=== PATIENT | female | born 1950 | race Caucasian/White ===

== ENCOUNTER 2022-03-18 12:01 | Outpatient (REF) | payer MEDICARE, BC, SELFPAY ==
[2022-03-18 13:42] LABS: Cholesterol 190 mg/dL; HDL Cholesterol 63 mg/dL; LDL Cholesterol Calculated 115 mg/dl; Triglycerides 64 mg/dL
[2022-03-18 13:58] LABS: Estimated Average Glucose 97 mg/dL
== END 2022-03-18 12:02 | disposition home or self-care (01) ==
LOC: HO.LAB 12:01
PROVIDERS: Visit Provider Psychiatry & Neurology Psychiatry
DX: Z79.899 Other long term (current) drug therapy (principal)
CPT/HCPCS: 36415; 80061; 83036

== ENCOUNTER 2023-03-30 12:34 | Inpatient (IN) | payer MEDICARE, BC, SELFPAY ==
[2023-03-30] VITALS (8 sets, daily range): BP systolic 94–136; BP diastolic 47–72; PULSE 71–97; RESP 11–18; TEMP 36.2–36.6; O2SAT 94–100; BMI 21.9
--- NOTE | 2023-03-30 | ECG_ITS ---
Test Reason : qrs Blood Pressure : / mmHG Vent. Rate : 076 BPM Atrial Rate : 076 BPM P-R Int : 154 ms QRS Dur : 122 ms QT Int : 454 ms P-R-T Axes : 062 -15 044 degrees QTc Int : 510 ms Normal sinus rhythm Left bundle branch block Abnormal ECG When compared with ECG of 30-MAR-2023 16:21, No significant change was found Referred By: Rex Pickering Electronically Signed By:MARY MATIAS MD
--- NOTE | 2023-03-30 12:38 | ECG_ITS ---
Test Reason : OVERDOSE Blood Pressure : / mmHG Vent. Rate : 080 BPM Atrial Rate : 080 BPM P-R Int : 152 ms QRS Dur : 134 ms QT Int : 444 ms P-R-T Axes : 051 -25 058 degrees QTc Int : 512 ms Normal sinus rhythm Left bundle branch block Abnormal ECG No previous ECGs available Referred By: Generic ED Physician Electronically Signed By:MARY MATIAS MD
--- NOTE | 2023-03-30 12:40 | ED.GENADULT ---
HPI - General Adult General Chief complaint: Overdose Stated complaint: SEC 12 FROM HOME,SI ATTEMPT BY OD ON RX PER EMS Time Seen by Provider: 03/30/23 12:40 Source: patient and EMS Mode of arrival: EMS Limitations: no limitations History of Present Illness HPI narrative: Patient is a 72 year old assigned female at with a history of bipolar disorder, anxiety, and hypothyroidism presenting to the emergency department today after a suicide attempt. Patient states that she took a total of 10 0.5mg of Lorazepam and an unknown amount of Ziprasidon. Patient states that she was trying to harm herself. Patient denies any HI. Patient denies any dizziness, lightheadedness, abdominal pain, nausea, vomiting, fever, chills, blurry vision, double vision, loss of vision, chest pain, difficulty breathing, shortness of breath, back pain, night sweats, pain with urination, increased urinary frequency, increased urinary urgency, blood in her urine or stool, syncope or a near syncopal episode, recent trauma or falls, bowel incontinence, bladder incontinence, bowel retention, bladder retention, or any other complaints at this time. Onset (ago): minute(s) (patient ingested medications at noon) Relieving factors: none Exacerbating factors: none Associated symptoms: denies other symptoms Treatments prior to arrival: none Related Data Allergies Allergy/AdvReac Type Severity Reaction Status Date / Time atorvastatin [From LIPITOR] Allergy Intermediate PAIN Verified 03/30/23 13:26 Review of Systems Constitutional: Constitutional: Reports no additional constitutional complaints, Denies chills, Denies fever(s) and Denies night sweats Eyes: Eyes: Reports no additional eye complaints, Denies blurry vision, Denies change in vision, Denies diplopia, Denies eye discharge, Denies loss of vision and Denies eye pain ENT: Denies dizziness Cardiovascular: Cardiovascular: Reports no additional cardiovascular complaints, Denies chest pain, Denies lightheadedness, Denies Loss of Consciousness and Denies dyspnea Respiratory: Respiratory: Reports no additional respiratory complaints and Denies dyspnea Gastrointestinal: Gastrointestinal: Reports no additional gastrointestinal complaints, Denies abdominal pain, Denies melena, Denies hematochezia, Denies change in bowel habits and Denies change in stool character Genitourinary: Genitourinary: Denies hematuria, Denies urinary frequency, Denies dysuria, Denies urinary incontinence, Denies urinary hesitancy and Denies urinary urgency Musculoskeletal: Musculoskeletal: Reports no additional musculoskeletal complaints, Denies numbness and Denies tingling Neurologic: Denies dizziness, Denies loss of vision, Denies numbness and Denies tingling Psychiatric: Psychiatric: Denies homicidal ideation and Reports suicidal ideation Endocrine: Endocrine: Reports no additional endocrine complaints Hematologic/Lymphatic: Hematologic/Lymphatic: Reports no additional hematologic/lymphatic complaints Allergic/Immunologic: Allergic/Immunologic: Reports no additional allergic/immunologic complaints PMFSH Past Medical History Attestation statement: The following information was validated with the patient. Source: old records reviewed and nursing notes reviewed Medical History Uterine fibroid Spinal stenosis of lumbar region Sleep apnea Irritable bowel syndrome Hypothyroidism Hyperlipidemia Functional bowel disorder (08/30/22) Dyspepsia (04/27/22) Bipolar disorder (03/14/23) Anxiety disorder (02/16/21) Social History Advance Directives: No Advance Directives Information Provided: No Physical Exam ED Vital Signs: Vital Signs - 24 hr 03/30/23 12:40 03/30/23 13:23 03/30/23 13:54 Temperature 97.9 F Pulse Rate 79 93 85 Respiratory Rate 18 11 L 13 Blood Pressure 119/63 136/67 94/47 L Pulse Oximetry 95 98 Oxygen Delivery Method Room Air Room Air 03/30/23 14:23 Temperature Pulse Rate 85 Respiratory Rate 12 Blood Pressure 126/65 Pulse Oximetry 98 Oxygen Delivery Method Room Air BMI result Body Mass Index 21.9 Const General: cooperative, no acute distress, alert and awake Nutritional Appearance: well nourished Orientation/consciousness: patient oriented x3 Limitations: no limitations HENMT Head: Yes normal to inspection and Yes atraumatic Ears: hearing grossly normal bilaterally and external ears normal General nose exam: Normal external nose present, no nasal discharge noted and no epistaxis Face and sinus: Yes normal facial exam, No abrasion and No laceration Mouth: Normal oral and palatal mucosa present, no drooling and no muffled voice Eyes General: appearance normal, both eyes and all related structures Periorbital: periorbital findings normal Eyelids: Yes eyelids normal Conjunctivae: conjunctivae normal Pupils: Equal, round and reactive pupils present EOM: EOMs intact bilaterally Neck Neck: Yes normal visual inspection, Yes full ROM and Yes no lymphadenopathy Chest Chest palpation & inspection: normal inspection of the chest Resp Effort & Inspection: normal respiratory effort and able to speak in complete sentences Auscultation: clear to auscultation bilaterally Cardio Rate: regular rate Rhythm: regular rhythm GI Inspection: Yes normal to inspection Neuro General: patient oriented x3 and moves all extremities Cranial nerves: Yes Equal, round and reactive pupils present Cognition (Neuro): normal cognition Motor exam (neuro): 5/5 motor strength present throughout Sensory Exam: Normal double simultaneous stimulation for sensation Coordination: [id number] test normal Extrem General: Yes normal to inspection, Yes full ROM and Yes capillary refill normal Psych Appearance: grossly normal Mental Status: mental status grossly normal Affect: Sad affect present Attitude: Guarded attititude/behavior present Thought content: Suicidality present Course Course Course Narrative: Poison control was contacted and recommended keeping the patient's potassium above 4, keep magnesium above 2, performing 2 hour repeat EKGs, checking a magnesium level, and checking a phosphorus level. Medications Administered Discontinued Medications Generic Name Dose Route Start Last Admin Trade Name Freq PRN Reason Stop Dose Admin Charcoal 50 gm 03/30/23 12:58 03/30/23 13:08 Activated Charcoal 50 Gm/240 Ml Oral.Susp PO 03/30/23 12:59 50 gm ONCE ONE Administration Sodium Chloride 1,000 mls @ 999 mls/hr 03/30/23 13:30 03/30/23 13:36 Ns IV 03/30/23 14:30 999 mls/hr .[facility]1H1M [facility] Administration Medical Decision Making Medical Decision Making [facility] Narrative: Patient is a 72 year old assigned female at with a history of bipolar disorder, anxiety, and hypothyroidism presenting to the emergency department today after an intentional overdose. Patient's physical exam showed an arousable but sleepy individual. Patient was immediately given activated charcoal of which she drank all of it. Patient's blood work was unremarkable. Patient's initial and 2 hour repeat EKGs were unremarkable. Spoke with poision control who recommended seizure precautions, repeat EKGs every 2 hours, keeping her potassium above 4, keeping her magnesium above 2, and treating any hypotension with IV NS. Patient given 1 liter of NS and 1 gram of magnesium. I spoke with the hospitalist who agreed to admission. I explained my physical exam findings as well as all test results to the patient. I answered all questions asked by the patient. Patient verbalized agreement and understanding with this treatment plan and admission. Differential Diagnosis Differential Diagnoses: The differential diagnosis associated with the presentation includes Intentional overdose Suicidal ideation Suicide attempt Admission/Observation Consideration of admission/observation: Escalation of care including admission/observation considered Patient admitted. Consult Healthcare Provider Management of the patient was discussed with: Hospitalist (agreed to admission) Lab Data MDM Lab Attestation statement: I reviewed the patient's lab results. My interpretation of these studies and their corresponding values is that they are grossly normal. 03/30/23 13:02 03/30/23 13:02 Labs: Lab Results 03/30/23 03/30/23 Range/Units 13:02 13:07 WBC 9.4 (4.8-10.8) X10*3/uL RBC 3.49 L (4.20-5.50) X10*6/uL Hgb 10.0 L (12.0-16.0) g/dl Hct 30.2 L (37.0-47.0) % MCV 86.5 (80.0-98.0) fL MCH 28.7 (27.0-33.0) pg MCHC 33.1 (31.0-35.0) g/dl RDW 13.7 (11.0-16.0) % Plt Count 317 (160-400) X10*3/uL MPV 9.6 (9.4-12.3) fL Immature Gran % (Auto) 0.3 (0.0-0.4) % Neut % (Auto) 53.2 (45-73) % Lymph % (Auto) 39.3 (20-40) % [place]cho % (Auto) 5.7 (2-11) % Eos % (Auto) 1.1 (0-4) % Baso % (Auto) 0.4 (0-2) % Lymph # (Auto) 3.7 (1.2-4.9) X10*3/uL [place] # (Auto) 0.5 (0.1-1.2) X10*3/uL Eos # (Auto) 0.1 (0.0-0.4) X10*3/uL Baso # (Auto) 0.0 (0.0-0.2) X10*3/uL Abs Immat Gran (auto) 0.03 (0.00-0.03) X10*3/uL Absolute Neuts (auto) 5.0 (2.0-8.3) x10*3/uL Absolute Nucleated RBC 0.000 (0.0-0.012) X10*3/uL Nucleated RBC % (auto) 0.0 (0.0-0.2) /100WBC VBG pH 7.44 H (7.32-7.43) VBG pCO2 38 mmHg VBG pO2 66 mmHg VBG HCO3 26 (22-26) mmol/L VBG O2 Saturation 93.0 % VBG Base Excess 2.6 mmol/L Sodium 134 L (135-145) mmol/L Potassium 4.1 (3.3-5.1) mmol/L Chloride 102 (96-108) mmol/L Carbon Dioxide 25 (22-29) mmol/L Anion Gap 11 L (12-20) BUN 30 H (9-16) mg/dL Creatinine 0.87 (0.5-1.4) mg/dL Estim Creat Clear Calc 55.9 Estimated GFR > 60 Random Glucose 92 (60-115) mg/dL Calcium 9.1 (8.4-10.2) mg/dL Phosphorus 3.1 (2.7-4.5) mg/dL Magnesium 2.2 (1.6-2.6) mg/dL Total Bilirubin 0.3 (0.0-1.0) mg/dL AST 25 (5-31) U/L ALT 16 (0-31) U/L Alkaline Phosphatase 98 (39-117) U/L Ammonia 21 (13-55) umol/L Total Protein 7.0 (6.5-8.0) g/dL Albumin 3.9 (3.5-5.0) g/dL Salicylates < 5.0 L (15-30) mg/dL Acetaminophen < 3 (<30) mcg/mL Ethyl Alcohol < 10 mg/dL Independent Interpretation I performed an independent interpretation of an: EKG Interpretation: Vent. Rate: 080 BPM Atrial Rate: 080 BPM P-R Int: 152 ms QRS Dur: 134 ms QT Int: 444 ms P-R-T Axes: 051 -25 058 degrees QTc Int: 512 ms Normal sinus rhythm Left bundle branch block Abnormal ECG No previous ECGs available DD/ 1255 Vent. Rate: 083 BPM Atrial Rate: 083 BPM P-R Int: 164 ms QRS Dur: 140 ms QT Int: 466 ms P-R-T Axes: 051 -16 098 degrees QTc Int: 547 ms Normal sinus rhythm Left bundle branch block Abnormal ECG When compared with ECG of 30-MAR-2023 12:55, No significant change was found DD/ 1422 Independent Historian Clinical information obtained from an independent historian. History obtained from or confirmed by: EMS (EMS provided additional history and confirmed the history provided by the patient.) Critical Care Time Critical Care Time Critical Care Time: Yes Total Critical Care Time: 60 Attestation: I spent 60 minutes of Critical Care Time with this patient. This does not include time spent on separately reported billable procedures. Discharge Plan Discharge Clinical Impression: Overdose Patient Disposition: Admitted As Inpatient
[2023-03-30] MEDS: Activated charcoaL 50 GM/240 ML ORAL.SUSP PO (13:08)
[2023-03-30 13:09] LABS: MANUAL DIFF FLAG NO
[2023-03-30 13:10] LABS: Basophils Percent Auto 0.4 % (0-2); Eosinophils Absolute Auto 0.1 X10*3/uL (0.0-0.4); Eosinophils Percent Auto 1.1 % (0-4); Hematocrit 30.2 % (37.0-47.0); Imm Gran Abs Auto 0.03 X10*3/uL (0.00-0.03); Imm Gran Pct Auto 0.3 % (0.0-0.4); Lymphocytes Absolute Auto 3.7 X10*3/uL (1.2-4.9); Lymphocytes Percent Auto 39.3 % (20-40); Mean Corpuscular HGB Conc 33.1 g/dl (31.0-35.0); Mean Corpuscular Hemoglobin 28.7 pg (27.0-33.0); Mean Corpuscular Volume 86.5 fL (80.0-98.0); Mean Platelet Volume 9.6 fL (9.4-12.3); Monocytes Absolute Auto 0.5 X10*3/uL (0.1-1.2); Monocytes Percent Auto 5.7 % (2-11); Neutrophils Percent Auto 53.2 % (45-73); Platelet Count 317 X10*3/uL (160-400); Red Blood Count 3.49 X10*6/uL (4.20-5.50); Red Cell Distribution Width 13.7 % (11.0-16.0); White Blood Count 9.4 X10*3/uL (4.8-10.8)
[2023-03-30 13:12] LABS: VBG Base Excess 2.6 mmol/L; VBG HCO3 26 mmol/L (22-26); VBG pCO2 38 mmHg; VBG pH 7.44 (7.32-7.43); VBG pO2 66 mmHg
[2023-03-30 13:13] LABS: Venous Blood Gas Refer to POC result
--- OUTSIDE RECORDS SUMMARY | 2023-03-30 13:15 | XMS_ITS | Continuity of Care Document ---
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 Name Role Phone Julito Islas MD Primary Care Physician Encounter [facility] Date(s): 09/16/21 - 10/16/21 [facility] [address] [place] [address]- Attending Physician: Meche Byrd Admitting Physician: Meche Byrd Referring Physician: Meche Byrd Allergies, Adverse Reactions, Alerts Substance Reaction Severity Status Pravachol Active Lipitor Active Immunizations Given and Recorded Vaccine Date Status Refusal Reason SARS-CoV-2 (COVID-19) mRNA BNT-162b2 vac 08/20/20 Recorded SARS-CoV-2 (COVID-19) mRNA BNT-162b2 vac 07/29/20 Recorded influenza virus vaccine, inactivated 1 05/05/11 Gi mariusz Tet/Diphth/Acel, Pertussis (oldterm) 05/21/09 Give n Influenza Virus Vaccine (oldterm) 2 03/29/06 Given 1Admin Note: defers 2Admin Note: [employer] Medications Abilify 5 mg oral tablet See Instructions, one half tablet By Mouth Daily, Refills 0, Maintenance, 09/03/21 16:41:00 EDT, Instructions Replace Required Details, Partial fill upon patient request if the prescription is for a schedule II opioid drug. Start Date: 09/03/21 Status: Ordered chlorzoxazone 500 mg oral tablet 1 tablet = 500 mg, By Mouth, 3 times a day, PRN muscle pain or spasm, # 30 tablet, 1 Refills, Acute06/09/22 14:40:00 EST, 06/09/21 14:40:00 EST, Tablet, [facility]/pharmacy #[id number], Partial fill upon patientrequest if the prescription is for a schedule II op... Start Date: 06/09/21 Stop Date: 06/09/22 Status: Ordered divalproex sodium 500 mg oral tablet, extended release See Instructions, Take 2 tablets daily at night., # 180 tablet, 1 Refills, Soft Stop, 10/21/19 17:34:00 EDT, [facility], 170, cm, 06/10/19 9:14:00 EST, Height, 67.6, kg, 11/06/18 9:35:00 EDT, Dry Weight Start Date: 10/21/19 Status: Ordered docusate sodium 100 mg oral capsule 100 mg, 1, capsule, By Mouth, 2 times a day, PRN, # 60 capsule, Refills 5, Tot. Refills 5, Maintenance, for constipation, 06/23/21 15:20:00 EST, [id number] fill upon patient request if the prescriptio... Start Date: 06/23/21 Status: Ordered escitalopram 10 mg oral tablet 1 tablet = 10 mg, By Mouth, Daily, # 30 tablet, 0 Refills, Maintenance, 02/16/21 14:55:00 EDT, Tablet, Partial fill upon patient request if the prescription is for a schedule II opioid drug. Start Date: 02/16/21 Status: Ordered ezetimibe 10 mg oral tablet 1 tablet, By Mouth, Daily, # 90 tablet, 1 Refills, [facility], 170, cm, 02/22/21 13:12:00 EDT, Height, 61.8, kg, 02/07/20 14:54:00 EDT, Dry Weight Start Date: 06/03/21 Status: Ordered GaviLAX oral powder for reconstitution See Instructions, MIX 17 GRAMS IN 4 TO 8 OUNCES OF WATER AND DRINK DAILY NEEDED FOR CONSTIPATION, # 510 Gm, 5 Refills, [id number], 30, MIX 17 GRAMS IN 4 TO 8 OUNCES OF WATER AND DRINK DAILY NEEDED FOR CONSTIPATION, 170, cm, 07/21/21 14:41:0... Start Date: 07/22/21 Status: Ordered ketoconazole 2% topical cream 1 application, Topically, Daily, PRN foot rash, # 30 Gm, 2 Refills, Acute 10/22/21 8:35:00 EDT, 10/22/20 8:35:00 EDT, Cream, [facility]/pharmacy #[id number], Partial fill upon patient request if the prescription is for a schedule II opioid drug., 1 application Top... Start Date: 10/22/20 Stop Date: 10/22/21 Status: Ordered Lasix 20 mg oral tablet 20 mg, 1, tablet, By Mouth, Daily, # 90 tablet, Refills 3, Tot. Refills 3, Maintenance, 09/13/21 16:14:00 EDT, Route to Pharmacy Electronically, [facility]/pharmacy #[id number], Partial fill upon patient request if the prescription is for a schedule II opioid drug... Start Date: 09/13/21 Stop Date: 09/08/22 Status: Ordered LORazepam 1 mg oral tablet 1 tablet = 1 mg, By Mouth, Daily, PRN as needed for anxiety, 0 Refills, Maintenance, 07/21/21 15:00:00 EDT, Tablet, Partial fill upon patient request if the prescription is for a schedule II opioid drug. Start Date: 07/21/21 Status: Ordered omeprazole 20 mg oral enteric coated capsule 1 capsule = 20 mg, By Mouth, 2 times a day, # 60 each, 5 Refills, Maintenance, 06/15/21 11:38:00 EST, EC Capsule, [facility]/pharmacy #[id number], dose increase, 170, cm, 02/22/21 13:12:00 EDT, Height, 61.8, kg, 02/07/20 14:54:00 EDT, Dry Weight Start Date: 06/15/21 Status: Ordered ondansetron 4 mg oral tablet, disintegrating 1 tablet = 4 mg, By Mouth, Every 6 hours, PRN Nausea & Vomiting, # 30 each, 1 Refills, Acute 07/21/22 14:57:00 EDT, 07/21/21 14:57:00 EDT, Tablet, [facility]/pharmacy #[id number], Partial fill upon patient request if the prescription is for a schedule II opioid dr... Start Date: 07/21/21 Stop Date: 07/21/22 Status: Ordered Splint See Instructions, # 1 each, Refills 0, Tot. Refills 0, Maintenance, right wrist every night, 06/01/11 14:34:47 Start Date: 06/01/11 Status: Ordered Synthroid 0.125 mg oral tablet 1 tablet, By Mouth, Daily, # 90 tablet, 3 Refills, 05/25/21 8:45:00 EST, [facility], 170, cm, 02/22/21 13:12:00 EDT, Height, 61.8, kg, 02/07/20 14:54:00 EDT, Dry Weight Start Date: 05/25/21 Status: Ordered Vitamin B Complex oral tablet, extended release 1 tablet, By Mouth, Daily, 0 Refills, Maintenance, 08/21/17 9:42:08 EDT Start Date: 08/21/17 Status: Ordered Problem List Condition Effective Dates Status Health Status Inform ant COVID-19 virus infection(Confirmed) Active Gastritis(Confirmed) Active Hematuria(Confirmed) Active Hyperlipidemia(Confirmed) Active Hypothyroidism(Confirmed) Active Polyp of colon(Confirmed) Active Sleep apnea(Confirmed) Active Spinal stenosis of lumbar region(Confirmed) Active Uterine fibroids(Confirmed) Active Social History Social History Type Response Smoking Status Former smoker; Tobac co user in household: No entered on: 09/05/13 Sex
--- OUTSIDE RECORDS SUMMARY | 2023-03-30 13:15 | XMS_ITS | Continuity of Care Document ---
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 Name Role Phone Roshan DOZIER, Julito Dias Primary Care Physician [place] [facility] [place] [facility] [address] [place] [place] [address] All[facility]ies, Adverse Reactions, Alerts Substance Reaction Severity Status Pravachol Active Lipitor Active Immunizations Given and Recorded Vaccine Date Status Refusal Reason [id number] 12y+ bivalent booster vax 02/01/22 Recorded SARS-CoV-2 (COVID-19) mRNA-1273 vaccine 08/04/21 R ecorded SARS-CoV-2 (COVID-19) mRNA-1273 vaccine 03/04/21 R ecorded SARS-CoV-2 (COVID-19) mRNA BNT-162b2 vac 08/20/20 Recorded SARS-CoV-2 (COVID-19) mRNA BNT-162b2 vac 07/29/20 Recorded influenza virus vaccine, inactivated 1 05/05/11 Gi mariusz Tet/Diphth/Acel, Pertussis (oldterm) 05/21/09 Give n Influenza Virus Vaccine (oldterm) 2 03/29/06 Given 1Admin Note: defers 2Admin Note: [employer] Medications divalproex sodium 500 mg oral tablet, extended release See Instructions, Take 2 tablets daily at night., # 180 tablet, 1 Refills, Soft Stop, 10/21/19 17:34:00 EDT, [facility], 170, cm, 06/10/19 9:14:00 EST, Height, 67.6, kg, 11/06/18 9:35:00 EDT, Dry Weight Start Date: 10/21/19 Status: Ordered docusate sodium 100 mg oral capsule 100 mg, 1, capsule, By Mouth, 2 times a day, PRN, # 60 capsule, Refills 5, Tot. Refills 5, Maintenance, for constipation, 06/23/21 15:20:00 EST, Route to Pharmacy Electronically, [facility]/pharmacy #[id number], Partial fill upon patient request if the prescriptio... Start Date: 06/23/21 Status: Ordered ezetimibe 10 mg oral tablet 1 tablet, By Mouth, Daily, # 90 tablet, 1 Refills, [facility], 170, cm, 11/02/21 14:03:00 EDT, Height, 72.7, kg, 07/11/21 16:17:00 EST, Dry Weight Start Date: 11/09/21 Status: Ordered GaviLAX oral powder for reconstitution See Instructions, MIX 17 GRAMS IN 4 TO 8 OUNCES OF WATER AND DRINK DAILY NEEDED FOR CONSTIPATION, # 510 Gm, 5 Refills, [id number], 30, MIX 17 GRAMS IN 4 TO 8 OUNCES OF WATER AND DRINK DAILY NEEDED FOR CONSTIPATION, 170, cm, 07/21/21 14:41:0... Start Date: 07/22/21 Status: Ordered Geodon 40 mg oral capsule See Instructions, 1 capsule By Mouth daily at noontime, 0 Refills, Maintenance, 06/13/22 13:14:00 EST, Partial fill upon patient request if the prescription is for a schedule II opioid drug. Start Date: 06/13/22 Status: Ordered Lasix 20 mg oral tablet 20 mg, 1, tablet, By Mouth, Daily, # 90 tablet, Refills 3, Tot. Refills 3, Maintenance, 09/13/21 16:14:00 EDT, Route to Pharmacy Electronically, [facility]/pharmacy #[id number], Partial fill upon patient request if [...] day, # 60 each, 5 Refills, Maintenance, 04/27/22 16:12:00 EST, EC Capsule, [facility]/pharmacy #[id number], dose increase, 170, cm, 04/27/22 15:49:00 EST, Height, 72.7, kg, 07/11/21 16:17:00 EST, Dry Weight Start Date: 04/27/22 Status: Ordered Splint See Instructions, # 1 each, Refills 0, Tot. Refills 0, Maintenance, right wrist every night, 06/01/11 14:34:47 Start Date: 06/01/11 Status: Ordered sucralfate 1 gm oral tablet See Instructions, 1 tablet By Mouth 2 times a day before lunch and bedtime, # 60 each, Refills 5, Tot. Refills 5, Maintenance, 07/04/22 12:20:00 EST, Instructions Replace Required Details, [id number]... Start Date: 07/04/22 Status: Ordered Synthroid 0.125 mg oral tablet 1 tablet, By Mouth, Daily, # 90 tablet, 1 Refills, Maintenance, 03/10/22 7:13:00 EDT, [facility], 170, cm, 12/17/21 13:41:00 EDT, Height, 72.7, kg, 07/11/21 16:17:00 EST, Dry Weight Start Date: 03/10/22 Status: Ordered venlafaxine 150 mg oral capsule, extended release 150 mg, 1, capsule, By Mouth, Daily, Refills 0, Maintenance, 11/02/21 14:12:00 EDT, Partial fill upon patient request if the prescription is for a schedule II opioid drug. Start Date: 11/02/21 Status: Ordered Vitamin B Complex oral tablet, extended release 1 tablet, By Mouth, Daily, 0 Refills, Maintenance, 08/21/17 9:42:08 EDT Start Date: 08/21/17 Status: Ordered Problem List Condition Confirmation Course Effective Dates Status H ealth Status Informant COVID-19 virus infection Confirmed Active Gastritis Confirmed Active Hematuria Confirmed Active Hyperlipidemia Confirmed Active Hypothyroidism Confirmed Active Polyp of colon Confirmed Active Sleep apnea Confirmed Active Spinal stenosis of lumbar region Confirmed Active Uterine fibroids Confirmed Active Social History Social History Type Response Smoking Status Former smoker; Tobac co user in household: No entered on: 09/05/13 Sex Patient Care team information Care Team Personnel Name: Julito Islas MD Position: S Primary Care Physician Member Role: PCP Address: Address: [address] [place] [address] Adult [place] [address]- Care Team Related Persons Name: BHUPENDRA SAM Address: home [address] [place] [address] Name: ED TURPIN Address: home [address] [place] [address]
--- OUTSIDE RECORDS SUMMARY | 2023-03-30 13:15 | XMS_ITS | Continuity of Care Document ---
Author Name Unknown Organization [facility] Address [address] [place] [address]- Care Team Providers Care Home Office Claim Specialist Name Role Phone Julito Islas MD Primary Care Physician Encounter [facility] [place] Date(s): 08/30/22 - 09/06/22 [facility] [address] [place], [place] [address] Encounter Diagnosis Functional bowel disorder(Discharge Diagnosis) - 08/30/22 Attending Physician: Julito Islas MD Allergies, Adverse Reactions, Alerts Substance Reaction Severity Status Pravachol Active Lipitor Active Immunizations Given and Recorded Vaccine Date Status Refusal Reason [id number] 12y+ bivalent booster vax 02/01/22 Recorded SARS-CoV-2 [...] 1 Refills, Soft Stop, 10/21/19 17:34:00 EDT, [facility], 170, cm, 06/10/19 9:14:00 EST, Height, 67.6, kg, 11/06/18 9:35:00 EDT, Dry Weight Start Date: 10/21/19 Status: Ordered docusate sodium 100 mg oral capsule 100 mg, 1, capsule, By Mouth, 2 times a day, PRN, # 60 capsule, Refills 5, Tot. Refills 5, Maintenance, for constipation, 06/23/21 15:20:00 EST, Route to Pharmacy Electronically, [facility]/pharmacy #[id number], Partial fill upon patient request if the prescriptio... Start Date: 06/23/21 Status: Ordered ezetimibe 10 mg oral tablet 1 tablet, By Mouth, Daily, # 90 tablet, 1 Refills, [facility], 170, cm, 11/02/21 14:03:00 EDT, Height, 72.7, kg, 07/11/21 16:17:00 EST, Dry Weight Start Date: 11/09/21 Status: Ordered furosemide 20 mg oral tablet 1, tablet, By Mouth, Daily, # 90 tablet, Refills 1, Maintenance, 08/18/22 19:50:00 EDT, Route to Pharmacy Electronically, [id number], 170, cm, 07/04/22 11:47:00 EST, Height, 72.7, kg, 07/11/21 16:17:00 EST, Dry Weight Start Date: 08/18/22 Status: Ordered GaviLAX oral powder for reconstitution See Instructions, MIX 17 GRAMS IN 4 TO 8 OUNCES OF WATER AND DRINK DAILY NEEDED FOR CONSTIPATION, # 510 Gm, 5 Refills, [id number], 30, MIX 17 GRAMS IN 4 TO [...] opioid drug. Start Date: 06/13/22 Status: Ordered LORazepam 1 mg oral tablet 1 tablet = 1 mg, By Mouth, Daily, PRN as needed for anxiety, 0 Refills, Maintenance, 07/21/21 15:00:00 EDT, Tablet, Partial fill upon patient request if the prescription is for a schedule II opioid drug. Start Date: 07/21/21 Status: Ordered Metamucil 3.4 gm/5.2 gm oral powder for reconstitution = 3.4 Gm, By Mouth, Daily, dissolve in 8 oz of fluid, # 283 Gm, 1 Refills, Acute 08/31/23 11:42:00 EDT, 08/30/22 11:41:00 EDT, [facility]/pharmacy #[id number], Partial fill upon patient request if the prescription is for a schedule II opioid drug., 170, cm, 07/04/... Start Date: 08/30/22 Stop Date: 08/31/23 Status: Ordered omeprazole 20 mg oral enteric coated capsule 1 capsule = 20 mg, By Mouth, 2 times a day, # 60 each, 5 Refills, Maintenance, 04/27/22 16:12:00 EST, EC Capsule, [facility]/pharmacy #[id number], dose increase, 170, cm, 04/27/22 15:49:00 EST, Height, 72.7, kg, 07/11/21 16:17:00 EST, Dry Weight Start Date: 04/27/22 Status: Ordered Splint See Instructions, # 1 each, Refills 0, Tot. Refills 0, Maintenance, right wrist every night, 06/01/11 14:34:47 Start Date: 06/01/11 Status: Ordered sucralfate 1 gm oral tablet See Instructions, 2 tablet By Mouth 2 times a day before lunch and bedtime, # 120 each, Refills 5, Tot. Refills 5, Maintenance, 08/11/22 15:13:00 EDT, Instructions Replace Required Details, [id number]... Start Date: 08/11/22 Status: Ordered Synthroid 0.125 mg oral tablet 1 tablet, By Mouth, Daily, # 90 tablet, 1 Refills, Maintenance, 03/10/22 7:13:00 EDT, [facility], 170, cm, 12/17/21 13:41:00 EDT, Height, [...] region Confirmed Active Uterine fibroids Confirmed Active Diagnosis Diagnosis Type Effective Dates Health Status Clinical Service Informant Functional bowel disorder Discharge Diagnosis 08/30/22 Vital Signs Most recent to oldest [Reference Range]: 1 Height 170 cm (08/30/22 11:45 AM) Weight 69.09 kg (08/30/22 11:45 AM) Oxygen Saturation [94-100 %] 99 % (08/30/22 11:45 AM) Pulse Rate [55-90 bpm] 89 bpm (08/30/22 11:45 AM) Body Mass Index [18.5-24.99 kg/m2] 23.91 kg/m2 (08/30/22 11:45 AM) Blood Pressure [90-138/55-84 mm Hg] 132/ 77mm Hg (08/30/22 11:45 AM) Mode of Delivery (Oxygen) Room air (08/30/22 11:45 AM) Blood pressure sites Arm, right (08/30/22 11:45 AM) Weight Obtained Via Standing scale (08/30/22 11:45 AM) Social History Social History Type Response Smoking Status Former smoker; Tobac co user in household: No entered on: 09/05/13 Sex Note * Kelly Hua: PERFORM, SIGN, VERIFY Event Display: Patient Education/Instruction Authored Date: [id number] [facility] *[facility] Clinical Summary Name DAMIAN NAYAK Age 71 Years 1950 PCP Roshan DOZIER, Julito Dias PCP Visit Date 08/30/2022 11:20:00 Patient Instructions stress management; avoid high sugar/high fat foods; try metamucil one scoop in??juice or water daily; call if your bowel symptoms continue Additional Instructions: Scheduled Appointments?? Future Appointments ?No Future Appointments Scheduled Follow-Up Instructions ?? Diagnosis Medications: Please continue your medications until treatment is completed or stopped by your provider. Discuss any questions related to medications with your provider. New Medications [facility]/pharmacy #[id number], [address] [place] [phone], [phone] Psyllium (Metamucil 3.4 gm/5.2 gm oral powder for reconstitution) 3.4 gram Oral Daily. dissolve in 8 oz of fluid. Refills: 1. Next Dose: Medications to Continue with No Changes These medications were not printed or sent to your pharmacy Divalproex Sodium (divalproex sodium 500 mg oral tablet, extended release) Take 2 tablets daily at night.. Refills: 1. Next Dose: Docusate (docusate sodium 100 mg oral capsule) 1 capsule Oral twice a day as needed for constipation. Refills: 5. Next Dose: Durable Medical Equipment (Splint) right wrist every night. Refills: 0. Next Dose: Ezetimibe (ezetimibe 10 mg oral tablet) 1 tab(s) Oral Daily. Refills: 1. Next Dose: Furosemide (furosemide 20 mg oral tablet) 1 tab(s) Oral Daily. Refills: 1. Next Dose: Levothyroxine (Synthroid 0.125 mg oral tablet) 1 tab(s) Oral Daily. Refills: 1. Next Dose: Lorazepam (LORazepam 1 mg oral tablet) 1 tab(s) Oral Daily as needed as needed for anxiety. Next Dose: Multivitamin (Vitamin B Complex oral tablet, extended release) 1 tab(s) Oral Daily. Next Dose: Omeprazole (omeprazole 20 mg oral enteric coated capsule) 1 capsule Oral twice a day. Refills: 5. Next Dose: Polyethylene Glycol 3350 (GaviLAX oral powder for reconstitution) MIX 17 GRAMS IN 4 TO 8 OUNCES OF WATER AND DRINK DAILY NEEDED FOR CONSTIPATION. Refills: 5. Next Dose: Sucralfate (sucralfate 1 gm oral tablet) 2 tablet By Mouth 2 times a day before lunch and bedtime. Refills: 5. Next Dose: Venlafaxine (venlafaxine 150 mg oral capsule, extended release) 1 capsule Oral Daily. Next Dose: Ziprasidone (Geodon 40 mg oral capsule) 1 capsule By Mouth daily at noontime. Next Dose: Allergy Info:?? Lipitor; Pravachol Medications Given This Visit Future Orders ?No future orders Vital Signs Height Weight BMI Blood Pressure / Temperature Pulse Rate Respiratory Rate 02 Sat Mode of Delivery / You can now view a summary of your hospital visit from the comfort of your home through a free online portal called [employer]. [employer] is a website that allows you to securely view your medical information including discharge summary, medications and follow-up visits. ??You can alsosend a secure electronic message to your doctor???s office to request appointments, renew medications or just ask a question. You can enroll at [email or web address] or register during your next office visit. Disclaimer:?? The information provided is of a general nature and is intended to be used in conjunction with the recommendations and advice of your health care practitioner. ??Every effort has been made to ensure that the information provided is accurate and complete at the time it is provided to you however, as your needs change, or, as new ??information becomes available, different or additional instructions may be required. If you have questions, please consult with your primary care provider or pharmacist, as appropriate. ??This information is not intended to serve as substitution for assessment and evaluation by a qualified health care provider. If you do not have a primary care provider, you may find a [facility] provider by calling [facility] Link at [phone]. For information about the plan of care including goals and instructions for your diagnosis, please see the patient education orders section of this document. Patient Education Materials?? The content of this educational material or handout may have been modified, supplemented, or adapted from its original content and format to support your individualized medical care. Patient Care team information Care Team Personnel Name: Julito Islas MD Position: [facility] Primary Care Physician Member Role: PCP Address: Address: [address] [place] [address] Adult [place] [address]- Care Team Related Persons Name: BHUPENDRA SAM Address: home [address] [facility] [place] [address] Name: ED TURPIN Address: home [address] [place] [address]
--- OUTSIDE RECORDS SUMMARY | 2023-03-30 13:15 | XMS_ITS | Continuity of Care Document ---
Author Name Unknown Organization [facility] Address [address] [place] [address]- Care Team Providers Care Technology Advisor Name Role Phone Julito Islas MD Primary Care Physician Encounter [facility] [place] Date(s): 12/19/22 - 01/18/23 [facility] [address] [place], [place] [address] Allergies, Adverse Reactions, Alerts Substance Reaction Severity Status Pravachol Active Lipitor Active Immunizations Given and Recorded Vaccine Date Status Refusal Reason [id number] 12y+ bivalent booster vax 02/01/22 Recorded SARS-CoV-2 [...] defers 2Admin Note: [employer] Medications docusate sodium 100 mg oral capsule 100 mg, 1, capsule, By Mouth, 2 times a day, PRN, # 60 capsule, Refills 5, Tot. Refills 5, Maintenance, for constipation, 06/23/21 15:20:00 EST, Route to Pharmacy Electronically, [facility]/pharmacy #[id number], Partial fill upon patient request if the prescriptio... Start Date: 06/23/21 Status: Ordered ezetimibe 10 mg oral tablet 1 tablet, By Mouth, Daily, # 90 tablet, 1 Refills, 12/29/22 11:43:00 EDT, [facility]/pharmacy #[id number], 170, cm, 12/12/22 13:20:00 EDT, Height, 72.7, kg, 07/11/21 16:17:00 EST, Dry Weight Start Date: 12/29/22 Status: Ordered furosemide 20 mg oral tablet 1, tablet, By Mouth, Daily, # 90 tablet, Refills 1, Maintenance, 08/18/22 19:50:00 EDT, Route to Pharmacy Electronically, [id number], 170, cm, 07/04/22 11:47:00 EST, Height, 72.7, kg, 07/11/21 16:17:00 EST, Dry Weight Start Date: 08/18/22 Status: Ordered GaviLAX oral powder for reconstitution See Instructions, MIX 17 GRAMS IN 4 TO 8 OUNCES OF WATER AND DRINK DAILY NEEDED FOR CONSTIPATION, # 510 Gm, 5 Refills, [id number], 30, MIX 17 GRAMS IN 4 TO [...] opioid drug. Start Date: 06/13/22 Status: Ordered lamotrigine 100 mg oral tablet 100 mg, 1, tablet, By Mouth, Daily, Refills 0, Maintenance, 12/12/22 13:15:00 EDT, Partial fill upon patient request if the prescription is for a schedule II opioid drug. Start Date: 12/12/22 Status: Ordered LORazepam 1 mg oral tablet 1 tablet = 1 mg, By Mouth, Daily, PRN as needed for anxiety, 0 Refills, Maintenance, 07/21/21 15:00:00 EDT, Tablet, Partial fill upon patient request if the prescription is for a schedule II opioid drug. Start Date: 07/21/21 Status: Ordered meclizine 12.5 mg oral tablet 1 tablet = 12.5 mg, By Mouth, 3 times a day, PRN for nausea/vomiting, # 30 tablet, 1 Refills, Acute12/03/23 16:49:00 EDT, 12/02/22 16:49:00 EDT, Tablet, [facility]/pharmacy #[id number], Partial fill upon patientrequest if the prescription is for a schedule II op... Start Date: 12/02/22 Stop Date: 12/03/23 Status: Ordered Metamucil 3.4 gm/5.2 gm oral powder for reconstitution = 3.4 Gm, By Mouth, Daily, dissolve in 8 oz of fluid, # 283 Gm, 1 Refills, Acute 08/31/23 11:42:00 EDT, 08/30/22 11:41:00 EDT, [facility]/pharmacy #[id number], Partial fill upon patient request if the prescription is for a schedule II opioid drug., 170, cm, ... Start Date: 08/30/22 Stop Date: 08/31/23 Status: Ordered omeprazole 20 mg oral enteric coated capsule 1 capsule = 20 mg, By Mouth, 2 times a day, # 60 each, 5 Refills, Maintenance, 12/12/22 13:09:00 EDT, EC Capsule, [facility]/pharmacy #[id number], dose increase, 170, cm, 12/12/22 13:08:00 EDT, Height, 72.7, kg, 07/11/21 16:17:00 EST, Dry Weight Start Date: 12/12/22 Status: Ordered Splint See Instructions, # 1 [...] Replace Required Details, Route to Pharmacy Electronically, [facility]/pharmacy #[id number], Partial... Start Date: 08/11/22 Status: Ordered Synthroid 0.125 mg oral tablet 1 tablet, By Mouth, Daily, as a single daily dose before breakfast no substitution, # 90 tablet, 3 Refills, Maintenance, 12/20/22 14:23:00 EDT, [facility]/pharmacy #[id number], 170, cm, 12/12/22 13:20:00 EDT, Height, 72.7, kg, 07/11/21 16:17:00 EST, Dry Weight Start Date: 12/20/22 Stop Date: 12/15/23 Status: Ordered venlafaxine 150 mg oral capsule, [...] Active Hyperlipidemia Confirmed Active Hypothyroidism Confirmed Active Irritable bowel syndrome Confirmed Active Polyp of colon Confirmed Active Sleep apnea Confirmed Active Spinal stenosis of lumbar region Confirmed Active Uterine fibroids Confirmed Active Social History Social History Type Response Smoking Status Former smoker; Tobac co user in household: No entered on: 09/05/13 Sex Patient Care team information Care Team Personnel Name: Julito Islas MD Position: S Physician - Primary Care Member Role: PCP Address: Address: [address] [place] [address] Adult & [place] [address]- Care Team Related Persons Name: BHUPENDRA SAM Address: home [address] [facility] [address] [place] [address] Name: ED TURPIN Address: [address] [place] [address]
--- OUTSIDE RECORDS SUMMARY | 2023-03-30 13:15 | XMS_ITS | Continuity of Care Document ---
Author Name Unknown Organization [facility] ter Address [address] [place] [address]- Care Team Providers Care Senior Information Systems Architect Name Role Phone Roshan DOZIER, Julito Dias Primary Care Physician [phone] Encounter [facility] [place] Date(s): 06/10/19 - 06/10/[address] [address]- [facility] Attending Physician: Gifty Sanabria Allergies, Adverse Reactions, Alerts Substance Reaction Severity Status Pravachol Active Lipitor Active Immunizations Given and Recorded Vaccine Date Status Refusal Reason influenza virus vaccine, inactivated 1 05/05/11 Gi mariusz Tet/Diphth/Acel, Pertussis (oldterm) 05/21/09 Give n Influenza Virus Vaccine (oldterm) 2 03/29/06 Given 1Admin Note: defers 2Admin Note: [employer] Medications Biotene Moisturizing Mouth [place] 1 sprays, By Mouth, 6 times a day, PRN dry mouth, 0 Refills, Maintenance, 11/06/18 9:43:24 EDT Start Date: 11/06/18 Status: Ordered divalproex sodium 500 mg oral tablet, extended release See Instructions, Take 2 tablets daily at night., # 180 tablet, 1 Refills, Soft Stop, 04/10/19 16:32:57 EST, 170, cm, 12/17/18 9:45:10 EDT, Height, 67.6, kg, 11/06/18 9:35:14 EDT, Dry Weight Start Date: 04/10/19 Status: Ordered ezetimibe 10 mg oral tablet See Instructions, TAKE 1 TABLET DAILY, # 90 tablet, 3 Refills, Soft Stop, 06/10/19 9:27:00 EST, [facility], 170, cm, 06/10/19 9:14:00 EST, Height, 67.6, kg, 11/06/18 9:35:00 EDT, Dry Weight Start Date: 06/10/19 Status: Ordered Geodon 40 mg oral capsule See Instructions, One capsule daily after lunch., # 90 capsule, 1 Refills, Maintenance, 04/10/19 16:29:58 EST, Pleaase disregard the Geodon order from 06/07/2018., 170, cm, 12/17/18 9:45:10 EDT, Height, 67.6, kg, 11/06/18 9:35:14 EDT, Dry Weight Start Date: 04/10/19 Status: Ordered Splint See Instructions, # 1 each, Refills 0, Tot. Refills 0, Maintenance, right wrist every night, 06/01/11 14:34:47 Start Date: 06/01/11 Status: Ordered Synthroid 0.1 mg oral tablet 1 tablet = 100 mcg, By Mouth, Daily, # 90 tablet, 3 Refills, Maintenance, 06/10/19 9:27:00 EST, Tablet, [facility], 170, cm, 06/10/19 9:14:00 EST, Height, 67.6, kg, 11/06/18 9:35:00 EDT, Dry Weight Start Date: 06/10/19 Stop Date: 06/04/20 Status: Ordered venlafaxine 150 mg oral capsule, extended release See Instructions, # 90 capsule, Refills 1 Tot. Refills 1, TAKE 1 CAPSULE DAILY, [facility] Start Date: 03/06/19 Status: Ordered Vitamin B Complex oral tablet, extended release 1 tablet, By Mouth, Daily, 0 Refills, Maintenance, 08/21/17 9:42:08 EDT Start Date: 08/21/17 Status: Ordered Problem List Condition Effective Dates Status Health Status Inform ant Gastritis(Confirmed) Active Hematuria(Confirmed) Active Hyperlipidemia(Confirmed) Active Hypothyroidism(Confirmed) Active Polyp of colon(Confirmed) Active Sleep apnea(Confirmed) Active Spinal stenosis of lumbar region(Confirmed) Active Uterine fibroids(Confirmed) Active Social History Social History Type Response Smoking Status Former smoker; Tobac co user in household: No entered on: 09/05/13 Sex
--- OUTSIDE RECORDS SUMMARY | 2023-03-30 13:15 | XMS_ITS | Continuity of Care Document ---
Author Name Unknown Organization [facility] Address [address] [place] [address]- Care Team Providers Care Eye Care Professional Name Role Phone Julito Islas MD Primary Care Physician [phone] Encounter [facility] [place] Date(s): 11/07/22 - 12/07/22 [facility] [address] [place], [place] [address] Attending Physician: Admtr, Ar8 Allergies, Adverse Reactions, Alerts Substance Reaction Severity Status Pravachol Active Lipitor Active Immunizations Given and Recorded Vaccine Date Status Refusal Reason [id number] 12y+ bivalent booster vax 02/01/22 Recorded SARS-CoV-2 [...] 1 Refills, Soft Stop, 10/21/19 17:34:00 EDT, [facility], 170, cm, 06/10/19 9:14:00 EST, Height, 67.6, kg, 11/06/18 9:35:00 EDT, Dry Weight Start Date: 10/21/19 Status: Ordered docusate sodium 100 mg oral capsule 100 mg, 1, capsule, By Mouth, 2 times a day, PRN, # 60 capsule, Refills 5, Tot. Refills 5, Maintenance, for constipation, 06/23/21 15:20:00 EST, Route to Pharmacy Electronically, [facility]/pharmacy #[id number], Partial fill upon patient request if [...] 08/18/22 19:50:00 EDT, Route to Pharmacy Electronically, [id number], 170, cm, 07/04/22 11:47:00 EST, Height, 72.7, kg, 07/11/21 16:17:00 EST, Dry Weight Start Date: 08/18/22 Status: Ordered GaviLAX oral powder for reconstitution See Instructions, MIX 17 GRAMS IN 4 TO 8 OUNCES OF WATER AND DRINK DAILY NEEDED FOR CONSTIPATION, # 510 Gm, 5 Refills, [id number], 30, MIX 17 GRAMS IN 4 TO [...] Acute12/03/23 16:49:00 EDT, 12/02/22 16:49:00 EDT, Tablet, [facility]/pharmacy #[id number], Partial fill upon patientrequest if the prescription is for a schedule II op... Start Date: 12/02/22 Stop Date: 12/03/23 Status: Ordered Metamucil 3.4 gm/5.2 gm oral powder for reconstitution = 3.4 Gm, By Mouth, Daily, dissolve in 8 oz of fluid, # 283 Gm, 1 Refills, Acute 08/31/23 11:42:00 EDT, 08/30/22 11:41:00 EDT, [facility]/pharmacy #[id number], Partial fill upon patient request if the prescription is for a schedule II opioid drug., 170, cm, 07/04/... Start Date: 08/30/22 Stop Date: 08/31/23 Status: Ordered omeprazole 20 mg oral enteric coated capsule 1 capsule = 20 mg, By Mouth, 2 times a day, # 60 each, 5 Refills, Maintenance, 04/27/22 16:12:00 EST, EC Capsule, [facility]/pharmacy #[id number], dose increase, 170, cm, 04/27/22 15:49:00 [...] Replace Required Details, Route to Pharmacy Electronically, [facility]/pharmacy #[id number], Partial... Start Date: 08/11/22 Status: Ordered Synthroid 0.125 mg oral tablet 1 tablet, By Mouth, Daily, # 90 tablet, 1 Refills, Maintenance, 03/10/22 7:13:00 EDT, [facility], 170, cm, 12/17/21 13:41:00 EDT, [...] in household: No entered on: 09/05/13 Sex Cardiology * Beatrice Mishra: PERFORM Event Display: Cardiovascular Results Scanned Authored Date: [id number] * Beatrice Mishra: PERFORM Event Display: Cardiovascular Results Scanned Authored Date: [id number] Laboratory * Event Display: Laboratory Result Scanned Authored Date: * Event Display: Non BH Lab Results Authored Date: * Event Display: Non BH Lab Results Authored Date: Patient Care team information Care Team Personnel Name: Julito Islas MD Position: [facility] Physician - Primary Care Member Role: PCP Address: Address: [address] [place] [address] Adult [place] [address]- Care Team Related Persons Name: BHUPENDRA SAM Address: home [address] [place] [address] Name: ED TURPIN Address: [address] [place], [place] [address]
--- OUTSIDE RECORDS SUMMARY | 2023-03-30 13:15 | XMS_ITS | Continuity of Care Document ---
Author Name Unknown Organization [facility] Address [address] [place] [address]- Care Team Providers Care Bid Manager Name Role Phone Julito Islas MD Primary Care Physician [phone] [id number] Date(s): 03/14/23 - 03/21/23 [facility] [address] [place] [address]- Encounter Diagnosis Hyperlipidemia(Discharge Diagnosis) - 03/14/23 Hypothyroidism(Discharge Diagnosis) - 03/14/23 Gastritis(Discharge Diagnosis) - 03/14/23 Irritable bowel syndrome(Discharge Diagnosis) - 03/14/23 Spinal stenosis of lumbar region(Discharge Diagnosis) - 03/14/23 Bipolar disorder(Discharge Diagnosis) - 03/14/23 Synovial cyst of wrist(Discharge Diagnosis) - 03/14/23 Attending Physician: Julito Islas MD Allergies, Adverse Reactions, Alerts Substance Reaction Severity Status Pravachol Active Lipitor Active Immunizations Given and Recorded Vaccine Date Status Refusal Reason SARS-CoV-2(COVID-19)mRNA-LNP vac([id number]) 02/14/23 Recorded zoster vaccine, inactivated 10/31/22 Recorded zoster vaccine, inactivated 08/30/22 Recorded pneumococcal 20-valent conjugate vaccine 10/31/22 Recorded [id number] 12y+ bivalent booster vax 02/01/22 Recorded SARS-CoV-2 [...] 06/23/21 15:20:00 EST, Route to Pharmacy Electronically, [facility]/pharmacy #[id number], Partial fill upon patient request if the prescriptio... Start Date: 06/23/21 Status: Ordered ezetimibe 10 mg oral tablet 1 tablet, By Mouth, Daily, # 90 tablet, 1 Refills, 12/29/22 11:43:00 EDT, [facility]/pharmacy #[id number], 170, cm, 12/12/22 13:20:00 EDT, Height, 72.7, kg, 07/11/21 16:17:00 EST, Dry Weight Start Date: 12/29/22 Status: Ordered furosemide 20 mg oral tablet 1, tablet, By Mouth, Daily, # 90 tablet, Refills 1, Maintenance, 08/18/22 19:50:00 EDT, Route to Pharmacy Electronically, [facility] STORE [id number], 170, cm, 07/04/22 11:47:00 EST, Height, 72.7, kg, 07/11/21 16:17:00 EST, Dry Weight Start Date: 08/18/22 Status: Ordered GaviLAX oral powder for reconstitution See Instructions, MIX 17 GRAMS IN 4 TO 8 OUNCES OF WATER AND DRINK DAILY NEEDED FOR CONSTIPATION, # 510 Gm, 5 Refills, [id number], 30, MIX 17 GRAMS IN 4 TO [...] for nausea/vomiting, # 30 tablet, 1 Refills, Acute03/07/24 12:45:00 EDT, 03/07/23 12:45:00 EDT, Tablet, [facility]/pharmacy #[id number], Partial fill upon patientrequest if the prescription is for a schedule II op... Start Date: 03/07/23 Stop Date: 03/07/24 Status: Ordered Metamucil 3.4 gm/5.2 gm oral powder for reconstitution = 3.4 Gm, By Mouth, Daily, dissolve in 8 oz of fluid, # 283 Gm, 1 Refills, Acute 08/31/23 11:42:00 EDT, 08/30/22 11:41:00 EDT, [id number], Partial fill upon patient request if the prescription is for a schedule II opioid drug., 170, cm, 07/04/... Start Date: 08/30/22 Stop Date: 08/31/23 Status: Ordered omeprazole 20 mg oral enteric coated capsule 1 capsule = 20 mg, By Mouth, 2 times a day, # 60 each, 5 Refills, Maintenance, 12/12/22 13:09:00 EDT, EC Capsule, [id number], dose increase, 170, cm, 12/12/22 13:08:00 EDT, Height, 72.7, kg, 07/11/21 16:17:00 EST, Dry Weight Start Date: 12/12/22 Status: Ordered Splint See Instructions, # 1 each, Refills 0, Tot. Refills 0, Maintenance, right wrist every night, 06/01/11 14:34:47 Start Date: 06/01/11 Status: Ordered sucralfate 1 gm oral tablet See Instructions, 2 tablets By Mouth 2 times a day before lunch and bedtime, # 120 each, Refills 5,Tot. Refills 5, Maintenance, 02/16/23 8:43:00 EDT, Instructions Replace Required Details, Route to Pharmacy Electronically, [facility]/pharmacy #[id number], Partial... Start Date: 02/16/23 Status: Ordered Synthroid 0.125 mg oral tablet 1 tablet, By Mouth, Daily, as a single daily dose before breakfast no substitution, # 90 tablet, 3 Refills, Maintenance, 02/17/23 10:27:00 EDT, [facility], 170, cm, 01/26/23 9:57:00 EDT, Height, 72.7, kg, 07/11/21 16:17:00 ES... Start Date: 02/17/23 Stop Date: 02/12/24 Status: Ordered venlafaxine 150 mg oral capsule, [...] Effective Dates Health Status Clinical Service Informant Hyperlipidemia Discharge Diagnosis 03/14/23 Hypothyroidism Discharge Diagnosis 03/14/23 Gastritis Discharge Diagnosis 03/14/23 Irritable bowel syndrome Discharge Diagnosis 03/14/23 Spinal stenosis of lumbar region Discharge Diagnosis 03/14/23 Bipolar disorder Discharge Diagnosis 03/14/23 Synovial cyst of wrist Discharge Diagnosis 03/14/23 Vital Signs Most recent to oldest [Reference Range]: 1 2 Height 170 cm (03/14/23 2:21 PM) 170 cm (03/14/23 2:04 PM) Weight 68.9 kg (03/14/23 2:04 PM) Oxygen Saturation [94-100 %] 97 % (03/14/23 2:04 PM) Pulse Rate [55-90 bpm] 83 bpm (03/14/23 2:04 PM) Body Mass Index [18.5-24.99 kg/m2] 23.84 kg/m2 (03/14/23 2:04 PM) Blood Pressure [90-138/55-84 mm Hg] 132/ 70mm Hg (03/14/23 2:21 PM) 138/87mm Hg (03/14/23 2:04 PM) Mode of Delivery (Oxygen) Room air (03/14/23 2:04 PM) Blood pressure sites Arm, left (03/14/23 2:21 PM) Arm, left (03/14/23 2:04 PM) Weight Obtained Via Standing scale (03/14/23 2:04 PM) Social History Social History Type Response Smoking Status Former smoker; Tobac co user in household: No entered on: 09/05/13 Sex Patient Care team information Care Team Personnel Name: Julito Islas MD Position: [facility] Physician - Primary Care Member Role: PCP Address: Address: [address] [place] [address] Adult & [place] [address]- Care Team Related Persons Name: BHUPENDRA SAM Address: home [address] [place] [place] [address] Name: ED TURPIN Address: home [address] [place] [address]
--- OUTSIDE RECORDS SUMMARY | 2023-03-30 13:15 | XMS_ITS | Continuity of Care Document ---
Author Name Unknown Organization [facility] Address [address] [place] [address]- Care Team Providers Care Lead Fire Protection Engineer Name Role Phone Julito Islas MD Primary Care Physician [id number] Date(s): 12/12/22 - 12/19/22 [facility] [address] [place] [address]- Encounter Diagnosis Irritable bowel syndrome(Discharge Diagnosis) - 12/12/22 Gastritis(Discharge Diagnosis) - 12/12/22 Hyperlipidemia(Discharge Diagnosis) - 12/12/22 Hypothyroidism(Discharge Diagnosis) - 12/12/22 Spinal stenosis of lumbar region(Discharge Diagnosis) - 12/12/22 Bipolar disorder(Discharge Diagnosis) - 12/12/22 Attending Physician: Julito Islas MD Allergies, Adverse Reactions, Alerts Substance Reaction Severity Status Pravachol Active Lipitor Active Immunizations Given and Recorded Vaccine Date Status Refusal Reason [id number] 12y+ bivalent booster vax 02/01/22 Recorded SARS-CoV-2 [...] 06/23/21 15:20:00 EST, Route to Pharmacy Electronically, [facility]/pharmacy #[id number], Partial fill upon patient request if the [...] 08/18/22 19:50:00 EDT, Route to Pharmacy Electronically, [facility] STORE [id number], 170, cm, 07/04/22 11:47:00 EST, Height, 72.7, kg, 07/11/21 16:17:00 EST, Dry Weight Start Date: 08/18/22 Status: Ordered GaviLAX oral powder for reconstitution See Instructions, MIX 17 GRAMS IN 4 TO 8 OUNCES OF WATER AND DRINK DAILY NEEDED FOR CONSTIPATION, # 510 Gm, 5 Refills, [facility]ORE [facility], 30, MIX 17 GRAMS IN 4 TO [...] Acute12/03/23 16:49:00 EDT, 12/02/22 16:49:00 EDT, Tablet, [facility]/pharmacy #[id number], Partial fill upon patientrequest if the prescription is for a schedule II op... Start Date: 12/02/22 Stop Date: 12/03/23 Status: Ordered Metamucil 3.4 gm/5.2 gm oral powder for reconstitution = 3.4 Gm, By Mouth, Daily, dissolve in 8 oz of fluid, # 283 Gm, 1 Refills, Acute 08/31/23 11:42:00 EDT, 08/30/22 11:41:00 EDT, [facility]/pharmacy #[id number], Partial fill upon patient request if the prescription is for a schedule II opioid drug., 170, cm, 07/04/... Start Date: 08/30/22 Stop Date: 08/31/23 Status: Ordered omeprazole 20 mg oral enteric coated capsule 1 capsule = 20 mg, By Mouth, 2 times a day, # 60 each, 5 Refills, Maintenance, 12/12/22 13:09:00 EDT, EC Capsule, [facility]/pharmacy #2339, dose increase, 170, cm, 12/12/22 13:08:00 [...] Replace Required Details, Route to Pharmacy Electronically, [facility]/pharmacy #[id number], Partial... Start Date: 08/11/22 Status: Ordered Synthroid 0.125 mg oral tablet 1 tablet, By Mouth, Daily, as a single daily dose before breakfast, # 90 tablet, 3 Refills, Maintenance, 12/19/22 18:15:00 EDT, [facility]/pharmacy #[id number], 170, cm, 12/12/22 13:20:00 EDT, Height, 72.7, kg, 07/11/21 16:17:00 EST, Dry Weight Start Date: 12/19/22 Stop Date: 12/14/23 Status: Ordered venlafaxine 150 mg oral capsule, [...] Effective Dates Health Status Clinical Service Informant Irritable bowel syndrome Discharge Diagnosis 12/12/22 Gastritis Discharge Diagnosis 12/12/22 Hyperlipidemia Discharge Diagnosis 12/12/22 Hypothyroidism Discharge Diagnosis 12/12/22 Spinal stenosis of lumbar region Discharge Diagnosis 12/12/22 Bipolar disorder Discharge Diagnosis 12/12/22 Vital Signs Most recent to oldest [Reference Range]: 1 2 3 Height 170 cm (12/12/22 1:20 PM) 170 cm (12/12/22 1:08 PM) 170 cm (12/12/22 1:06 PM) Weight 67.1 kg (12/12/22 1:06 PM) Oxygen Saturation [94-100 %] 99 % (12/12/22 1:06 PM) Pulse Rate [55-90 bpm] 94 bpm *H* (12/12/22 1:06 PM) Body Mass Index [18.5-24.99 kg/m2] 23.22 kg/m2 (12/12/22 1:06 PM) Blood Pressure [90-138/55-84 mm Hg] 134/72mm Hg (12/12/22 1:20 PM) 150/83mm Hg *H* (12/12/22 1:08 PM) 158/85mm Hg *H* (12/12/22 1:06 PM) Mode of Delivery (Oxygen) Room air (12/12/22 1:06 PM) Blood pressure sites Arm, left (12/12/22 1:20 PM) Arm, left (12/12/22 1:08 PM) Arm, left (12/12/22 1:06 PM) Weight Obtained Via Standing scale (12/12/22 1:06 PM) Social History Social History Type Response Smoking Status Former smoker; Tobac co user in household: No entered on: 09/05/13 Sex Note * Hedy Lehman: PERFORM, SIGN, VERIFY Event Display: Patient Education/Instruction Authored Date: [id number] [facility] Clinical Summary Name DAMIAN NAYAK Age 72 Years 1950 PCP Roshan DOZIER, Julito Dias PCP Visit Date 12/12/2022 12:53:00 Patient Instructions continue current medication and supplements; stress management, follow up with therapist and psychiatrist as scheduled; balanced diet, take bowel medications as needed; call if any question or problem Additional Instructions: Scheduled Appointments?? Future Appointments ?[facility] ?[address]??[place],??[place],??[address] ?Phone:??[phone]?Fax:??-- ?Appt. Date:??12/15/2022?2:00 PM ?Scheduled Provider:??[facility] 3D Mammo 4 Follow-Up Instructions ?? Diagnosis Medications: Please continue your medications until treatment is completed or stopped by your provider. Discuss any questions related to medications with your provider. Medications to Continue with No Changes [id number], [address] [place] [id number], [phone] Omeprazole (omeprazole 20 mg oral enteric coated capsule) 1 capsule Oral twice a day. Refills: 5. Next Dose: These medications were not printed or sent to your pharmacy Docusate (docusate sodium 100 mg oral capsule) 1 capsule Oral twice a day as needed for constipation. Refills: 5. Next Dose: Durable Medical Equipment (Splint) right wrist every night. Refills: 0. Next Dose: Ezetimibe (ezetimibe 10 mg oral tablet) 1 tab(s) Oral Daily. Refills: 1. Next Dose: Furosemide (furosemide 20 mg oral tablet) 1 tab(s) Oral Daily. Refills: 1. Next Dose: Lamotrigine (lamotrigine 100 mg oral tablet) 1 tab(s) Oral Daily. Next Dose: Levothyroxine (Synthroid 0.125 mg oral tablet) 1 tab(s) Oral Daily. Refills: 1. Next Dose: Lorazepam (LORazepam 1 mg oral tablet) 1 tab(s) Oral Daily as needed as needed for anxiety. Next Dose: Meclizine (meclizine 12.5 mg oral tablet) 1 tab(s) Oral 3 times a day as needed for nausea/vomiting. Refills: 1. Next Dose: Multivitamin (Vitamin B Complex oral tablet, extended release) 1 tab(s) Oral Daily. Next Dose: Polyethylene Glycol 3350 (GaviLAX oral powder for reconstitution) MIX 17 GRAMS IN 4 TO 8 OUNCES OF WATER AND DRINK DAILY NEEDED FOR CONSTIPATION. Refills: 5. Next Dose: Psyllium (Metamucil 3.4 gm/5.2 gm oral powder for reconstitution) 3.4 gram Oral Daily. dissolve in 8 oz of fluid. Refills: 1. Next Dose: Sucralfate (sucralfate 1 gm oral tablet) 2 tablet By Mouth 2 times a day before lunch and bedtime. Refills: 5. Next Dose: Venlafaxine (venlafaxine 150 mg oral capsule, extended release) 1 capsule Oral Daily. Next Dose: Ziprasidone (Geodon 40 mg oral capsule) 1 capsule By Mouth daily at noontime. Next Dose: No Longer Take the Following Medications Divalproex Sodium (divalproex sodium 500 mg oral tablet, extended release) Take 2 tablets daily at night.. Refills: 1. Allergy Info:?? Lipitor; Pravachol Medications Given This Visit Future Orders ?No future orders Vital Signs Height 170 cm Weight 67.1 kg BMI 23.22 kg/m2 Blood Pressure 134 mm Hg/72 mm Hg Temperature Pulse Rate 94 bpm Respiratory Rate 02 Sat Mode of Delivery 99 %/Room air You can now view a summary of your hospital visit from the comfort of your home through a free online portal called [employer]. [employer] is a website that allows you to securely view your medical information including discharge summary, medications and follow-up visits. ??You can alsosend a secure electronic message to your doctor???s office to request appointments, renew medications or just ask a question. You can enroll at [email or web address] or register during your next office visit. [...] primary care provider, you may find a [facility] provider by calling [facility] at [phone]. For information about the plan of care including goals and instructions for your diagnosis, please see the patient education orders section of this document. Patient Education Materials?? The content of this educational material or handout may have been modified, supplemented, or adapted from its original content and format to support your individualized medical care. * Hedy Lehman: PERFORM, SIGN, VERIFY Event Display: Patient Education/Instruction Authored Date: [id number] [facility] *[facility] Adult [facility] Clinical Summary Name DAMIAN NAYAK Age 72 Years 1950 PCP Julito Islas MD PCP Visit Date 12/12/2022 12:53:00 Patient Instructions continue current medication and supplements; stress management, follow up with therapist and psychiatrist as scheduled; balanced diet, take bowel medications as needed; call if any question or problem Additional Instructions: Scheduled Appointments?? Future Appointments ?[facility] ?[address]??[place],??[place],??[address] ?Phone:??[phone]?Fax:??-- ?Appt. Date:??12/15/2022?2:00 PM ?Scheduled Provider:??[facility] 3D Mammo 4 Follow-Up Instructions ?? Diagnosis Medications: Please continue your medications until treatment is completed or stopped by your provider. Discuss any questions related to medications with your provider. Medications to Continue with No Changes [id number], [address] [place] [id number], [phone] Omeprazole (omeprazole 20 mg oral enteric coated capsule) 1 capsule Oral twice a day. Refills: 5. Next Dose: These medications were not printed or sent to your pharmacy Docusate (docusate sodium 100 mg oral capsule) 1 capsule Oral twice a day as needed for constipation. Refills: 5. Next Dose: Durable Medical Equipment (Splint) right wrist every night. Refills: 0. Next Dose: Ezetimibe (ezetimibe 10 mg oral tablet) 1 tab(s) Oral Daily. Refills: 1. Next Dose: Furosemide (furosemide 20 mg oral tablet) 1 tab(s) Oral Daily. Refills: 1. Next Dose: Lamotrigine (lamotrigine 100 mg oral tablet) 1 tab(s) Oral Daily. Next Dose: Levothyroxine (Synthroid 0.125 mg oral tablet) 1 tab(s) Oral Daily. Refills: 1. Next Dose: Lorazepam (LORazepam 1 mg oral tablet) 1 tab(s) Oral Daily as needed as needed for anxiety. Next Dose: Meclizine (meclizine 12.5 mg oral tablet) 1 tab(s) Oral 3 times a day as needed for nausea/vomiting. Refills: 1. Next Dose: Multivitamin (Vitamin B Complex oral tablet, extended release) 1 tab(s) Oral Daily. Next Dose: Polyethylene Glycol 3350 (GaviLAX oral powder for reconstitution) MIX 17 GRAMS IN 4 TO 8 OUNCES OF WATER AND DRINK DAILY NEEDED FOR CONSTIPATION. Refills: 5. Next Dose: Psyllium (Metamucil 3.4 gm/5.2 gm oral powder for reconstitution) 3.4 gram Oral Daily. dissolve in 8 oz of fluid. Refills: 1. Next Dose: Sucralfate (sucralfate 1 gm oral tablet) 2 tablet By Mouth 2 times a day before lunch and bedtime. Refills: 5. Next Dose: Venlafaxine (venlafaxine 150 mg oral capsule, extended release) 1 capsule Oral Daily. Next Dose: Ziprasidone (Geodon 40 mg oral capsule) 1 capsule By Mouth daily at noontime. Next Dose: No Longer Take the Following Medications Divalproex Sodium (divalproex sodium 500 mg oral tablet, extended release) Take 2 tablets daily at night.. Refills: 1. Allergy Info:?? Lipitor; Pravachol Medications Given This Visit Future Orders ?No future orders Vital Signs Height 170 cm Weight 67.1 kg BMI 23.22 kg/m2 Blood Pressure 134 mm Hg/72 mm Hg Temperature Pulse Rate 94 bpm Respiratory Rate 02 Sat Mode of Delivery 99 %/Room air You can now view a summary of your hospital visit from the comfort of your home through a free online portal called [facility]. [employer] is a website that allows you to securely view your medical information including discharge summary, medications and follow-up visits. ??You can alsosend a secure electronic message to your doctor???s office to request appointments, renew medications or just ask a question. You can enroll at [email or web address] or register during your next office visit. [...] primary care provider, you may find a [facility] provider by calling [facility] at [phone]. For information about the plan of care [...] Primary Care Member Role: PCP Address: Address: [address] [place] [address] Adult [place] [address]- Care Team Related Persons Name: BHUPENDRA SAM Address: home [address] [place] [address] Name: ED TURPIN Address: home [address] [place] [address]
--- OUTSIDE RECORDS SUMMARY | 2023-03-30 13:15 | XMS_ITS | Continuity of Care Document ---
Author Name Unknown Organization [facility] Address [address] [place] [address]- Care Team Providers Care Fly Maker Name Role Phone Julito Islas MD Primary Care Physician [facility] [facility] Date(s): 11/02/21 - 12/02/21 [facility] [address] [place], [place] [address] Attending Physician: Admtr, Ar8 Allergies, Adverse Reactions, [...] defers 2Admin Note: [employer] Medications chlorzoxazone 500 mg oral tablet 1 tablet = 500 mg, By Mouth, 3 times a day, PRN muscle pain or spasm, # 30 tablet, 1 Refills, Acute06/09/22 14:40:00 EST, 06/09/21 14:40:00 EST, Tablet, [facility]/pharmacy #[id number], Partial fill upon patientrequest if the prescription is for a schedule II op... Start Date: 06/09/21 Stop Date: 06/09/22 Status: Ordered divalproex sodium 500 mg oral tablet, extended release See Instructions, Take 2 tablets daily at night., # 180 tablet, 1 Refills, Soft Stop, 10/21/19 17:34:00 EDT, [facility], 170, cm, 06/10/19 9:14:00 EST, Height, 67.6, kg, 11/06/18 9:35:00 EDT, Dry Weight Start Date: 10/21/19 Status: Ordered docusate sodium 100 mg oral capsule 100 mg, 1, capsule, By Mouth, 2 times a day, PRN, # 60 capsule, Refills 5, Tot. Refills 5, Maintenance, for constipation, 06/23/21 15:20:00 EST, Route to Pharmacy Electronically[id number] Partial fill upon patient request if the prescriptio... Start Date: 06/23/21 Status: Ordered ezetimibe 10 mg oral tablet 1 tablet, By Mouth, Daily, # 90 tablet, 1 Refills, [facility], 170, cm, 11/02/21 14:03:00 EDT, Height, 72.7, kg, 07/11/21 16:17:00 EST, Dry Weight Start Date: 11/09/21 Status: Ordered GaviLAX oral powder for reconstitution See Instructions, MIX 17 GRAMS IN 4 TO 8 OUNCES OF WATER AND DRINK DAILY NEEDED FOR CONSTIPATION, # 510 Gm, 5 Refills, [facility], 30, MIX 17 GRAMS IN 4 TO 8 OUNCES OF WATER AND DRINK DAILY NEEDED FOR CONSTIPATION, 170, cm, 07/21/21 14:41:0... Start Date: 07/22/21 Status: Ordered Geodon 20 mg oral capsule See Instructions, 1 capsule By Mouth daily, 0 Refills, Maintenance, 11/02/21 14:11:00 EDT, Capsule,Partial fill upon patient request if the prescription is for a schedule II opioid drug. Start Date: 11/02/21 Status: Ordered Lasix 20 mg oral tablet 20 mg, 1, tablet, By Mouth, Daily, # 90 tablet, Refills 3, Tot. Refills 3, Maintenance, 09/13/21 16:14:00 EDT, Route to Pharmacy Electronically, [id number], Partial fill upon patient request if [...] Refills, Maintenance, 06/15/21 11:38:00 EST, EC Capsule, [facility], dose increase, 170, cm, 02/22/21 13:12:00 EDT, Height, 61.8, kg, 02/07/20 14:54:00 EDT, Dry Weight Start Date: 06/15/21 Status: Ordered ondansetron 4 mg oral tablet, disintegrating 1 tablet = 4 mg, By Mouth, Every 6 hours, PRN Nausea & Vomiting, # 30 each, 1 Refills, Acute 07/21/22 14:57:00 EDT, 07/21/21 14:57:00 EDT, Tablet, [id number], Partial fill upon patient request if the prescription is for a schedule II opioid drShawn. Start Date: 07/21/21 Stop Date: 07/21/22 Status: Ordered Splint See Instructions, # 1 each, Refills 0, Tot. Refills 0, Maintenance, right wrist every night, 06/01/11 14:34:47 Start Date: 06/01/11 Status: Ordered Synthroid 0.125 mg oral tablet 1 tablet, By Mouth, Daily, # 90 tablet, 3 Refills, 05/25/21 8:45:00 EST, [facility], 170, cm, 02/22/21 13:12:00 EDT, Height, 61.8, kg, 02/07/20 14:54:00 EDT, Dry Weight Start Date: 05/25/21 Status: Ordered venlafaxine 150 mg oral capsule, [...]
--- OUTSIDE RECORDS SUMMARY | 2023-03-30 13:15 | XMS_ITS | Continuity of Care Document ---
Author Name Unknown Organization [facility][1] Adult and Pedi Address [address] [place] [address]- Care Team Providers Care Real Estate Investor Name Role Phone Julito Islas MD Primary Care Physician Encounter [facility] [place] Date(s): 06/15/21 - 07/15/21 [facility][1] Adult and Pedi [address] [place], [place] [address] Allergies, Adverse Reactions, Alerts Substance Reaction Severity Status Pravachol Active Lipitor Active Immunizations Given and Recorded Vaccine Date Status Refusal Reason SARS-CoV-2 (COVID-19) mRNA BNT-162b2 vac 08/20/20 Recorded SARS-CoV-2 (COVID-19) mRNA BNT-162b2 vac 07/29/20 Recorded influenza virus vaccine, inactivated 1 05/05/11 Gi mariusz Tet/Diphth/Acel, Pertussis (oldterm) 05/21/09 Give n Influenza Virus Vaccine (oldterm) 2 03/29/06 Given 1Admin Note: defers 2Admin Note: [employer] Medications chlorzoxazone 500 mg oral tablet 1 tablet = 500 mg, By Mouth, 3 times a day, PRN muscle pain or spasm, # 30 tablet, 1 Refills, Acute06/09/22 14:40:00 EST, 06/09/21 14:40:00 EST, Tablet, [facility]/pharmacy #[id number], Partial fill upon patientrequest if the prescription is for a schedule II op... Start Date: 06/09/21 Stop Date: 06/09/22 Status: Ordered divalproex sodium 500 mg oral tablet, extended release See Instructions, Take 2 tablets daily at night., # 180 tablet, 1 Refills, Soft Stop, 10/21/19 17:34:00 EDT, [facility], 170, cm, 06/10/19 9:14:00 EST, Height, 67.6, kg, 11/06/18 9:35:00 EDT, Dry Weight Start Date: 10/21/19 Status: Ordered docusate sodium 100 mg oral capsule 100 mg, 1, capsule, By Mouth, 2 times a day, PRN, # 60 capsule, Refills 5, Tot. Refills 5, Maintenance, for constipation, 06/23/21 15:20:00 EST, [id number] Partial fill upon patient request if [...] Mouth, Daily, # 90 tablet, 1 Refills, [facility], 170, cm, 02/22/21 13:12:00 EDT, Height, 61.8, kg, 02/07/20 14:54:00 EDT, Dry Weight Start Date: 06/03/21 Status: Ordered Geodon 40 mg oral capsule See Instructions, One capsule daily after lunch., # 90 capsule, 0 Refills, Maintenance, 12/13/19 9:30:00 EDT, [facility], 170, cm, 12/09/19 9:10:00 EDT, Height, 67.6, kg, 11/06/18 9:35:00 EDT, Dry Weight Start Date: 12/13/19 Status: Ordered ketoconazole 2% topical cream 1 application, Topically, Daily, PRN foot rash, # 30 Gm, 2 Refills, Acute 10/22/21 8:35:00 EDT, 10/22/20 8:35:00 EDT, Cream, [id number] Partial fill upon patient request if the prescription is for a schedule II opioid drug., 1 application Top... Start Date: 10/22/20 Stop Date: 10/22/21 Status: Ordered MiraLax oral powder for reconstitution = 17 Gm, By Mouth, Daily, PRN Constipation, dissolve in water before taking, # 527 Gm, 0 Refills, Acute 06/23/22 15:21:00 EST, 06/23/21 15:21:00 EST, REC Powder, [id number] Partial fill uponpatient request if the prescription is for a schedu... Start Date: 06/23/21 Stop Date: 06/23/22 Status: Ordered omeprazole 20 mg oral enteric coated capsule 1 capsule = 20 mg, By Mouth, 2 times a day, # 60 each, 5 Refills, Maintenance, 06/15/21 11:38:00 EST, EC Capsule, [id number], dose increase, 170, cm, 02/22/21 13:12:00 EDT, Height, 61.8, kg, 02/07/20 14:54:00 EDT, Dry Weight Start Date: 06/15/21 Status: Ordered ondansetron 4 mg oral tablet, disintegrating 1 tablet = 4 mg, By Mouth, Every 6 hours, PRN Nausea & Vomiting, # 24 each, 1 Refills, Acute 06/15/22 11:37:00 EST, 06/15/21 11:37:00 EST, Tablet, [id number] Partial fill upon patient request if the prescription is for a schedule II opioid dr... Start Date: 06/15/21 Stop Date: 06/15/22 Status: Ordered ondansetron 4 mg oral tablet, disintegrating 1 tablet = 4 mg, By Mouth, Every 6 hours, PRN as needed for nausea/vomiting, # 20 tablet, 0 Refills, Maintenance, 07/11/21 16:11:00 EST, DIS Tablet, [facility], Partial fill upon patient request if the prescription is for a sche... Start Date: 07/11/21 Status: Ordered Splint See Instructions, # 1 each, Refills 0, Tot. Refills 0, Maintenance, right wrist every night, 06/01/11 14:34:47 Start Date: 06/01/11 Status: Ordered Synthroid 0.125 mg oral tablet 1 tablet, By Mouth, Daily, # 90 tablet, 3 Refills, 05/25/21 8:45:00 EST, [facility], 170, cm, 02/22/21 13:12:00 EDT, Height, [...]
--- OUTSIDE RECORDS SUMMARY | 2023-03-30 13:15 | XMS_ITS | Continuity of Care Document ---
Author Name Unknown Organization [facility] Address [address] [place] [address]- Care Team Providers Care Night Time Nanny Name Role Phone Julito Islas MD Primary Care Physician [phone] Encounter [facility] [place] Date(s): 09/13/21 - 09/20/21 [facility] [address] [place] [address]- Encounter Diagnosis Edema(Discharge Diagnosis) - 09/13/21 Attending Physician: Julito Islas MD Allergies, Adverse [...] Acute06/09/22 14:40:00 EST, 06/09/21 14:40:00 EST, Tablet, [facility]/pharmacy #[id number], Partial fill upon patientrequest if the prescription is for a schedule II op... Start Date: 06/09/21 Stop Date: 06/09/22 Status: Ordered divalproex sodium 500 mg oral tablet, extended release See Instructions, Take 2 tablets daily at night., # 180 tablet, 1 Refills, Soft Stop, 10/21/19 17:34:00 EDT, [facility], 170, cm, 06/10/19 9:14:00 EST, Height, 67.6, kg, 11/06/18 9:35:00 EDT, Dry Weight Start Date: 10/21/19 Status: Ordered docusate sodium 100 mg oral capsule 100 mg, 1, capsule, By Mouth, 2 times a day, PRN, # 60 capsule, Refills 5, Tot. Refills 5, Maintenance, for constipation, 06/23/21 15:20:00 EST, [id number] Partial fill upon patient request if the [...] Mouth, Daily, # 90 tablet, 1 Refills, [facility], 170, cm, 02/22/21 13:12:00 EDT, Height, 61.8, kg, 02/07/20 14:54:00 EDT, Dry Weight Start Date: 06/03/21 Status: Ordered GaviLAX oral powder for reconstitution See Instructions, MIX 17 GRAMS IN 4 TO 8 OUNCES OF WATER AND DRINK DAILY NEEDED FOR CONSTIPATION, # 510 Gm, 5 Refills, [id number], 30, MIX 17 GRAMS IN 4 TO 8 OUNCES OF WATER AND DRINK DAILY NEEDED FOR CONSTIPATION, 170, cm, 07/21/21 14:41:0... Start Date: 07/22/21 Status: Ordered ketoconazole 2% topical cream 1 application, Topically, Daily, PRN foot rash, # 30 Gm, 2 Refills, Acute 10/22/21 8:35:00 EDT, 10/22/20 8:35:00 EDT, Cream, [facility]/pharmacy #[id number], Partial fill upon patient request if the prescription is for a schedule II opioid drug., 1 application Top... Start Date: 10/22/20 Stop Date: 10/22/21 Status: Ordered Lasix 20 mg oral tablet 20 mg, 1, tablet, By Mouth, Daily, # 90 tablet, Refills 3, Tot. Refills 3, Maintenance, 09/13/21 16:14:00 EDT, Route to Pharmacy Electronically, [facility]/pharmacy #[id number], Partial fill upon patient request [...] Refills, Maintenance, 06/15/21 11:38:00 EST, EC Capsule, [facility]/pharmacy #[id number], dose increase, 170, cm, 02/22/21 13:12:00 EDT, Height, 61.8, kg, 02/07/20 14:54:00 EDT, Dry Weight Start Date: 06/15/21 Status: Ordered ondansetron 4 mg oral tablet, disintegrating 1 tablet = 4 mg, By Mouth, Every 6 hours, PRN Nausea & Vomiting, # 30 each, 1 Refills, Acute 07/21/22 14:57:00 EDT, 07/21/21 14:57:00 EDT, Tablet, [facility]/pharmacy #[id number], Partial fill upon patient request if the prescription is for a schedule II opioid drTanya.. Start Date: 07/21/21 Stop Date: 07/21/22 Status: Ordered Splint See Instructions, # 1 each, Refills 0, Tot. Refills 0, Maintenance, right wrist every night, 06/01/11 14:34:47 Start Date: 06/01/11 Status: Ordered Synthroid 0.125 mg oral tablet 1 tablet, By Mouth, Daily, # 90 tablet, 3 Refills, 05/25/21 8:45:00 EST, [facility], 170, cm, 02/22/21 13:12:00 EDT, Height, [...] of lumbar region(Confirmed) Active Uterine fibroids(Confirmed) Active Diagnosis Diagnosis Type Effective Dates Health Status Clini apolinar Service Informant Edema Discharge Diagnosis 09/13/21 Vital Signs Most recent to oldest [Reference Range]: 1 Height 170 cm (09/13/21 4:01 PM) Weight 78.2 kg (09/13/21 4:01 PM) Oxygen Saturation [94-100 %] 100 % (09/13/21 4:01 PM) Body Mass Index [18.5-24.99] 27.06 *H* (09/13/21 4:01 PM) Blood Pressure [90-138/55-84 mm Hg] 134/ 68mm Hg (09/13/21 4:01 PM) Blood pressure sites Arm, left (09/13/21 4:01 PM) Social History Social History Type Response Smoking Status Former smoker; Tobac co user in household: No entered on: 09/05/13 Sex
--- OUTSIDE RECORDS SUMMARY | 2023-03-30 13:15 | XMS_ITS | Continuity of Care Document ---
Author Name Unknown Organization [facility] Address [address] [place] [address]- Care Team Providers Care Weekend Receptionist Name Role Phone Julito Islas MD Primary Care Physician [phone] Encounter [facility] [place] Date(s): 06/13/22 - 06/20/22 [facility] [address] [place], [place] [address] Encounter Diagnosis Spinal stenosis of lumbar region(Discharge Diagnosis) - 06/13/22 Attending Physician: Julito Islas MD Allergies, Adverse Reactions, Alerts Substance Reaction Severity Status Pravachol Active Lipitor Active Immunizations Given and Recorded Vaccine Date Status Refusal Reason [id number] 12y+ bivalent booster vax 02/01/22 Recorded SARS-CoV-2 [...] 1 Refills, Soft Stop, 10/21/19 17:34:00 EDT, [facility], 170, cm, 06/10/19 9:14:00 EST, Height, 67.6, kg, 11/06/18 9:35:00 EDT, Dry Weight Start Date: 10/21/19 Status: Ordered docusate sodium 100 mg oral capsule 100 mg, 1, capsule, By Mouth, 2 times a day, PRN, # 60 capsule, Refills 5, Tot. Refills 5, Maintenance, for constipation, 06/23/21 15:20:00 EST, Route to Pharmacy Electronically, [facility]/pharmacy #[id number], Partial fill upon patient request if the prescriptio... Start Date: 06/23/21 Status: Ordered ezetimibe 10 mg oral tablet 1 tablet, By Mouth, Daily, # 90 tablet, 1 Refills, [facility], 170, cm, 11/02/21 14:03:00 EDT, Height, 72.7, kg, 07/11/21 16:17:00 EST, Dry Weight Start Date: 11/09/21 Status: Ordered GaviLAX oral powder for reconstitution See Instructions, MIX 17 GRAMS IN 4 TO 8 OUNCES OF WATER AND DRINK DAILY NEEDED FOR CONSTIPATION, # 510 Gm, 5 Refills, [id number], 30, MIX 17 GRAMS IN 4 TO [...] 09/13/21 16:14:00 EDT, Route to Pharmacy Electronically, [facility]/pharmacy #[id number], Partial fill upon patient request if [...] Refills, Maintenance, 04/27/22 16:12:00 EST, [facility]ule, [id number] dose [facility], 170, cm, 04/27/22 15:49:00 EST, Height, 72.7, kg, 07/11/21 16:17:00 EST, Dry Weight Start Date: 04/27/22 Status: Ordered ondansetron 4 mg oral tablet, disintegrating 1 tablet = 4 mg, By Mouth, Every 6 hours, PRN Nausea & Vomiting, # 30 each, 1 Refills, Acute 07/21/22 14:57:00 EDT, 07/21/21 14:57:00 EDT, Tablet, [id number] Partial fill upon patient request if [...] tablet, 1 Refills, Maintenance, 03/10/22 7:13:00 EDT, [facility], [facility], cm, 12/17/21 13:41:00 EDT, Height, [...] Diagnosis Diagnosis Type Effective Dates Health Status Cl inical Service Informant Spinal stenosis of lumbar region Discharge Diagnosis 06/13/22 Vital Signs Most recent to oldest [Reference Range]: 1 Height 170 cm (06/13/22 12:53 PM) Weight 70.3 kg (06/13/22 12:53 PM) Oxygen Saturation [94-100 %] 99 % (06/13/22 12:53 PM) Pulse Rate [55-90 bpm] 83 bpm (06/13/22 12:53 PM) Body Mass Index [18.5-24.99 kg/m2] 24.33 kg/m2 (06/13/22 12:53 PM) Blood Pressure [90-138/55-84 mm Hg] 118/ 64mm Hg (06/13/22 12:53 PM) Mode of Delivery (Oxygen) Room air (06/13/22 12:53 PM) Blood pressure sites Arm, left (06/13/22 12:53 PM) Weight Obtained Via Standing scale (06/13/22 12:53 PM) Social History Social History Type Response Smoking Status Former smoker; Tobac [employer] user in household: No entered on: 09/05/13 Sex Note * Beau Medrano: PERFORM, SIGN, VERIFY Event Display: Patient Education/Instruction Authored Date: [id number] [facility] *No Edge Adult Ped Clinical Summary Name DAMIAN NAYAK Age 71 Years 1950 PCP Julito Islas MD PCP Visit Date 06/13/2022 12:52:00 Additional Instructions: Scheduled Appointments?? Future Appointments ?No Future Appointments Scheduled Follow-Up Instructions ?? Diagnosis Hypothyroidism, unspecified; Gastritis, unspecified, without bleeding; Bipolar disorder, unspecified; Hyperlipidemia, unspecified Medications: Please continue your medications until treatment is completed or stopped by your provider. Discuss any questions related to medications with your provider. Medications to Continue Taking That Have Changed These medications were not printed or sent to your pharmacy - Ziprasidone (Geodon 40 mg oral capsule) 1 capsule By Mouth daily at noontime. Next Dose: Medications to Continue with No [...] Oral Daily. Refills: 1. Next Dose: Furosemide (Lasix 20 mg oral tablet) 1 tab(s) Oral Daily for 90 Days. Refills: 3. Next Dose: Levothyroxine (Synthroid 0.125 mg oral [...] twice a day. Refills: 5. Next Dose: Ondansetron (ondansetron 4 mg oral tablet, disintegrating) 1 tab(s) Oral every 6 hours as needed Nausea & Vomiting. Refills: 1. Next Dose: Polyethylene Glycol 3350 (GaviLAX oral powder for reconstitution) MIX 17 GRAMS IN 4 TO 8 OUNCES OF WATER AND DRINK DAILY NEEDED FOR CONSTIPATION. Refills: 5. Next Dose: Venlafaxine (venlafaxine 150 mg oral capsule, extended release) 1 capsule Oral Daily. Next Dose: Allergy Info:?? Lipitor; Pravachol Medications Given This Visit Future Orders ?No future orders Vital Signs Height 170 cm Weight 70.3 kg BMI 24.33 kg/m2 Blood Pressure 118 mm Hg/64 mm Hg Temperature Pulse Rate 83 bpm Respiratory Rate 02 Sat Mode of Delivery 99 %/Room air You can now view a summary of your hospital visit from the comfort of your home through a free online portal called [facility]. [facility] is a website that allows you to securely view your medical information including discharge summary, medications and follow-up visits. ??You can alsosend a secure electronic message to your doctor???s office to request appointments, renew medications or just ask a question. You can enroll at [email or web address] or register during your [...] primary care provider, you may find a [facility] provider by calling [facility] Link at [phone]. For information about the plan of care including goals and instructions for your diagnosis, please see the patient education orders section of this document. Patient Education Materials?? The content of this educational material or handout may have been modified, supplemented, or adapted from its original content and format to support your individualized medical care. Patient Care team information Care Team Personnel Name: Roshan DOZIER, Julito Dias Position: [facility] Primary Care Physician Member Role: PCP Address: Address: [address] [place] [address] Adult [place] [address]- Care Team Related Persons Name: BHUPENDRA SAM Address: home [address] [place] [address] Name: ED TURPIN Address: home [address] [place] [address]
--- OUTSIDE RECORDS SUMMARY | 2023-03-30 13:15 | XMS_ITS | Continuity of Care Document ---
Author Name Unknown Organization [facility] Address [address] [place] [address]- Care Team Providers Care Director Transportation Name Role Phone Julito Islas MD Primary Care Physician Encounter [facility] [place] Date(s): 02/07/20 - 02/14/20 [facility] [address] [place] [address]- [facility] Attending Physician: Ginette Mccloud MD Referring Physician: Julito Islas MD Allergies, Adverse Reactions, Alerts Substance Reaction Severity Status Pravachol Active Lipitor Active Immunizations Given and Recorded Vaccine Date Status Refusal Reason influenza virus vaccine, inactivated 1 05/05/11 Gi mariusz Tet/Diphth/Acel, Pertussis (oldterm) 05/21/09 Give n Influenza Virus Vaccine (oldterm) 2 03/29/06 Given 1Admin Note: defers 2Admin Note: [employer] Medications Biotene Moisturizing Mouth [place] 1 sprays, By Mouth, 6 times a day, PRN dry mouth, 0 Refills, Maintenance, 11/06/18 9:43:24 EDT Start Date: 11/06/18 Status: Ordered divalproex sodium 500 mg oral tablet, extended release See Instructions, Take 2 tablets daily at night., # 180 tablet, 1 Refills, Soft Stop, 10/21/19 17:34:00 EDT, [facility], 170, cm, 06/10/19 9:14:00 EST, Height, 67.6, kg, 11/06/18 9:35:00 EDT, Dry Weight Start Date: 10/21/19 Status: Ordered ezetimibe 10 mg oral tablet See Instructions, TAKE 1 TABLET DAILY, # 90 tablet, 3 Refills, Soft Stop, 06/10/19 9:27:00 EST, [facility], 170, cm, 06/10/19 9:14:00 EST, Height, 67.6, kg, 11/06/18 9:35:00 EDT, Dry Weight Start Date: 06/10/19 Status: Ordered gentamicin 0.3% ophthalmic solution 2 drops, Eyes, Both, 4 times a day, # 5 mL, 0 Refills, Acute 07/16/20 16:47:00 EST, 07/17/19 16:46:00 EDT, [id number] 2 drops Eyes, Both 4 times a day, 170, cm, 06/10/19 9:14:00 EST, Height, 67.6, kg, 11/06/18 9:35:00 EDT, Dry Weight Start Date: 07/17/19 Stop Date: 07/16/20 Status: Ordered Geodon 40 mg oral capsule See Instructions, One capsule daily after lunch., # 90 capsule, 0 Refills, Maintenance, 12/13/19 9:30:00 EDT, [facility], 170, cm, 12/09/19 9:10:00 EDT, Height, 67.6, kg, 11/06/18 9:35:00 EDT, Dry Weight Start Date: 12/13/19 Status: Ordered naproxen 500 mg oral tablet 1 tablet = 500 mg, By Mouth, 2 times a day, for 10 days, # 20 tablet, 0 Refills, Acute 02/17/20 15:13:00 EDT, 02/07/20 15:13:00 EDT, Tablet, [id number] 170, cm, 02/07/20 14:51:00 EDT, Height, 61.8, kg, 02/07/20 14:54:00 EDT, Dry Weight Start Date: 02/07/20 Stop Date: 02/17/20 Status: Ordered Splint See Instructions, # 1 each, Refills 0, Tot. Refills 0, Maintenance, right wrist every night, 06/01/11 14:34:47 Start Date: 06/01/11 Status: Ordered Synthroid 0.1 mg oral tablet 1 tablet = 100 mcg, By Mouth, Daily, # 90 tablet, 3 Refills, Maintenance, 06/10/19 9:27:00 EST, Tablet, [facility], 170, cm, 06/10/19 9:14:00 EST, Height, 67.6, kg, 11/06/18 9:35:00 EDT, Dry Weight Start Date: 06/10/19 Stop Date: 06/04/20 Status: Ordered venlafaxine 150 mg oral capsule, extended release See Instructions, One capsule daily each AM., # 90 capsule, 0 Refills, Soft Stop, 12/13/19 9:32:00 EDT, [facility], 170, cm, 12/09/19 9:10:00 EDT, Height, 67.6, kg, 11/06/18 9:35:00 EDT, Dry Weight Start Date: 12/13/19 Status: Ordered Vitamin B Complex oral tablet, extended release 1 tablet, By Mouth, Daily, 0 Refills, Maintenance, 08/21/17 9:42:08 EDT Start Date: 08/21/17 Status: Ordered Problem List Condition Effective Dates Status Health Status Inform ant Gastritis(Confirmed) Active Hematuria(Confirmed) Active Hyperlipidemia(Confirmed) Active Hypothyroidism(Confirmed) Active Polyp of colon(Confirmed) Active Sleep apnea(Confirmed) Active Spinal stenosis of lumbar region(Confirmed) Active Uterine fibroids(Confirmed) Active Vital Signs Most recent to oldest [Reference Range]: 1 Height 170 cm (02/07/20 2:51 PM) Weight 61.8 kg (02/07/20 2:51 PM) Oxygen Saturation [94-100 %] 100 % (02/07/20 2:51 PM) Pulse Rate [55-90 bpm] 91 bpm *H* (02/07/20 2:51 PM) Body Mass Index [18.5-24.99] 21.38 (02/07/20 2:51 PM) Blood Pressure [90-138/55-84 mm Hg] 137/ 78mm Hg (02/07/20 2:51 PM) Respiratory Rate [16-30 br/min] 16 br/mi n (02/07/20 2:51 PM) Temperature [96.8-100.4 DegF] 96.1 DegF *L* (10/2/20 2:51 PM) Mode of Delivery (Oxygen) Room air (02/07/20 2:51 PM) Blood pressure sites Arm, right (02/07/20 2:51 PM) Temperature Route Temporal (02/07/20 2:51 PM) Dry Weight 61.8 kg (02/07/20 2:51 PM) Weight Obtained Via Standing scale (02/07/20 2:51 PM) Dry Weight Obtained Via Standing scale (02/07/20 2:51 PM) Social History Social History Type Response Smoking Status Former smoker; Tobac co user in household: No entered on: 09/05/13 Sex
--- OUTSIDE RECORDS SUMMARY | 2023-03-30 13:15 | XMS_ITS | Continuity of Care Document ---
Author Name Unknown Organization [facility] Address [address] [place] [address]- Care Team Providers Care Crystal Growing Technician Name Role Phone Roshan DOZIER, Julito Dias Primary Care Physician [phone] Encounter [facility] [place] [facility] Date(s): 04/20/22 - 05/20/22 [facility] [address] [place], [place] [address] Allergies, Adverse Reactions, Alerts Substance Reaction Severity Status Pravachol Active Lipitor Active Immunizations Given and Recorded Vaccine Date Status Refusal Reason [id number] 12y+ bivalent booster vax 02/01/22 Recorded SARS-CoV-2 [...] Acute06/09/22 14:40:00 EST, 06/09/21 14:40:00 EST, Tablet, [facility]/pharmacy #[id number], Partial fill upon patientrequest if the prescription is for a schedule II op... Start Date: 06/09/21 Stop Date: 06/09/22 Status: Ordered divalproex sodium 500 mg oral tablet, extended release See Instructions, Take 2 tablets daily at night., # 180 tablet, 1 Refills, Soft Stop, 10/21/19 17:34:00 EDT, [facility], 170, cm, 06/10/19 9:14:00 EST, Height, 67.6, kg, 11/06/18 9:35:00 EDT, Dry Weight Start Date: 10/21/19 Status: Ordered docusate sodium 100 mg oral capsule 100 mg, 1, capsule, By Mouth, 2 times a day, PRN, # 60 capsule, Refills 5, Tot. Refills 5, Maintenance, for constipation, 06/23/21 15:20:00 EST, Route to Pharmacy Electronically, [facility]/pharmacy #[id number], Partial fill upon patient request if the prescriptio... Start Date: 06/23/21 Status: Ordered ezetimibe 10 mg oral tablet 1 tablet, By Mouth, Daily, # 90 tablet, 1 Refills, [facility], 170, cm, 11/02/21 14:03:00 EDT, Height, 72.7, kg, 07/11/21 16:17:00 EST, Dry Weight Start Date: 11/09/21 Status: Ordered GaviLAX oral powder for reconstitution See Instructions, MIX 17 GRAMS IN 4 TO 8 OUNCES OF WATER AND DRINK DAILY NEEDED FOR CONSTIPATION, # 510 Gm, 5 Refills, [id number], 30, MIX 17 GRAMS IN 4 TO [...] 09/13/21 16:14:00 EDT, [id number] fill upon patient [...] Refills, Maintenance, 04/27/22 16:12:00 EST, EC Capsule, [facility]/pharmacy #[id number], dose increase, 170, cm, 04/27/22 15:49:00 EST, Height, 72.7, kg, 07/11/21 16:17:00 EST, Dry Weight Start Date: 04/27/22 Status: Ordered ondansetron 4 mg oral tablet, disintegrating 1 tablet = 4 mg, By Mouth, Every 6 hours, PRN Nausea & Vomiting, # 30 each, 1 Refills, Acute 07/21/22 14:57:00 EDT, 07/21/21 14:57:00 EDT, Tablet, [facility]/pharmacy #[id number], Partial fill upon patient request if the [...] tablet, 1 Refills, Maintenance, 03/10/22 7:13:00 EDT, [facility], 170, cm, 12/17/21 13:41:00 [...] Team Personnel Name: Julito Islas MD Position: [facility] Primary Care Physician Member Role: PCP Address: Address: [address] [place] [address] Adult & Pediatric Medicine [place], [place] [address] Care Team Related Persons Name: BHUPENDRA SAM Address: home [address] [place] [address] Name: ED TURPIN Address: home [address] [place] [address]
--- OUTSIDE RECORDS SUMMARY | 2023-03-30 13:15 | XMS_ITS | Continuity of Care Document ---
Author Name Unknown Organization [facility] Address [address] [place] [address]- Care Team Providers Care Security Flex Utility Officer Name Role Phone Julito Islas MD Primary Care Physician [phone] Encounter [facility] [place] Date(s): 06/10/20 - 06/17/20 [facility] [address] [place], [place] [address] Encounter Diagnosis Spinal stenosis of lumbar region(Discharge Diagnosis) - 06/10/20 Gastritis(Discharge Diagnosis) - 06/10/20 Attending Physician: Julito Islas MD Allergies, Adverse Reactions, Alerts Substance Reaction Severity Status Pravachol Active Lipitor Active Immunizations Given and Recorded Vaccine Date Status Refusal Reason influenza virus vaccine, inactivated 1 05/05/11 Gi mariusz Tet/Diphth/Acel, Pertussis (oldterm) 05/21/09 Give n Influenza Virus Vaccine (oldterm) 2 03/29/06 Given 1Admin Note: defers 2Admin Note: [employer] Medications Biotene Moisturizing Mouth [place] 1 sprays, By Mouth, 6 times a day, PRN dry mouth, 0 Refills, Maintenance, 11/06/18 9:43:24 EDT Start Date: 11/06/18 Status: Ordered divalproex sodium 500 mg oral tablet, extended release See Instructions, Take 2 tablets daily at night., # 180 tablet, 1 Refills, Soft Stop, 10/21/19 17:34:00 EDT, [facility], 170, cm, 06/10/19 9:14:00 EST, Height, 67.6, kg, 11/06/18 9:35:00 EDT, Dry Weight Start Date: 10/21/19 Status: Ordered ezetimibe 10 mg oral tablet See Instructions, TAKE 1 TABLET DAILY, # 90 tablet, 3 Refills, Soft Stop, 06/10/20 13:15:00 EST, [facility], refill when due, 170, cm, 06/10/20 12:53:00 EST, Height, 61.8, kg, 02/07/20 14:54:00 EDT, Dry Weight Start Date: 06/10/20 Status: Ordered gentamicin 0.3% ophthalmic solution 2 drops, Eyes, Both, 4 times a day, # 5 mL, 0 Refills, Acute 07/16/20 16:47:00 EST, 07/17/19 16:46:00 EDT, Solution, [facility]/pharmacy #[id number], 2 drops Eyes, Both 4 times a day, 170, cm, 06/10/19 9:14:00 EST, Height, 67.6, kg, 11/06/18 9:35:00 EDT, Dry Weight Start Date: 07/17/19 Stop Date: 07/16/20 Status: Ordered Geodon 40 mg oral capsule See Instructions, One capsule daily after lunch., # 90 capsule, 0 Refills, Maintenance, 12/13/19 9:30:00 EDT, [facility], 170, cm, 12/09/19 9:10:00 EDT, Height, 67.6, kg, 11/06/18 9:35:00 EDT, Dry Weight Start Date: 12/13/19 Status: Ordered Splint See Instructions, # 1 each, Refills 0, Tot. Refills 0, Maintenance, right wrist every night, 06/01/11 14:34:47 Start Date: 06/01/11 Status: Ordered Synthroid 0.1 mg oral tablet 1 tablet = 100 mcg, By Mouth, Daily, # 90 tablet, 3 Refills, Maintenance, 06/10/20 13:16:00 EST, Tablet, [facility], 170, cm, 06/10/20 12:53:00 EST, Height, 61.8, kg, 02/07/20 14:54:00 EDT, Dry Weight Start Date: 06/10/20 Stop Date: 06/05/21 Status: Ordered venlafaxine 150 mg oral capsule, extended release See Instructions, One capsule daily each AM., # 90 capsule, 0 Refills, Soft Stop, 12/13/19 9:32:00 EDT, [facility], 170, cm, 12/09/19 9:10:00 EDT, Height, [...] Spinal stenosis of lumbar region Discharge Diagnosis 06/10/20 Gastritis Discharge Diagnosis 06/10/20 Vital Signs Most recent to oldest [Reference Range]: 1 Height 170 cm (06/10/20 12:53 PM) Weight 65.4 kg (06/10/20 12:53 PM) Oxygen Saturation [94-100 %] 99 % (06/10/20 12:53 PM) Pulse Rate [55-90 bpm] 80 bpm (06/10/20 12:53 PM) Body Mass Index [18.5-24.99] 22.63 (06/10/20 12:53 PM) Blood Pressure [90-138/55-84 mm Hg] 118/ 70mm Hg (06/10/20 12:53 PM) Blood pressure sites Arm, left (06/10/20 12:53 PM) Social History Social History Type Response Smoking Status Former smoker; Tobac co user in household: No entered on: 09/05/13 Sex
--- OUTSIDE RECORDS SUMMARY | 2023-03-30 13:15 | XMS_ITS | Continuity of Care Document ---
Author Name Unknown Organization [facility] Address [address] [place] [address]- Care Team Providers Care Bronc Buster Name Role Phone Julito Islas MD Primary Care Physician Encounter [facility] [place] Date(s): 12/05/22 - 01/04/23 [facility] [address] [place], [place] [address] Allergies, Adverse Reactions, Alerts Substance Reaction Severity Status Pravachol Active Lipitor Active Immunizations Given and Recorded Vaccine Date Status Refusal Reason [id number] 12y+ bivalent booster vax 02/01/22 Recorded SARS-CoV-2 [...] 06/23/21 15:20:00 EST, Route to Pharmacy Electronically, [facility]/pharmacy #[id number], Partial fill upon patient request if the prescriptio... Start Date: 06/23/21 Status: Ordered ezetimibe 10 mg oral tablet 1 tablet, By Mouth, Daily, # 90 tablet, 1 Refills, 12/29/22 11:43:00 EDT, [facility]/pharmacy #[id number], 170, cm, 12/12/22 13:20:00 EDT, Height, 72.7, kg, 07/11/21 16:17:00 EST, Dry Weight Start Date: 12/29/22 Status: Ordered furosemide 20 mg oral tablet 1, tablet, By Mouth, Daily, # 90 tablet, Refills 1, Maintenance, 08/18/22 19:50:00 EDT, Route to Pharmacy Electronically, [id number], 170, cm, 07/04/22 11:47:00 EST, Height, 72.7, kg, 07/11/21 16:17:00 EST, Dry Weight Start Date: 08/18/22 Status: Ordered GaviLAX oral powder for reconstitution See Instructions, MIX 17 GRAMS IN 4 TO 8 OUNCES OF WATER AND DRINK DAILY NEEDED FOR CONSTIPATION, # 510 Gm, 5 Refills, [id number], 30, MIX 17 GRAMS IN 4 TO [...] Acute12/03/23 16:49:00 EDT, 12/02/22 16:49:00 EDT, Tablet, [facility]/pharmacy #[id number], Partial fill upon patientrequest if the prescription is for a schedule II op... Start Date: 12/02/22 Stop Date: 12/03/23 Status: Ordered Metamucil 3.4 gm/5.2 gm oral powder for reconstitution = 3.4 Gm, By Mouth, Daily, dissolve in 8 oz of fluid, # 283 Gm, 1 Refills, Acute 08/31/23 11:42:00 EDT, 08/30/22 11:41:00 EDT, [facility]/pharmacy #[id number], Partial fill upon patient request if the prescription is for a schedule II opioid drug., 170, cm, ... Start Date: 08/30/22 Stop Date: 08/31/23 Status: Ordered omeprazole 20 mg oral enteric coated capsule 1 capsule = 20 mg, By Mouth, 2 times a day, # 60 each, 5 Refills, Maintenance, 12/12/22 13:09:00 EDT, EC Capsule, [facility]/pharmacy #[id number], dose increase, 170, cm, 12/12/22 13:08:00 [...] Replace Required Details, Route to Pharmacy Electronically, [facility]/pharmacy #[id number], Partial... Start Date: 08/11/22 Status: Ordered Synthroid 0.125 mg oral tablet 1 tablet, By Mouth, Daily, as a single daily dose before breakfast no substitution, # 90 tablet, 3 Refills, Maintenance, 12/20/22 14:23:00 EDT, [facility]/pharmacy #[id number], 170, cm, 12/12/22 13:20:00 EDT, [...] Primary Care Member Role: PCP Address: Address: [address] [place] [address] Adult [facility] [place] [address]- Care Team Related Persons Name: BHUPENDRA SAM Address: home [address] [facility] [place] [address] Name: ED TURPIN Address: home [address] [place] [address]
--- OUTSIDE RECORDS SUMMARY | 2023-03-30 13:15 | XMS_ITS | Continuity of Care Document ---
Author Name Unknown Organization [facility] Address [address] [place] [address]- Care Team Providers Care Ice Hockey Coach Name Role Phone Julito Islas MD Primary Care Physician [phone] Encounter [facility] Date(s): 12/02/22 - 01/01/23 [facility] [address] [place], [place] [address] Allergies, Adverse Reactions, Alerts Substance Reaction Severity Status Pravachol Active Lipitor Active Immunizations Given and Recorded Vaccine Date Status Refusal Reason [id number] 12y+ bivalent booster vax 02/01/22 Recorded SARS-CoV-2 [...] 06/23/21 15:20:00 EST, Route to Pharmacy Electronically, [facility]/pharmacy #[id number], Partial fill upon patient request if the prescriptio... Start Date: 06/23/21 Status: Ordered ezetimibe 10 mg oral tablet 1 tablet, By Mouth, Daily, # 90 tablet, 1 Refills, 12/29/22 11:43:00 EDT, [facility]/pharmacy #[id number], 170, cm, 12/12/22 13:20:00 EDT, Height, 72.7, kg, 07/11/21 16:17:00 EST, Dry Weight Start Date: 12/29/22 Status: Ordered furosemide 20 mg oral tablet 1, tablet, By Mouth, Daily, # 90 tablet, Refills 1, Maintenance, 08/18/22 19:50:00 EDT, Route to Pharmacy Electronically, [id number], 170, cm, 07/04/22 11:47:00 EST, Height, 72.7, kg, 07/11/21 16:17:00 EST, Dry Weight Start Date: 08/18/22 Status: Ordered GaviLAX oral powder for reconstitution See Instructions, MIX 17 GRAMS IN 4 TO 8 OUNCES OF WATER AND DRINK DAILY NEEDED FOR CONSTIPATION, # 510 Gm, 5 Refills, [id number], 30, MIX 17 GRAMS IN 4 TO [...] Acute12/03/23 16:49:00 EDT, 12/02/22 16:49:00 EDT, Tablet, [facility]/pharmacy #[id number], Partial fill upon patientrequest if the prescription is for a schedule II op... Start Date: 12/02/22 Stop Date: 12/03/23 Status: Ordered Metamucil 3.4 gm/5.2 gm oral powder for reconstitution = 3.4 Gm, By Mouth, Daily, dissolve in 8 oz of fluid, # 283 Gm, 1 Refills, Acute 08/31/23 11:42:00 EDT, 08/30/22 11:41:00 EDT, [facility]/pharmacy #[id number], Partial fill upon patient request if the prescription is for a schedule II opioid drug., 170, cm, ... Start Date: 08/30/22 Stop Date: 08/31/23 Status: Ordered omeprazole 20 mg oral enteric coated capsule 1 capsule = 20 mg, By Mouth, 2 times a day, # 60 each, 5 Refills, Maintenance, 12/12/22 13:09:00 EDT, EC Capsule, [facility]/pharmacy #[id number], dose increase, 170, cm, 12/12/22 [...] Replace Required Details, Route to Pharmacy Electronically, [facility]/pharmacy #[id number], Partial... Start Date: 08/11/22 Status: Ordered Synthroid 0.125 mg oral tablet 1 tablet, By Mouth, Daily, as a single daily dose before breakfast no substitution, # 90 tablet, 3 Refills, Maintenance, 12/20/22 14:23:00 EDT, [facility]/pharmacy #[id number], 170, cm, 12/12/22 13:20:00 EDT, [...] Primary Care Member Role: PCP Address: Address: [address] [place] [address] Adult [place] [address]- Care Team Related Persons Name: BHUPENDRA SAM Address: home [address] [facility] [place] [address] Name: ED TURPIN Address: home [address] [place] [address]
--- OUTSIDE RECORDS SUMMARY | 2023-03-30 13:15 | XMS_ITS | Continuity of Care Document ---
Author Name Unknown Organization [facility] Address [address] [place] [address]- Care Team Providers Care Production Support Consultant Name Role Phone Julito Islas MD Primary Care Physician [phone] [id number] Date[facility] 07/21[facility]21 - 07/28/21 [facility] [address] [place] [address]- Encounter Diagnosis Gastritis(Discharge Diagnosis) - 07/21/21 Situational stress(Discharge Diagnosis) - 07/21/21 Bipolar disorder(Discharge Diagnosis) - 07/21/21 Attending Physician: Julito Islas MD Allergies, Adverse [...] Acute06/09/22 14:40:00 EST, 06/09/21 14:40:00 EST, [facility], [id number], Partial fill upon patientrequest if the prescription is for a schedule II op... Start Date: 06/09/21 Stop Date: 06/09/22 Status: Ordered divalproex sodium 500 mg oral tablet, extended release See Instructions, Take 2 tablets daily at night., # 180 tablet, 1 Refills, Soft Stop, 10/21/19 17:34:00 EDT, [facility], 170, cm, 06/10/19 9:14:00 EST, Height, 67.6, kg, 11/06/18 9:35:00 EDT, Dry Weight Start Date: 10/21/19 Status: Ordered docusate sodium 100 mg oral capsule 100 mg, 1, capsule, By Mouth, 2 times a day, PRN, # 60 capsule, Refills 5, Tot. Refills 5, Maintenance, for constipation, 06/23/21 15:20:00 EST, Route to Pharmacy Electronically, [facility]/pharmacy #[id number], Partial fill upon patient request if the [...] Mouth, Daily, # 90 tablet, 1 Refills, [facility], 170, cm, 02/22/21 13:12:00 EDT, Height, 61.8, kg, 02/07/20 14:54:00 EDT, Dry Weight Start Date: 06/03/21 Status: Ordered GaviLAX oral powder for reconstitution See Instructions, MIX 17 GRAMS IN 4 TO 8 OUNCES OF WATER AND DRINK DAILY NEEDED FOR CONSTIPATION, # 510 Gm, 5 Refills, [id number], 30, MIX 17 GRAMS IN 4 TO 8 OUNCES OF WATER AND DRINK DAILY NEEDED FOR CONSTIPATION, 170, cm, 07/21/21 14:41:0... Start Date: 07/22/21 Status: Ordered Geodon 40 mg oral capsule See Instructions, One capsule daily after lunch., # 90 capsule, 0 Refills, Maintenance, 12/13/19 9:30:00 EDT, [facility], 170, cm, 12/09/19 9:10:00 EDT, Height, 67.6, kg, 11/06/18 9:35:00 EDT, Dry Weight Start Date: 12/13/19 Status: Ordered ketoconazole 2% topical cream 1 application, Topically, Daily, PRN foot rash, # 30 Gm, 2 Refills, Acute 10/22/21 8:35:00 EDT, 10/22/20 8:35:00 EDT, [id number] Partial fill upon patient request if the prescription is for a schedule II opioid drug., 1 application Top... Start Date: 10/22/20 Stop Date: 10/22/21 Status: Ordered LORazepam 1 mg oral tablet [...] Refills, Maintenance, 06/15/21 11:38:00 EST, [id number] dose [facility], 170, cm, 02/22/21 13:12:00 EDT, Height, 61.8, kg, 02/07/20 14:54:00 EDT, Dry Weight Start Date: 06/15/21 Status: Ordered ondansetron 4 mg oral tablet, disintegrating 1 tablet = 4 mg, By Mouth, Every 6 hours, PRN Nausea & Vomiting, # 30 each, 1 Refills, Acute 07/21/22 14:57:00 EDT, 07/21/21 14:57:00 EDT, [id number] Partial fill upon patient request if the prescription is for a schedule II opioid drShawn. Start Date: 07/21/21 Stop Date: 07/21/22 Status: Ordered Splint See Instructions, # 1 each, Refills 0, Tot. Refills 0, Maintenance, right wrist every night, 06/01/11 14:34:47 Start Date: 1/25/12 Status: Ordered Synthroid 0.125 mg oral tablet 1 tablet, By Mouth, Daily, # 90 tablet, 3 Refills, 05/25/21 8:45:00 EST, [facility], 170, cm, 02/22/21 13:12:00 EDT, Height, [...] Effective Dates Health Status Clinical Service Informant Gastritis Discharge Diagnosis 07/21/21 Situational stress Discharge Diagnosis 07/21/21 Bipolar disorder Discharge Diagnosis 07/21/21 Vital Signs Most recent to oldest [Reference Range]: 1 Height 170 cm (07/21/21 2:41 PM) Weight 71.1 kg (07/21/21 2:41 PM) Oxygen Saturation [94-100 %] 98 % (07/21/21 2:41 PM) Pulse Rate [55-90 bpm] 96 bpm *H* (07/21/21 2:41 PM) Body Mass Index [18.5-24.99] 24.6 (07/21/21 2:41 PM) Blood Pressure [90-138/55-84 mm Hg] 98/5 0mm Hg (07/21/21 2:41 PM) Blood pressure sites Arm, left (07/21/21 2:41 PM) Social History Social History Type Response Smoking Status Former smoker; Tob[employer] co user in household: No entered on: 09/05/13 Sex
--- OUTSIDE RECORDS SUMMARY | 2023-03-30 13:15 | XMS_ITS | Continuity of Care Document ---
Author Name Unknown Organization [facility] Address [address] [place] [address]- Care Team Providers Care Telecommunications Analyst Name Role Phone Julito Islas MD Primary [id number] Date(s): 06/17/21 - 07/17/21 [facility] [address] [place], [place] [address] Allergies, Adverse Reactions, Alerts Substance Reaction Severity Status Pravachol Active Lipitor Active Immunizations Given and Recorded Vaccine Date Status Refusal Reason SARS-CoV-2 (COVID-19) mRNA BNT-162b2 vac 08/20/20 Recorded SARS-CoV-2 (COVID-19) mRNA BNT-162b2 vac 07/29/20 Recorded influenza virus vaccine, inactivated 1 05/05/11 Gi mariusz Tet/Diphth/Acel, Pertussis (oldterm) 05/21/09 Give n Influenza Virus Vaccine (oldterm) 2 03/29/06 Given 1Admin Note: defers 2Admin Note: [employer] [facility] [employer] Medications chlorzoxazone 500 mg oral tablet 1 tablet = 500 mg, By Mouth, 3 times a day, PRN muscle pain or spasm, # 30 tablet, 1 Refills, Acute06/09/22 14:40:00 EST, 06/09/21 14:40:00 EST, Tablet, [facility]/pharmacy #[id number], Partial fill upon patientrequest if the prescription is for a schedule II op... Start Date: 06/09/21 Stop Date: 06/09/22 Status: Ordered divalproex sodium 500 mg oral tablet, extended release See Instructions, Take 2 tablets daily at night., # 180 tablet, 1 Refills, Soft Stop, 10/21/19 17:34:00 EDT, [facility], 170, cm, 06/10/19 9:14:00 EST, Height, 67.6, kg, 11/06/18 9:35:00 EDT, Dry Weight Start Date: 10/21/19 Status: Ordered docusate sodium 100 mg oral capsule 100 mg, 1, capsule, By Mouth, 2 times a day, PRN, # 60 capsule, Refills 5, Tot. Refills 5, Maintenance, for constipation, 06/23/21 15:20:00 EST, [id number], Partial fill upon patient request if [...] Mouth, Daily, # 90 tablet, 1 Refills, [facility], 170, cm, 02/22/21 13:12:00 EDT, Height, 61.8, kg, 02/07/20 14:54:00 EDT, Dry Weight Start Date: 06/03/21 Status: Ordered Geodon 40 mg oral capsule See Instructions, One capsule daily after lunch., # 90 capsule, 0 Refills, Maintenance, 12/13/19 9:30:00 EDT, [facility], 170, cm, 12/09/19 9:10:00 EDT, Height, 67.6, kg, 11/06/18 9:35:00 EDT, Dry Weight Start Date: 12/13/19 Status: Ordered ketoconazole 2% topical cream 1 application, Topically, Daily, PRN foot rash, # 30 Gm, 2 Refills, Acute 10/22/21 8:35:00 EDT, 10/22/20 8:35:00 EDT, Cream, [facility]/pharmacy #[id number], Partial fill upon patient request if the prescription is for a schedule II opioid drug., 1 application Top... Start Date: 10/22/20 Stop Date: 10/22/21 Status: Ordered MiraLax oral powder for reconstitution = 17 Gm, By Mouth, Daily, PRN Constipation, dissolve in water before taking, # 527 Gm, 0 Refills, Acute 06/23/22 15:21:00 EST, 06/23/21 15:21:00 EST, REC Powder, [id number], Partial fill uponpatient request if the prescription is for a schedu... Start Date: 06/23/21 Stop Date: 06/23/22 Status: Ordered omeprazole 20 mg oral enteric coated capsule 1 capsule = 20 mg, By Mouth, 2 times a day, # 60 each, 5 Refills, Maintenance, 06/15/21 11:38:00 EST, EC Capsule, [id number], dose increase, 170, cm, 02/22/21 13:12:00 EDT, Height, 61.8, kg, 02/07/20 14:54:00 EDT, Dry Weight Start Date: 06/15/21 Status: Ordered ondansetron 4 mg oral tablet, disintegrating 1 tablet = 4 mg, By Mouth, Every 6 hours, PRN Nausea & Vomiting, # 24 each, 1 Refills, Acute 06/15/22 11:37:00 EST, 06/15/21 11:37:00 EST, Tablet, [id number] Partial fill upon patient request if the prescription is for a schedule II opioid dr... Start Date: 06/15/21 Stop Date: 06/15/22 Status: Ordered ondansetron 4 mg oral tablet, disintegrating 1 tablet = 4 mg, By Mouth, Every 6 hours, PRN as needed for nausea/vomiting, # 20 tablet, 0 Refills, Maintenance, 07/11/21 16:11:00 EST, DIS Tablet, [facility], Partial fill upon patient request if the prescription is for a sche... Start Date: 07/11/21 Status: Ordered Splint See Instructions, # 1 each, Refills 0, Tot. Refills 0, Maintenance, right wrist every night, 06/01/11 14:34:47 Start Date: 06/01/11 Status: Ordered Synthroid 0.125 mg oral tablet 1 tablet, By Mouth, Daily, # 90 tablet, 3 Refills, 05/25/21 8:45:00 EST, [facility], 170, cm, 02/22/21 13:12:00 EDT, [...]
--- OUTSIDE RECORDS SUMMARY | 2023-03-30 13:16 | XMS_ITS | Continuity of Care Document ---
Author Name Unknown Organization [facility] Address [address] [place] [address]- Care Team Providers Care Bulk Delivery Driver Name Role Phone Julito Islas MD Primary Care Physician [place] [facility] 12/19/22 - 01/18/23 [facility] [address] [place], [place] [address] Allergies, Adverse Reactions, Alerts Substance Reaction Severity Status Pravachol Active Lipitor Active Immunizations Given and Recorded Vaccine Date Status Refusal Reason [id number] 12y+ bivalent booster vax 02/01/22 Recorded SARS-CoV-2 [...] EST, Route to Pharmacy Electronically, [facility]/pharmacy #[id number], Partial fill upon patient request if the prescriptio... Start Date: 06/23/21 Status: Ordered ezetimibe 10 mg oral tablet 1 tablet, By Mouth, Daily, # 90 tablet, 1 Refills, 12/29/22 11:43:00 EDT, [facility]/pharmacy #[id number], 170, cm, 12/12/22 13:20:00 EDT, Height, 72.7, kg, 07/11/21 16:17:00 EST, Dry Weight Start Date: 12/29/22 Status: Ordered furosemide 20 mg oral tablet 1, tablet, By Mouth, Daily, # 90 tablet, Refills 1, Maintenance, 08/18/22 19:50:00 EDT, Route to Pharmacy Electronically, [id number], 170, cm, 07/04/22 11:47:00 EST, Height, 72.7, kg, 07/11/21 16:17:00 EST, Dry Weight Start Date: 08/18/22 Status: Ordered GaviLAX oral powder for reconstitution See Instructions, MIX 17 GRAMS IN 4 TO 8 OUNCES OF WATER AND DRINK DAILY NEEDED FOR CONSTIPATION, # 510 Gm, 5 Refills, [facility], 30, MIX 17 GRAMS IN 4 TO [...] Acute12/03/23 16:49:00 EDT, 12/02/22 16:49:00 EDT, Tablet, [facility]/pharmacy #[id number], Partial fill upon patientrequest if the prescription is for a schedule II op... Start Date: 12/02/22 Stop Date: 12/03/23 Status: Ordered Metamucil 3.4 gm/5.2 gm oral powder for reconstitution = 3.4 Gm, By Mouth, Daily, dissolve in 8 oz of fluid, # 283 Gm, 1 Refills, Acute 08/31/23 11:42:00 EDT, 08/30/22 11:41:00 EDT, [facility]/pharmacy #[id number], Partial fill upon patient request if the prescription is for a schedule II opioid drug., 170, cm, ... Start Date: 08/30/22 Stop Date: 08/31/23 Status: Ordered omeprazole 20 mg oral enteric coated capsule 1 capsule = 20 mg, By Mouth, 2 times a day, # 60 each, 5 Refills, Maintenance, 12/12/22 13:09:00 EDT, EC Capsule, [facility]/pharmacy #[id number], dose increase, 170, cm, 12/12/22 13:08:00 [...] Replace Required Details, Route to Pharmacy Electronically, [facility]/pharmacy #[id number], Partial... Start Date: 08/11/22 Status: Ordered Synthroid 0.125 mg oral tablet 1 tablet, By Mouth, Daily, as a single daily dose before breakfast no substitution, # 90 tablet, 3 Refills, Maintenance, 12/20/22 14:23:00 EDT, [facility]/pharmacy #[id number], 170, cm, 12/12/22 13:20:00 EDT, Height, [...] Primary Care Member Role: PCP Address: Address: [address] [place] [address] Adult [place] [address]- Care Team Related Persons Name: BHUPENDRA SAM Address: home [address] [facility] [place] [address] Name: ED TURPIN Address: home [address] [place] [address]
--- OUTSIDE RECORDS SUMMARY | 2023-03-30 13:16 | XMS_ITS | Continuity of Care Document ---
Author Name Unknown Organization [facility] Address [address] [place] [address]- Care Team Providers Care Internet Marketing Strategist Name Role Phone Roshan DOZIER, Julito Dias Primary Care Physician [phone] Encounter [facility] Date(s): 07/12/22 - 08/11/22 [facility] [address] [place], [place] [address] Allergies, Adverse Reactions, Alerts Substance Reaction Severity Status Pravachol Active Lipitor Active Immunizations Given and Recorded Vaccine Date Status Refusal Reason [id number] 12y+ bivalent booster vax 02/01/22 Recorded SARS-CoV-2 [...] 1 Refills, Soft Stop, 10/21/19 17:34:00 EDT, [facility], 170, cm, 06/10/19 9:14:00 EST, Height, 67.6, kg, 11/06/18 9:35:00 EDT, Dry Weight Start Date: 10/21/19 Status: Ordered docusate sodium 100 mg oral capsule 100 mg, 1, capsule, By Mouth, 2 times a day, PRN, # 60 capsule, Refills 5, Tot. Refills 5, Maintenance, for constipation, 06/23/21 15:20:00 EST, Route to Pharmacy Electronically, [facility]/pharmacy #[id number], Partial fill upon patient request [...] FOR CONSTIPATION, # 510 Gm, 5 Refills, [id number], 30, MIX 17 GRAMS IN 4 TO [...] 09/13/21 16:14:00 EDT, Route to Pharmacy Electronically, [facility]/pharmacy #[id number], Partial fill upon patient request [...] Refills, Maintenance, 04/27/22 16:12:00 EST, EC Capsule, [facility]/pharmacy #[id number], dose increase, 170, cm, 04/27/22 15:49:00 [...] Replace Required Details, Route to Pharmacy Electronically, [facility]/pharmacy #[id number], Partial... Start Date: 08/11/22 Status: Ordered Synthroid 0.125 mg oral tablet 1 tablet, By Mouth, Daily, # 90 tablet, 1 Refills, Maintenance, 03/10/22 7:13:00 EDT, [facility], 170, cm, 12/17/21 13:41:00 [...] Team Personnel Name: Julito Islas MD Position: [facility] Primary Care Physician Member Role: PCP Address: Address: [address] [place] [address] Adult & [place] [address]- Care Team Related Persons Name: BHUPENDRA SAM Address: home [address] [facility] [place] [address] Name: ED TURPIN Address: home [address] [place] [address]
--- OUTSIDE RECORDS SUMMARY | 2023-03-30 13:16 | XMS_ITS | Continuity of Care Document ---
Author Name Unknown Organization [facility] Address [address] [place] [address]- Care Team Providers Care Commissary Steward Name Role Phone Roshan DOZIER, Julito Dias Primary Care Physician [phone] Encounter [facility] Date(s): 08/11/22 - 09/10/22 [facility] [address] [place], [place] [address] Allergies, Adverse Reactions, Alerts Substance Reaction Severity Status Pravachol Active Lipitor Active Immunizations Given and Recorded Vaccine Date Status Refusal Reason [id number] 12y+ bivalent booster vax 02/01/22 Recorded SARS-CoV-2 [...] 06/23/21 15:20:00 EST, Route to Pharmacy Electronically, [facility]/pharmacy #[id number], Partial fill upon patient request if [...] 08/18/22 19:50:00 EDT, Route to Pharmacy Electronically, [id number], 170, cm, 07/04/22 11:47:00 EST, Height, 72.7, kg, 07/11/21 16:17:00 EST, Dry Weight Start Date: 08/18/22 Status: Ordered GaviLAX oral powder for reconstitution See Instructions, MIX 17 GRAMS IN 4 TO 8 OUNCES OF WATER AND DRINK DAILY NEEDED FOR CONSTIPATION, # 510 Gm, 5 Refills, [id number], 30, MIX 17 GRAMS IN 4 TO [...] Acute 08/31/23 11:42:00 EDT, 08/30/22 11:41:00 EDT, [facility]/pharmacy #[id number], Partial fill upon patient request if the prescription is for a schedule II opioid drug., 170, cm, 07/04/... Start Date: 08/30/22 Stop Date: 08/31/23 Status: Ordered omeprazole 20 mg oral enteric coated capsule 1 capsule = 20 mg, By Mouth, 2 times a day, # 60 each, 5 Refills, Maintenance, 04/27/22 16:12:00 EST, EC Capsule, [facility]/pharmacy #[id number], dose increase, 170, cm, 04/27/22 15:49:00 [...] Required Details, [id number]... Start Date: 08/11/22 Status: Ordered Synthroid 0.125 mg oral tablet 1 tablet, By Mouth, Daily, # 90 tablet, 1 Refills, Maintenance, 03/10/22 7:13:00 EDT, [facility], 170, cm, 12/17/21 13:41:00 EDT, Height, [...] Name: Julito Islas MD Position: [facility] Primary Care Physician Member Role: PCP Address: Address: [address] [place] [address] Adult [place] [address]- Care Team Related Persons Name: BHUPENDRA SAM Address: home [address] [facility] [address] [place] [address] Name: ED TURPIN Address: home [address] [place] [address]
--- OUTSIDE RECORDS SUMMARY | 2023-03-30 13:16 | XMS_ITS | Continuity of Care Document ---
Author Name Unknown Organization [facility] Address [address] [place] [address]- Care Team Providers Care Dispatch Manager Name Role Phone Julito Islas MD Primary Care Physician [phone] Encounter [facility] Date(s): 02/03/22 - 03/16/22 [facility] [address] [place], [place] [address] Attending Physician: Julito Islas MD Allergies, Adverse [...] 14:40:00 EST, 06/09/21 14:40:00 EST, Tablet, [facility]/pharmacy #[id number], Partial fill upon patientrequest if the prescription is for a schedule II op... Start Date: 06/09/21 Stop Date: 06/09/22 Status: Ordered divalproex sodium 500 mg oral tablet, extended release See Instructions, Take 2 tablets daily at night., # 180 tablet, 1 Refills, Soft Stop, 10/21/19 17:34:00 EDT, [facility], 170, cm, 06/10/19 9:14:00 EST, Height, 67.6, kg, 11/06/18 9:35:00 EDT, Dry Weight Start Date: 10/21/19 Status: Ordered docusate sodium 100 mg oral capsule 100 mg, 1, capsule, By Mouth, 2 times a day, PRN, # 60 capsule, Refills 5, Tot. Refills 5, Maintenance, for constipation, 06/23/21 15:20:00 EST, Route to Pharmacy Electronically, [facility]/pharmacy #[id number], Partial fill upon patient request if the prescriptio... Start Date: 06/23/21 Status: Ordered ezetimibe 10 mg oral tablet 1 tablet, By Mouth, Daily, # 90 tablet, 1 Refills, [facility], 170, cm, 11/02/21 14:03:00 EDT, Height, 72.7, kg, 07/11/21 16:17:00 EST, Dry Weight Start Date: 11/09/21 Status: Ordered GaviLAX oral powder for reconstitution See Instructions, MIX 17 GRAMS IN 4 TO 8 OUNCES OF WATER AND DRINK DAILY NEEDED FOR CONSTIPATION, # 510 Gm, 5 Refills, [id number], 30, MIX 17 GRAMS IN 4 TO [...] 09/13/21 16:14:00 EDT, Route to Pharmacy Electronically, [facility]/pharmacy #[id number], Partial fill upon patient [...] Refills, Maintenance, 06/15/21 11:38:00 EST, [id number] dose [facility], 170, cm, 02/22/21 13:12:00 EDT, Height, 61.8, kg, 02/07/20 14:54:00 EDT, Dry Weight Start Date: 06/15/21 Status: Ordered ondansetron 4 mg oral tablet, disintegrating 1 tablet = 4 mg, By Mouth, Every 6 hours, PRN Nausea & Vomiting, # 30 each, 1 Refills, Acute 07/21/22 14:57:00 EDT, 07/21/21 14:57:00 EDT, Tablet[id number] fill upon patient request [...] Team Personnel Name: Julito Islas MD Position: [facility] Primary Care Physician Member Role: PCP Address: Address: [address] [place] [address] Adult & Pediatric Medicine [place], [place] [address] Care Team Related Persons Name: BHUPENDRA SAM Address: home [address] [place] [address] Name: ED TURPIN Address: home [address] [place] [address]
--- OUTSIDE RECORDS SUMMARY | 2023-03-30 13:16 | XMS_ITS | Continuity of Care Document ---
Author Name Unknown Organization [facility] Address [address] [place] [address]- Care Team Providers Care Eye Care Professional Name Role Phone Julito Islas MD Primary Care Physician [phone] [id number] Date(s): 08/20/20 - 09/19/20 [facility] [address] [place], [place] [address] Allergies, Adverse Reactions, Alerts Substance Reaction Severity Status Pravachol Active Lipitor Active Immunizations Given and Recorded Vaccine Date Status Refusal Reason influenza virus vaccine, inactivated 1 05/05/11 Gi mariusz Tet/Diphth/Acel, Pertussis (oldterm) 05/21/09 Give n Influenza Virus Vaccine (oldterm) 2 03/29/06 Given 1Admin Note: defers 2Admin Note: [employer] Medications Biotene Moisturizing Mouth [place] 1 sprays, By Mouth, 6 times a day, PRN dry mouth, 0 Refills, Maintenance, 11/06/18 9:43:24 EDT Start Date: 11/06/18 Status: Ordered divalproex sodium 500 mg oral tablet, extended release See Instructions, Take 2 tablets daily at night., # 180 tablet, 1 Refills, Soft Stop, 10/21/19 17:34:00 EDT, [facility], 170, cm, 06/10/19 9:14:00 EST, Height, 67.6, kg, 11/06/18 9:35:00 EDT, Dry Weight Start Date: 10/21/19 Status: Ordered ezetimibe 10 mg oral tablet See Instructions, TAKE 1 TABLET DAILY, # 90 tablet, 3 Refills, Soft Stop, 06/10/20 13:15:00 EST, [facility], refill when due, 170, cm, 06/10/20 12:53:00 EST, Height, 61.8, kg, 02/07/20 14:54:00 EDT, Dry Weight Start Date: 06/10/20 Status: Ordered Geodon 40 mg oral capsule See Instructions, One capsule daily after lunch., # 90 capsule, 0 Refills, Maintenance, 12/13/19 9:30:00 EDT, [facility], 170, cm, 12/09/19 9:10:00 EDT, [...] 3 Refills, Maintenance, 06/10/20 13:16:00 EST, Tablet, [facility], 170, cm, 06/10/20 12:53:00 EST, Height, 61.8, kg, 02/07/20 14:54:00 EDT, Dry Weight Start Date: 06/10/20 Stop Date: 06/05/21 Status: Ordered venlafaxine 150 mg oral capsule, extended release See Instructions, One capsule daily each AM., # 90 capsule, 0 Refills, Soft Stop, 12/13/19 9:32:00 EDT, [facility], 170, cm, 12/09/19 9:10:00 EDT, [...]
--- OUTSIDE RECORDS SUMMARY | 2023-03-30 13:16 | XMS_ITS | Continuity of Care Document ---
Author Name Unknown Organization [facility] Address [address] [place] [address]- Care Team Providers Care Trade Marker Name Role Phone Julito Islas MD Primary Care Physician Encounter [facility] Date(s): 08/12/22 - 09/16/22 [facility] [address] [place], [place] [email or web address] Attending Physician: Julito Islas MD Allergies, Adverse Reactions, Alerts Substance Reaction Severity Status Pravachol Active Lipitor Active Immunizations Given and Recorded Vaccine Date Status Refusal Reason [id number] 12y+ bivalent booster vax 02/01/22 Recorded SARS-CoV-2 [...] 1 Refills, Soft Stop, 10/21/19 17:34:00 EDT, [facility], 170, cm, 06/10/19 9:14:00 EST, Height, 67.6, kg, 11/06/18 9:35:00 EDT, Dry Weight Start Date: 10/21/19 Status: Ordered docusate sodium 100 mg oral capsule 100 mg, 1, capsule, By Mouth, 2 times a day, PRN, # 60 capsule, Refills 5, Tot. Refills 5, Maintenance, for constipation, 06/23/21 15:20:00 EST, Route to Pharmacy Electronically, [facility]/pharmacy #[id number], Partial fill upon patient [...] EDT, Route to Pharmacy Electronically, [id number], 170, cm, 07/04/22 11:47:00 EST, Height, 72.7, kg, 07/11/21 16:17:00 EST, Dry Weight Start Date: 08/18/22 Status: Ordered GaviLAX oral powder for reconstitution See Instructions, MIX 17 GRAMS IN 4 TO 8 OUNCES OF WATER AND DRINK DAILY NEEDED FOR CONSTIPATION, # 510 Gm, 5 Refills, [id number], 30, MIX 17 GRAMS IN 4 TO [...] Acute 08/31/23 11:42:00 EDT, 08/30/22 11:41:00 EDT, [facility]/pharmacy #[id number], Partial fill upon patient request if the prescription is for a schedule II opioid drug., 170, cm, 07/04/... Start Date: 08/30/22 Stop Date: 08/31/23 Status: Ordered omeprazole 20 mg oral enteric coated capsule 1 capsule = 20 mg, By Mouth, 2 times a day, # 60 each, 5 Refills, Maintenance, 04/27/22 16:12:00 EST, EC Capsule, [facility]/pharmacy #[id number], dose increase, 170, cm, 04/27/22 [...] Replace Required Details, [id number]... Start Date: 08/11/22 Status: Ordered Synthroid 0.125 mg oral tablet 1 tablet, By Mouth, Daily, # 90 tablet, 1 Refills, Maintenance, 03/10/22 7:13:00 EDT, [facility], 170, cm, 12/17/21 13:41:00 EDT, Height, [...] Team Personnel Name: Julito Islas MD Position: [facility] Primary Care Physician Member Role: PCP Address: Address: [address] [place] [address] Adult & Pediatric Medicine [place], [place] [address] Care Team Related Persons Name: BHUPENDRA SAM Address: home [address] [facility] [facility] [facility] [address] [place] [address] Name: ED TURPIN Address: home [address] [place] [address]
--- OUTSIDE RECORDS SUMMARY | 2023-03-30 13:16 | XMS_ITS | Continuity of Care Document ---
Author Name Unknown Organization [facility] Address [address] [place] [address]- Care Team Providers Care Director Underwriter Sales Name Role Phone Julito Islas MD Primary Care Physician [phone] Encounter [facility] Date(s): 03/09/21 - 04/08/21 [facility] [address] [place], [place] [address] Allergies, Adverse Reactions, Alerts Substance Reaction Severity Status Pravachol Active Lipitor Active Immunizations Given and Recorded Vaccine Date Status Refusal Reason SARS-CoV-2 (COVID-19) mRNA BNT-162b2 vac 08/20/20 Recorded SARS-CoV-2 (COVID-19) mRNA BNT-162b2 vac 07/29/20 Recorded influenza virus vaccine, inactivated 1 05/05/11 Gi mariusz Tet/Diphth/Acel, Pertussis (oldterm) 05/21/09 Give n Influenza Virus Vaccine (oldterm) 2 03/29/06 Given 1Admin Note: defers 2Admin Note: [employer] Medications divalproex sodium 500 mg oral tablet, extended release See Instructions, Take 2 tablets daily at night., # 180 tablet, 1 Refills, Soft Stop, 10/21/19 17:34:00 EDT, [facility], 170, cm, 06/10/19 9:14:00 EST, Height, 67.6, kg, 11/06/18 9:35:00 EDT, Dry Weight Start Date: 10/21/19 Status: Ordered escitalopram 10 mg oral tablet 1 tablet = 10 mg, By Mouth, Daily, # 30 tablet, 0 Refills, Maintenance, 02/16/21 14:55:00 EDT, Tablet, Partial fill upon patient request if the prescription is for a schedule II opioid drug. Start Date: 02/16/21 Status: Ordered ezetimibe 10 mg oral tablet 1 tablet, By Mouth, Daily, # 90 tablet, 0 Refills, [facility], 170, cm, 02/22/21 13:12:00 EDT, Height, 61.8, kg, 02/07/20 14:54:00 EDT, Dry Weight Start Date: 03/06/21 Status: Ordered Geodon 40 mg oral capsule See Instructions, One capsule daily after lunch., # 90 capsule, 0 Refills, Maintenance, 12/13/19 9:30:00 EDT, [facility], 170, cm, 12/09/19 9:10:00 EDT, Height, 67.6, kg, 11/06/18 9:35:00 EDT, Dry Weight Start Date: 12/13/19 Status: Ordered ketoconazole 2% topical cream 1 application, Topically, Daily, PRN foot rash, # 30 Gm, 2 Refills, Acute 10/22/21 8:35:00 EDT, 10/22/20 8:35:00 EDT, Cream, [facility]/pharmacy #[id number], Partial fill upon patient request if the prescription is for a schedule II opioid drug., 1 application Top... Start Date: 10/22/20 Stop Date: 10/22/21 Status: Ordered levothyroxine 125 mcg (0.125 mg) oral tablet 1 tablet = 125 mcg, By Mouth, Daily, # 90 tablet, 1 Refills, Maintenance, 01/04/21 16:59:00 EDT, Tablet, [facility], Partial fill upon patient request if the prescription is for a schedule II opioid drug., 170, cm, 12/16/20 14:1... Start Date: 01/04/21 Status: Ordered levothyroxine 125 mcg (0.125 mg) oral tablet 1 tablet = 125 mcg, By Mouth, Daily, # 7 tablet, 0 Refills, Maintenance, 01/04/21 17:00:00 EDT, Tablet, [facility]/pharmacy #[id number], Partial fill upon patient request if the prescription is for a schedule II opioid drug., 170, cm, 12/16/20 14:16:00 EDT, Height... Start Date: 01/04/21 Stop Date: 01/11/21 Status: Ordered omeprazole 20 mg oral enteric coated capsule 1 capsule = 20 mg, By Mouth, Daily, # 30 capsule, 5 Refills, Maintenance, 02/16/21 15:02:00 EDT, [facility], [id number], Partial fill upon patient request if the prescription is for a schedule II opioid drug., 170, cm, 02/16/21 14:38:00 EDT, H... Start Date: 02/16/21 Status: Ordered ondansetron 4 mg oral tablet, disintegrating 1 tablet = 4 mg, By Mouth, Every 8 hours, PRN as needed for nausea/vomiting, 0 Refills, Maintenance, 02/16/21 15:03:00 EDT, [facility]t, Partial fill upon patient request if the prescription is for a schedule II opioid drug. Start Date: 02/16/21 Status: Ordered Splint See Instructions, # 1 each, Refills 0, Tot. Refills 0, Maintenance, right wrist every night, 06/01/11 14:34:47 Start Date: 06/01/11 Status: Ordered Vitamin B Complex oral tablet, [...]
--- OUTSIDE RECORDS SUMMARY | 2023-03-30 13:16 | XMS_ITS | Continuity of Care Document ---
Author Name Unknown Organization [facility] Address [address] [place] [address]- Care Team Providers Care Medtronics Technician Name Role Phone Julito Islas MD Primary Care Physician En[place] [facility] Date(s): 06/10/19 - 06/17/19 [facility] [address] [place] [address]- [facility] Encounter Diagnosis Gastritis(Discharge Diagnosis) - 06/10/19 Spinal stenosis of lumbar region(Discharge Diagnosis) - 06/10/19 Attending Physician: Julito Islas MD Allergies, Adverse Reactions, Alerts Substance Reaction Severity Status Pravachol Active Lipitor Active Immunizations Given and Recorded Vaccine Date Status Refusal Reason influenza virus vaccine, inactivated 1 05/05/11 Gi mariusz Tet/Diphth/Acel, Pertussis (oldterm) 05/21/09 Give n Influenza Virus Vaccine (oldterm) 2 03/29/06 Given 1Admin Note: defers 2Admin Note: [employer] Medications Biotene Moisturizing Mouth [place] 1 sprays, By Mouth, 6 times a [...] 3 Refills, Soft Stop, 06/10/19 9:27:00 EST, [facility], 170, cm, 06/10/19 9:14:00 EST, Height, 67.6, kg, 11/06/18 9:35:00 EDT, Dry Weight Start Date: 06/10/19 Status: Ordered Geodon 40 mg oral capsule See Instructions, One capsule daily after lunch., # 90 capsule, 1 Refills, Maintenance, 06/13/19 9:35:00 EST, [facility], Please cancel any other Geodon orders. Thank you, 170,cm, 06/10/19 9:14:00 EST, Height, 67.6, kg, ... Start Date: 06/13/19 Status: Ordered Splint See Instructions, # 1 each, Refills 0, Tot. Refills 0, Maintenance, right wrist every night, 06/01/11 14:34:47 Start Date: 06/01/11 Status: Ordered Synthroid 0.1 mg oral tablet 1 tablet = 100 mcg, By Mouth, Daily, # 90 tablet, 3 Refills, Maintenance, 06/10/19 9:27:00 EST, Tablet, [facility], 170, cm, 06/10/19 9:14:00 EST, Height, 67.6, kg, 11/06/18 9:35:00 EDT, Dry Weight Start Date: 06/10/19 Stop Date: 06/04/20 Status: Ordered venlafaxine 150 mg oral capsule, extended release See Instructions, One capsule daily each AM., # 90 capsule, 1 Refills, Soft Stop, 06/13/19 9:37:00 EST, [facility], 170, cm, 06/10/19 9:14:00 EST, Height, 67.6, kg, 11/06/18 9:35:00 EDT, Dry Weight Start Date: 06/13/19 Status: Ordered Vitamin B Complex oral tablet, [...] Dates Health Status Cl inical Service Informant Gastritis Discharge Diagnosis 06/10/19 Spinal stenosis of lumbar region Discharge Diagnosis 06/10/19 Vital Signs Most recent to oldest [Reference Range]: 1 Height 170 cm (06/10/19 9:14 AM) Weight 65.1 kg (06/10/19 9:14 AM) Oxygen Saturation [94-100 %] 98 % (06/10/19 9:14 AM) Pulse Rate [55-90 bpm] 83 bpm (06/10/19 9:14 AM) Body Mass Index [18.5-24.99] 22.53 (06/10/19 9:14 AM) Blood Pressure [90-138/55-84 mm Hg] 122/ 70mm Hg (06/10/19 9:14 AM) Blood pressure sites Arm, left (06/10/19 9:14 AM) Social History Social History Type Response Smoking Status Former smoker; Tobac co user in household: No entered on: 09/05/13 Sex
--- OUTSIDE RECORDS SUMMARY | 2023-03-30 13:16 | XMS_ITS | Continuity of Care Document ---
Author Name Unknown Organization [facility] Address [address] [place] [address]- Care Team Providers Care Watermelon Inspector Name Role Phone Julito Islas MD Primary Care Physician [phone] [place]counter [facility] Date(s): 07/11/22 - 08/14/22 [facility] [address] [place], [place] [address] Attending Physician: Julito Islas MD Allergies, Adverse Reactions, Alerts Substance Reaction Severity Status Pravachol Active Lipitor Active Immunizations Given and Recorded Vaccine Date Status Refusal Reason [id number] 12y+ bivalent booster vax 02/01/22 Recorded SARS-CoV-2 [...] 1 Refills, Soft Stop, 10/21/19 17:34:00 EDT, [facility], 170, cm, 06/10/19 9:14:00 EST, Height, 67.6, kg, 11/06/18 9:35:00 EDT, Dry Weight Start Date: 10/21/19 Status: Ordered docusate sodium 100 mg oral capsule 100 mg, 1, capsule, By Mouth, 2 times a day, PRN, # 60 capsule, Refills 5, Tot. Refills 5, Maintenance, for constipation, 06/23/21 15:20:00 EST, Route to Pharmacy Electronically, [facility]/pharmacy #[id number], Partial fill upon patient [...] CONSTIPATION, # 510 Gm, 5 Refills, [id number], 30, MIX 17 GRAMS IN 4 TO [...] 09/13/21 16:14:00 EDT, Route to Pharmacy Electronically, [facility]/pharmacy #[id number], Partial fill upon patient [...] Refills, Maintenance, 04/27/22 16:12:00 EST, EC Capsule, [facility]/pharmacy #[id number], dose increase, 170, cm, 04/27/22 15:49:00 [...] Required Details, Route to Pharmacy Electronically, [facility]/pharmacy #[id number], Partial... Start Date: 08/11/22 Status: Ordered Synthroid 0.125 mg oral tablet 1 tablet, By Mouth, Daily, # 90 tablet, 1 Refills, Maintenance, 03/10/22 7:13:00 EDT, [facility], 170, cm, 12/17/21 13:41:00 [...] Care Physician Member Role: PCP Address: Address: [address] [place] [address] Adult [place] [address]- Care Team Related Persons Name: BHUPENDRA SAM Address: home [address] [facility] [address] [facility] [place] [address] Name: ED TURPIN Address: home [address] [place] [address]
--- OUTSIDE RECORDS SUMMARY | 2023-03-30 13:16 | XMS_ITS | Continuity of Care Document ---
Author Name Unknown Organization [facility] Address [address] [place] [address]- Care Team Providers Care Director Of Housing And Energy Services Name Role Phone Julito Islas MD Primary Care Physician Encounter [facility] Date(s): 02/07/20 - 03/08/20 [facility] [address] [place] [address]- [facility] Allergies, Adverse Reactions, Alerts Substance Reaction Severity Status Pravachol Active Lipitor Active Immunizations Given and Recorded Vaccine Date Status Refusal Reason influenza virus vaccine, inactivated 1 05/05/11 Gi mariusz Tet/Diphth/Acel, Pertussis (oldterm) 05/21/09 Give n Influenza Virus Vaccine (oldterm) 2 03/29/06 Given 1Admin Note: defers 2Admin Note: [employer] Medications Biotene Moisturizing Mouth [place] 1 sprays, By Mouth, 6 times a day, PRN dry mouth, 0 Refills, Maintenance, 11/06/18 9:43:24 EDT Start Date: 11/06/18 Status: Ordered divalproex sodium 500 mg oral tablet, extended release See Instructions, Take 2 tablets daily at night., # 180 tablet, 1 Refills, Soft Stop, 10/21/19 17:34:00 EDT, [facility], 170, cm, 06/10/19 9:14:00 EST, Height, 67.6, kg, 11/06/18 9:35:00 EDT, Dry Weight Start Date: 10/21/19 Status: Ordered ezetimibe 10 mg oral tablet See Instructions, TAKE 1 TABLET DAILY, # 90 tablet, 3 Refills, Soft Stop, 06/10/19 9:27:00 EST, [facility], 170, cm, 06/10/19 9:14:00 EST, Height, 67.6, kg, 11/06/18 9:35:00 EDT, Dry Weight Start Date: 06/10/19 Status: Ordered gentamicin 0.3% ophthalmic solution 2 drops, Eyes, Both, 4 times a day, # 5 mL, 0 Refills, Acute 07/16/20 16:47:00 EST, 07/17/19 16:46:00 EDT, Solution, [facility]/pharmacy #[id number], 2 drops Eyes, Both 4 times a day, 170, cm, 06/10/19 9:14:00 EST, Height, 67.6, kg, 11/06/18 9:35:00 EDT, Dry Weight Start Date: 07/17/19 Stop Date: 07/16/20 Status: Ordered Geodon 40 mg oral capsule See Instructions, One capsule daily after lunch., # 90 capsule, 0 Refills, Maintenance, 12/13/19 9:30:00 EDT, [facility], 170, cm, 12/09/19 9:10:00 [...] 3 Refills, Maintenance, 06/10/19 9:27:00 EST, Tablet, [facility], 170, cm, 06/10/19 9:14:00 EST, Height, 67.6, kg, 11/06/18 9:35:00 EDT, Dry Weight Start Date: 06/10/19 Stop Date: 06/04/20 Status: Ordered venlafaxine 150 mg oral capsule, extended release See Instructions, One capsule daily each AM., # 90 capsule, 0 Refills, Soft Stop, 12/13/19 9:32:00 EDT, [facility], 170, cm, 12/09/19 9:10:00 [...]
--- OUTSIDE RECORDS SUMMARY | 2023-03-30 13:16 | XMS_ITS | Continuity of Care Document ---
Author Name Unknown Organization [facility] Address [address] [place] [address]- Care Team Providers Care System Administrator Name Role Phone Julito Islas MD Primary Care Phys[id number] Date(s): 06/09/21 - 07/09/21 [facility] [address] [place], [place] [address] Allergies, Adverse Reactions, Alerts Substance Reaction Severity Status Pravachol Active Lipitor Active Immunizations Given and Recorded Vaccine Date Status Refusal Reason SARS-CoV-2 (COVID-19) mRNA BNT-162b2 vac 08/20/20 Recorded SARS-CoV-2 (COVID-19) mRNA BNT-162b2 vac 07/29/20 Recorded influenza virus vaccine, inactivated 1 05/05/11 Gi mariusz Tet/Diphth/Acel, Pertussis (oldterm) 05/21/09 Give n Influenza Virus Vaccine (oldterm) 2 03/29/06 Given 1Admin Note: defers 2Admin Note: [employer] [employer] Medications chlorzoxazone 500 mg oral tablet 1 tablet = 500 mg, By Mouth, 3 times a day, PRN muscle pain or spasm, # 30 tablet, 1 Refills, Acute06/09/22 14:40:00 EST, 06/09/21 14:40:00 EST, Tablet, [facility]pharmacy #[id number], Partial fill upon patientrequest if the prescription is for a schedule II op... Start Date: 06/09/21 Stop Date: 06/09/22 Status: Ordered divalproex sodium 500 mg oral tablet, extended release See Instructions, Take 2 tablets daily at night., # 180 tablet, 1 Refills, Soft Stop, 10/21/19 17:34:00 EDT, [facility], 170, cm, 06/10/19 9:14:00 EST, Height, 67.6, kg, 11/06/18 9:35:00 EDT, Dry Weight Start Date: 10/21/19 Status: Ordered docusate sodium 100 mg oral capsule 100 mg, 1, capsule, By Mouth, 2 times a day, PRN, # 60 capsule, Refills 5, Tot. Refills 5, Maintenance, for constipation, 06/23/21 15:20:00 EST, [id number] Partial fill upon patient request [...] Daily, # 90 tablet, 1 Refills, [facility], 170, cm, 02/22/21 13:12:00 EDT, Height, 61.8, kg, 02/07/20 14:54:00 EDT, Dry Weight Start Date: 06/03/21 Status: Ordered Geodon 40 mg oral capsule See Instructions, One capsule daily after lunch., # 90 capsule, 0 Refills, Maintenance, 12/13/19 9:30:00 EDT, [facility], 170, cm, 12/09/19 9:10:00 EDT, Height, 67.6, kg, 11/06/18 9:35:00 EDT, Dry Weight Start Date: 12/13/19 Status: Ordered ketoconazole 2% topical cream 1 application, Topically, Daily, PRN foot rash, # 30 Gm, 2 Refills, Acute 10/22/21 8:35:00 EDT, 10/22/20 8:35:00 EDT, Cream, [id number] Partial fill upon patient request if the prescription is for a schedule II opioid drug., 1 application Top... Start Date: 10/22/20 Stop Date: 10/22/21 Status: Ordered MiraLax oral powder for reconstitution = 17 Gm, By Mouth, Daily, PRN Constipation, dissolve in water before taking, # 527 Gm, 0 Refills, Acute 06/23/22 15:21:00 EST, 06/23/21 15:21:00 EST, REC Powder, [id number] Partial fill uponpatient request if the prescription is for a schedu... Start Date: 06/23/21 Stop Date: 06/23/22 Status: Ordered omeprazole 20 mg oral enteric coated capsule 1 capsule = 20 mg, By Mouth, 2 times a day, # 60 each, 5 Refills, Maintenance, 06/15/21 11:38:00 EST, EC Capsule, [id number], dose increase, 170, cm, 02/22/21 13:12:00 EDT, Height, 61.8, kg, 02/07/20 14:54:00 EDT, Dry Weight Start Date: 06/15/21 Status: Ordered ondansetron 4 mg oral tablet, disintegrating 1 tablet = 4 mg, By Mouth, Every 6 hours, PRN Nausea & Vomiting, # 24 each, 1 Refills, Acute 06/15/22 11:37:00 EST, 06/15/21 11:37:00 EST, Tablet, [id number] Partial fill upon patient request if the prescription is for a schedule II opioid dr... Start Date: 06/15/21 Stop Date: 06/15/22 Status: Ordered Splint See Instructions, # 1 each, Refills 0, Tot. Refills 0, Maintenance, right wrist every night, 06/01/11 14:34:47 Start Date: 06/01/11 Status: Ordered Synthroid 0.125 mg oral tablet 1 tablet, By Mouth, Daily, # 90 tablet, 3 Refills, 05/25/21 8:45:00 EST, [facility], 170, cm, 02/22/21 13:12:00 EDT, Height, [...]
--- OUTSIDE RECORDS SUMMARY | 2023-03-30 13:16 | XMS_ITS | Continuity of Care Document ---
Author Name Unknown Organization [facility] Address [address] [place] [address]- Care Team Providers Care Piano Maker Name Role Phone Julito Islas MD Primary Care Physician [phone] Encounter [facility] Date(s): 11/02/21 - 11/09/21 [facility] [address] [place], [place] [address] Encounter Diagnosis Spinal stenosis of lumbar region(Discharge Diagnosis) - 11/02/21 Attending Physician: Julito Islas MD Allergies, Adverse [...] 14:40:00 EST, 06/09/21 14:40:00 EST, Tablet, [id number], Partial fill upon patientrequest if the prescription is for a schedule II op... Start Date: 06/09/21 Stop Date: 06/09/22 Status: Ordered divalproex sodium 500 mg oral tablet, extended release See Instructions, Take 2 tablets daily at night., # 180 tablet, 1 Refills, Soft Stop, 10/21/19 17:34:00 EDT, [facility], 170, cm, 06/10/19 9:14:00 EST, Height, 67.6, kg, 11/06/18 9:35:00 EDT, Dry Weight Start Date: 10/21/19 Status: Ordered docusate sodium 100 mg oral capsule 100 mg, 1, capsule, By Mouth, 2 times a day, PRN, # 60 capsule, Refills 5, Tot. Refills 5, Maintenance, for constipation, 06/23/21 15:20:00 EST, [id number] Partial fill upon patient request if the prescriptio... Start Date: 06/23/21 Status: Ordered ezetimibe 10 mg oral tablet 1 tablet, By Mouth, Daily, # 90 tablet, 1 Refills, [facility], 170, cm, 11/02/21 14:03:00 EDT, Height, 72.7, kg, 07/11/21 16:17:00 EST, Dry Weight Start Date: 11/09/21 Status: Ordered GaviLAX oral powder for reconstitution See Instructions, MIX 17 GRAMS IN 4 TO 8 OUNCES OF WATER AND DRINK DAILY NEEDED FOR CONSTIPATION, # 510 Gm, 5 Refills, [id number], 30, MIX 17 GRAMS IN 4 TO [...] 16:14:00 EDT, Route to Pharmacy Electronically, [facility]/pharmacy #[id number], Partial fill upon patient request if [...] Refills, Maintenance, 06/15/21 11:38:00 EST, EC [facility]apsule, [id number] dose increase, 170, cm, 02/22/21 13:12:00 EDT, Height, 61.8, kg, 02/07/20 14:54:00 EDT, Dry Weight Start Date: 06/15/21 Status: Ordered ondansetron 4 mg oral tablet, disintegrating 1 tablet = 4 mg, By Mouth, Every 6 hours, PRN Nausea & Vomiting, # 30 each, 1 Refills, Acute 07/21/22 14:57:00 EDT, 07/21/21 14:57:00 EDT, Tablet, [id number] Partial fill upon patient request [...] 90 tablet, 3 Refills, 05/25/21 8:45:00 EST, [facility], 170, cm, 02/22/21 13:12:00 EDT, [...] Spinal stenosis of lumbar region Discharge Diagnosis 11/02/21 Vital Signs Most recent to oldest [Reference Range]: 1 Height 170 cm (11/02/21 2:03 PM) Weight 78.4 kg (11/02/21 2:03 PM) Oxygen Saturation [94-100 %] 98 % (11/02/21 2:03 PM) Pulse Rate [55-90 bpm] 72 bpm (11/02/21 2:03 PM) Body Mass Index [18.5-24.99] 27.13 *H* (11/02/21 2:03 PM) Blood Pressure [90-138/55-84 mm Hg] 124/ 84mm Hg (11/02/21 2:03 PM) Blood pressure sites Arm, left (11/02/21 2:03 PM) Social History Social History Type Response Smoking Status Former smoker; Tobac [employer] user in household: No entered on: 09/05/13 Sex
--- OUTSIDE RECORDS SUMMARY | 2023-03-30 13:16 | XMS_ITS | Continuity of Care Document ---
Author Name Unknown Organization [facility] Address [address] [place] [address]- Care Team Providers Care Youtuber Name Role Phone Julito Islas MD [id number]22[facility] [address] [place] [address]- Encounter Diagnosis Nausea and vomiting(Discharge Diagnosis) - 06/15/21 Abdominal pain(Discharge Diagnosis) - 06/15/21 Bipolar disorder(Discharge Diagnosis) - 06/15/21 Attending Physician: Julito Islas MD Allergies, Adverse [...] Acute06/09/22 14:40:00 EST, 06/09/21 14:40:00 EST, Tablet, [facility]/pharmacy #[id number], Partial fill upon patientrequest if the prescription [...] Mouth, Daily, # 90 tablet, 1 Refills, [facility], 170, cm, 02/22/21 [...] 8:35:00 EDT, 10/22/20 8:35:00 EDT, Cream, [facility]/pharmacy #[id number], Partial fill upon patient request if the prescription is for a schedule II opioid drug., 1 application Top... Start Date: 10/22/20 Stop Date: 10/22/21 Status: Ordered omeprazole 20 mg oral enteric coated capsule 1 capsule = 20 mg, By Mouth, 2 times a day, # 60 each, 5 Refills, Maintenance, 06/15/21 11:38:00 EST, EC Capsule, [facility]/pharmacy #[id number], dose increase, 170, cm, 02/22/21 13:12:00 EDT, Height, 61.8, kg, 02/07/20 14:54:00 EDT, Dry Weight Start Date: 06/15/21 Status: Ordered ondansetron 4 mg oral tablet, disintegrating 1 tablet = 4 mg, By Mouth, Every 6 hours, PRN Nausea & Vomiting, # 24 each, 1 Refills, Acute 06/15/22 11:37:00 EST, 06/15/21 11:37:00 EST, Tablet, [facility]/pharmacy #[id number], Partial fill upon patient request if the prescription is for a schedule II opioid . Start Date: 06/15/21 Stop Date: 06/15/22 Status: Ordered Splint See Instructions, # 1 each, Refills 0, Tot. Refills 0, Maintenance, right wrist every night, 06/01/11 14:34:47 Start Date: 06/01/11 Status: Ordered Synthroid 0.125 mg oral tablet 1 tablet, By Mouth, Daily, # 90 tablet, 3 Refills, 05/25/21 8:45:00 EST, [facility], 170, cm, 02/22/21 13:12:00 EDT, Height, [...] Dates Health Status Cl inical Service Informant Nausea and vomiting Discharge Diagnosis 06/15/21 Abdominal pain Discharge Diagnosis 06/15/21 Bipolar disorder Discharge Diagnosis 06/15/21 Social History Social History Type Response Smoking Status Former smoker; [employer] user in household: No entered on: 09/05/13 Sex
--- OUTSIDE RECORDS SUMMARY | 2023-03-30 13:16 | XMS_ITS | Continuity of Care Document ---
Author Name Unknown Organization [facility] Address [address] [place] [address]- Care Team Providers Care Transfer Professor Name Role Phone Julito Islas MD Primary Care Physician [phone] Encounter [facility] Date(s): 04/27/22 - 05/27/22 [facility] [address] [place], [place] [address] Attending Physician: Admtr, Ar8 Allergies, Adverse Reactions, Alerts Substance Reaction Severity Status Pravachol Active Lipitor Active Immunizations Given and Recorded Vaccine Date Status Refusal Reason [id number] 12y+ bivalent booster vax 02/01/22 Recorded SARS-CoV-2 [...] Acute06/09/22 14:40:00 EST, 06/09/21 14:40:00 EST, Tablet, [facility]/pharmacy #[id number], Partial fill upon patientrequest if the prescription is for a schedule II op... Start Date: 06/09/21 Stop Date: 06/09/22 Status: Ordered divalproex sodium 500 mg oral tablet, extended release See Instructions, Take 2 tablets daily at night., # 180 tablet, 1 Refills, Soft Stop, 10/21/19 17:34:00 EDT, [facility], 170, cm, 06/10/19 9:14:00 EST, Height, 67.6, kg, 11/06/18 9:35:00 EDT, Dry Weight Start Date: 10/21/19 Status: Ordered docusate sodium 100 mg oral capsule 100 mg, 1, capsule, By Mouth, 2 times a day, PRN, # 60 capsule, Refills 5, Tot. Refills 5, Maintenance, for constipation, 06/23/21 15:20:00 EST, Route to Pharmacy Electronically, [facility]/pharmacy #[id number], Partial fill upon patient request if the prescriptio... Start Date: 06/23/21 Status: Ordered ezetimibe 10 mg oral tablet 1 tablet, By Mouth, Daily, # 90 tablet, 1 Refills, [facility], 170, cm, 11/02/21 14:03:00 EDT, Height, 72.7, kg, 07/11/21 16:17:00 EST, Dry Weight Start Date: 11/09/21 Status: Ordered GaviLAX oral powder for reconstitution See Instructions, MIX 17 GRAMS IN 4 TO 8 OUNCES OF WATER AND DRINK DAILY NEEDED FOR CONSTIPATION, # 510 Gm, 5 Refills, [id number], 30, MIX 17 GRAMS IN 4 TO [...] 09/13/21 16:14:00 EDT, [id number] fill upon patient request [...] Refills, Maintenance, 04/27/22 16:12:00 EST, EC Capsule, [facility]/pharmacy #[id number], dose increase, 170, cm, 04/27/22 15:49:00 EST, Height, 72.7, kg, 07/11/21 16:17:00 EST, Dry Weight Start Date: 04/27/22 Status: Ordered ondansetron 4 mg oral tablet, disintegrating 1 tablet = 4 mg, By Mouth, Every 6 hours, PRN Nausea & Vomiting, # 30 each, 1 Refills, Acute 07/21/22 14:57:00 EDT, 07/21/21 14:57:00 EDT, Tablet, [facility]/pharmacy #[id number], Partial fill upon patient request [...] tablet, 1 Refills, Maintenance, 03/10/22 7:13:00 EDT, [facility], 170, cm, 12/17/21 13:41:00 EDT, [...] No entered on: 09/05/13 Sex Note * Event Display: Laboratory Result Scanned Authored Date: * Event Display: Non Lab Results Authored Date: * Event Display: Non Lab Results Authored Date: * Beatrice Mishra: PERFORM Event Display: Cardiovascular Results Scanned Authored Date: [id number] * Beatrice Mishra: PERFORM Event Display: Cardiovascular Results Scanned Authored Date: [id number] Patient Care team information Care Team Personnel Name: Julito Islas MD Position: [facility] Primary Care Physician Member Role: PCP Address: Address: [address] [place] [address] Adult & Pediatric Medicine [place], [place] [address] Care Team Related Persons Name: BHUPENDRA SAM Address: home [address] [place] [address] Name: ED TURPIN Address: home [address] [place] [address]
--- OUTSIDE RECORDS SUMMARY | 2023-03-30 13:16 | XMS_ITS | Continuity of Care Document ---
Author Name Unknown Organization [facility] Address [address] [place] [address]- Care Team Providers Care Sugar Laboratory Assistant Name Role Phone Julito Islas MD Primary Care Physician Encounter [facility] Date(s): 12/09/19 - 12/16/19 [facility] [address] [place] [address]- [facility] Encounter Diagnosis Hyperlipidemia(Discharge Diagnosis) - 12/09/19 Hypothyroidism(Discharge Diagnosis) - 12/09/19 Gastritis(Discharge Diagnosis) - 12/09/19 Sleep apnea(Discharge Diagnosis) - 12/09/19 Spinal stenosis of lumbar region(Discharge Diagnosis) - 12/09/19 Bipolar disorder(Discharge Diagnosis) - 12/09/19 Attending Physician: Julito Islas MD Allergies, Adverse Reactions, Alerts Substance Reaction Severity Status Pravachol Active Lipitor Active Immunizations Given and Recorded Vaccine Date Status Refusal Reason influenza virus vaccine, inactivated 1 05/05/11 Gi mariusz Tet/Diphth/Acel, Pertussis (oldterm) 05/21/09 Give n Influenza Virus Vaccine (oldterm) 2 03/29/06 Given 1Admin Note: defers 2Admin Note: [employer] Medications Biotene Moisturizing Mouth [place] 1 sprays, By Mouth, 6 times a day, PRN dry mouth, 0 Refills, Maintenance, 11/06/18 9:43:24 EDT Start Date: 11/06/18 Status: Ordered divalproex sodium 500 mg oral tablet, extended release See Instructions, Take 2 tablets daily at night., # 180 tablet, 1 Refills, Soft Stop, 10/21/19 17:34:00 EDT, [facility], 170, cm, 06/10/19 9:14:00 EST, Height, 67.6, kg, 11/06/18 9:35:00 EDT, Dry Weight Start Date: 10/21/19 Status: Ordered ezetimibe 10 mg oral tablet See Instructions, TAKE 1 TABLET DAILY, # 90 tablet, 3 Refills, Soft Stop, 06/10/19 9:27:00 EST, [facility], 170, cm, 06/10/19 9:14:00 EST, Height, 67.6, kg, 11/06/18 9:35:00 EDT, Dry Weight Start Date: 06/10/19 Status: Ordered gentamicin 0.3% ophthalmic solution 2 drops, Eyes, Both, 4 times a day, # 5 mL, 0 Refills, Acute 07/16/20 16:47:00 EST, 07/17/19 16:46:00 EDT, Solution, [facility]/pharmacy #[id number], 2 drops Eyes, Both 4 times a day, 170, cm, 06/10/19 9:14:00 EST, Height, 67.6, kg, 11/06/18 9:35:00 EDT, Dry Weight Start Date: 07/17/19 Stop Date: 07/16/20 Status: Ordered Geodon 40 mg oral capsule See Instructions, One capsule daily after lunch., # 90 capsule, 0 Refills, Maintenance, 12/13/19 9:30:00 EDT, [facility], 170, cm, 12/09/19 9:10:00 EDT, Height, [...] 3 Refills, Maintenance, 06/10/19 9:27:00 EST, Tablet, [facility], 170, cm, 06/10/19 9:14:00 EST, Height, 67.6, kg, 11/06/18 9:35:00 EDT, Dry Weight Start Date: 06/10/19 Stop Date: 06/04/20 Status: Ordered venlafaxine 150 mg oral capsule, extended release See Instructions, One capsule daily each AM., # 90 capsule, 0 Refills, Soft Stop, 12/13/19 9:32:00 EDT, [facility], 170, cm, 12/09/19 9:10:00 EDT, Height, [...] Status Clinical Service Informant Hyperlipidemia Discharge Diagnosis 12/09/19 Hypothyroidism Discharge Diagnosis 12/09/19 Gastritis Discharge Diagnosis 12/09/19 Sleep apnea Discharge Diagnosis 12/09/19 Spinal stenosis of lumbar region Discharge Diagnosis 12/09/19 Bipolar disorder Discharge Diagnosis 12/09/19 Vital Signs Most recent to oldest [Reference Range]: 1 Height 170 cm (12/09/19 9:10 AM) Weight 62.7 kg (12/09/19 9:10 AM) Oxygen Saturation [94-100 %] 98 % (12/09/19 9:10 AM) Pulse Rate [55-90 bpm] 84 bpm (12/09/19 9:10 AM) Body Mass Index [18.5-24.99] 21.7 (12/09/19 9:10 AM) Blood Pressure [90-138/55-84 mm Hg] 126/ 60mm Hg (12/09/19 9:10 AM) Blood pressure sites Arm, left (12/09/19 9:10 AM) Social History Social History Type Response Smoking Status Former smoker; Tobac co user in household: No entered on: 09/05/13 Sex
--- OUTSIDE RECORDS SUMMARY | 2023-03-30 13:16 | XMS_ITS | Continuity of Care Document ---
Author Name Unknown Organization [facility] Address [address] [place] [address]- Care Team Providers Care Flower Maker Name Role Phone Julito Islas MD Primary Care Physician [phone] [id number] Date(s): 09/03/21 - 09/10/21 [facility] [address] [place] [address]- Attending Physician: Andrea Agarwal MD Referring Physician: Julito Islas MD Allergies, [...] INC. Medications Abilify 5 mg oral tablet 5 mg, 1, tablet, By Mouth, Daily, # 30 tablet, Refills 0, Maintenance, 09/03/21 16:41:00 EDT, Partial fill upon patient request if the prescription is for a schedule II opioid drug. Start Date: 09/03/21 Status: Ordered chlorzoxazone 500 mg oral tablet 1 tablet = 500 mg, By Mouth, 3 times a day, PRN muscle pain or spasm, # 30 tablet, 1 Refills, Acute06/09/22 14:40:00 EST, 06/09/21 14:40:00 EST, Tablet, [facility]/pharmacy #[id number], Partial fill upon patientrequest if the prescription is for a schedule II op... Start Date: 06/09/21 Stop Date: 06/09/22 Status: Ordered divalproex sodium 500 mg oral tablet, extended release See Instructions, Take 2 tablets daily at night., # 180 tablet, 1 Refills, Soft Stop, 10/21/19 17:34:00 EDT, [facility], 170, cm, 06/10/19 9:14:00 EST, Height, 67.6, kg, 11/06/18 9:35:00 EDT, Dry Weight Start Date: 10/21/19 Status: Ordered docusate sodium 100 mg oral capsule 100 mg, 1, capsule, By Mouth, 2 times a day, PRN, # 60 capsule, Refills 5, Tot. Refills 5, Maintenance, for constipation, 06/23/21 15:20:00 EST, [id number] Partial fill upon patient request if [...] Mouth, Daily, # 90 tablet, 1 Refills, [facility], 170, cm, 02/22/21 13:12:00 EDT, Height, 61.8, kg, 02/07/20 14:54:00 EDT, Dry Weight Start Date: 06/03/21 Status: Ordered GaviLAX oral powder for reconstitution See Instructions, MIX 17 GRAMS IN 4 TO 8 OUNCES OF WATER AND DRINK DAILY NEEDED FOR CONSTIPATION, # 510 Gm, 5 Refills, [facility] STORE [id number], 30, MIX 17 GRAMS IN 4 TO 8 OUNCES OF WATER AND DRINK DAILY NEEDED FOR CONSTIPATION, 170, cm, 07/21/21 14:41:0... Start Date: 07/22/21 Status: Ordered ketoconazole 2% topical cream 1 application, Topically, Daily, PRN foot rash, # 30 Gm, 2 Refills, Acute 10/22/21 8:35:00 EDT, 10/22/20 8:35:00 EDT, Cream, [facility]/pharmacy #[id number], Partial fill upon patient request if the prescription is for a schedule II opioid drug., 1 application Top... Start Date: 10/22/20 Stop Date: 10/22/21 Status: Ordered Lasix 20 mg oral tablet 20 mg, 1, tablet, By Mouth, Daily, # 10 tablet, Refills 0, Tot. Refills 0, Maintenance, 09/03/21 16:53:00 EDT, Route to Pharmacy Electronically, [facility]/pharmacy #[id number], Partial fill upon patient request if the prescription is for a schedule II opioid drug... Start Date: 09/03/21 Stop Date: 09/13/21 Status: Ordered LORazepam 1 mg oral tablet [...] Refills, Maintenance, 06/15/21 11:38:00 EST, EC Capsule, [facility]/pharmacy #[id number], dose increase, 170, cm, 02/22/21 13:12:00 EDT, Height, 61.8, kg, 02/07/20 14:54:00 EDT, Dry Weight Start Date: 06/15/21 Status: Ordered ondansetron 4 mg oral tablet, disintegrating 1 tablet = 4 mg, By Mouth, Every 6 hours, PRN Nausea & Vomiting, # 30 each, 1 Refills, Acute 07/21/22 14:57:00 EDT, 07/21/21 14:57:00 EDT, Tablet, [facility]/pharmacy #[id number], Partial fill upon patient request if [...] tablet, 3 Refills, 05/25/21 8:45:00 EST, [facility], 170, cm, 02/22/21 13:12:00 EDT, Height, [...] [Reference Range]: 1 2 Height 170 cm (09/03/21 4:14 PM) 170 cm (09/03/21 4:04 PM) Weight 76.8 kg (09/03/21 4:04 PM) Oxygen Saturation [94-100 %] 99 % (09/03/21 4:04 PM) Pulse Rate [55-90 bpm] 76 bpm (09/03/21 4:04 PM) Body Mass Index [18.5-24.99] 26.57 *H* (09/03/21 4:04 PM) Blood Pressure [90-138/55-84 mm Hg] 164/ 80mm Hg *H* (09/03/21 4:14 PM) 170/80mm Hg *H* (09/03/21 4:04 PM) Blood pressure sites Arm, left (09/03/21 4:14 PM) Arm, left (09/03/21 4:04 PM) Social History Social History Type Response Smoking Status Former smoker; Tobac co user in household: No entered on: 09/05/13 Sex
--- OUTSIDE RECORDS SUMMARY | 2023-03-30 13:16 | XMS_ITS | Continuity of Care Document ---
Author Name Unknown Organization [facility] Address [address] [place] [address]- Care Team Providers Care Medical Collections Representative Name Role Phone Julito Islas MD Primary Care Physician Encounter [facility] Date(s): 07/16/20 - 08/15/20 [facility] [address] [place], [place] [address] Allergies, Adverse Reactions, Alerts Substance Reaction Severity Status Pravachol Active Lipitor Active Immunizations Given and Recorded Vaccine Date Status Refusal Reason influenza virus vaccine, inactivated 1 05/05/11 Gi mariusz Tet/Diphth/Acel, Pertussis (oldterm) 05/21/09 Give n Influenza Virus Vaccine (oldterm) 2 03/29/06 Given 1Admin Note: defers 2Admin Note: [employer] Medications Biotene Moisturizing Mouth [place] 1 sprays, By Mouth, 6 times a day, PRN dry mouth, 0 Refills, Maintenance, 11/06/18 9:43:24 EDT Start Date: 11/06/18 Status: Ordered divalproex sodium 500 mg oral tablet, extended release See Instructions, Take 2 tablets daily at night., # 180 tablet, 1 Refills, Soft Stop, 10/21/19 17:34:00 EDT, [facility], 170, cm, 06/10/19 9:14:00 EST, Height, 67.6, kg, 11/06/18 9:35:00 EDT, Dry Weight Start Date: 10/21/19 Status: Ordered ezetimibe 10 mg oral tablet See Instructions, TAKE 1 TABLET DAILY, # 90 tablet, 3 Refills, Soft Stop, 06/10/20 13:15:00 EST, [facility], refill when due, 170, cm, 06/10/20 12:53:00 EST, Height, 61.8, kg, 02/07/20 14:54:00 EDT, Dry Weight Start Date: 06/10/20 Status: Ordered Geodon 40 mg oral capsule See Instructions, One capsule daily after lunch., # 90 capsule, 0 Refills, Maintenance, 12/13/19 9:30:00 EDT, [facility], 170, cm, 12/09/19 9:10:00 EDT, Height, [...] 3 Refills, Maintenance, 06/10/20 13:16:00 EST, Tablet, [facility], 170, cm, 06/10/20 12:53:00 EST, Height, 61.8, kg, 02/07/20 14:54:00 EDT, Dry Weight Start Date: 06/10/20 Stop Date: 06/05/21 Status: Ordered venlafaxine 150 mg oral capsule, extended release See Instructions, One capsule daily each AM., # 90 capsule, 0 Refills, Soft Stop, 12/13/19 9:32:00 EDT, [facility], 170, cm, 12/09/19 9:10:00 EDT, Height, [...]
--- OUTSIDE RECORDS SUMMARY | 2023-03-30 13:16 | XMS_ITS | Continuity of Care Document ---
Author Name Unknown Organization [facility] Address [address] [place] [address]- Care Team Providers Care Physician Executive Name Role Phone Julito Islas MD Primary Care Physician Encounter [facility] Date(s): 01/24/23 - 02/23/23 [facility] [address] [place], [place] [address] Allergies, Adverse Reactions, Alerts Substance Reaction Severity Status Pravachol Active Lipitor Active Immunizations Given and Recorded Vaccine Date Status Refusal Reason zoster vaccine, inactivated 10/31/22 Recorded zoster vaccine, inactivated 08/30/22 Recorded pneumococcal 20-valent conjugate vaccine 10/31/22 Recorded [id number] 12y+ bivalent booster vax 02/01/22 Recorded SARS-CoV-2 [...] Route to Pharmacy Electronically, [facility]/pharmacy #[id number], Partial fill upon patient request if the prescriptio... Start Date: 06/23/21 Status: Ordered ezetimibe 10 mg oral tablet 1 tablet, By Mouth, Daily, # 90 tablet, 1 Refills, 12/29/22 11:43:00 EDT, [facility]/pharmacy #[id number], 170, cm, 12/12/22 13:20:00 EDT, Height, 72.7, kg, 07/11/21 16:17:00 EST, Dry Weight Start Date: 12/29/22 Status: Ordered furosemide 20 mg oral tablet 1, tablet, By Mouth, Daily, # 90 tablet, Refills 1, Maintenance, 08/18/22 19:50:00 EDT, Route to Pharmacy Electronically, [facility] STORE [id number], 170, cm, 07/04/22 11:47:00 EST, Height, 72.7, kg, 07/11/21 16:17:00 EST, Dry Weight Start Date: 08/18/22 Status: Ordered GaviLAX oral powder for reconstitution See Instructions, MIX 17 GRAMS IN 4 TO 8 OUNCES OF WATER AND DRINK DAILY NEEDED FOR CONSTIPATION, # 510 Gm, 5 Refills, [id number], 30, MIX 17 GRAMS IN 4 TO [...] Acute12/03/23 16:49:00 EDT, 12/02/22 16:49:00 EDT, Tablet, [facility]/pharmacy #[id number], Partial fill upon patientrequest if the prescription is for a schedule II op... Start Date: 12/02/22 Stop Date: 12/03/23 Status: Ordered Metamucil 3.4 gm/5.2 gm oral powder for reconstitution = 3.4 Gm, By Mouth, Daily, dissolve in 8 oz of fluid, # 283 Gm, 1 Refills, Acute 08/31/23 11:42:00 EDT, 08/30/22 11:41:00 EDT, [facility]/pharmacy #[id number], Partial fill upon patient request if the prescription is for a schedule II opioid drug., 170, cm, 07/04/... Start Date: 08/30/22 Stop Date: 08/31/23 Status: Ordered omeprazole 20 mg oral enteric coated capsule 1 capsule = 20 mg, By Mouth, 2 times a day, # 60 each, 5 Refills, Maintenance, 12/12/22 13:09:00 EDT, EC Capsule, [facility]/pharmacy #[id number], dose increase, 170, cm, 12/12/22 13:08:00 [...] Replace Required Details, Route to Pharmacy Electronically, [facility]/pharmacy #[id number], Partial... Start Date: 02/16/23 Status: Ordered Synthroid 0.125 mg oral tablet 1 tablet, By Mouth, Daily, as a single daily dose before breakfast no substitution, # 90 tablet, 3 Refills, Maintenance, 02/17/23 10:27:00 EDT, [facility], 170, cm, 01/26/23 9:57:00 EDT, Height, [...] Team Personnel Name: Julito Islas MD Position: [facility] Physician - Primary Care Member Role: PCP Address: Address: [address] [place] [address] Adult [place] [address]- Care Team Related Persons Name: BHUPENDRA SAM Address: home [address] [place] [address] Name: ED TURPIN Address: home [address] [place] [address]
--- OUTSIDE RECORDS SUMMARY | 2023-03-30 13:16 | XMS_ITS | Continuity of Care Document ---
Author Name Unknown Organization [facility] Address [address] [place] [address]- Care Team Providers Care Installment Loan Collector Name Role Phone Julito Islas MD Primary Care Physician [id number] Date(s): 07/24/20 - 07/31/20 [facility] [address] [place] [address]- Attending Physician: Ginette Mccloud MD Referring Physician: [...] [employer] Medications Biotene Moisturizing Mouth [place] 1 sprays, By Mouth, 6 times a [...]
--- OUTSIDE RECORDS SUMMARY | 2023-03-30 13:16 | XMS_ITS | Continuity of Care Document ---
Author Name Unknown Organization [facility] Address [address] [place] [address]- Care Team Providers Care Excel Vba Developer Name Role Phone Julito Islas MD Primary Care Physician Encounter [facility] Date(s): 06/14/21 - 07/14/21 [facility] [address] [place], [place] [address] Allergies, Adverse Reactions, Alerts Substance Reaction Severity Status Pravachol Active Lipitor Active Immunizations Given and Recorded Vaccine Date Status Refusal Reason SARS-CoV-2 (COVID-19) mRNA BNT-162b2 vac 08/20/20 Recorded SARS-CoV-2 (COVID-19) mRNA BNT-162b2 vac 07/29/20 Recorded influenza virus vaccine, inactivated 1 05/05/11 Gi mariusz Tet/Diphth/Acel, Pertussis (oldterm) 05/21/09 Give n Influenza Virus Vaccine (oldterm) 2 03/29/06 Given 1Admin Note: defers 2Admin Note: [employer] Medications chlorzoxazone 500 mg oral tablet 1 tablet = 500 mg, By Mouth, 3 times a day, PRN muscle pain or spasm, # 30 tablet, 1 Refills, Acute06/09/22 14:40:00 EST, 06/09/21 14:40:00 EST, Tablet, [facility]/pharmacy #[id number], Partial fill upon patientrequest if the prescription [...] EST, [id number] Partial fill upon patient request [...] Mouth, Daily, # 90 tablet, 1 Refills, [facility], 170, cm, 02/22/21 13:12:00 [...] EDT, 10/22/20 8:35:00 EDT, Cream, [id number] Partial fill upon patient request if the prescription is for a schedule II opioid drug., 1 application Top... Start Date: 10/22/20 Stop Date: 10/22/21 Status: Ordered MiraLax oral powder for reconstitution = 17 Gm, By Mouth, Daily, PRN Constipation, dissolve in water before taking, # 527 Gm, 0 Refills, Acute 06/23/22 15:21:00 EST, 06/23/21 15:21:00 EST, REC Powder, [id number] Partial fill uponpatient request if the prescription is for a schedu... Start Date: 06/23/21 Stop Date: 06/23/22 Status: Ordered omeprazole 20 mg oral enteric coated capsule 1 capsule = 20 mg, By Mouth, 2 times a day, # 60 each, 5 Refills, Maintenance, 06/15/21 11:38:00 EST, EC Capsule, [id number] dose increase, 170, cm, 02/22/21 13:12:00 EDT, Height, 61.8, kg, 02/07/20 14:54:00 EDT, Dry Weight Start Date: 06/15/21 Status: Ordered ondansetron 4 mg oral tablet, disintegrating 1 tablet = 4 mg, By Mouth, Every 6 hours, PRN Nausea & Vomiting, # 24 each, 1 Refills, Acute 06/15/22 11:37:00 EST, 06/15/21 11:37:00 EST, Tablet, [id number] Partial fill upon patient request if the prescription is for a schedule II opioid dr... Start Date: 06/15/21 Stop Date: 06/15/22 Status: Ordered ondansetron 4 mg oral tablet, disintegrating 1 tablet = 4 mg, By Mouth, Every 6 hours, PRN as needed for nausea/vomiting, # 20 tablet, 0 Refills, Maintenance, 07/11/21 16:11:00 EST, DIS Tablet, [facility], Partial fill upon patient request if the prescription is for a sche... Start Date: 07/11/21 Status: Ordered Splint See Instructions, # 1 each, Refills 0, Tot. Refills 0, Maintenance, right wrist every night, 06/01/11 14:34:47 Start Date: 06/01/11 Status: Ordered Synthroid 0.125 mg oral tablet 1 tablet, By Mouth, Daily, # 90 tablet, 3 Refills, 05/25/21 8:45:00 EST, [facility], 170, cm, 02/22/21 13:12:00 EDT, Height, [...]
--- OUTSIDE RECORDS SUMMARY | 2023-03-30 13:16 | XMS_ITS | Continuity of Care Document ---
Author Name Unknown Organization [facility] Address [address] [place] [address]- Care Team Providers Care Air Bag Builder Name Role Phone Roshan DOZIER, Julito Dias Primary Care Physician Encounter [facility] Date(s): 07/12/22 - 08/11/22 [facility] [address] [place], [place] [address] Allergies, Adverse Reactions, Alerts Substance Reaction Severity Status Pravachol Active Lipitor Active Immunizations Given and Recorded Vaccine Date Status Refusal Reason [id number] 12y+ bivalent booster vax 02/01/22 Recorded SARS-CoV-2 [...] 10/21/19 17:34:00 EDT, [facility], 170, cm, 06/10/19 9:14:00 EST, Height, 67.6, kg, 11/06/18 9:35:00 EDT, Dry Weight Start Date: 10/21/19 Status: Ordered docusate sodium 100 mg oral capsule 100 mg, 1, capsule, By Mouth, 2 times a day, PRN, # 60 capsule, Refills 5, Tot. Refills 5, Maintenance, for constipation, 06/23/21 15:20:00 EST, Route to Pharmacy Electronically, [facility]/pharmacy #[id number], Partial fill upon patient request [...] FOR CONSTIPATION, # 510 Gm, 5 Refills, [facility] ST[id number], 30, MIX 17 GRAMS IN 4 TO [...] 09/13/21 16:14:00 EDT, Route to Pharmacy Electronically, [facility]/pharmacy #[id number], Partial fill upon patient request [...] Refills, Maintenance, 04/27/22 16:12:00 EST, EC Capsule, [facility]/pharmacy #[id number], dose increase, 170, cm, 04/27/22 15:49:00 [...] Replace Required Details, Route to Pharmacy Electronically, [facility]/pharmacy #[id number], Partial... Start Date: 08/11/22 Status: Ordered Synthroid 0.125 mg oral tablet 1 tablet, By Mouth, Daily, # 90 tablet, 1 Refills, Maintenance, 03/10/22 7:13:00 EDT, [facility], 170, cm, 12/17/21 13:41:00 EDT, Height, [...] Name: Julito Islas MD Position: [facility] Primary Care Physician Member Role: PCP Address: Address: [address] [place] [address] Adult & [place] [address]- Care Team Related Persons Name: BHUPENDRA SAM Address: home [address] [place] [address] Name: ED TURPIN Address: home [address] [place] [address]
--- OUTSIDE RECORDS SUMMARY | 2023-03-30 13:16 | XMS_ITS | Continuity of Care Document ---
Author Name Unknown Organization [facility] Address [address] [place] [address]- Care Team Providers Care Nipple Machine Operator Name Role Phone Julito Islas MD Primary Care Physician Encounter [facility] Date(s): 01/26/23 - 02/02/23 [facility] [address] [place], [place] [address] Attending Physician: Nabor De La Garza MD Allergies, Adverse Reactions, Alerts Substance Reaction Severity Status Pravachol Active Lipitor Active Immunizations Given and Recorded Vaccine Date Status Refusal Reason zoster vaccine, inactivated 10/31/22 Recorded zoster vaccine, inactivated 08/30/22 Recorded pneumococcal 20-valent conjugate vaccine 10/31/22 Recorded [id number] 12y+ bivalent booster vax 02/01/22 Recorded SARS-CoV-2 [...] 15:20:00 EST, Route to Pharmacy Electronically, [facility]/pharmacy #[id number], Partial fill upon patient request if the prescriptio... Start Date: 06/23/21 Status: Ordered ezetimibe 10 mg oral tablet 1 tablet, By Mouth, Daily, # 90 tablet, 1 Refills, 12/29/22 11:43:00 EDT, [facility]/pharmacy #[id number], 170, cm, 12/12/22 13:20:00 EDT, Height, 72.7, kg, 07/11/21 16:17:00 EST, Dry Weight Start Date: 12/29/22 Status: Ordered furosemide 20 mg oral tablet 1, tablet, By Mouth, Daily, # 90 tablet, Refills 1, Maintenance, 08/18/22 19:50:00 EDT, Route to Pharmacy Electronically, [facility] STORE [id number], 170, cm, 07/04/22 11:47:00 EST, Height, 72.7, kg, 07/11/21 16:17:00 EST, Dry Weight Start Date: 08/18/22 Status: Ordered GaviLAX oral powder for reconstitution See Instructions, MIX 17 GRAMS IN 4 TO 8 OUNCES OF WATER AND DRINK DAILY NEEDED FOR CONSTIPATION, # 510 Gm, 5 Refills, [facility] [id number], 30, MIX 17 GRAMS IN 4 TO [...] 16:49:00 EDT, 12/02/22 16:49:00 EDT, Tablet, [facility]/pharmacy #[id number], Partial fill upon patientrequest if the prescription is for a schedule II op... Start Date: 12/02/22 Stop Date: 12/03/23 Status: Ordered Metamucil 3.4 gm/5.2 gm oral powder for reconstitution = 3.4 Gm, By Mouth, Daily, dissolve in 8 oz of fluid, # 283 Gm, 1 Refills, Acute 08/31/23 11:42:00 EDT, 08/30/22 11:41:00 EDT, [facility]/pharmacy #[id number], Partial fill upon patient request if the prescription is for a schedule II opioid drug., 170, cm, ... Start Date: 08/30/22 Stop Date: 08/31/23 Status: Ordered omeprazole 20 mg oral enteric coated capsule 1 capsule = 20 mg, By Mouth, 2 times a day, # 60 each, 5 Refills, Maintenance, 12/12/22 13:09:00 EDT, EC Capsule, [facility]/pharmacy #[id number], dose increase, 170, cm, 12/12/22 [...] Required Details, Route to Pharmacy Electronically, [facility]/pharmacy #[id number], Partial... Start Date: 08/11/22 Status: Ordered Synthroid 0.125 mg oral tablet 1 tablet, By Mouth, Daily, as a single daily dose before breakfast no substitution, # 90 tablet, 3 Refills, Maintenance, 12/20/22 14:23:00 EDT, [facility]/pharmacy #[id number], 170, cm, 12/12/22 13:20:00 EDT, [...] region Confirmed Active Uterine fibroids Confirmed Active Vital Signs Most recent to oldest [Reference Range]: 1 Height 170 cm (01/26/23 9:57 AM) Weight 65.6 kg (01/26/23 9:57 AM) Oxygen Saturation [94-100 %] 96 % (01/26/23 9:57 AM) Pulse Rate [55-90 bpm] 74 bpm (01/26/23 9:57 AM) Body Mass Index [18.5-24.99 kg/m2] 22.7 kg/m2 (01/26/23 9:57 AM) Blood Pressure [90-138/55-84 mm Hg] 138/ 80mm Hg (01/26/23 9:57 AM) Mode of Delivery (Oxygen) Room air (01/26/23 9:57 AM) Blood pressure sites Arm, left (01/26/23 9:57 AM) Social History Social History Type Response Smoking Status Former smoker; Tobac co user in household: No entered on: 09/05/13 Sex Patient Care team information Care Team Personnel Name: Julito Islas MD Position: S Physician - Primary Care Member Role: PCP Address: Address: [address] [place] [address] Adult [place] [address]- Care Team Related Persons Name: BHUPENDRA SAM Address: home [address] [place] [address] Name: ED TURPIN Address: home [address] [place] [address]
--- OUTSIDE RECORDS SUMMARY | 2023-03-30 13:16 | XMS_ITS | Continuity of Care Document ---
Author Name Unknown Organization [facility] Address [address] [place] [address]- Care Team Providers Care Operations Director Name Role Phone Julito Islas MD Primary Care Physician Encounter [facility] [place] Date(s): 01/26/23 - 02/25/23 [facility] [address] [place], [place] [address] Attending Physician: Admtr, [id number] Allergies, Adverse Reactions, Alerts Substance Reaction Severity Status Pravachol Active Lipitor Active Immunizations Given and Recorded Vaccine Date Status Refusal Reason zoster vaccine, inactivated 10/31/22 Recorded zoster vaccine, inactivated 08/30/22 Recorded pneumococcal 20-valent conjugate vaccine 10/31/22 Recorded [id number] 12y+ bivalent booster vax 02/01/22 Recorded SARS-CoV-2 [...] 06/23/21 15:20:00 EST, Route to Pharmacy Electronically, [facility]/pharmacy #[id number], Partial fill upon patient request if the prescriptio... Start Date: 06/23/21 Status: Ordered ezetimibe 10 mg oral tablet 1 tablet, By Mouth, Daily, # 90 tablet, 1 Refills, 12/29/22 11:43:00 EDT, [facility]/pharmacy #[id number], 170, cm, 12/12/22 13:20:00 EDT, Height, 72.7, kg, 07/11/21 16:17:00 EST, Dry Weight Start Date: 12/29/22 Status: Ordered furosemide 20 mg oral tablet 1, tablet, By Mouth, Daily, # 90 tablet, Refills 1, Maintenance, 08/18/22 19:50:00 EDT, Route to Pharmacy Electronically, [facility] STORE [id number], 170, cm, 07/04/22 11:47:00 EST, Height, 72.7, kg, 07/11/21 16:17:00 EST, Dry Weight Start Date: 08/18/22 Status: Ordered GaviLAX oral powder for reconstitution See Instructions, MIX 17 GRAMS IN 4 TO 8 OUNCES OF WATER AND DRINK DAILY NEEDED FOR CONSTIPATION, # 510 Gm, 5 Refills, [facility] STORE [id number], 30, MIX 17 GRAMS IN 4 TO [...] Acute12/03/23 16:49:00 EDT, 12/02/22 16:49:00 EDT, Tablet, [facility]/pharmacy #[id number], Partial fill upon patientrequest if the prescription is for a schedule II op... Start Date: 12/02/22 Stop Date: 12/03/23 Status: Ordered Metamucil 3.4 gm/5.2 gm oral powder for reconstitution = 3.4 Gm, By Mouth, Daily, dissolve in 8 oz of fluid, # 283 Gm, 1 Refills, Acute 08/31/23 11:42:00 EDT, 08/30/22 11:41:00 EDT, [facility]/pharmacy #[id number], Partial fill upon patient request if the prescription is for a schedule II opioid drug., 170, cm, ... Start Date: 08/30/22 Stop Date: 08/31/23 Status: Ordered omeprazole 20 mg oral enteric coated capsule 1 capsule = 20 mg, By Mouth, 2 times a day, # 60 each, 5 Refills, Maintenance, 12/12/22 13:09:00 EDT, EC Capsule, [facility]/pharmacy #[id number], dose increase, 170, cm, [...] Replace Required Details, Route to Pharmacy Electronically, [facility]/pharmacy #[id number], Partial... Start Date: 02/16/23 Status: Ordered Synthroid 0.125 mg oral tablet 1 tablet, By Mouth, Daily, as a single daily dose before breakfast no substitution, # 90 tablet, 3 Refills, Maintenance, 02/17/23 10:27:00 EDT, [facility], 170, cm, 01/26/23 9:57:00 EDT, Height, [...] Event Display: Cardiovascular Results Scanned Authored Date: [id number] * Beatrice Mishra: PERFORM Event Display: Cardiovascular Results Scanned Authored Date: [id number] Laboratory * Event Display: Laboratory Result Scanned Authored Date: * Event Display: Non BH Lab Results Authored Date: * Event Display: Non BH Lab Results Authored Date: Patient Care team information Care Team Personnel Name: Julito Islas MD Position: S Physician - Primary Care Member Role: PCP Address: Address: [address] [place] [address] Adult [place] [address]- Care Team Related Persons Name: BHUPENDRA SAM Address: home [address] [place] [address] Name: ED TURPIN Address: [place] [address] [place] [address]
--- OUTSIDE RECORDS SUMMARY | 2023-03-30 13:16 | XMS_ITS | Continuity of Care Document ---
Author Name Unknown Organization [facility] Address [address] [place] [address]- Care Team Providers Care Meat Team Member Name Role Phone Julito Islas MD Primary Care Physician Encounter [facility] [place] Date(s): 02/10/21 - 03/12/21 [facility] [address] [place], [place] [address] Allergies, Adverse Reactions, Alerts Substance Reaction Severity Status Pravachol Active Lipitor Active Immunizations Given and Recorded Vaccine Date Status Refusal Reason SARS-CoV-2 (COVID-19) mRNA BNT-162b2 vac 08/20/20 Recorded SARS-CoV-2 (COVID-19) mRNA BNT-162b2 vac 07/29/20 Recorded influenza virus vaccine, inactivated 1 05/05/11 Gi mariusz Tet/Diphth/Acel, Pertussis (oldterm) 05/21/09 Give n Influenza Virus Vaccine (oldterm) 2 03/29/06 Given 1Admin Note: defers 2Admin Note: [employer] Medications divalproex sodium 500 mg oral tablet, extended release See Instructions, Take 2 tablets daily at night., # 180 tablet, 1 Refills, Soft Stop, 10/21/19 17:34:00 EDT, [facility], 170, cm, 06/10/19 9:14:00 EST, [...] Mouth, Daily, # 90 tablet, 0 Refills, [facility], 170, cm, 02/22/21 13:12:00 EDT, Height, 61.8, kg, 02/07/20 14:54:00 EDT, Dry Weight Start Date: 03/06/21 Status: Ordered Geodon 40 mg oral capsule See Instructions, One capsule daily after lunch., # 90 capsule, 0 Refills, Maintenance, 12/13/19 9:30:00 EDT, [facility], 170, cm, 12/09/19 9:10:00 EDT, Height, 67.6, kg, 11/06/18 9:35:00 EDT, Dry Weight Start Date: 12/13/19 Status: Ordered ketoconazole 2% topical cream 1 application, Topically, Daily, PRN foot rash, # 30 Gm, 2 Refills, Acute 10/22/21 8:35:00 EDT, 10/22/20 8:35:00 EDT, Cream, [facility]/pharmacy #[id number], Partial fill upon patient request if the prescription is for a schedule II opioid drug., 1 application Top... Start Date: 10/22/20 Stop Date: 10/22/21 Status: Ordered levothyroxine 125 mcg (0.125 mg) oral tablet 1 tablet = 125 mcg, By Mouth, Daily, # 90 tablet, 1 Refills, Maintenance, 01/04/21 16:59:00 EDT, Tablet, [facility], Partial fill upon patient request if the prescription is for a schedule II opioid drug., 170, cm, 12/16/20 14:1... Start Date: 01/04/21 Status: Ordered levothyroxine 125 mcg (0.125 mg) oral tablet 1 tablet = 125 mcg, By Mouth, Daily, # 7 tablet, 0 Refills, Maintenance, 01/04/21 17:00:00 EDT, Tablet, [facility]/pharmacy #[id number], Partial fill upon patient request if the prescription is for a schedule II opioid drug., 170, cm, 12/16/20 14:16:00 EDT, Height... Start Date: 01/04/21 Stop Date: 01/11/21 Status: Ordered omeprazole 20 mg oral enteric coated capsule 1 capsule = 20 mg, By Mouth, Daily, # 30 capsule, 5 Refills, Maintenance, 02/16/21 15:02:00 EDT, [id number], Partial fill upon patient request [...]
--- OUTSIDE RECORDS SUMMARY | 2023-03-30 13:16 | XMS_ITS | Continuity of Care Document ---
Author Name Unknown Organization [facility] Address [address] [place] [address]- Care Team Providers Care Patient Financial Services Manager Name Role Phone Roshan DOZIER, Julito Dias Primary Care Physician [phone] Encounter [facility] Date(s): 07/11/21 - 07/11/[address] [address]- Discharge Disposition: A-D/C Home Attending Physician: Olvin Rm MD Admitting Physician: Olvin Rm MD Referring Physician: Not on Staff, Referring MD Allergies, Adverse Reactions, Alerts Substance Reaction [...] Acute06/09/22 14:40:00 EST, 06/09/21 14:40:00 EST, Tablet, [facility]/pharmacy #[id number], Partial fill upon patientrequest if the prescription [...] 06/23/21 15:20:00 EST, [id number] Partial fill upon patient request if the [...] Mouth, Daily, # 90 tablet, 1 Refills, [facility], 170, cm, [...] 10/22/21 8:35:00 EDT, 10/22/20 8:35:00 EDT, Cream, [facility]/pharmacy #[id number], Partial fill upon patient request if the prescription is for a schedule II opioid drug., 1 application Top... Start Date: 10/22/20 Stop Date: 10/22/21 Status: Ordered MiraLax oral powder for reconstitution = 17 Gm, By Mouth, Daily, PRN Constipation, dissolve in water before taking, # 527 Gm, 0 Refills, Acute 06/23/22 15:21:00 EST, 06/23/21 15:21:00 EST, REC Powder, [id number] Partial fill uponpatient request if the prescription is for a schedu... Start Date: 06/23/21 Stop Date: 06/23/22 Status: Ordered omeprazole 20 mg oral enteric coated capsule 1 capsule = 20 mg, By Mouth, 2 times a day, # 60 each, 5 Refills, Maintenance, 06/15/21 11:38:00 EST, EC [facility]apsule, [id number] dose increase, 170, cm, 02/22/21 13:12:00 EDT, Height, 61.8, kg, 02/07/20 14:54:00 EDT, Dry Weight Start Date: 06/15/21 Status: Ordered ondansetron 4 mg oral tablet, disintegrating 1 tablet = 4 mg, By Mouth, Every 6 hours, PRN Nausea & Vomiting, # 24 each, 1 Refills, Acute 06/15/22 11:37:00 EST, 06/15/21 11:37:00 EST, Tablet, [id number] Partial fill upon patient request if the prescription is for a schedule II opioid dr... Start Date: 06/15/21 Stop Date: 06/15/22 Status: Ordered ondansetron 4 mg oral tablet, disintegrating 1 tablet = 4 mg, By Mouth, Every 6 hours, PRN as needed for nausea/vomiting, # 20 tablet, 0 Refills, Maintenance, 07/11/21 16:11:00 EST, DIS Tablet, [facility], Partial fill upon patient request if the prescription is for a sche... Start Date: 07/11/21 Status: Ordered Splint See Instructions, # 1 each, Refills 0, Tot. Refills 0, Maintenance, right wrist every night, 01/25/12 14:34:47 Start Date: 06/01/11 Status: Ordered Synthroid 0.125 mg oral tablet 1 tablet, By Mouth, Daily, # 90 tablet, 3 Refills, 05/25/21 8:45:00 EST, [facility], 170, cm, 02/22/21 13:12:00 EDT, [...] [Reference Range]: 1 2 Height 170 cm (07/11/21 4:17 PM) 170 cm (07/11/21 3:00 PM) Weight 72.7 kg (07/11/21 4:17 PM) 72.7 kg (07/11/21 3:00 PM) Pulse Rate [55-90 bpm] 68 bpm (07/11/21 3:00 PM) Blood Pressure [90-138/55-84 mm Hg] 98/6 0mm Hg (07/11/21 3:00 PM) Respiratory Rate [16-30 br/min] 18 br/mi n (07/11/21 3:00 PM) Temperature [96.8-100.4 DegF] 97.6 DegF (07/11/21 3:00 PM) Mode of Delivery (Oxygen) Room air (07/11/21 3:00 PM) Blood pressure sites Arm, right (07/11/21 3:00 PM) Temperature Route Temporal (07/11/21 3:00 PM) Dry Weight 72.7 kg (07/11/21 4:17 PM) 72.7 kg (07/11/21 3:00 PM) Weight Obtained Via Standing scale (07/11/21 3:00 PM) Dry Weight Obtained Via Standing scale (07/11/21 3:00 PM) Social History Social History Type Response Smoking Status Former smoker; Tobac co user in household: No entered on: 09/05/13 Sex
--- OUTSIDE RECORDS SUMMARY | 2023-03-30 13:16 | XMS_ITS | Continuity of Care Document ---
Author Name Unknown Organization [facility] Address [address] [place] [address]- Care Team Providers Care Family Engagement Specialist Name Role Phone Julito Islas MD Primary Care Physician [place] [facility](s): 12/02/22 - 01/01/23 [facility] [address] [place], [place] [address] Allergies, Adverse Reactions, Alerts Substance Reaction Severity Status Pravachol Active Lipitor Active Immunizations Given and Recorded Vaccine Date Status Refusal Reason [id number] 12y+ bivalent booster vax 02/01/22 Recorded SARS-CoV-2 [...] Route to Pharmacy Electronically, [facility]/pharmacy #[id number], Partial fill upon patient request if the prescriptio... Start Date: 06/23/21 Status: Ordered ezetimibe 10 mg oral tablet 1 tablet, By Mouth, Daily, # 90 tablet, 1 Refills, 12/29/22 11:43:00 EDT, [facility]/pharmacy #[id number], 170, cm, 12/12/22 13:20:00 EDT, Height, 72.7, kg, 07/11/21 16:17:00 EST, Dry Weight Start Date: 12/29/22 Status: Ordered furosemide 20 mg oral tablet 1, tablet, By Mouth, Daily, # 90 tablet, Refills 1, Maintenance, 08/18/22 19:50:00 EDT, Route to Pharmacy Electronically, [facility] ST[id number], 170, cm, 07/04/22 11:47:00 EST, Height, 72.7, kg, 07/11/21 16:17:00 EST, Dry Weight Start Date: 08/18/22 Status: Ordered GaviLAX oral powder for reconstitution See Instructions, MIX 17 GRAMS IN 4 TO 8 OUNCES OF WATER AND DRINK DAILY NEEDED FOR CONSTIPATION, # 510 Gm, 5 Refills, [id number], 30, MIX 17 GRAMS IN 4 TO [...] Acute12/03/23 16:49:00 EDT, 12/02/22 16:49:00 EDT, Tablet, [facility]/pharmacy #[id number], Partial fill upon patientrequest if the prescription is for a schedule II op... Start Date: 12/02/22 Stop Date: 12/03/23 Status: Ordered Metamucil 3.4 gm/5.2 gm oral powder for reconstitution = 3.4 Gm, By Mouth, Daily, dissolve in 8 oz of fluid, # 283 Gm, 1 Refills, Acute 08/31/23 11:42:00 EDT, 08/30/22 11:41:00 EDT, [facility]/pharmacy #[id number], Partial fill upon patient request if the prescription is for a schedule II opioid drug., 170, cm, ... Start Date: 08/30/22 Stop Date: 08/31/23 Status: Ordered omeprazole 20 mg oral enteric coated capsule 1 capsule = 20 mg, By Mouth, 2 times a day, # 60 each, 5 Refills, Maintenance, 12/12/22 13:09:00 EDT, EC Capsule, [facility]/pharmacy #[id number], dose increase, 170, cm, 12/12/22 [...] tablet, 3 Refills, Maintenance, 12/20/22 14:23:00 EDT, [facility]/pharmacy #[id number], 170, cm, 12/12/22 13:20:00 EDT, Height, [...] Primary Care Member Role: PCP Address: Address: [address] [place] [address] Adult [place] [address]- Care Team Related Persons Name: BHUPENDRA SAM Address: home [address] [place] [address] Name: ED TURPIN Address: home [address] [place] [address]
--- OUTSIDE RECORDS SUMMARY | 2023-03-30 13:16 | XMS_ITS | Continuity of Care Document ---
Author Name Unknown Organization [facility] Address [address] [place] [address]- Care Team Providers Care Trumpet Teacher Name Role Phone Julito Islas MD Primary Care Physician [phone] [place] [facility] [place]21 [place] 03/24/21 [facility] [address] [place], [place] [address] Attending Physician: Admtr, [id number] Allergies, Adverse Reactions, [...] 10/21/19 17:34:00 EDT, [facility], 170, cm, 06/10/19 9:14:00 EST, [...] Mouth, Daily, # 90 tablet, 0 Refills, [facility], 170, cm, 02/22/21 13:12:00 EDT, Height, 61.8, kg, 02/07/20 14:54:00 EDT, Dry Weight Start Date: 03/06/21 Status: Ordered Geodon 40 mg oral capsule See Instructions, One capsule daily after lunch., # 90 capsule, 0 Refills, Maintenance, 12/13/19 9:30:00 EDT, [facility], 170, cm, 12/09/19 9:10:00 EDT, Height, 67.6, kg, 11/06/18 9:35:00 EDT, Dry Weight Start Date: 12/13/19 Status: Ordered ketoconazole 2% topical cream 1 application, Topically, Daily, PRN foot rash, # 30 Gm, 2 Refills, Acute 10/22/21 8:35:00 EDT, 10/22/20 8:35:00 EDT, Cream, [facility]/pharmacy #[id number], Partial fill upon patient request if the prescription is for a schedule II opioid drug., 1 application Top... Start Date: 10/22/20 Stop Date: 10/22/21 Status: Ordered levothyroxine 125 mcg (0.125 mg) oral tablet 1 tablet = 125 mcg, By Mouth, Daily, # 90 tablet, 1 Refills, Maintenance, 01/04/21 16:59:00 EDT, Tablet, [facility], Partial fill upon patient request if the prescription is for a schedule II opioid drug., 170, cm, 12/16/20 14:1... Start Date: 01/04/21 Status: Ordered levothyroxine 125 mcg (0.125 mg) oral tablet 1 tablet = 125 mcg, By Mouth, Daily, # 7 tablet, 0 Refills, Maintenance, 01/04/21 17:00:00 EDT, Tablet, [facility]/pharmacy #[id number], Partial fill upon patient request if the prescription is for a schedule II opioid drug., 170, cm, 12/16/20 14:16:00 EDT, Height... Start Date: 01/04/21 Stop Date: 01/11/21 Status: Ordered omeprazole 20 mg oral enteric coated capsule 1 capsule = 20 mg, By Mouth, Daily, # 30 capsule, 5 Refills, Maintenance, 02/16/21 15:02:00 EDT, ECCgreg, [facility]/pharmacy #2339, Partial fill upon patient request if [...]
--- OUTSIDE RECORDS SUMMARY | 2023-03-30 13:16 | XMS_ITS | Continuity of Care Document ---
Author Name Unknown Organization [facility] Address [address] [place] [address]- Care Team Providers Care Infectious Disease Technician Name Role Phone Julito Islas MD Primary Care Physician [phone] Encounter [facility] [place] Date(s): 12/29/22 - 01/28/23 [facility] [address] [place], [place] [address] Allergies, Adverse Reactions, Alerts Substance Reaction Severity Status Pravachol Active Lipitor Active Immunizations Given and Recorded Vaccine Date Status Refusal Reason zoster vaccine, inactivated 10/31/22 Recorded zoster vaccine, inactivated 08/30/22 Recorded pneumococcal 20-valent conjugate vaccine 10/31/22 Recorded [id number] 12y+ bivalent booster vax 02/01/22 Recorded SARS-CoV-2 [...] 15:20:00 EST, Route to Pharmacy Electronically, [facility]/pharmacy #[id number], Partial fill upon patient request if the prescriptio... Start Date: 06/23/21 Status: Ordered ezetimibe 10 mg oral tablet 1 tablet, By Mouth, Daily, # 90 tablet, 1 Refills, 12/29/22 11:43:00 EDT, [facility]/pharmacy #[id number], 170, cm, 12/12/22 13:20:00 EDT, Height, 72.7, kg, 07/11/21 16:17:00 EST, Dry Weight Start Date: 12/29/22 Status: Ordered furosemide 20 mg oral tablet 1, tablet, By Mouth, Daily, # 90 tablet, Refills 1, Maintenance, 08/18/22 19:50:00 EDT, Route to Pharmacy Electronically, [facility]ORE [facility], 170, cm, 07/04/22 11:47:00 EST, Height, 72.7, kg, 07/11/21 16:17:00 EST, Dry Weight Start Date: 08/18/22 Status: Ordered GaviLAX oral powder for reconstitution See Instructions, MIX 17 GRAMS IN 4 TO 8 OUNCES OF WATER AND DRINK DAILY NEEDED FOR CONSTIPATION, # 510 Gm, 5 Refills, [id number], 30, MIX 17 GRAMS IN 4 TO [...] 16:49:00 EDT, 12/02/22 16:49:00 EDT, Tablet, [facility]/pharmacy #[id number], Partial fill upon patientrequest if the prescription is for a schedule II op... Start Date: 12/02/22 Stop Date: 12/03/23 Status: Ordered Metamucil 3.4 gm/5.2 gm oral powder for reconstitution = 3.4 Gm, By Mouth, Daily, dissolve in 8 oz of fluid, # 283 Gm, 1 Refills, Acute 08/31/23 11:42:00 EDT, 08/30/22 11:41:00 EDT, [facility]/pharmacy #2339, Partial fill upon patient request if the prescription is for a schedule II opioid drug., 170, cm, ... Start Date: 08/30/22 Stop Date: 08/31/23 Status: Ordered omeprazole 20 mg oral enteric coated capsule 1 capsule = 20 mg, By Mouth, 2 times a day, # 60 each, 5 Refills, Maintenance, 12/12/22 13:09:00 EDT, EC Capsule, [facility]/pharmacy #2339, dose increase, 170, cm, 12/12/22 13:08:00 [...] Required Details, Route to Pharmacy Electronically, [facility]/pharmacy #[id number], Partial... Start Date: 08/11/22 Status: Ordered Synthroid 0.125 mg oral tablet 1 tablet, By Mouth, Daily, as a single daily dose before breakfast no substitution, # 90 tablet, 3 Refills, Maintenance, 12/20/22 14:23:00 EDT, [facility]/pharmacy #[id number], 170, cm, 12/12/22 13:20:00 EDT, Height, [...] Team Personnel Name: Julito Islas MD Position: [facility] Physician - Primary Care Member Role: PCP Address: Address: [address] [place] [address] Adult & Pediatric Medicine [place], [place] [address] Care Team Related Persons Name: BHUPENDRA SAM Address: home [address] [place] [address] Name: ED TURPIN Address: home [address] [place] [address]
--- OUTSIDE RECORDS SUMMARY | 2023-03-30 13:16 | XMS_ITS | Continuity of Care Document ---
Author Name Unknown Organization [facility] Address [address] [place] [address]- Care Team Providers Care Bar Machine Operator Name Role Phone Julito Islas MD Primary Care Physician [place] [facility] [place] 01/19/23 [facility] [address] [place], [place] [address] Allergies, Adverse Reactions, Alerts Substance Reaction Severity Status Pravachol Active Lipitor Active Immunizations Given and Recorded Vaccine Date Status Refusal Reason [id number] 12y+ bivalent booster vax 02/01/22 Recorded SARS-CoV-2 [...] 06/23/21 15:20:00 EST, Route to Pharmacy Electronically, [facility]/pharmacy #[id number], Partial fill upon patient request if the prescriptio... Start Date: 06/23/21 Status: Ordered ezetimibe 10 mg oral tablet 1 tablet, By Mouth, Daily, # 90 tablet, 1 Refills, 12/29/22 11:43:00 EDT, [facility]/pharmacy #[id number], 170, cm, 12/12/22 13:20:00 EDT, Height, 72.7, kg, 07/11/21 16:17:00 EST, Dry Weight Start Date: 12/29/22 Status: Ordered furosemide 20 mg oral tablet 1, tablet, By Mouth, Daily, # 90 tablet, Refills 1, Maintenance, 08/18/22 19:50:00 EDT, Route to Pharmacy Electronically, [facility] ST[facility] [id number], 170, cm, 07/04/22 11:47:00 EST, Height, 72.7, kg, 07/11/21 16:17:00 EST, Dry Weight Start Date: 08/18/22 Status: Ordered GaviLAX oral powder for reconstitution See Instructions, MIX 17 GRAMS IN 4 TO 8 OUNCES OF WATER AND DRINK DAILY NEEDED FOR CONSTIPATION, # 510 Gm, 5 Refills, [id number], 30, MIX 17 GRAMS IN 4 TO [...] Acute12/03/23 16:49:00 EDT, 12/02/22 16:49:00 EDT, Tablet, [facility]/pharmacy #[id number], Partial fill upon patientrequest if the prescription is for a schedule II op... Start Date: 12/02/22 Stop Date: 12/03/23 Status: Ordered Metamucil 3.4 gm/5.2 gm oral powder for reconstitution = 3.4 Gm, By Mouth, Daily, dissolve in 8 oz of fluid, # 283 Gm, 1 Refills, Acute 08/31/23 11:42:00 EDT, 08/30/22 11:41:00 EDT, [facility]/pharmacy #2339, Partial fill upon patient request if the prescription is for a schedule II opioid drug., 170, cm, ... Start Date: 08/30/22 Stop Date: 08/31/23 Status: Ordered omeprazole 20 mg oral enteric coated capsule 1 capsule = 20 mg, By Mouth, 2 times a day, # 60 each, 5 Refills, Maintenance, 12/12/22 13:09:00 EDT, EC Capsule, [facility]/pharmacy #[id number], dose increase, 170, cm, 12/12/22 [...] Replace Required Details, Route to Pharmacy Electronically, [facility]/pharmacy #[id number], Partial... Start Date: 08/11/22 Status: Ordered Synthroid 0.125 mg oral tablet 1 tablet, By Mouth, Daily, as a single daily dose before breakfast no substitution, # 90 tablet, 3 Refills, Maintenance, 12/20/22 14:23:00 EDT, [facility]/pharmacy #[id number], 170, cm, 12/12/22 13:20:00 EDT, [...] Primary Care Member Role: PCP Address: Address: [address] [place] [address] Adult & [place] [address]- Care Team Related Persons Name: BHUPENDRA SAM Address: home [address] [place] [address] Name: ED TURPIN Address: home [address] [place] [address]
--- OUTSIDE RECORDS SUMMARY | 2023-03-30 13:16 | XMS_ITS | Continuity of Care Document ---
Author Name Unknown Organization [facility] Address [address] [place] [address]- Care Team Providers Care Product Marketing Programs Manager Name Role Phone Roshan DOZIER, Julito Dias Primary Care Physician Encounter [facility] [place] [place] Date(s): 08/11/22 - 09/10/22 [facility] [address], [place] [address] Allergies, Adverse Reactions, Alerts Substance Reaction Severity Status Pravachol Active Lipitor Active Immunizations Given and Recorded Vaccine Date Status Refusal Reason [id number] 12y+ bivalent booster vax 02/01/22 Recorded SARS-CoV-2 [...] 06/23/21 15:20:00 EST, Route to Pharmacy Electronically, [facility]/pharmacy #[id number], Partial fill upon patient request if [...] EDT, Route to [facility]ically[id number], 170, cm, 07/04/22 11:47:00 EST, Height, 72.7, kg, 07/11/21 16:17:00 EST, Dry Weight Start Date: 08/18/22 Status: Ordered GaviLAX oral powder for reconstitution See Instructions, MIX 17 GRAMS IN 4 TO 8 OUNCES OF WATER AND DRINK DAILY NEEDED FOR CONSTIPATION, # 510 Gm, 5 Refills, [id number], 30, MIX 17 GRAMS IN 4 TO [...] Acute 08/31/23 11:42:00 EDT, 08/30/22 11:41:00 EDT, [facility]/pharmacy #[id number], Partial fill upon patient request if the prescription is for a schedule II opioid drug., 170, cm, 07/04/... Start Date: 08/30/22 Stop Date: 08/31/23 Status: Ordered omeprazole 20 mg oral enteric coated capsule 1 capsule = 20 mg, By Mouth, 2 times a day, # 60 each, 5 Refills, Maintenance, 04/27/22 16:12:00 EST, EC Capsule, [facility]/pharmacy #[id number], dose increase, 170, cm, 04/27/22 15:49:00 [...] Replace Required Details, [id number]... Start Date: 08/11/22 Status: Ordered Synthroid 0.125 mg oral tablet 1 tablet, By Mouth, Daily, # 90 tablet, 1 Refills, Maintenance, 03/10/22 7:13:00 EDT, [facility], 170, cm, 12/17/21 13:41:00 EDT, [...] Team Personnel Name: Julito Islas MD Position: [facility] Primary Care Physician Member Role: PCP Address: Address: [address] [place] [address] Adult & [place] [address]- Care Team Related Persons Name: BHUPENDRA SAM Address: home [address] [place] [address] Name: ED TURPIN Address: home [address] [place] [address]
--- OUTSIDE RECORDS SUMMARY | 2023-03-30 13:16 | XMS_ITS | Continuity of Care Document ---
Author Name Unknown Organization [facility] Address [address] [place] [address]- Care Team Providers Care Managing Partner Digital Content Marketing [place] Name Role Phone Julito Islas MD Primary Care [id number] - 02/23/21 [facility] [address] [place] [address]- Encounter Diagnosis Gastritis(Discharge Diagnosis) - 02/16/21 Anxiety disorder(Discharge Diagnosis) - 02/16/21 Attending Physician: Julito Islas MD Allergies, Adverse [...] 3 Refills, Soft Stop, 06/10/20 13:15:00 EST, [facility], refill when due, 170, cm, 06/10/20 12:53:00 EST, Height, 61.8, kg, 02/07/20 14:54:00 EDT, Dry Weight Start Date: 06/10/20 Status: Ordered Geodon 40 mg oral capsule See Instructions, One capsule daily after lunch., # 90 capsule, 0 Refills, Maintenance, 12/13/19 9:30:00 EDT, [facility], 170, cm, 12/09/19 9:10:00 EDT, Height, 67.6, kg, 11/06/18 9:35:00 EDT, Dry Weight Start Date: 12/13/19 Status: Ordered ketoconazole 2% topical cream 1 application, Topically, Daily, PRN foot rash, # 30 Gm, 2 Refills, Acute 10/22/21 8:35:00 EDT, 10/22/20 8:35:00 EDT, Cream, [facility]/pharmacy #[id number], Partial fill upon patient request if the prescription is for a schedule II opioid drug., 1 application Top... Start Date: 10/22/20 Stop Date: 10/22/21 Status: Ordered levothyroxine 125 mcg (0.125 mg) oral tablet 1 tablet = 125 mcg, By Mouth, Daily, # 90 tablet, 1 Refills, Maintenance, 01/04/21 16:59:00 EDT, Tablet, [facility], Partial fill upon patient request if the prescription is for a schedule II opioid drug., 170, cm, 12/16/20 14:1... Start Date: 01/04/21 Status: Ordered levothyroxine 125 mcg (0.125 mg) oral tablet 1 tablet = 125 mcg, By Mouth, Daily, # 7 tablet, 0 Refills, Maintenance, 01/04/21 17:00:00 EDT, Tablet, [facility]/pharmacy #[id number], Partial fill upon patient request if the prescription is for a schedule II opioid drug., 170, cm, 12/16/20 14:16:00 EDT, Height... Start Date: 01/04/21 Stop Date: 01/11/21 Status: Ordered omeprazole 20 mg oral enteric coated capsule 1 capsule = 20 mg, By Mouth, Daily, # 30 capsule, 5 Refills, Maintenance, 02/16/21 15:02:00 EDT, ECCapsule, [facility]/pharmacy #[id number], Partial fill upon patient request if [...] Cl inical Service Informant Gastritis Discharge Diagnosis 02/16/21 Anxiety disorder Discharge Diagnosis 02/16/21 Vital Signs Most recent to oldest [Reference Range]: 1 2 Height 170 cm (02/16/21 3:02 PM) 170 cm (02/16/21 2:38 PM) Weight 65.2 kg (02/16/21 2:38 PM) Oxygen Saturation [94-100 %] 99 % (02/16/21 2:38 PM) Pulse Rate [55-90 bpm] 74 bpm (02/16/21 2:38 PM) Body Mass Index [18.5-24.99] 22.56 (02/16/21 2:38 PM) Blood Pressure [90-138/55-84 mm Hg] 136/ 70mm Hg (02/16/21 3:02 PM) 160/80mm Hg *H* (02/16/21 2:38 PM) Blood pressure sites Arm, left (02/16/21 3:02 PM) Arm, left (02/16/21 2:38 PM) Social History Social History Type Response Smoking Status Former smoker; Tobac co user in household: No entered on: 09/05/13 Sex
--- OUTSIDE RECORDS SUMMARY | 2023-03-30 13:16 | XMS_ITS | Continuity of Care Document ---
Author Name Unknown Organization [facility] Address [address] [place] [address]- Care Team Providers Care Senior Software Engineer Name Role Phone Julito Islas MD Primary Care Physician Encounter [facility] [place] Date(s): 04/27/22 - 05/04/22 [facility] [address] [place], [place] [address] Encounter Diagnosis Dyspepsia(Discharge Diagnosis) - 04/27/22 Attending Physician: Julito Islas MD Allergies, Adverse Reactions, Alerts Substance Reaction Severity Status Pravachol Active Lipitor Active Immunizations Given and Recorded Vaccine Date Status Refusal Reason [id number] 12y+ bivalent booster vax 02/01/22 Recorded SARS-CoV-2 [...] 14:40:00 EST, 06/09/21 14:40:00 EST, [id number] fill upon patientrequest if the prescription is for a schedule II op... Start Date: 06/09/21 Stop Date: 06/09/22 Status: Ordered divalproex sodium 500 mg oral tablet, extended release See Instructions, Take 2 tablets daily at night., # 180 tablet, 1 Refills, Soft Stop, 10/21/19 17:34:00 EDT, [facility], [facility], cm, 06/10/19 9:14:00 EST, Height, 67.6, kg, 11/06/18 9:35:00 EDT, Dry Weight Start Date: 10/21/19 Status: Ordered docusate sodium 100 mg oral capsule 100 mg, 1, capsule, By Mouth, 2 times a day, PRN, # 60 capsule, Refills 5, Tot. Refills 5, Maintenance, for constipation, 06/23/21 15:20:00 EST, [id number] fill upon patient request if the prescriptio... Start Date: 06/23/21 Status: Ordered ezetimibe 10 mg oral tablet 1 tablet, By Mouth, Daily, # 90 tablet, 1 Refills, [facility], 170, cm, 11/02/21 14:03:00 EDT, Height, 72.7, kg, 07/11/21 16:17:00 EST, Dry Weight Start Date: 11/09/21 Status: Ordered GaviLAX oral powder for reconstitution See Instructions, MIX 17 GRAMS IN 4 TO 8 OUNCES OF WATER AND DRINK DAILY NEEDED FOR CONSTIPATION, # 510 Gm, 5 Refills, [id number], 30, MIX 17 GRAMS IN 4 TO [...] 09/13/21 16:14:00 EDT, [id number] fill upon patient [...] Refills, Maintenance, 04/27/22 16:12:00 EST, EC Capsule, [facility]/pharmacy #[id number], dose increase, 170, cm, 04/27/22 15:49:00 EST, Height, 72.7, kg, 07/11/21 16:17:00 EST, Dry Weight Start Date: 04/27/22 Status: Ordered ondansetron 4 mg oral tablet, disintegrating 1 tablet = 4 mg, By Mouth, Every 6 hours, PRN Nausea & Vomiting, # 30 each, 1 Refills, Acute 07/21/22 14:57:00 EDT, 07/21/21 14:57:00 EDT, Tablet, [facility]/pharmacy #[id number], Partial fill upon patient [...] tablet, 1 Refills, Maintenance, 03/10/22 7:13:00 EDT, [facility], 170, cm, 12/17/21 13:41:00 EDT, [...] Dates Health Status Clini apolinar Service Informant Dyspepsia Discharge Diagnosis 04/27/22 Vital Signs Most recent to oldest [Reference Range]: 1 Height 170 cm (04/27/22 3:49 PM) Weight 67.5 kg (04/27/22 3:49 PM) Oxygen Saturation [94-100 %] 99 % (04/27/22 3:49 PM) Pulse Rate [55-90 bpm] 90 bpm (04/27/22 3:49 PM) Body Mass Index [18.5-24.99 kg/m2] 23.36 kg/m2 (04/27/22 3:49 PM) Blood Pressure [90-138/55-84 mm Hg] 120/ 58mm Hg (04/27/22 3:49 PM) Mode of Delivery (Oxygen) Room air (04/27/22 3:49 PM) Blood pressure sites Arm, left (04/27/22 3:49 PM) Weight Obtained Via Standing scale (04/27/22 3:49 PM) Social History Social History Type Response Smoking Status Former smoker; Tobac co user in household: No entered on: 09/05/13 Sex Note * Meghan Monge: PERFORM, SIGN, VERIFY Event Display: Patient Education/Instruction Authored Date: [id number] [facility] Clinical Summary Name DAMIAN NAYAK Age 71 Years 1950 PCP Boss Julito DOZIER PCP Visit Date 04/27/2022 15:48:00 Additional Instructions: Scheduled Appointments?? Future Appointments ?*[facility] ?[address]??[place],??[place],??[address] ?Phone:??--?Fax:??-- ?Appt. Date:??06/13/2022?1:00 PM ?Scheduled Provider:??Julito Islas MD Follow-Up Instructions ?? Diagnosis Medications: Please continue your medications until treatment is completed or stopped by your provider. Discuss any questions related to medications with your provider. Medications to Continue with No Changes [id number] [address] [place] [phone], [phone] Omeprazole (omeprazole 20 mg oral enteric coated capsule) 1 capsule Oral twice a day. Refills: 5. Next Dose: These medications were not printed or sent to your pharmacy Chlorzoxazone (chlorzoxazone 500 mg oral tablet) 1 tab(s) Oral 3 times a day as needed muscle pain or spasm. Refills: 1. Next Dose: Divalproex Sodium (divalproex sodium 500 mg oral [...] release) 1 tab(s) Oral Daily. Next Dose: Ondansetron (ondansetron 4 mg oral [...] capsule Oral Daily. Next Dose: Ziprasidone (Geodon 20 mg oral capsule) 1 capsule By Mouth daily. Next Dose: Allergy Info:?? Lipitor; Pravachol Medications Given This Visit Future Orders ?No future orders Vital Signs Height 170 cm Weight 67.5 kg BMI 23.36 kg/m2 Blood Pressure 120 mm Hg/58 mm Hg Temperature Pulse Rate 90 bpm Respiratory Rate 02 Sat Mode of Delivery 99 %/Room air You can now view a summary of your hospital visit from the comfort of your home through a free online portal called [employer]. [employer] is a website that allows you to securely view your medical information including discharge summary, medications and follow-up visits. ??You can alsosend a secure electronic message to your doctor???s office to request appointments, renew medications or just ask a question. You can enroll at [email or web address] or register during your next office visit. [...] primary care provider, you may find a [facility] provider by calling [facility] Link at [phone]. For information about the plan of care [...] Physician Member Role: PCP Address: Address: [address] [place] [address] Adult & Pediatric Medicine [address] Care Team Related Persons Name: BHUPENDRA SAM Address: [address] [place] [address] Name: ED TURPIN Address: home [address] [place] [address]
--- OUTSIDE RECORDS SUMMARY | 2023-03-30 13:16 | XMS_ITS | Continuity of Care Document ---
Author Name Unknown Organization [facility] Address [address] [place] [address]- Care Team Providers Care Call Center Receptionist Name Role Phone Julito Islas MD Primary Care Physician Encounter [facility] [place] Date(s): 09/17/21 - 10/17/21 [facility] [address] [place], [place] [address] Allergies, Adverse Reactions, Alerts Substance Reaction Severity Status Pravachol Active Lipitor Active Immunizations Given and Recorded Vaccine Date Status Refusal Reason SARS-CoV-2 (COVID-19) mRNA BNT-162b2 vac 08/20/20 Recorded SARS-CoV-2 (COVID-19) mRNA BNT-162b2 vac 07/29/20 Recorded influenza virus vaccine, inactivated 1 05/05/11 Gi mariusz Tet/Diphth/Acel, Pertussis (oldterm) 05/21/09 Give n Influenza Virus Vaccine (oldterm) 2 03/29/06 Given 1Admin Note: defers 2Admin Note: [employer] Medications Abilify 5 mg oral [...] Acute06/09/22 14:40:00 EST, 06/09/21 14:40:00 EST, Tablet, [facility]/pharmacy #[id number], Partial fill upon patientrequest if the prescription is for a schedule II op... Start Date: 06/09/21 Stop Date: 06/09/22 Status: Ordered divalproex sodium 500 mg oral tablet, extended release See Instructions, Take 2 tablets daily at night., # 180 tablet, 1 Refills, Soft Stop, 10/21/19 17:34:00 EDT, [facility], [facility], cm, 06/10/19 9:14:00 EST, Height, 67.6, kg, 11/06/18 9:35:00 EDT, Dry Weight Start Date: 10/21/19 Status: Ordered docusate sodium 100 mg oral capsule 100 mg, 1, capsule, By Mouth, 2 times a day, PRN, # 60 capsule, Refills 5, Tot. Refills 5, Maintenance, for constipation, 06/23/21 15:20:00 EST, Route to Pharmacy Electronically, [facility]/pharmacy #[id number], Partial fill upon patient request if the [...] Mouth, Daily, # 90 tablet, 1 Refills, [facility], 170, cm, 02/22/21 13:12:00 EDT, Height, 61.8, kg, 02/07/20 14:54:00 EDT, Dry Weight Start Date: 06/03/21 Status: Ordered GaviLAX oral powder for reconstitution See Instructions, MIX 17 GRAMS IN 4 TO 8 OUNCES OF WATER AND DRINK DAILY NEEDED FOR CONSTIPATION, # 510 Gm, 5 Refills, [facility], 30, MIX 17 GRAMS IN 4 TO 8 OUNCES OF WATER AND DRINK DAILY NEEDED FOR CONSTIPATION, 170, cm, 07/21/21 14:41:0... Start Date: 07/22/21 Status: Ordered ketoconazole 2% topical cream 1 application, Topically, Daily, PRN foot rash, # 30 Gm, 2 Refills, Acute 10/22/21 8:35:00 EDT, 10/22/20 8:35:00 EDT, Cream, [facility]/pharmacy #[id number], Partial fill upon patient request if the prescription is for a schedule II opioid drug., 1 application Top... Start Date: 10/22/20 Stop Date: 10/22/21 Status: Ordered Lasix 20 mg oral tablet 20 mg, 1, tablet, By Mouth, Daily, # 90 tablet, Refills 3, Tot. Refills 3, Maintenance, 09/13/21 16:14:00 EDT, Route to Pharmacy Electronically, [facility]/pharmacy #[id number], Partial fill upon patient [...] Refills, Maintenance, 06/15/21 11:38:00 EST, EC Capsule, [facility]/pharmacy #2333, dose increase, 170, cm, 02/22/21 13:12:00 EDT, Height, 61.8, kg, 02/07/20 14:54:00 EDT, Dry Weight Start Date: 06/15/21 Status: Ordered ondansetron 4 mg oral tablet, disintegrating 1 tablet = 4 mg, By Mouth, Every 6 hours, PRN Nausea & Vomiting, # 30 each, 1 Refills, Acute 07/21/22 14:57:00 EDT, 07/21/21 14:57:00 EDT, Tablet, [facility]/pharmacy #[id number], Partial fill upon patient [...] 90 tablet, 3 Refills, 05/25/21 8:45:00 EST, [facility], 170, cm, 02/22/21 13:12:00 EDT, [...]
[2023-03-30 13:17] LABS: Ammonia 21 umol/L (13-55)
--- OUTSIDE RECORDS SUMMARY | 2023-03-30 13:17 | XMS_ITS | Continuity of Care Document ---
Author Name Unknown Organization [facility] Address [address] [place] [address]- Care Team Providers Care Ux Developer Designer Name Role Phone Julito Islas MD Primary Care Phys[id number] Date[facility] 10/22/20 - 10/29/20 [facility] [address] [place] [address]- Encounter Diagnosis COVID-19 virus infection(Discharge Diagnosis) - 10/22/20 Rash of foot(Discharge Diagnosis) - 10/22/20 Onychomycosis of toenail(Discharge Diagnosis) - 10/22/20 Attending Physician: Julito Islas MD Allergies, Adverse [...] [employer] Medications Biotene Moisturizing Mouth [place] 1 sprays, By Mouth, 6 times [...] 3 Refills, Soft Stop, 06/10/20 13:15:00 EST, [facility], refill when due, 170, cm, 06/10/20 12:53:00 EST, Height, 61.8, kg, 02/07/20 14:54:00 EDT, Dry Weight Start Date: 06/10/20 Status: Ordered Geodon 40 mg oral capsule See Instructions, One capsule daily after lunch., # 90 capsule, 0 Refills, Maintenance, 12/13/19 9:30:00 EDT, [facility], 170, cm, 12/09/19 9:10:00 EDT, Height, 67.6, kg, 11/06/18 9:35:00 EDT, Dry Weight Start Date: 12/13/19 Status: Ordered ketoconazole 2% topical cream 1 application, Topically, Daily, PRN foot rash, # 30 Gm, 2 Refills, Acute 10/22/21 8:35:00 EDT, 10/22/20 8:35:00 EDT, Cream, [facility]/pharmacy #[id number], Partial fill upon patient request if the prescription is for a schedule II opioid drug., 1 application Top... Start Date: 10/22/20 Stop Date: 10/22/21 Status: Ordered Splint See Instructions, # 1 each, Refills 0, Tot. Refills 0, Maintenance, right wrist every night, 06/01/11 14:34:47 Start Date: 06/01/11 Status: Ordered Synthroid 0.1 mg oral tablet 1 tablet = 100 mcg, By Mouth, Daily, # 90 tablet, 3 Refills, Maintenance, 06/10/20 13:16:00 EST, Tablet, [facility], 170, cm, 06/10/20 12:53:00 EST, Height, 61.8, kg, 02/07/20 14:54:00 EDT, Dry Weight Start Date: 06/10/20 Stop Date: 06/05/21 Status: Ordered venlafaxine 150 mg oral capsule, extended release See Instructions, One capsule daily each AM., # 90 capsule, 0 Refills, Soft Stop, 12/13/19 9:32:00 EDT, [facility], 170, cm, 12/09/19 9:10:00 EDT, Height, [...] Effective Dates Health Status Clinical Service Informant COVID-19 virus infection Discharge Diagnosis 10/22/20 Rash of foot Discharge Diagnosis 10/22/20 Onychomycosis of toenail Discharge Diagnosis 10/22/20 Vital Signs Most recent to oldest [Reference Range]: 1 Height 170 cm (10/22/20 8:17 AM) Weight 64.8 kg (10/22/20 8:17 AM) Oxygen Saturation [94-100 %] 98 % (10/22/20 8:17 AM) Pulse Rate [55-90 bpm] 74 bpm (10/22/20 8:17 AM) Body Mass Index [18.5-24.99] 22.42 (10/22/20 8:17 AM) Blood Pressure [90-138/55-84 mm Hg] 122/ 64mm Hg (10/22/20 8:17 AM) Temperature [96.8-100.4 DegF] 98.0 DegF (10/22/20 8:17 AM) Blood pressure sites Arm, left (10/22/20 8:17 AM) Temperature Route Temporal (10/22/20 8:17 AM) Weight Obtained Via Standing scale (10/22/20 8:17 AM) Social History Social History Type Response Smoking Status Former smoker; Tobac co user in household: No entered on: 09/05/13 Sex
--- OUTSIDE RECORDS SUMMARY | 2023-03-30 13:17 | XMS_ITS | Continuity of Care Document ---
Author Name Unknown Organization [facility] Address [address] [place] [address]- Care Team Providers Care Medicaid Eligibility Specialist Name Role Phone Roshan DOZIER, Julito Dias Primary Care Physician Encounter [facility] Date(s): 08/02/22 - 09/01/22 [facility] [address] [place], [place] [address] Allergies, Adverse Reactions, Alerts Substance Reaction Severity Status Pravachol Active Lipitor Active Immunizations Given and Recorded Vaccine Date Status Refusal Reason [id number] 12y+ bivalent booster vax 02/01/22 Recorded SARS-CoV-2 [...] 1 Refills, Soft Stop, 10/21/19 17:34:00 EDT, [facility], 170, cm, 06/10/19 9:14:00 EST, Height, 67.6, kg, 11/06/18 9:35:00 EDT, Dry Weight Start Date: 10/21/19 Status: Ordered docusate sodium 100 mg oral capsule 100 mg, 1, capsule, By Mouth, 2 times a day, PRN, # 60 capsule, Refills 5, Tot. Refills 5, Maintenance, for constipation, 06/23/21 15:20:00 EST, Route to Pharmacy Electronically, [facility]/pharmacy #[id number], Partial fill upon patient request [...] EDT, [facility] to [facility], [id number], 170, cm, 07/04/22 11:47:00 EST, Height, 72.7, kg, 07/11/21 16:17:00 EST, Dry Weight Start Date: 08/18/22 Status: Ordered GaviLAX oral powder for reconstitution See Instructions, MIX 17 GRAMS IN 4 TO 8 OUNCES OF WATER AND DRINK DAILY NEEDED FOR CONSTIPATION, # 510 Gm, 5 Refills, [id number], 30, MIX 17 GRAMS IN 4 TO [...] Acute 08/31/23 11:42:00 EDT, 08/30/22 11:41:00 EDT, [facility]/pharmacy #[id number], Partial fill upon patient request if the prescription is for a schedule II opioid drug., 170, cm, 07/04/... Start Date: 08/30/22 Stop Date: 08/31/23 Status: Ordered omeprazole 20 mg oral enteric coated capsule 1 capsule = 20 mg, By Mouth, 2 times a day, # 60 each, 5 Refills, Maintenance, 04/27/22 16:12:00 EST, EC Capsule, [facility]/pharmacy #[id number], dose increase, 170, cm, 04/27/22 [...] Replace Required Details, [id number]... Start Date: 08/11/22 Status: Ordered Synthroid 0.125 mg oral tablet 1 tablet, By Mouth, Daily, # 90 tablet, 1 Refills, Maintenance, 03/10/22 7:13:00 EDT, [facility], 170, cm, 12/17/21 13:41:00 [...] Team Personnel Name: Julito Islas MD Position: [facility] Primary Care Physician Member Role: PCP Address: Address: [address] [place] [address] Adult [place] [address]- Care Team Related Persons Name: BHUPENDRA SAM Address: home [address] [facility] [facility] [facility] [address] [place] [address] Name: ED TURPIN Address: [place] [address] [place] [address]
--- OUTSIDE RECORDS SUMMARY | 2023-03-30 13:17 | XMS_ITS | Continuity of Care Document ---
Author Name Unknown Organization [facility] Address [address] [place] [address]- Care Team Providers Care Pharmacy Aide Name Role Phone Roshan DOZIER, Julito Dias Primary Care Physician Encounter [facility] Date(s): 07/28/22 - 08/27/22 [facility] [address] [place], [place] [address] Allergies, Adverse Reactions, Alerts Substance Reaction Severity Status Pravachol Active Lipitor Active Immunizations Given and Recorded Vaccine Date Status Refusal Reason [id number] 12y+ bivalent booster vax 02/01/22 Recorded SARS-CoV-2 [...] 06/23/21 15:20:00 EST, Route to Pharmacy Electronically, [facility]/pharmacy #[id number], Partial fill upon patient [...] EDT, Route to [facility] Electronically, [id number], 170, cm, 07/04/22 11:47:00 EST, Height, 72.7, kg, 07/11/21 16:17:00 EST, Dry Weight Start Date: 08/18/22 Status: Ordered GaviLAX oral powder for reconstitution See Instructions, MIX 17 GRAMS IN 4 TO 8 OUNCES OF WATER AND DRINK DAILY NEEDED FOR CONSTIPATION, # 510 Gm, 5 Refills, [facility], 30, MIX 17 GRAMS IN 4 TO [...] Refills, Maintenance, 04/27/22 16:12:00 EST, EC Capsule, [facility]/pharmacy #[id number], dose increase, 170, cm, 04/27/22 [...] Replace Required Details, Route to Pharmacy Electronically, [facility]/pharmacy #[id number], Partial... Start Date: 08/11/22 Status: [...] Physician Member Role: PCP Address: Address: [address] [place] [address] Adult [place] [address]- Care Team Related Persons Name: BHUPENDRA SAM Address: home [address] [facility] [address] [place] [address] Name: ED TURPIN Address: home [address] [place] [address]
--- OUTSIDE RECORDS SUMMARY | 2023-03-30 13:17 | XMS_ITS | Continuity of Care Document ---
Author Name Unknown Organization [facility] Address [address] [place] [address]- Care Team Providers Care Manufacturing Maintenance Technician Name Role Phone Julito Islas MD Primary Care [id number] Date(s): 06/09/21 - 07/09/21 [facility] [address] [place], [place] [address] Allergies, Adverse Reactions, Alerts Substance Reaction Severity Status Pravachol Active Lipitor Active Immunizations Given and Recorded Vaccine Date Status Refusal Reason SARS-CoV-2 (COVID-19) mRNA BNT-162b2 vac 08/20/20 Recorded SARS-CoV-2 (COVID-19) mRNA BNT-162b2 vac 07/29/20 Recorded influenza virus vaccine, inactivated 1 05/05/11 Gi mariusz Tet/Diphth/Acel, Pertussis (oldterm) 05/21/09 Give n Influenza Virus Vaccine (oldterm) 2 03/29/06 Given 1Admin Note: defers 2Admin Note: [employer] Medications chlorzoxazone 500 mg oral tablet 1 tablet = 500 mg, By Mouth, 3 times a day, PRN muscle pain or spasm, # 30 tablet, 1 Refills, Acute06/09/22 14:40:00 EST, 06/09/21 14:40:00 EST, Tablet, [facility]/pharmacy #[id number], Partial fill upon patientrequest if the prescription is for a schedule II op... Start Date: 06/09/21 Stop Date: 06/09/22 Status: Ordered divalproex sodium 500 mg oral tablet, extended release See Instructions, Take 2 tablets daily at night., # 180 tablet, 1 Refills, Soft Stop, 10/21/19 17:34:00 EDT, [facility], 170, cm, 06/10/19 9:14:00 EST, Height, 67.6, kg, 11/06/18 9:35:00 EDT, Dry Weight Start Date: 10/21/19 Status: Ordered docusate sodium 100 mg oral capsule 100 mg, 1, capsule, By Mouth, 2 times a day, PRN, # 60 capsule, Refills 5, Tot. Refills 5, Maintenance, for constipation, 06/23/21 15:20:00 EST, [id number] Partial fill upon patient request if [...] capsule, 0 Refills, Maintenance, 12/13/19 9:30:00 EDT, [facility], 170, cm, 12/09/19 9:10:00 EDT, Height, 67.6, kg, 11/06/18 9:35:00 EDT, Dry Weight Start Date: 12/13/19 Status: Ordered ketoconazole 2% topical cream 1 application, Topically, Daily, PRN foot rash, # 30 Gm, 2 Refills, Acute 10/22/21 8:35:00 EDT, 10/22/20 8:35:00 EDT, Cream, [facility]/pharmacy #[id number], Partial fill upon patient request if the prescription is for a schedule II opioid drug., 1 application Top... Start Date: 10/22/20 Stop Date: 10/22/21 Status: Ordered MiraLax oral powder for reconstitution = 17 Gm, By Mouth, Daily, PRN Constipation, dissolve in water before taking, # 527 Gm, 0 Refills, Acute 06/23/22 15:21:00 EST, 06/23/21 15:21:00 EST, REC Powder, [id number] Partial fill uponpatient request if the prescription is for a schedu... Start Date: 06/23/21 Stop Date: 06/23/22 Status: Ordered omeprazole 20 mg oral enteric coated capsule 1 capsule = 20 mg, By Mouth, 2 times a day, # 60 each, 5 Refills, Maintenance, 06/15/21 11:38:00 EST, EC Capsule, [id number], dose increase, 170, cm, 02/22/21 13:12:00 EDT, Height, 61.8, kg, 02/07/20 14:54:00 EDT, Dry Weight Start Date: 06/15/21 Status: Ordered ondansetron 4 mg oral tablet, disintegrating 1 tablet = 4 mg, By Mouth, Every 6 hours, PRN Nausea & Vomiting, # 24 each, 1 Refills, Acute 06/15/22 11:37:00 EST, 06/15/21 11:37:00 EST, Tablet, [id number] Partial fill upon patient request if [...] 90 tablet, 3 Refills, 05/25/21 8:45:00 EST, [facility], 170, cm, 02/22/21 13:12:00 [...]
--- OUTSIDE RECORDS SUMMARY | 2023-03-30 13:17 | XMS_ITS | Continuity of Care Document ---
Author Name Unknown Organization [facility] Address [address] [place] [address]- Care Team Providers Care Mica Sizer Name Role Phone Julito Islas MD [id number] Date(s): 07/12/21 - 08/11/21 [facility] [address] [place], [place] [address] Allergies, Adverse Reactions, Alerts Substance Reaction Severity Status Pravachol Active Lipitor Active Immunizations Given and Recorded Vaccine Date Status Refusal Reason SARS-CoV-2 (COVID-19) mRNA BNT-162b2 vac 08/20/20 Recorded SARS-CoV-2 (COVID-19) mRNA BNT-162b2 vac 07/29/20 Recorded influenza virus vaccine, inactivated 1 05/05/11 Gi mariusz Tet/Diphth/Acel, Pertussis (oldterm) 05/21/09 Give n Influenza Virus Vaccine (oldterm) 2 03/29/06 Given 1Admin Note: defers 2Admin Note: [employer] Medications chlorzoxazone 500 mg oral tablet 1 tablet = 500 mg, By Mouth, 3 times a day, PRN muscle pain or spasm, # 30 tablet, 1 Refills, Acute06/09/22 14:40:00 EST, 06/09/21 14:40:00 EST, Tablet, [facility]/pharmacy #[id number], Partial fill upon patientrequest if the prescription is for a schedule II op... Start Date: 06/09/21 Stop Date: 06/09/22 Status: Ordered divalproex sodium 500 mg oral tablet, extended release See Instructions, Take 2 tablets daily at night., # 180 tablet, 1 Refills, Soft Stop, 10/21/19 17:34:00 EDT, [facility], 170, cm, 06/10/19 9:14:00 EST, Height, 67.6, kg, 11/06/18 9:35:00 EDT, Dry Weight Start Date: 10/21/19 Status: Ordered docusate sodium 100 mg oral capsule 100 mg, 1, capsule, By Mouth, 2 times a day, PRN, # 60 capsule, Refills 5, Tot. Refills 5, Maintenance, for constipation, 06/23/21 15:20:00 EST, Route to Pharmacy Electronically, [facility]/pharmacy #[id number], Partial fill upon patient request if the [...] Mouth, Daily, # 90 tablet, 1 Refills, [facility], 170, cm, 02/22/21 13:12:00 EDT, Height, 61.8, kg, 02/07/20 14:54:00 EDT, Dry Weight Start Date: 06/03/21 Status: Ordered GaviLAX oral powder for reconstitution See Instructions, MIX 17 GRAMS IN 4 TO 8 OUNCES OF WATER AND DRINK DAILY NEEDED FOR CONSTIPATION, # 510 Gm, 5 Refills, [id number], 30, MIX 17 GRAMS IN 4 TO 8 OUNCES OF WATER AND DRINK DAILY NEEDED FOR CONSTIPATION, 170, cm, 07/21/21 14:41:0... Start Date: 07/22/21 Status: Ordered Geodon 40 mg oral capsule See Instructions, One capsule daily after lunch., # 90 capsule, 0 Refills, Maintenance, 12/13/19 9:30:00 EDT, [facility], 170, cm, 12/09/19 9:10:00 EDT, Height, 67.6, kg, 11/06/18 9:35:00 EDT, Dry Weight Start Date: 12/13/19 Status: Ordered ketoconazole 2% topical cream 1 application, Topically, Daily, PRN foot rash, # 30 Gm, 2 Refills, Acute 10/22/21 8:35:00 EDT, 10/22/20 8:35:00 EDT, Cream, [facility]/pharmacy #[id number], Partial fill upon patient request [...] Refills, Maintenance, 06/15/21 11:38:00 EST, EC [facility]apsule, [id number] dose increase, 170, cm, 02/22/21 13:12:00 EDT, Height, 61.8, kg, 02/07/20 14:54:00 EDT, Dry Weight Start Date: 06/15/21 Status: Ordered ondansetron 4 mg oral tablet, disintegrating 1 tablet = 4 mg, By Mouth, Every 6 hours, PRN Nausea & Vomiting, # 30 each, 1 Refills, Acute 07/21/22 14:57:00 EDT, 07/21/21 14:57:00 EDT, Tablet, [facility]/pharmacy #[id number], Partial fill upon patient request [...] 90 tablet, 3 Refills, 05/25/21 8:45:00 EST, [facility], 170, cm, 02/22/21 13:12:00 EDT, Height, [...]
--- OUTSIDE RECORDS SUMMARY | 2023-03-30 13:17 | XMS_ITS | Continuity of Care Document ---
Author Name Unknown Organization [facility] Address [address] [place] [address]- Care Team Providers Care Cigarette Making Machine Hopper Feeder Name Role Phone Julito Islas MD Primary Care Physician Encounter [facility] Date(s): 02/17/23 - 03/19/23 [facility] [address] [place], [place] [address] Allergies, Adverse Reactions, Alerts Substance Reaction Severity Status Pravachol Active Lipitor Active Immunizations Given and Recorded Vaccine Date Status Refusal Reason SARS-CoV-2(COVID-19)mRNA-LNP vac([id number]) 02/14/23 Recorded zoster vaccine, inactivated 10/31/22 Recorded zoster vaccine, inactivated 08/30/22 Recorded pneumococcal 20-valent conjugate vaccine 10/31/22 Recorded [id number] 12y+ bivalent booster vax 02/01/22 Recorded SARS-CoV-2 [...] tablet, 1 Refills, 12/29/22 11:43:00 EDT, [facility]/pharmacy #[id number], 170, cm, 12/12/22 13:20:00 EDT, Height, 72.7, kg, 07/11/21 16:17:00 EST, Dry Weight Start Date: 12/29/22 Status: Ordered furosemide 20 mg oral tablet 1, tablet, By Mouth, Daily, # 90 tablet, Refills 1, Maintenance, 08/18/22 19:50:00 EDT, Route to Pharmacy Electronically, [id number], 170, cm, 07/04/22 11:47:00 EST, Height, 72.7, kg, 07/11/21 16:17:00 EST, Dry Weight Start Date: 08/18/22 Status: Ordered GaviLAX oral powder for reconstitution See Instructions, MIX 17 GRAMS IN 4 TO 8 OUNCES OF WATER AND DRINK DAILY NEEDED FOR CONSTIPATION, # 510 Gm, 5 Refills, [id number], 30, MIX 17 GRAMS IN 4 TO [...] Acute03/07/24 12:45:00 EDT, 03/07/23 12:45:00 EDT, Tablet, [facility]/pharmacy #[id number], Partial fill upon patientrequest if the prescription is for a schedule II op... Start Date: 03/07/23 Stop Date: 03/07/24 Status: Ordered Metamucil 3.4 gm/5.2 gm oral powder for reconstitution = 3.4 Gm, By Mouth, Daily, dissolve in 8 oz of fluid, # 283 Gm, 1 Refills, Acute 08/31/23 11:42:00 EDT, 08/30/22 11:41:00 EDT, [facility]/pharmacy #[id number], Partial fill upon patient request if the prescription is for a schedule II opioid drug., 170, cm, ... Start Date: 08/30/22 Stop Date: 08/31/23 Status: Ordered omeprazole 20 mg oral enteric coated capsule 1 capsule = 20 mg, By Mouth, 2 times a day, # 60 each, 5 Refills, Maintenance, 12/12/22 13:09:00 EDT, EC Capsule, [facility]/pharmacy #[id number], dose increase, 170, cm, [...] Details, Route to Pharmacy Electronically, [facility]/pharmacy #[id number], Partial... Start Date: 02/16/23 Status: Ordered Synthroid 0.125 mg oral tablet 1 tablet, By Mouth, Daily, as a single daily dose before breakfast no substitution, # 90 tablet, 3 Refills, Maintenance, 02/17/23 10:27:00 EDT, [facility], 170, cm, 01/26/23 9:57:00 EDT, [...] Primary Care Member Role: PCP Address: Address: [address] [place] [address] Adult & [place] [address]- Care Team Related Persons Name: BHUPENDRA SAM Address: home [address] [place] [address] Name: ED TURPIN Address: [place] [address] [place] [address]
--- OUTSIDE RECORDS SUMMARY | 2023-03-30 13:17 | XMS_ITS | Continuity of Care Document ---
Author Name Unknown Organization [facility] Address [address] [place] [address]- Care Team Providers Care Retirement Consultant Name Role Phone Julito Islas MD Primary Care Physician [phone] Encounter [facility] Date(s): 02/12/21 - 03/14/21 [facility] [address] [place], [place] [address] Allergies, Adverse Reactions, Alerts Substance Reaction Severity Status Pravachol Active Lipitor Active Immunizations Given and Recorded Vaccine Date Status Refusal Reason SARS-CoV-2 (COVID-19) mRNA BNT-162b2 vac 08/20/20 Recorded SARS-CoV-2 (COVID-19) mRNA BNT-162b2 vac 07/29/20 Recorded influenza virus vaccine, inactivated 1 05/05/11 Gi mariusz Tet/Diphth/Acel, Pertussis (oldterm) 05/21/09 Give n Influenza Virus Vaccine (oldterm) 2 03/29/06 Given 1Admin Note: defers 2Admin Note: [employer] Medications divalproex sodium 500 mg oral tablet, extended release See Instructions, Take 2 tablets daily at night., # 180 tablet, 1 Refills, Soft Stop, 10/21/19 17:34:00 EDT, [facility], 170, cm, 06/10/19 9:14:00 EST, [...] Mouth, Daily, # 90 tablet, 0 Refills, [facility], 170, cm, 02/22/21 13:12:00 EDT, Height, 61.8, kg, 02/07/20 14:54:00 EDT, Dry Weight Start Date: 03/06/21 Status: Ordered Geodon 40 mg oral capsule See Instructions, One capsule daily after lunch., # 90 capsule, 0 Refills, Maintenance, 12/13/19 9:30:00 EDT, [facility], 170, cm, 12/09/19 9:10:00 EDT, Height, 67.6, kg, 11/06/18 9:35:00 EDT, Dry Weight Start Date: 12/13/19 Status: Ordered ketoconazole 2% topical cream 1 application, Topically, Daily, PRN foot rash, # 30 Gm, 2 Refills, Acute 10/22/21 8:35:00 EDT, 10/22/20 8:35:00 EDT, Cream, [facility]/pharmacy #[id number], Partial fill upon patient request if the prescription is for a schedule II opioid drug., 1 application Top... Start Date: 10/22/20 Stop Date: 10/22/21 Status: Ordered levothyroxine 125 mcg (0.125 mg) oral tablet 1 tablet = 125 mcg, By Mouth, Daily, # 90 tablet, 1 Refills, Maintenance, 01/04/21 16:59:00 EDT, Tablet, [facility], Partial fill upon patient request if the prescription is for a schedule II opioid drug., 170, cm, 12/16/20 14:1... Start Date: 01/04/21 Status: Ordered levothyroxine 125 mcg (0.125 mg) oral tablet 1 tablet = 125 mcg, By Mouth, Daily, # 7 tablet, 0 Refills, Maintenance, 01/04/21 17:00:00 EDT, Tablet, [facility]/pharmacy #[id number], Partial fill upon patient [...]
--- OUTSIDE RECORDS SUMMARY | 2023-03-30 13:17 | XMS_ITS | Continuity of Care Document ---
Author Name Unknown Organization [facility] Address [address] [place] [address]- Care Team Providers Care Health Evaluator Name Role Phone Julito Islas MD Primary Care Physician [phone] Encounter [facility] Date(s): 12/17/21 - 12/24/21 [facility] [address] [place], [place] [address] Encounter Diagnosis Bipolar disorder(Discharge Diagnosis) - 12/17/21 Hyperlipidemia(Discharge Diagnosis) - 12/17/21 Hypothyroidism(Discharge Diagnosis) - 12/17/21 Gastritis(Discharge Diagnosis) - 12/17/21 Hyponatremia(Discharge Diagnosis) - 12/17/21 Attending Physician: Julito Islas MD Allergies, Adverse [...] Acute06/09/22 14:40:00 EST, 06/09/21 14:40:00 EST, Tablet, [facility]/pharmacy #[id number], Partial fill upon patientrequest if the prescription is for a schedule II op... Start Date: 2/2/22 Stop Date: 06/09/22 Status: Ordered divalproex sodium 500 mg oral tablet, extended release See Instructions, Take 2 tablets daily at night., # 180 tablet, 1 Refills, Soft Stop, 10/21/19 17:34:00 EDT, [facility], 170, cm, 06/10/19 9:14:00 EST, Height, 67.6, kg, 11/06/18 9:35:00 EDT, Dry Weight Start Date: 10/21/19 Status: Ordered docusate sodium 100 mg oral capsule 100 mg, 1, capsule, By Mouth, 2 times a day, PRN, # 60 capsule, Refills 5, Tot. Refills 5, Maintenance, for constipation, 06/23/21 15:20:00 EST, Route to Pharmacy Electronically, [facility]/pharmacy #[id number], Partial fill upon patient request if the prescriptio... Start Date: 06/23/21 Status: Ordered ezetimibe 10 mg oral tablet 1 tablet, By Mouth, Daily, # 90 tablet, 1 Refills, [facility], 170, cm, 11/02/21 14:03:00 EDT, Height, 72.7, kg, 07/11/21 16:17:00 EST, Dry Weight Start Date: 11/09/21 Status: Ordered GaviLAX oral powder for reconstitution See Instructions, MIX 17 GRAMS IN 4 TO 8 OUNCES OF WATER AND DRINK DAILY NEEDED FOR CONSTIPATION, # 510 Gm, 5 Refills, [facility], 30, MIX 17 GRAMS IN 4 TO [...] 09/13/21 16:14:00 EDT, [id number] Partial fill upon patient request if [...] Refills, Maintenance, 06/15/21 11:38:00 EST, EC Capsule, [facility] dose increase, 170, cm, 02/22/21 13:12:00 EDT, Height, 61.8, kg, 02/07/20 14:54:00 EDT, Dry Weight Start Date: 06/15/21 Status: Ordered ondansetron 4 mg oral tablet, disintegrating 1 tablet = 4 mg, By Mouth, Every 6 hours, PRN Nausea & Vomiting, # 30 each, 1 Refills, Acute 07/21/22 14:57:00 EDT, 07/21/21 14:57:00 EDT, Tablet, [facility]/pharmacy #[id number], Partial fill upon patient request if the [...] 90 tablet, 3 Refills, 05/25/21 8:45:00 EST, [facility], 170, cm, 02/22/21 13:12:00 EDT, Height, [...] Effective Dates Health Status Clinical Service Informant Bipolar disorder Discharge Diagnosis 12/17/21 Hyperlipidemia Discharge Diagnosis 12/17/21 Hypothyroidism Discharge Diagnosis 12/17/21 Gastritis Discharge Diagnosis 12/17/21 Hyponatremia Discharge Diagnosis 12/17/21 Vital Signs Most recent to oldest [Reference Range]: 1 Height 170 cm (12/17/21 1:41 PM) Weight 72.0 kg (12/17/21 1:41 PM) Oxygen Saturation [94-100 %] 97 % (12/17/21 1:41 PM) Pulse Rate [55-90 bpm] 80 bpm (12/17/21 1:41 PM) Body Mass Index [18.5-24.99] 24.91 (12/17/21 1:41 PM) Blood Pressure [90-138/55-84 mm Hg] 130/ 80mm Hg (12/17/21 1:41 PM) Blood pressure sites Arm, left (12/17/21 1:41 PM) Social History Social History Type Response Smoking Status Former smoker; [employer] user in household: No entered on: 09/05/13 Sex
--- OUTSIDE RECORDS SUMMARY | 2023-03-30 13:17 | XMS_ITS | Continuity of Care Document ---
Author Name Unknown Organization [facility] Address [address] [place] [address]- Care Team Providers Care Manager Of Administration Name Role Phone Roshan DOZIER, Julito Dias Primary Care Physician [place] [facility] Date(s): 11/07/22 - 11/14/22 [facility] [address] [place], [place] [address] Attending Physician: Nabor De La Garza MD Allergies, Adverse Reactions, Alerts Substance Reaction Severity Status Pravachol Active Lipitor Active Immunizations Given and Recorded Vaccine Date Status Refusal Reason [id number] 12y+ bivalent booster vax 02/01/22 Recorded SARS-CoV-2 [...] 10/21/19 17:34:00 EDT, [facility], 170, cm, 06/10/19 9:14:00 EST, Height, 67.6, kg, 11/06/18 9:35:00 EDT, Dry Weight Start Date: 10/21/19 Status: Ordered docusate sodium 100 mg oral capsule 100 mg, 1, capsule, By Mouth, 2 times a day, PRN, # 60 capsule, Refills 5, Tot. Refills 5, Maintenance, for constipation, 06/23/21 15:20:00 EST, Route to Pharmacy Electronically, [facility]/pharmacy #[id number], Partial fill upon patient [...] 08/18/22 19:50:00 EDT, Route to Pharmacy Electronically, [facility] [id number], 170, cm, 07/04/22 11:47:00 EST, Height, 72.7, kg, 07/11/21 16:17:00 EST, Dry Weight Start Date: 08/18/22 Status: Ordered GaviLAX oral powder for reconstitution See Instructions, MIX 17 GRAMS IN 4 TO 8 OUNCES OF WATER AND DRINK DAILY NEEDED FOR CONSTIPATION, # 510 Gm, 5 Refills, [facility] [id number], 30, MIX 17 GRAMS IN 4 TO [...] Acute 08/31/23 11:42:00 EDT, 08/30/22 11:41:00 [id number] fill upon patient request if the prescription is for a schedule II opioid drug., 170, cm, 07/04/... Start Date: 08/30/22 Stop Date: 08/31/23 Status: Ordered omeprazole 20 mg oral enteric coated capsule 1 capsule = 20 mg, By Mouth, 2 times a day, # 60 each, 5 Refills, Maintenance, 04/27/22 16:12:00 EST, EC Capsule, [facility]/pharmacy #[id number], dose increase, 170, cm, [...] Replace Required Details, [id number]... Start Date: 08/11/22 Status: Ordered Synthroid 0.125 mg oral tablet 1 tablet, By Mouth, Daily, # 90 tablet, 1 Refills, Maintenance, 03/10/22 7:13:00 EDT, [facility], 170, cm, 12/17/21 13:41:00 EDT, [...] 9:42:08 EDT Start Date: 08/21/17 Status: Ordered Zithromax Z-Demetrius 250 mg oral tablet See Instructions, as directed on package labeling, # 1 pack/packet, 0 Refills, Maintenance, 11/07/22 8:11:00 EDT, [facility]/pharmacy #[id number], Partial fill upon patient request if the prescription is for a schedule II opioid drug., 170, cm, 11/07/22 8:09:00 ED... Start Date: 11/07/22 Status: Ordered Problem List Condition Confirmation Course Effective Dates Status H ealth Status Informant COVID-19 virus infection Confirmed Active Gastritis Confirmed Active Hematuria Confirmed Active Hyperlipidemia Confirmed Active Hypothyroidism Confirmed Active Polyp of colon Confirmed Active Sleep apnea Confirmed Active Spinal stenosis of lumbar region Confirmed Active Uterine fibroids Confirmed Active Vital Signs Most recent to oldest [Reference Range]: 1 Height 170 cm (11/07/22 8:09 AM) Weight 68.1 kg (11/07/22 8:09 AM) Oxygen Saturation [94-100 %] 99 % (11/07/22 8:09 AM) Pulse Rate [55-90 bpm] 86 bpm (11/07/22 8:09 AM) Body Mass Index [18.5-24.99 kg/m2] 23.56 kg/m2 (11/07/22 8:09 AM) Blood Pressure [90-138/55-84 mm Hg] 138/ 80mm Hg (11/07/22 8:09 AM) Mode of Delivery (Oxygen) Room air (11/07/22 8:09 AM) Blood pressure sites Arm, left (11/07/22 8:09 AM) Social History Social History Type Response Smoking Status Former smoker; Tobac co user in household: No entered on: 09/05/13 Sex Note * Kelly Hua: PERFORM, SIGN, VERIFY Event Display: Patient Education/Instruction Authored Date: [id number] [facility] *[facility] Clinical Summary Name DAMIAN NAYAK Age 72 Years 1950 PCP Julito Islas MD PCP Visit Date 11/07/2022 07:51:00 Additional Instructions: Scheduled Appointments?? Future Appointments ?*No??[facility] ?[address]??[place],??[place],??[address] ?Phone:??--?Fax:??-- ?Appt. Date:??12/12/2022?1:00 PM ?Scheduled Provider:??Julito Islas MD Follow-Up Instructions ?? Diagnosis Sprain of unspecified ligament of right ankle, initial encounter; Scratched by cat, initial encounter Medications: Please continue your medications until treatment is completed or stopped by your provider. Discuss any questions related to medications with your provider. New Medications [id number], [address] [place] [id number], [phone] Azithromycin (Zithromax Z-Demetrius 250 mg oral tablet) as directed on package labeling. Refills: 0. Next Dose: Medications to Continue with No [...] orders Vital Signs Height 170 cm Weight 68.1 kg BMI 23.56 kg/m2 Blood Pressure 138 mm Hg/80 mm Hg Temperature Pulse Rate 86 bpm Respiratory Rate 02 Sat Mode of Delivery 99 %/Room air You can now view a summary of your hospital visit from the comfort of your home through a free online portal called [email or web address]. [email or web address] is a website that allows you to securely view your medical information including discharge summary, medications and follow-up visits. ??You can alsosend a secure electronic message to your doctor???s office to request appointments, renew medications or just ask a question. You can enroll at [email or web address] or register during your next office [...] care provider, you may find a [facility] provider by calling [facility] [employer] Link at [phone]. For information about the plan of care [...] Personnel Name: Roshan DOZIER, Julito Dias Position: S Physician - Primary Care Member Role: PCP Address: Address: [address] [place] [address] Adult [place] [address]- Care Team Related Persons Name: BHUPENDRA SAM Address: home [address] [place] [address] Name: ED TURPIN Address: home [address] [place] [address]
--- OUTSIDE RECORDS SUMMARY | 2023-03-30 13:17 | XMS_ITS | Continuity of Care Document ---
Author Name Unknown Organization [facility] Address [address] [place] [address]- Care Team Providers Care Hole Digger Name Role Phone Roshan DOZIER, Julito Dias Primary Care Physician Encounter [facility] Date(s): 09/30/22 - 10/30/22 [facility] [address] [place], [place] [address] Allergies, Adverse Reactions, Alerts Substance Reaction Severity Status Pravachol Active Lipitor Active Immunizations Given and Recorded Vaccine Date Status Refusal Reason [id number] 12y+ bivalent booster vax 02/01/22 Recorded SARS-CoV-2 [...] Refills, Soft Stop, 10/21/19 17:34:00 EDT, [facility], 170, cm, 06/10/19 9:14:00 EST, Height, 67.6, kg, 11/06/18 9:35:00 EDT, Dry Weight Start Date: 10/21/19 Status: Ordered docusate sodium 100 mg oral capsule 100 mg, 1, capsule, By Mouth, 2 times a day, PRN, # 60 capsule, Refills 5, Tot. Refills 5, Maintenance, for constipation, 06/23/21 15:20:00 EST, Route to Pharmacy Electronically, [facility]/pharmacy #[id number], Partial fill upon patient [...] EDT, Route to Pharmacy Electronically, [id number], 170, cm, 07/04/22 11:47:00 EST, Height, 72.7, kg, 07/11/21 16:17:00 EST, Dry Weight Start Date: 08/18/22 Status: Ordered GaviLAX oral powder for reconstitution See Instructions, MIX 17 GRAMS IN 4 TO 8 OUNCES OF WATER AND DRINK DAILY NEEDED FOR CONSTIPATION, # 510 Gm, 5 Refills, [id number], 30, MIX 17 GRAMS IN 4 TO [...] Acute 08/31/23 11:42:00 EDT, 08/30/22 11:41:00 EDT, [facility]/pharmacy #[id number], Partial fill upon patient request if the prescription is for a schedule II opioid drug., 170, cm, 07/04/... Start Date: 08/30/22 Stop Date: 08/31/23 Status: Ordered omeprazole 20 mg oral enteric coated capsule 1 capsule = 20 mg, By Mouth, 2 times a day, # 60 each, 5 Refills, Maintenance, 04/27/22 16:12:00 EST, EC Capsule, [facility]/pharmacy #[id number], dose increase, 170, cm, [...] Replace Required Details, [id number]... Start Date: 08/11/22 Status: Ordered Synthroid 0.125 mg oral tablet 1 tablet, By Mouth, Daily, # 90 tablet, 1 Refills, Maintenance, 03/10/22 7:13:00 EDT, [facility], 170, cm, 12/17/21 13:41:00 EDT, [...] Primary Care Member Role: PCP Address: Address: [address] [place] [address] Adult [place] [address]- Care Team Related Persons Name: BHUPENDRA SAM Address: home [address] [place] [address] Name: ED TURPIN Address: home [address] [place] [address]
--- OUTSIDE RECORDS SUMMARY | 2023-03-30 13:17 | XMS_ITS | Continuity of Care Document ---
Author Name Unknown Organization [facility] Address [address] [place] [address]- Care Team Providers Care Shuttle Spotter Name Role Phone Julito Islas MD Primary Care Physician [phone] Encounter [facility] Date(s): 02/07/20 - 03/08/20 [facility] [address] [place] [address]- [facility] Attending Physician: Meche Byrd Admitting Physician: AdmMeche turcios Referring Physician: AdmtrMeche Allergies, Adverse Reactions, Alerts Substance Reaction Severity Status Pravachol Active Lipitor Active Immunizations Given and Recorded Vaccine Date Status Refusal Reason influenza virus vaccine, inactivated 1 05/05/11 Gi mariusz Tet/Diphth/Acel, Pertussis (oldterm) 05/21/09 Give n Influenza Virus Vaccine (oldterm) 2 03/29/06 Given 1Admin Note: defers 2Admin Note: [employer] Medications Biotene Moisturizing Mouth [place] 1 sprays, By Mouth, 6 times a day, PRN dry mouth, 0 Refills, Maintenance, 11/06/18 9:43:24 EDT Start Date: 11/06/18 Status: Ordered divalproex sodium 500 mg oral tablet, extended release See Instructions, Take 2 tablets daily at night., # 180 tablet, 1 Refills, Soft Stop, 10/21/19 17:34:00 EDT, [facility], 170, cm, 06/10/19 9:14:00 EST, Height, 67.6, kg, 11/06/18 9:35:00 EDT, Dry Weight Start Date: 10/21/19 Status: Ordered ezetimibe 10 mg oral tablet See Instructions, TAKE 1 TABLET DAILY, # 90 tablet, 3 Refills, Soft Stop, 06/10/19 9:27:00 EST, [facility], 170, cm, 06/10/19 9:14:00 EST, Height, 67.6, kg, 11/06/18 9:35:00 EDT, Dry Weight Start Date: 06/10/19 Status: Ordered gentamicin 0.3% ophthalmic solution 2 drops, Eyes, Both, 4 times a day, # 5 mL, 0 Refills, Acute 07/16/20 16:47:00 EST, 07/17/19 16:46:00 EDT, Solution, [facility]/pharmacy #[id number], 2 drops Eyes, Both 4 times a day, 170, cm, 06/10/19 9:14:00 EST, Height, 67.6, kg, 11/06/18 9:35:00 EDT, Dry Weight Start Date: 07/17/19 Stop Date: 07/16/20 Status: Ordered Geodon 40 mg oral capsule See Instructions, One capsule daily after lunch., # 90 capsule, 0 Refills, Maintenance, 12/13/19 9:30:00 EDT, [facility], 170, cm, 12/09/19 9:10:00 EDT, [...] Refills, Maintenance, 06/10/19 9:27:00 EST, Tablet, [facility], 170, cm, 06/10/19 9:14:00 EST, Height, 67.6, kg, 11/06/18 9:35:00 EDT, Dry Weight Start Date: 06/10/19 Stop Date: 06/04/20 Status: Ordered venlafaxine 150 mg oral capsule, extended release See Instructions, One capsule daily each AM., # 90 capsule, 0 Refills, Soft Stop, 12/13/19 9:32:00 EDT, [facility], 170, cm, 12/09/19 9:10:00 EDT, [...]
--- OUTSIDE RECORDS SUMMARY | 2023-03-30 13:17 | XMS_ITS | Continuity of Care Document ---
Author Name Unknown Organization [facility] Address [address] [place] [address]- Care Team Providers Care Beer Coil Cleaner Name Role Phone Julito Islas MD Primary Care Physician [phone] Encounter [facility] Date(s): 12/16/20 - 12/23/20 [facility] [address] [place], [place] [address] Encounter Diagnosis Hyperlipidemia(Discharge Diagnosis) - 12/16/20 Spinal stenosis of lumbar region(Discharge Diagnosis) - 12/16/20 Bipolar disorder(Discharge Diagnosis) - 12/16/20 Attending Physician: Julito Islas MD Allergies, Adverse [...] 10/22/21 8:35:00 EDT, 10/22/20 8:35:00 EDT, Cream, [facility]/pharmacy #[id number], Partial fill upon patient request if the [...] Dry Weight Start Date: 12/13/19 Status: Ordered venlafaxine 37.5 mg oral capsule, extended release 37.5 mg, 1, capsule, By Mouth, Daily, # 30 capsule, Refills 0, Maintenance, 12/16/20 14:34:00 EDT, Partial fill upon patient request if the prescription is for a schedule II opioid drug. Start Date: 12/16/20 Status: Ordered Vitamin B Complex oral tablet, [...] Status Clinical Service Informant Hyperlipidemia Discharge Diagnosis 12/16/20 Spinal stenosis of lumbar region Discharge Diagnosis 12/16/20 Bipolar disorder Discharge Diagnosis 12/16/20 Vital Signs Most recent to oldest [Reference Range]: 1 Height 170 cm (12/16/20 2:16 PM) Weight 66.9 kg (12/16/20 2:16 PM) Oxygen Saturation [94-100 %] 97 % (12/16/20 2:16 PM) Pulse Rate [55-90 bpm] 87 bpm (12/16/20 2:16 PM) Body Mass Index [18.5-24.99] 23.15 (12/16/20 2:16 PM) Blood Pressure [90-138/55-84 mm Hg] 128/ 82mm Hg (12/16/20 2:16 PM) Blood pressure sites Arm, left (12/16/20 2:16 PM) Social History Social History Type Response Smoking Status Former smoker; Tobac co user in household: No entered on: 09/05/13 Sex
--- OUTSIDE RECORDS SUMMARY | 2023-03-30 13:17 | XMS_ITS | Continuity of Care Document ---
Author Name Unknown Organization [facility] Address [address] [place] [address]- Care Team Providers Care Pickling Drum Operator Name Role Phone Julito Islas MD Primary Care Physician [phone] [id number]07[facility] - 08/06/21 [facility] [address] [place], [place] [address] Allergies, Adverse Reactions, Alerts Substance Reaction Severity Status Pravachol Active Lipitor Active Immunizations Given and Recorded Vaccine Date Status Refusal Reason SARS-CoV-2 (COVID-19) mRNA BNT-162b2 vac 08/20/20 Recorded SARS-CoV-2 (COVID-19) mRNA BNT-162b2 vac 07/29/20 Recorded influenza virus vaccine, inactivated 1 05/05/11 Gi mariusz Tet/Diphth/Acel, Pertussis (oldterm) 05/21/09 Give n Influenza Virus Vaccine (oldterm) 2 03/29/06 Given 1Admin Note: defers 2Admin Note: [employer] Medications chlorzoxazone 500 mg oral tablet 1 tablet = 500 mg, By Mouth, 3 times a day, PRN muscle pain or spasm, # 30 tablet, 1 Refills, Acute06/09/22 14:40:00 EST, 06/09/21 14:40:00 EST, Tablet, [facility]/pharmacy #[id number], Partial fill upon patientrequest if the prescription [...] Route to Pharmacy Electronically, [facility]/pharmacy #[id number], Partial fill upon patient request if the [...] Mouth, Daily, # 90 tablet, 1 Refills, [facility], 170, cm, 02/22/21 13:12:00 EDT, Height, 61.8, kg, 02/07/20 14:54:00 EDT, Dry Weight Start Date: 06/03/21 Status: Ordered GaviLAX oral powder for reconstitution See Instructions, MIX 17 GRAMS IN 4 TO 8 OUNCES OF WATER AND DRINK DAILY NEEDED FOR CONSTIPATION, # 510 Gm, 5 Refills, [id number], 30, MIX 17 GRAMS IN 4 TO [...] 8:35:00 EDT, 10/22/20 8:35:00 EDT, Cream, [facility]/pharmacy #[id number], Partial fill upon [...] Refills, Maintenance, 06/15/21 11:38:00 EST, [id number], 170, cm, 02/22/21 13:12:00 EDT, [...]
--- OUTSIDE RECORDS SUMMARY | 2023-03-30 13:17 | XMS_ITS | Continuity of Care Document ---
Author Name Unknown Organization [facility][1] [facility] Address [address] [place] [address]- Care Team Providers Care Offset Press Operator Name Role Phone Roshan DOZIER, Julito Dias Primary Care Physician [phone] [id number] 02/22[facility]21 - 03/01/21 [facility] [address] [place], [place] [address] Attending Physician: Stefano DOZIER, Andrea Vang Allergies, Adverse Reactions, Alerts Substance Reaction Severity [...] Refills, Soft Stop, 06/10/20 13:15:00 EST, [facility], refill when due, 170, cm, 06/10/20 [...] 10/22/21 8:35:00 EDT, 10/22/20 8:35:00 EDT, [id number] fill upon patient request if the prescription is for a schedule II opioid drug., 1 application Top... Start Date: 10/22/20 Stop Date: 10/22/21 Status: Ordered levothyroxine 125 mcg (0.125 mg) oral tablet 1 tablet = 125 mcg, By Mouth, Daily, # 90 tablet, 1 Refills, Maintenance, 01/04/21 16:59:00 EDT, Tablet, [facility], Partial fill upon patient request if the prescription is for a schedule II opioid drug., 170, cm, 12/16/20 14:1... Start Date: 01/04/21 Status: Ordered levothyroxine 125 mcg (0.125 mg) oral tablet 1 tablet = 125 mcg, By Mouth, Daily, # 7 tablet, 0 Refills, Maintenance, 01/04/21 17:00:00 EDT, Tablet, [facility]/pharmacy #[id number], Partial fill upon patient request if the prescription is for a schedule II opioid drug., 170, cm, 12/16/20 14:16:00 EDT, Height... Start Date: 01/04/21 Stop Date: 01/11/21 Status: Ordered omeprazole 20 mg oral enteric coated capsule 1 capsule = 20 mg, By Mouth, Daily, # 30 capsule, 5 Refills, Maintenance, 02/16/21 15:02:00 EDT, ECCapsule, [facility]/pharmacy #[id number], Partial fill upon patient [...] oldest [Reference Range]: 1 Height 170 cm (02/22/21 1:12 PM) Weight 63.6 kg (02/22/21 1:12 PM) Oxygen Saturation [94-100 %] 100 % (02/22/21 1:12 PM) Pulse Rate [55-90 bpm] 89 bpm (02/22/21 1:12 PM) Body Mass Index [18.5-24.99] 22.01 (02/22/21 1:12 PM) Blood Pressure [90-138/55-84 mm Hg] 140/ 72mm Hg *H* (02/22/21 1:12 PM) Temperature [96.8-100.4 DegF] 97.8 DegF (02/22/21 1:12 PM) Social History Social History Type Response Smoking Status Former smoker; Tobac co user in household: No entered on: 09/05/13 Sex
--- OUTSIDE RECORDS SUMMARY | 2023-03-30 13:17 | XMS_ITS | Continuity of Care Document ---
Author Name Unknown Organization [facility] Address [address] [place] [address]- Care Team Providers Care Medical Office Rep Name Role Phone Julito Islas MD Primary Care Physician Encounter [facility] Date(s): 02/16/23 - 03/18/23 [facility] [address] [place], [place] [address] Allergies, Adverse Reactions, Alerts Substance Reaction Severity Status Pravachol Active Lipitor Active Immunizations Given and Recorded Vaccine Date Status Refusal Reason SARS-CoV-2(COVID-19)mRNA-LNP vac([id number]) 02/14/23 Recorded zoster vaccine, inactivated 10/31/22 Recorded zoster vaccine, inactivated 08/30/22 Recorded pneumococcal 20-valent conjugate vaccine 10/31/22 Recorded [id number] 12y+ bivalent booster vax 02/01/22 Recorded SARS-CoV-2 [...] to Pharmacy Electronically, [facility]/pharmacy #[id number], Partial fill upon patient request if the prescriptio... Start Date: 06/23/21 Status: Ordered ezetimibe 10 mg oral tablet 1 tablet, By Mouth, Daily, # 90 tablet, 1 Refills, 12/29/22 11:43:00 EDT, [facility]/pharmacy #[id number], 170, cm, 12/12/22 13:20:00 EDT, Height, 72.7, kg, 07/11/21 16:17:00 EST, Dry Weight Start Date: 12/29/22 Status: Ordered furosemide 20 mg oral tablet 1, tablet, By Mouth, Daily, # 90 tablet, Refills 1, Maintenance, 08/18/22 19:50:00 EDT, Route to Pharmacy Electronically, [id number], 170, cm, 07/04/22 11:47:00 EST, Height, 72.7, kg, 07/11/21 16:17:00 EST, Dry Weight Start Date: 08/18/22 Status: Ordered GaviLAX oral powder for reconstitution See Instructions, MIX 17 GRAMS IN 4 TO 8 OUNCES OF WATER AND DRINK DAILY NEEDED FOR CONSTIPATION, # 510 Gm, 5 Refills, [facility], 30, MIX 17 GRAMS IN 4 TO [...] 12:45:00 EDT, 03/07/23 12:45:00 EDT, Tablet, [facility]/pharmacy #[id number], Partial fill upon patientrequest if the prescription is for a schedule II op... Start Date: 03/07/23 Stop Date: 03/07/24 Status: Ordered Metamucil 3.4 gm/5.2 gm oral powder for reconstitution = 3.4 Gm, By Mouth, Daily, dissolve in 8 oz of fluid, # 283 Gm, 1 Refills, Acute 08/31/23 11:42:00 EDT, 08/30/22 11:41:00 EDT, [facility]/pharmacy #[id number], Partial fill upon patient request if the prescription is for a schedule II opioid drug., 170, cm, ... Start Date: 08/30/22 Stop Date: 08/31/23 Status: Ordered omeprazole 20 mg oral enteric coated capsule 1 capsule = 20 mg, By Mouth, 2 times a day, # 60 each, 5 Refills, Maintenance, 12/12/22 13:09:00 EDT, EC Capsule, [facility]/pharmacy #[id number], dose increase, 170, cm, 12/12/22 [...] Details, Route to Pharmacy Electronically, [facility]/pharmacy #[id number], Partial... Start Date: 02/16/23 Status: Ordered Synthroid 0.125 mg oral tablet 1 tablet, By Mouth, Daily, as a single daily dose before breakfast no substitution, # 90 tablet, 3 Refills, Maintenance, 02/17/23 10:27:00 EDT, [facility], 170, cm, 01/26/23 9:57:00 EDT, [...] Care Member Role: PCP Address: Address: [address] [place] [address] Adult & [place] [address]- Care Team Related Persons Name: BHUPENDRA SAM Address: home [address] [place] [address] Name: ED TURPIN Address: [place] [address] [place] [address]
--- OUTSIDE RECORDS SUMMARY | 2023-03-30 13:17 | XMS_ITS | Continuity of Care Document ---
Author Name Unknown Organization [facility] Address [address] [place] [address]- Care Team Providers Care Floorman Name Role Phone Julito Islas MD Primary Care Physician [place] [facility] [place](s): 12/20/22 - 01/19/23 [facility] [address] [place], [place] [address] Allergies, Adverse Reactions, Alerts Substance Reaction Severity Status Pravachol Active Lipitor Active Immunizations Given and Recorded Vaccine Date Status Refusal Reason [id number] 12y+ bivalent booster vax 02/01/22 Recorded SARS-CoV-2 [...] Route to Pharmacy Electronically, [facility]/pharmacy #[id number], Partial fill upon patient request if the prescriptio... Start Date: 06/23/21 Status: Ordered ezetimibe 10 mg oral tablet 1 tablet, By Mouth, Daily, # 90 tablet, 1 Refills, 12/29/22 11:43:00 EDT, [facility]/pharmacy #[id number], 170, cm, 12/12/22 13:20:00 EDT, Height, 72.7, kg, 07/11/21 16:17:00 EST, Dry Weight Start Date: 12/29/22 Status: Ordered furosemide 20 mg oral tablet 1, tablet, By Mouth, Daily, # 90 tablet, Refills 1, Maintenance, 08/18/22 19:50:00 EDT, Route to Pharmacy Electronically, [id number], 170, cm, 07/04/22 11:47:00 EST, Height, 72.7, kg, 07/11/21 16:17:00 EST, Dry Weight Start Date: 08/18/22 Status: Ordered GaviLAX oral powder for reconstitution See Instructions, MIX 17 GRAMS IN 4 TO 8 OUNCES OF WATER AND DRINK DAILY NEEDED FOR CONSTIPATION, # 510 Gm, 5 Refills, [facility], 30, MIX 17 GRAMS IN 4 TO [...] Acute12/03/23 16:49:00 EDT, 12/02/22 16:49:00 EDT, Tablet, [facility]/pharmacy #[id number], Partial fill upon patientrequest if the prescription is for a schedule II op... Start Date: 12/02/22 Stop Date: 12/03/23 Status: Ordered Metamucil 3.4 gm/5.2 gm oral powder for reconstitution = 3.4 Gm, By Mouth, Daily, dissolve in 8 oz of fluid, # 283 Gm, 1 Refills, Acute 08/31/23 11:42:00 EDT, 08/30/22 11:41:00 EDT, [facility]/pharmacy #[id number], Partial fill upon patient request if the prescription is for a schedule II opioid drug., 170, cm, ... Start Date: 08/30/22 Stop Date: 08/31/23 Status: Ordered omeprazole 20 mg oral enteric coated capsule 1 capsule = 20 mg, By Mouth, 2 times a day, # 60 each, 5 Refills, Maintenance, 12/12/22 13:09:00 EDT, EC Capsule, [facility]/pharmacy #[id number], dose increase, 170, cm, 12/12/22 [...] Replace Required Details, Route to Pharmacy Electronically, [facility]/pharmacy #[id number], Partial... Start Date: 08/11/22 Status: Ordered Synthroid 0.125 mg oral tablet 1 tablet, By Mouth, Daily, as a single daily dose before breakfast no substitution, # 90 tablet, 3 Refills, Maintenance, 12/20/22 14:23:00 EDT, [facility]/pharmacy #[id number], 170, cm, 12/12/22 13:20:00 EDT, [...] Primary Care Member Role: PCP Address: Address: [address] [place] [address] Adult & [place] [address]- Care Team Related Persons Name: BHUPENDRA SAM Address: [address] [place] [address] Name: ED TURPIN Address: home [address] [place] [address]
--- OUTSIDE RECORDS SUMMARY | 2023-03-30 13:18 | XMS_ITS | Continuity of Care Document ---
Author Name Unknown Organization [facility] Address [address] [place] [address]- Care Team Providers Care Chief Procurement Officer Name Role Phone Julito Islas MD Primary Care Physician [phone] [id number]18[facility] - 06/25/21 [facility] [address] [place] [address]- Encounter Diagnosis Bipolar disorder(Discharge Diagnosis) - 06/18/21 Attending Physician: Julito Islas MD Allergies, Adverse [...] 14:40:00 EST, 06/09/21 14:40:00 EST, [id number], [facility] fill upon patientrequest if the prescription [...] EST, [id number] Partial fill upon patient request if [...] Mouth, Daily, # 90 tablet, 1 Refills, [facility], 170, cm, 02/22/21 13:12:00 EDT, Height, [...] 10/22/21 8:35:00 EDT, 10/22/20 8:35:00 EDT, Cream, [facility]/pharmacy #[id number], Partial fill upon patient request if the prescription is for a schedule II opioid drug., 1 application Top... Start Date: 10/22/20 Stop Date: 10/22/21 Status: Ordered MiraLax oral powder for reconstitution = 17 Gm, By Mouth, Daily, PRN Constipation, dissolve in water before taking, # 527 Gm, 0 Refills, Acute 06/23/22 15:21:00 EST, 06/23/21 15:21:00 EST, REC Powder, [id number] Partial fill uponpatient request if the prescription is for a schedu... Start Date: 06/23/21 Stop Date: 06/23/22 Status: Ordered omeprazole 20 mg oral enteric coated capsule 1 capsule = 20 mg, By Mouth, 2 times a day, # 60 each, 5 Refills, Maintenance, 06/15/21 11:38:00 EST, EC [facility]apsule, [id number] dose increase, 170, cm, 02/22/21 13:12:00 EDT, Height, 61.8, kg, 02/07/20 14:54:00 EDT, Dry Weight Start Date: 06/15/21 Status: Ordered ondansetron 4 mg oral tablet, disintegrating 1 tablet = 4 mg, By Mouth, Every 6 hours, PRN Nausea & Vomiting, # 24 each, 1 Refills, Acute 06/15/22 11:37:00 EST, 06/15/21 11:37:00 EST, Tablet, [id number] Partial fill upon patient request if [...] Dates Health Status Cl inical Service Informant Bipolar disorder Discharge Diagnosis 06/18/21 Vital Signs Most recent to oldest [Reference Range]: 1 Height 170 cm (06/18/21 2:10 PM) Weight 76.0 kg (06/18/21 2:10 PM) Oxygen Saturation [94-100 %] 100 % (06/18/21 2:10 PM) Pulse Rate [55-90 bpm] 87 bpm (06/18/21 2:10 PM) Body Mass Index [18.5-24.99] 26.3 *H* (06/18/21 2:10 PM) Blood Pressure [90-138/55-84 mm Hg] 122/ 60mm Hg (06/18/21 2:10 PM) Blood pressure sites Arm, left (06/18/21 2:10 PM) Social History Social History Type Response Smoking Status Former smoker; Tobac co user in household: No entered on: 09/05/13 Sex
--- OUTSIDE RECORDS SUMMARY | 2023-03-30 13:18 | XMS_ITS | Continuity of Care Document ---
Author Name Unknown Organization [facility] Address [address] [place] [address]- Care Team Providers Care At Risk Specialist Name Role Phone Julito Islas MD Primary Care Physician [place] [facility] [place] [id number] Date(s): 07/30/20 - 08/29/20 [facility] [address] [place] [address]- Attending Physician: Meche Byrd Admitting Physician: AdmMeche [...] [employer] Medications Biotene Moisturizing Mouth [place] 1 sprays, By Mouth, 6 times a day, PRN dry mouth, 0 Refills, Maintenance, 11/06/18 9:43:24 EDT Start Date: 11/06/18 Status: Ordered divalproex sodium 500 mg oral tablet, extended release See Instructions, Take 2 tablets daily at night., # 180 tablet, 1 Refills, Soft Stop, 10/21/19 17:34:00 EDT, [facility], 170, cm, 06/10/19 9:14:00 EST, Height, 67.6, kg, 11/06/18 9:35:00 EDT, Dry Weight Start Date: 10/21/19 Status: Ordered ezetimibe 10 mg oral tablet See Instructions, TAKE 1 TABLET DAILY, # 90 tablet, 3 Refills, Soft Stop, 06/10/20 13:15:00 EST, [facility], refill when due, 170, cm, 06/10/20 12:53:00 EST, Height, 61.8, kg, 02/07/20 14:54:00 EDT, Dry Weight Start Date: 06/10/20 Status: Ordered Geodon 40 mg oral capsule See Instructions, One capsule daily after lunch., # 90 capsule, 0 Refills, Maintenance, 12/13/19 9:30:00 EDT, [facility], 170, cm, 12/09/19 9:10:00 [...] 06/10/20 13:16:00 EST, Tablet, [facility], 170, cm, 06/10/20 12:53:00 EST, Height, 61.8, kg, 02/07/20 14:54:00 EDT, Dry Weight Start Date: 06/10/20 Stop Date: 06/05/21 Status: Ordered venlafaxine 150 mg oral capsule, extended release See Instructions, One capsule daily each AM., # 90 capsule, 0 Refills, Soft Stop, 12/13/19 9:32:00 EDT, [facility], 170, cm, 12/09/19 9:10:00 [...]
--- OUTSIDE RECORDS SUMMARY | 2023-03-30 13:18 | XMS_ITS | Continuity of Care Document ---
Author Name Unknown Organization [facility] ter Address [address] [place] [id number]- Care Team Providers Care Asset Management Analyst Name Role Phone Julito Islas MD Primary Care Physician Encounter [facility] Date(s): 06/10/19 - 06/10/[address] [address]- [facility] Attending Physician: Julito Islas MD Allergies, Adverse Reactions, Alerts Substance Reaction Severity Status Pravachol Active Lipitor Active Immunizations Given and Recorded Vaccine Date Status Refusal Reason influenza virus vaccine, inactivated 1 05/05/11 Gi mariusz Tet/Diphth/Acel, Pertussis (oldterm) 05/21/09 Give n Influenza Virus Vaccine (oldterm) 2 03/29/06 Given 1Admin Note: defers 2Admin Note: [employer] Medications Biotene Moisturizing Mouth [place] 1 sprays, By Mouth, 6 times a [...] 3 Refills, Soft Stop, 06/10/19 9:27:00 EST, [facility], 170, cm, 06/10/19 9:14:00 EST, Height, [...]
--- OUTSIDE RECORDS SUMMARY | 2023-03-30 13:18 | XMS_ITS | Continuity of Care Document ---
Author Name Unknown Organization [facility] Address [address] [place] [address]- Care Team Providers Care Firing Pin Gauger Name Role Phone Julito Islas MD Primary Care Physician [phone] [place] [facility] 12[place]16/20 - 01/15/21 [facility] [address] [place], [place] [address] Attending Physician: Admtr, [id number] Allergies, Adverse [...] 03/29/06 Given 1Admin Note: defers 2Admin Note: [employer] Medications divalproex sodium 500 mg oral tablet, extended release See Instructions, Take 2 tablets daily at night., # 180 tablet, 1 Refills, Soft Stop, 10/21/19 17:34:00 EDT, [facility], 170, cm, 06/10/19 9:14:00 EST, Height, 67.6, kg, 11/06/18 9:35:00 EDT, Dry Weight Start Date: 10/21/19 Status: Ordered ezetimibe 10 mg oral tablet See Instructions, TAKE 1 TABLET DAILY, # 90 tablet, 3 Refills, Soft Stop, 06/10/20 13:15:00 EST, [facility], refill when due, 170, cm, 06/10/20 12:53:00 EST, Height, 61.8, kg, 02/07/20 14:54:00 EDT, Dry Weight Start Date: 06/10/20 Status: Ordered Geodon 40 mg oral capsule See Instructions, One capsule daily after lunch., # 90 capsule, 0 Refills, Maintenance, 12/13/19 9:30:00 EDT, [facility], 170, cm, 12/09/19 9:10:00 EDT, Height, 67.6, kg, 11/06/18 9:35:00 EDT, Dry Weight Start Date: 12/13/19 Status: Ordered ketoconazole 2% topical cream 1 application, Topically, Daily, PRN foot rash, # 30 Gm, 2 Refills, Acute 10/22/21 8:35:00 EDT, 10/22/20 8:35:00 EDT, [id number] upon patient request if the prescription is for a schedule II opioid drug., 1 application Top... Start Date: 10/22/20 Stop Date: 10/22/21 Status: Ordered levothyroxine 125 mcg (0.125 mg) oral tablet 1 tablet = 125 mcg, By Mouth, Daily, # 90 tablet, 1 Refills, Maintenance, 01/04/21 16:59:00 EDT, Tablet, [facility], Partial fill upon patient request if the prescription is for a schedule II opioid drug., 170, cm, 12/16/20 14:1... Start Date: 01/04/21 Status: Ordered levothyroxine 125 mcg (0.125 mg) oral tablet 1 tablet = 125 mcg, By Mouth, Daily, # 7 tablet, 0 Refills, Maintenance, 01/04/21 17:00:00 EDT, [id number] fill upon patient request if the prescription is for a schedule II opioid drug., 170, cm, 12/16/20 14:16:00 EDT, Height... Start Date: 01/04/21 Stop Date: 01/11/21 Status: Ordered Splint See Instructions, # 1 each, Refills 0, Tot. Refills 0, Maintenance, right wrist every night, 06/01/11 14:34:47 Start Date: 06/01/11 Status: Ordered venlafaxine 150 mg oral capsule, extended release See Instructions, One capsule daily each AM., # 90 capsule, 0 Refills, Soft Stop, 12/13/19 9:32:00 EDT, [facility], 170, cm, 12/09/19 9:10:00 EDT, [...]
--- OUTSIDE RECORDS SUMMARY | 2023-03-30 13:18 | XMS_ITS | Continuity of Care Document ---
Author Name Unknown Organization [facility] Address [address] [place] [address]- Care Team Providers Care Oyster Tonger Name Role Phone Roshan DOZIER, Julito Dias Primary Care Physician Encounter [facility] Date(s): 02/03/22 - 03/05/22 [facility] [address] [place], [place] [address] Allergies, Adverse Reactions, Alerts Substance [...] Acute06/09/22 14:40:00 EST, 06/09/21 14:40:00 EST, Tablet, [facility]/pharmacy #[id number], Partial fill upon patientrequest if the prescription is for a schedule II op... Start Date: 06/09/21 Stop Date: 06/09/22 Status: Ordered divalproex sodium 500 mg oral tablet, extended release See Instructions, Take 2 tablets daily at night., # 180 tablet, 1 Refills, Soft Stop, 10/21/19 17:34:00 EDT, [facility], 170, cm, 06/10/19 9:14:00 EST, Height, 67.6, kg, 11/06/18 9:35:00 EDT, Dry Weight Start Date: 10/21/19 Status: Ordered docusate sodium 100 mg oral capsule 100 mg, 1, capsule, By Mouth, 2 times a day, PRN, # 60 capsule, Refills 5, Tot. Refills 5, Maintenance, for constipation, 06/23/21 15:20:00 EST, [id number] fill upon patient request if the prescriptio... Start Date: 06/23/21 Status: Ordered ezetimibe 10 mg oral tablet 1 tablet, By Mouth, Daily, # 90 tablet, 1 Refills, [facility], 170, cm, 11/02/21 14:03:00 EDT, Height, 72.7, kg, 07/11/21 16:17:00 EST, Dry Weight Start Date: 11/09/21 Status: Ordered GaviLAX oral powder for reconstitution See Instructions, MIX 17 GRAMS IN 4 TO 8 OUNCES OF WATER AND DRINK DAILY NEEDED FOR CONSTIPATION, # 510 Gm, 5 Refills, [id number], 30, MIX 17 GRAMS IN 4 TO [...] 09/13/21 16:14:00 EDT, [id number] Partial fill upon [...] 11:38:00 EST, EC Capsule, [id number], dose increase, 170, cm, 02/22/21 13:12:00 EDT, Height, 61.8, kg, 02/07/20 14:54:00 EDT, Dry Weight Start Date: 06/15/21 Status: Ordered ondansetron 4 mg oral tablet, disintegrating 1 tablet = 4 mg, By Mouth, Every 6 hours, PRN Nausea & Vomiting, # 30 each, 1 Refills, Acute 07/21/22 14:57:00 EDT, 07/21/21 14:57:00 EDT, Tablet, [id number] Partial fill upon [...] 90 tablet, 3 Refills, 05/25/21 8:45:00 EST[facility], [facility], cm, 02/22/21 13:12:00 EDT, Height, [...] on: 09/05/13 Sex Patient Care team information Personnel Name: Julito Islas MD Address: Address: [address] [place] [address] Adult & Pediatric Medicine [place], [place] [address]
--- OUTSIDE RECORDS SUMMARY | 2023-03-30 13:18 | XMS_ITS | Continuity of Care Document ---
Author Name Unknown Organization [facility] Address [address] [place] [address]- Care Team Providers Care Automatic Wheel Line Operator Name Role Phone Julito Islas MD Primary Care Physician [phone] [place] [facility] [place] 11/21/20 [facility] [address] [place], [place] [address] Attending Physician: Admtr, Ar8 Allergies, [...] [employer] Medications Biotene Moisturizing Mouth [place] 1 sprays, By Mouth, 6 times a day, PRN dry mouth, 0 Refills, Maintenance, 11/06/18 9:43:24 EDT Start Date: 11/06/18 Status: Ordered divalproex sodium 500 mg oral tablet, extended release See Instructions, Take 2 tablets daily at night., # 180 tablet, 1 Refills, Soft Stop, 10/21/19 17:34:00 EDT, [facility], 170, cm, 06/10/19 9:14:00 EST, Height, 67.6, kg, 11/06/18 9:35:00 EDT, Dry Weight Start Date: 10/21/19 Status: Ordered ezetimibe 10 mg oral tablet See Instructions, TAKE 1 TABLET DAILY, # 90 tablet, 3 Refills, Soft Stop, 06/10/20 13:15:00 EST, [facility], refill when due, 170, cm, 06/10/20 12:53:00 EST, Height, 61.8, kg, 02/07/20 14:54:00 EDT, Dry Weight Start Date: 06/10/20 Status: Ordered Geodon 40 mg oral capsule See Instructions, One capsule daily after lunch., # 90 capsule, 0 Refills, Maintenance, 12/13/19 9:30:00 EDT, [facility], 170, cm, 12/09/19 9:10:00 EDT, Height, 67.6, kg, 11/06/18 9:35:00 EDT, Dry Weight Start Date: 12/13/19 Status: Ordered ketoconazole 2% topical cream 1 application, Topically, Daily, PRN foot rash, # 30 Gm, 2 Refills, Acute 10/22/21 8:35:00 EDT, 10/22/20 8:35:00 EDT, Cream, [facility]/pharmacy #[id number], Partial fill upon patient request if the [...] 3 Refills, Maintenance, 06/10/20 13:16:00 EST, Tablet, [facility], 170, cm, 06/10/20 12:53:00 EST, Height, 61.8, kg, 02/07/20 14:54:00 EDT, Dry Weight Start Date: 06/10/20 Stop Date: 06/05/21 Status: Ordered venlafaxine 150 mg oral capsule, extended release See Instructions, One capsule daily each AM., # 90 capsule, 0 Refills, Soft Stop, 12/13/19 9:32:00 EDT, [facility], 170, cm, 12/09/19 9:10:00 [...]
--- OUTSIDE RECORDS SUMMARY | 2023-03-30 13:18 | XMS_ITS | Continuity of Care Document ---
Author Name Unknown Organization [facility] Address [address] [place] [address]- Care Team Providers Care Electronics Production Supervisor Name Role Phone Roshan DOZIER, Julito Dias Primary Care Physician Encounter [facility] [place] Date(s): 04/29/21 - 05/29/21 [facility] [address] [place], [place] [address] Allergies, Adverse Reactions, Alerts Substance Reaction [...] 1 Refills, Soft Stop, 10/21/19 17:34:00 EDT, [facility], 170, cm, 06/10/19 9:14:00 [...] Mouth, Daily, # 90 tablet, 0 Refills, [facility], 170, cm, 02/22/21 13:12:00 EDT, Height, 61.8, kg, 02/07/20 14:54:00 EDT, Dry Weight Start Date: 03/06/21 Status: Ordered Geodon 40 mg oral capsule See Instructions, One capsule daily after lunch., # 90 capsule, 0 Refills, Maintenance, 12/13/19 9:30:00 EDT, [facility], 170, cm, 12/09/19 9:10:00 EDT, Height, 67.6, kg, 11/06/18 9:35:00 EDT, Dry Weight Start Date: 12/13/19 Status: Ordered ketoconazole 2% topical cream 1 application, Topically, Daily, PRN foot rash, # 30 Gm, 2 Refills, Acute 10/22/21 8:35:00 EDT, 10/22/20 8:35:00 EDT, Cream, [facility]/pharmacy #[id number], Partial fill upon patient request if the prescription is for a schedule II opioid drug., 1 application Top... Start Date: 10/22/20 Stop Date: 10/22/21 Status: Ordered omeprazole 20 mg oral enteric coated capsule 1 capsule = 20 mg, By Mouth, Daily, # 30 capsule, 5 Refills, Maintenance, 02/16/21 15:02:00 EDT, ECC[facility], [id number] upon patient [...] 90 tablet, 3 Refills, 05/25/21 8:45:00 EST, [facility], 170, cm, 02/22/21 13:12:00 [...]
--- OUTSIDE RECORDS SUMMARY | 2023-03-30 13:18 | XMS_ITS | Continuity of Care Document ---
Author Name Unknown Organization [facility] Address [address] [place] [address]- Care Team Providers Care Superintendent Tests Name Role Phone Julito Islas MD [id number] [address] [place] [address]- Attending Physician: Ginette Mccloud MD Referring Physician: [...] [employer] Medications Biotene Moisturizing Mouth [place] 1 sprays, By Mouth, 6 times a day, PRN dry mouth, 0 Refills, Maintenance, 11/06/18 9:43:24 EDT Start Date: 11/06/18 Status: Ordered divalproex sodium 500 mg oral tablet, extended release See Instructions, Take 2 tablets daily at night., # 180 tablet, 1 Refills, Soft Stop, 10/21/19 17:34:00 EDT, [facility], 170, cm, 06/10/19 9:14:00 EST, Height, 67.6, kg, 11/06/18 9:35:00 EDT, Dry Weight Start Date: 10/21/19 Status: Ordered ezetimibe 10 mg oral tablet See Instructions, TAKE 1 TABLET DAILY, # 90 tablet, 3 Refills, Soft Stop, 06/10/20 13:15:00 EST, [facility], refill when due, 170, cm, 06/10/20 12:53:00 EST, Height, 61.8, kg, 02/07/20 14:54:00 EDT, Dry Weight Start Date: 06/10/20 Status: Ordered Geodon 40 mg oral capsule See Instructions, One capsule daily after lunch., # 90 capsule, 0 Refills, Maintenance, 12/13/19 9:30:00 EDT, [facility], 170, cm, 12/09/19 9:10:00 [...] Refills, Maintenance, 06/10/20 13:16:00 EST, Tablet, [facility], 170, cm, 06/10/20 12:53:00 EST, Height, 61.8, kg, 02/07/20 14:54:00 EDT, Dry Weight Start Date: 06/10/20 Stop Date: 06/05/21 Status: Ordered venlafaxine 150 mg oral capsule, extended release See Instructions, One capsule daily each AM., # 90 capsule, 0 Refills, Soft Stop, 12/13/19 9:32:00 EDT, [facility], 170, cm, 12/09/19 9:10:00 [...]
[2023-03-30 13:25] LABS: Ethanol < 10 mg/dL
--- NOTE | 2023-03-30 13:25 | PC.NURSE ---
poison control contacted and they recommend serial ekg's q 2 h for next 4 h, use benzo's to treat agitation or sz, sz precautions, treat hypotention with ns, add on mag and phos to labs, assess k and keep above 4, keep mag above 2, nan POWELL informed and plan set in place
[2023-03-30 13:28] LABS: Acetaminophen LAB < 3 mcg/mL (<30); Salicylate < 5.0 mg/dL (15-30)
[2023-03-30 13:33] LABS: Alanine Aminotransferase 16 U/L (0-31); Albumin Level 3.9 g/dL (3.5-5.0); Alkaline Phosphatase 98 U/L (39-117); Anion Gap 11 (12-20); Aspartate Amino Transferase 25 U/L (5-31); Bilirubin Total 0.3 mg/dL (0.0-1.0); Blood Urea Nitrogen 30 mg/dL (9-16); Calcium 9.1 mg/dL (8.4-10.2); Carbon Dioxide 25 mmol/L (22-29); Chloride 102 mmol/L (96-108); Creatinine Clr Calc Pharmacy 55.9; Estimated Glomerular Filt Rate > 60; Glucose Random 92 mg/dL (60-115); Potassium 4.1 mmol/L (3.3-5.1); Sodium 134 mmol/L (135-145)
[2023-03-30] MEDS: 0.9 % Sodium Chloride 1,000 ML 999 ML IV (13:36)
[2023-03-30 13:42] LABS: Magnesium 2.2 mg/dL (1.6-2.6); Phosphorus 3.1 mg/dL (2.7-4.5)
--- NOTE | 2023-03-30 14:28 | ECG_ITS ---
Test Reason : REPEAT EKG Blood Pressure : / mmHG Vent. Rate : 083 BPM Atrial Rate : 083 BPM P-R Int : 164 ms QRS Dur : 140 ms QT Int : 466 ms P-R-T Axes : 051 -16 098 degrees QTc Int : 547 ms Normal sinus rhythm Left bundle branch block Abnormal ECG When compared with ECG of 30-MAR-2023 12:55, No significant change was found Referred By: Emperatirz Portillo Electronically Signed By:MARY MATIAS MD
--- NOTE | 2023-03-30 15:07 | P.HPHOSP_ITS ---
<Statement entered by Liset Giordano MD - 04/09/23 14:47> the patient was seen and evaluated with ANDRE Jain. I agree with his note, assessment and plan with the following. In summary, a 72 YO female with PMH of?HLD, anxiety, and bipolar disorder who presents after intentional overdose at home on prescription medication.She has Lorazepam and Geodon at home. not sure how much amount. Patient immediately called Crisis Received activated charcoal and IVF Seizure precautions, serial EKGs Poison Control: , keep potassium >4, treat hypotension with IV NS Care team consult Sitter at bedside Monitor on telemetry Rest of evaluations by ANDRE note. History of Present Illness Date of Service: 03/30/23 Attending physician on admission: Liset Giordano Chief Complaint: Suicide attempt by OD on home meds Pt is a 72-year-old female with a PMH significant for?HLD, anxiety, and bipolar disorder who presents to the ED after intentional overdose at home on prescription medication. Pt is alert and oriented to self and time only, unsure of where she is or how she got here, and thus incapable of providing an accurate HPI which is instead obtained from chart and provider review. Pt apparently was feeling depressed and at noon today ingested ten 0.5mg lorazepam (5mg total) and an unknown amount of geodon in an attempt to harm herself. She immediately called crisis who informed EMS. In the ED patient was immediately given activated charcoal and treated with IVF. The ED contacted poison Control who recommended seizure precautions, repeat EKGs q2hr, keeping potassium above 4, and treating any hypotension with IV NS. Poison control also suggested giving an amp of bicarb if pt's LBBB on EKG was new. Pt herself has no acute medical complaints and states she feels good . In the ED pt was patient was afebrile, with 1 episode of low BP of 94/47. Labs were significant for normocytic anemia 10.0/30.2, otherwise largely unremarkable. Electrolytes largely WNL. Potassium 4.1. Renal function WNL. Hepatic function WNL. Tropoinin detectable but WNL at 4.1. Salicylate, acetaminophen, and ethyl alcohol levels negative. Tox screen negative. UA negative for UTI. EKG demonstrated normal sinus rhythm with left bundle branch block. Repeat EKG showed normal sinus rhythm with left bundle branch block similar to previous. Pt was treated with activated charcoal and IVF. Pt will be admitted to the hospital for treatment further evaluation of toxic metabolic encephalopathy in the setting of intentional overdose on home medications. Review of Systems 2 Review of Systems: Unable to obtain due to patient's mentation [facility] Medical History Uterine fibroid Spinal stenosis of lumbar region Sleep apnea Irritable bowel syndrome Hypothyroidism Hyperlipidemia Functional bowel disorder (08/30/22) Dyspepsia (04/27/22) Bipolar disorder (03/14/23) Anxiety disorder (02/16/21) Household Members: None Housing: Condominium Do you presently have visiting nurse or other home services: Yes (psychiatrist services) Patient Tobacco Use Status: Never used Tobacco Use of substances other than those prescribed or required for medical reasons: No Currently Displaying Signs/Symptoms of Drug Intoxication Withdrawal: No Have you been hit, kicked, punched, or otherwise hurt by someone within the past year? If so, by whom?: No Do you feel safe in your current relationship?: No Current Relationship Is there a partner from a previous relationship who is making you feel unsafe now?: No Are you made to feel afraid or neglected: No Advance Directives: No Advance Directives Information Provided: No Do you have thoughts of harming others: None Do you have a plan to hurt others: No Plan Recently lost weight without trying: No Nutrition Risks: No Nutritional Risk Patient : No : No Poor oral hygiene: No Meds Allergies Allergy/AdvReac Type Severity Reaction Status Date / Time atorvastatin [From LIPITOR] Allergy Intermediate PAIN Verified 03/30/23 13:26 Home Medications Medication Instructions Recorded Confirmed Last Taken Type ezetimibe 10 mg tablet 10 mg PO DAILY 03/30/23 03/30/23 Unknown History lamotrigine 150 mg tablet 150 mg PO DAILY 03/30/23 03/30/23 Unknown History lamotrigine 25 mg tablet 50 mg PO DAILY 03/30/23 03/30/23 Unknown History lorazepam 0.5 mg tablet 0.5 mg PO BID PRN Anxiety 03/30/23 03/30/23 Unknown History venlafaxine 150 mg 150 mg PO DAILY 03/30/23 03/30/23 Unknown History capsule,extended release 24 hr ziprasidone HCl 60 mg capsule 60 mg PO QPM 03/30/23 03/30/23 Unknown History Physical Exam 2 Vital Signs and Narrative: Vital Signs: Last Vital Signs Temp 97.9 F 03/30/23 12:40 Pulse 85 03/30/23 14:23 Resp 12 03/30/23 14:23 BP 126/65 03/30/23 14:23 Pulse Ox 98 03/30/23 14:23 O2 Del Method Room Air 03/30/23 14:23 BMI result Body Mass Index 21.9 Constitutional: Somnolent but alert, pleasantly confused, cooperative. In no acute distress. Mental Status: Oriented to person and time, but not to place or situation. Eyes: Pupils are equal, round, and reactive to light. Ear, Nose, and Throat: Oropharynx clear, mucous membranes moist. Ears and nose without deformities. Trachea midline. Respiratory: Clear to auscultation bilaterally. No wheezing, rales, or rhonchi. Cardiovascular: S1, S2 regular. No murmurs, rubs, or gallops. Gastrointestinal: Abdomen soft, non-tender, non-distended. Normal bowel sounds. Neurologic: Cranial nerves II-XII are grossly intact bilaterally. No focal neurological deficits. Moves all extremities spontaneously. Skin: Warm, dry. Extremities: No edema. Psychiatric: Pleasantly confused, cooperative. Results Labs 03/30/23 13:02 03/30/23 13:02 Labs: Laboratory Results - last 24 hr 03/30/23 03/30/23 13:02 13:07 MCV 86.5 MCH 28.7 MCHC 33.1 RDW 13.7 Plt Count 317 MPV 9.6 Immature Gran % (Auto) 0.3 Neut % (Auto) 53.2 Lymph % (Auto) 39.3 [place] % (Auto) 5.7 Eos % (Auto) 1.1 Baso % (Auto) 0.4 Lymph # (Auto) 3.7 [place] # (Auto) 0.5 Eos # (Auto) 0.1 Baso # (Auto) 0.0 Abs Immat Gran (auto) 0.03 Absolute Neuts (auto) 5.0 Absolute Nucleated RBC 0.000 Nucleated RBC % (auto) 0.0 VBG pH 7.44 H VBG pCO2 38 VBG pO2 66 VBG HCO3 26 VBG O2 Saturation 93.0 VBG Base Excess 2.6 Anion Gap 11 L Estim Creat Clear Calc 55.9 Estimated GFR > 60 Random Glucose 92 Calcium 9.1 Phosphorus 3.1 Magnesium 2.2 Total Bilirubin 0.3 AST 25 ALT 16 Alkaline Phosphatase 98 Ammonia 21 Total Protein 7.0 Albumin 3.9 Salicylates < 5.0 L Acetaminophen < 3 Ethyl Alcohol < 10 Assessment and Plan (1) Overdose: Status: Acute (2) Toxic metabolic encephalopathy: Status: Acute Plan Pt is a 72-year-old female with a PMH significant for?HLD, anxiety, and bipolar disorder who presents to the ED after intentional overdose at home on prescription medication. Pt will be admitted to the hospital for treatment further evaluation of toxic metabolic encephalopathy in the setting of intentional overdose on home medications. Acute toxic metabolic encephalopathy in the setting of intentional overdose of home medications At noon today patient intentionally ingested ten 0.5 mg tabs of lorazepam and unknown amount of Geodon an attempt to hurt herself Patient immediately called Crisis, was given activated charcoal and IVF in ED Seizure precautions, serial EKGs, keep potassium >4, treat hypotension with IV NS, per Poison Control Pt has had 3 EKGs without significant changes; will get an additional EKG in the morning Care team consult Sitter at bedside Monitor on telemetry Follow BMP Monitor mentation Left bundle branch block EKG shows LBBB, not sure if new or chronic, no prior EKGs available and pt a poor historian Pt asymptomatic: denies chest pain/pressure Will give 1 amp of bicarb and repeat EKG per poison control recommendations Will monitor on telemetry Mood disorder Will hold home meds for now: lamotrigine, lorazepam, venlafaxine, and ziprasidone HLD Continue home meds Full Code Attending:?Dr. Giordano DVT Prophylaxis: Lovenox Pt will require a hospitalization of at least two nights for treatment of? with acute toxic metabolic encephalopathy in the setting of intentional overdose on home medications with close monitoring of labs, mentation, and respiration. Quality Stroke Does the patient have a stroke diagnosis?: No VTE Prior VTE?: No VTE Risk Level:: Medical - moderate - high VTE Device Contraindication: Treatment Not Indicated VTE Drug Contraindication: N/A - Med Ordered
[2023-03-30 15:31] LABS: Appearance Urine Turbid; Color Urine Yellow; Glucose Urine UA Negative (Negative); Leukocyte Esterase Urine Small (1+) (Negative); Nitrite Urine Negative (Negative); PH 6.5 (5.0-9.0); Specific Gravity - Urine <= 1.005 (1.005-1.025); UMIC TRIGGER UACC YES; Urine Blood Trace (Negative); Urine Ketones Negative (Negative); Urine Protein Negative (Neg-Trace)
[2023-03-30] MEDS: Magnesium Sulfate/D5W 1 GM/100 ML PIGGYBACK IV (15:33)
--- NOTE | 2023-03-30 15:35 | PC.NURSE ---
sitter at bedside, pa hospitalist at bedside, sr on monitor, denies pain or sob, aware of care plan, mag infusing, sz precautions in place, other than tiredness no complaints
[2023-03-30 15:38] LABS: Amphetamine Screen Urine Not Detected (Not Detect); Barbiturates, Urine Not Detected (Not Detect); Benzodiazepines Screen Urine Not Detected (Not Detect); Cannabinoid Screen Urine Not Detected (Not Detect); Cocaine Screen Urine Not Detected (Not Detect); Fentanyl, urine Not Detected (Not Detect); Opiate Screen Urine Not Detected (Not Detect); Phencyclidine Screen Urine Not Detected (Not Detect)
[2023-03-30 15:45] LABS: Bacteria Urine 2+ (None Seen); Calcium Oxalate Crystals Urine Present; UACC Culture Trigger YES
[2023-03-30 15:59] LABS: Troponin-I High Sensitivity 4.1 ng/L (<3.5-17.0)
--- NOTE | 2023-03-30 16:21 | PHA.MEDREC ---
Pharmacy Consult ? Medication Reconciliation Patient still confused after taking her meds . List was obtained from Pharmacy claim history. Pharmacy has completed the medication reconciliation.
--- NOTE | 2023-03-30 16:28 | ECG_ITS ---
Test Reason : OVERDOSED Blood Pressure : / mmHG Vent. Rate : 076 BPM Atrial Rate : 076 BPM P-R Int : 158 ms QRS Dur : 124 ms QT Int : 460 ms P-R-T Axes : 046 -29 025 degrees QTc Int : 517 ms Normal sinus rhythm Left bundle branch block Abnormal ECG When compared with ECG of 30-MAR-2023 14:22, T wave inversion no longer evident in Lateral leads Referred By: Emperatriz Portillo Electronically Signed By:MARY MATIAS MD
--- NOTE | 2023-03-30 16:36 | MHC.EDTECH ---
THIS PCT ASSUMED CARE OF PT AT 1500 ,VITALS TAKEN ,REPEATED EKG TAKEN AND WAS READ BY PROVIDER ,PATIENT BELONGING IS COLLECTED AND LOCKED UP IN LOCKER # 1 IN BH POD ,1:1 SITTER AT BEDSIDE .
[2023-03-30] MEDS: Enoxaparin Sodium 40 MG/0.4 ML SYRINGE SUBCUT (17:13)
[2023-03-30] MEDS: Sodium Bicarbonate 8.4% 50 MEQ/50 ML VIAL IVPUSH (18:15)
--- NOTE | 2023-03-30 19:14 | PC.NURSE ---
pt from ER to 473 via stretcher , alert and oriented ,forgetful, cooperative , reported that she got upset at home because her friend that she likes , is with the other women now . She stated that this was for overdose , she denies SI now
[2023-03-31] VITALS (7 sets, daily range): BP systolic 133–162; BP diastolic 67–80; PULSE 71–90; RESP 16–20; TEMP 36.1–37.2; O2SAT 95–99
--- NOTE | 2023-03-31 | ECG_ITS ---
Test Reason : check qtc Blood Pressure : / mmHG Vent. Rate : 077 BPM Atrial Rate : 077 BPM P-R Int : 148 ms QRS Dur : 122 ms QT Int : 422 ms P-R-T Axes : 046 -15 030 degrees QTc Int : 477 ms Normal sinus rhythm Left bundle branch block Abnormal ECG When compared with ECG of 31-MAR-2023 05:57, Left bundle branch block has replaced Right bundle branch block Criteria for Septal infarct are no longer Present Borderline criteria for Lateral infarct are no longer Present Referred By: Wilver [facility] Electronically Signed By:MARY MATIAS MD
--- NOTE | 2023-03-31 07:00 | ECG_ITS ---
Test Reason : Intentional OD on home meds Blood Pressure : / mmHG Vent. Rate : 085 BPM Atrial Rate : 085 BPM P-R Int : 144 ms QRS Dur : 120 ms QT Int : 422 ms P-R-T Axes : 060 -31 059 degrees QTc Int : 502 ms Normal sinus rhythm Left anterior fascicular block Right bundle branch block Possible Lateral infarct , age undetermined Abnormal ECG When compared with ECG of 30-MAR-2023 21:06, Right bundle branch block has replaced Left bundle branch block Borderline criteria for Lateral infarct are now Present Referred By: Nabil Guillaume Electronically Signed By:MARY MATIAS MD
[2023-03-31 07:56] LABS: Hematocrit 33.9 % (37.0-47.0); Hemoglobin 10.7 g/dl (12.0-16.0); Mean Corpuscular HGB Conc 31.6 g/dl (31.0-35.0); Mean Corpuscular Hemoglobin 27.9 pg (27.0-33.0); Mean Corpuscular Volume 88.5 fL (80.0-98.0); Mean Platelet Volume 10.1 fL (9.4-12.3); Platelet Count 311 X10*3/uL (160-400); Red Blood Count 3.83 X10*6/uL (4.20-5.50); Red Cell Distribution Width 13.9 % (11.0-16.0); White Blood Count 7.7 X10*3/uL (4.8-10.8)
[2023-03-31 08:11] LABS: Alanine Aminotransferase 16 U/L (0-31); Albumin Level 3.5 g/dL (3.5-5.0); Alkaline Phosphatase 93 U/L (39-117); Anion Gap 9 (12-20); Aspartate Amino Transferase 23 U/L (5-31); Bilirubin Total 0.3 mg/dL (0.0-1.0); Blood Urea Nitrogen 20 mg/dL (9-16); Calcium 8.9 mg/dL (8.4-10.2); Carbon Dioxide 27 mmol/L (22-29); Chloride 110 mmol/L (96-108); Creatinine Clr Calc Pharmacy 55.9; Estimated Glomerular Filt Rate > 60; Glucose Random 101 mg/dL (60-115); Magnesium 2.4 mg/dL (1.6-2.6); Potassium 4.2 mmol/L (3.3-5.1); Sodium 142 mmol/L (135-145); Total Protein 6.3 g/dL (6.5-8.0)
[2023-03-31] MEDS: 0.9 % Sodium Chloride Flush 3 ML SYRINGE IVFLUSH ×3 (08:39→21:48)
[2023-03-31] MEDS: Ezetimibe 10 MG TABLET PO (08:39)
[2023-03-31 09:03] LABS: Anion Gap 11 (12-20); Blood Urea Nitrogen 18 mg/dL (9-16); Calcium 9.1 mg/dL (8.4-10.2); Carbon Dioxide 25 mmol/L (22-29); Chloride 110 mmol/L (96-108); Creatinine Clr Calc Pharmacy 56.6; Estimated Glomerular Filt Rate > 60; Glucose Random 99 mg/dL (60-115); Potassium 4.4 mmol/L (3.3-5.1); Sodium 142 mmol/L (135-145)
--- NOTE | 2023-03-31 09:28 | MHC.CM.PN ---
IMM 03/31. Pt here with Suicide attempt/intentional OD. Pt lives at home self-care. Will need assistance with transportation. States her sister is the HCP, copy requested. Anticipating psych consult to assist with D/C disposition. PCP: Dr. Julito Islas
--- NOTE | 2023-03-31 09:40 | MHC.CARE ---
Patient seen and assessed by CARE team. She is appropriate for inpatient LOC given extent of her depression and intentional over ingestion of pills. Despite t/w attempts, she is not voluntary for inpatient LOC and will need to be seen by psychiatry to evaluated for approriateness of section 12b
[2023-03-31 10:02] LABS: COVID-19 Test Negative (Negative); IDNOW Serial# 08D9AD1C
--- NOTE | 2023-03-31 13:02 | HO.PM.IMPN ---
Subjective Subjective Date of Service: 03/31/23 Interval History: Pt reports she took meds to sleep and doesn't want to go to inpatient Psych, ECG show prolonged QTC but better Physical Exam Vital Signs: Vital Signs: Last Vital Signs Temp 98.9 F 03/31/23 11:25 Pulse 84 03/31/23 11:25 Resp 18 03/31/23 11:25 BP 162/80 H 03/31/23 11:25 Pulse Ox 95 03/31/23 11:25 O2 Del Method Room Air 03/31/23 11:25 BMI result Body Mass Index 21.9 Const: Other: General: AO X 3, no acute distress Resp: CTA bilateral CVS: S1,S2,RRR GI: +BS, NT, no distention Skin: No rash Neuro: motor grossly intact Psych: appropriate affect Objective Data Active Medications Acetaminophen (Acetaminophen 325 Mg Tablet) 650 mg PO Q6H PRN PRN Reason: Pain, Mild (Pain Scale 1-3) Benzonatate (Benzonatate 100 Mg Capsule) 100 mg PO TID PRN PRN Reason: Cough Docusate Sodium (Docusate Sodium 100 Mg Capsule) 100 mg PO DAILY PRN PRN Reason: Constipation Ezetimibe (Ezetimibe 10 Mg Tablet) 10 mg PO DAILY [facility] Last Admin: 03/31/23 08:39 Dose: 10 mg Documented By: BETHANY Enoxaparin Sodium (Enoxaparin Sodium 40 Mg/0.4 Ml Syringe) 40 mg SUBCUT Q24H [facility] Last Admin: 03/30/23 17:13 Dose: 40 mg Documented By: DANNA Melatonin (Melatonin 3 Mg Tablet) 6 mg PO BEDTIME PRN PRN Reason: Insomnia Ondansetron HCl (Ondansetron Hcl 4 Mg/2 Ml Vial) 4 mg IVPUSH Q8H PRN PRN Reason: Nausea and Vomiting Sodium Chloride (0.9 % Sodium Chloride Flush 3 Ml Syringe) 3 ml IVFLUSH QSHIFT [facility] Last Admin: 03/31/23 08:39 Dose: 3 ml Documented By: BETHANY Labs 03/31/23 07:09 03/31/23 08:06 Labs: Laboratory Results - last 24 hr 03/30/23 03/30/23 03/30/23 13:02 13:07 15:23 MCV 86.5 MCH 28.7 MCHC 33.1 RDW 13.7 Plt Count 317 MPV 9.6 Immature Gran % (Auto) 0.3 Neut % (Auto) 53.2 Lymph % (Auto) 39.3 [place] % (Auto) 5.7 Eos % (Auto) 1.1 Baso % (Auto) 0.4 Lymph # (Auto) 3.7 [place] # (Auto) 0.5 Eos # (Auto) 0.1 Baso # (Auto) 0.0 Abs Immat Gran (auto) 0.03 Absolute Neuts (auto) 5.0 Absolute Nucleated RBC 0.000 Nucleated RBC % (auto) 0.0 VBG pH 7.44 H VBG pCO2 38 VBG pO2 66 VBG HCO3 26 VBG O2 Saturation 93.0 VBG Base Excess 2.6 Anion Gap 11 L Estim Creat Clear Calc 55.9 Estimated GFR > 60 Random Glucose 92 Calcium 9.1 Phosphorus 3.1 Magnesium 2.2 Total Bilirubin 0.3 AST 25 ALT 16 Alkaline Phosphatase 98 Ammonia 21 Total Protein 7.0 Albumin 3.9 Urine Color Yellow Urine Appearance Turbid Urine pH 6.5 Ur Specific [place] <= 1.005 Urine Protein Negative Urine Glucose (UA) Negative Urine Ketones Negative Urine Blood Trace H Urine Nitrite Negative Ur Leukocyte Esterase Small (1+) H Urine RBC 3-5 H Urine WBC 6-10 Ur Squamous Epith Cells 6-10 Calcium Oxalate Crystal Present Urine Bacteria 2+ Hyaline Casts 3-5 Salicylates < 5.0 L Urine Opiates Screen Not Detected Urine Fentanyl Screen Not Detected Acetaminophen < 3 Ur Barbiturates Screen Not Detected Ur Phencyclidine Scrn Not Detected Ur Amphetamines Screen Not Detected U Benzodiazepines Scrn Not Detected Urine Cocaine Screen Not Detected U Marijuana (THC) Screen Not Detected Ethyl Alcohol < 10 COVID-19 (SHAW) COVID-19 Clin Com 03/31/23 03/31/23 03/31/23 07:09 08:06 09:40 MCV 88.5 MCH 27.9 MCHC 31.6 RDW 13.9 Plt Count 311 MPV 10.1 Immature Gran % (Auto) Neut % (Auto) Lymph % (Auto) [place] % (Auto) Eos % (Auto) Baso % (Auto) Lymph # (Auto) [place] # (Auto) Eos # (Auto) Baso # (Auto) Abs Immat Gran (auto) Absolute Neuts (auto) Absolute Nucleated RBC 0.000 Nucleated RBC % (auto) 0.0 VBG pH VBG pCO2 VBG pO2 VBG HCO3 VBG O2 Saturation VBG Base Excess Anion Gap 9 L 11 L Estim Creat Clear Calc 55.9 56.6 Estimated GFR > 60 > 60 Random Glucose 101 99 Calcium 8.9 9.1 Phosphorus Magnesium 2.4 Total Bilirubin 0.3 AST 23 ALT 16 Alkaline Phosphatase 93 Ammonia Total Protein 6.3 L Albumin 3.5 Urine Color Urine Appearance Urine pH Ur Specific [place] Urine Protein Urine Glucose (UA) Urine Ketones Urine Blood Urine Nitrite Ur Leukocyte Esterase Urine RBC Urine WBC Ur Squamous Epith Cells Calcium Oxalate Crystal Urine Bacteria Hyaline Casts Salicylates Urine Opiates Screen Urine Fentanyl Screen Acetaminophen Ur Barbiturates Screen Ur Phencyclidine Scrn Ur Amphetamines Screen U Benzodiazepines Scrn Urine Cocaine Screen U Marijuana (THC) Screen Ethyl Alcohol COVID-19 (SHAW) Negative COVID-19 Clin Com See Note Microbiology Microbiology Results: Microbiology 03/30/23 15:58 Urine Culture - Final Urine clean catch - Urine rm top Assessment and Plan (1) Toxic metabolic encephalopathy: Status: Acute Plan 72-year-old female with a PMH significant for?HLD, anxiety, and bipolar disorder who presents to the ED after intentional overdose at home on prescription medication. Pt will be admitted to the hospital for treatment further evaluation of toxic metabolic encephalopathy in the setting of intentional overdose on home medications. Acute toxic metabolic encephalopathy in the setting of intentional overdose of home medications At noon yesterday patient intentionally ingested ten 0.5 mg tabs of lorazepam and unknown amount of Geodon an attempt to hurt herself Patient immediately called Crisis, was given activated charcoal and IVF in ED Seizure precautions, serial EKGs, keep potassium >4, treat hypotension with IV NS, per Poison Control ECG is showing QTC of over 500, repeat ECG later, CARE consult, Psych consult, sitter Left bundle branch block EKG shows LBBB, not sure if new or chronic, no prior EKGs available and pt a poor historian Pt asymptomatic: denies chest pain/pressure, monitor Mood disorder Will hold home meds for now: lamotrigine, lorazepam, venlafaxine, and ziprasidone HLD Continue home meds elevated BP monitor for now Full Code Attending:?Dr. Giordano DVT Prophylaxis: Lovenox Pt will require a hospitalization of at least two nights for treatment of? with acute toxic metabolic encephalopathy in the setting of intentional overdose on home medications with close monitoring of labs, mentation, and respiration. Quality Stroke Does the patient have a stroke diagnosis?: No VTE Prior VTE?: No VTE Risk Level:: Medical - moderate - high VTE Device Contraindication: Treatment Not Indicated VTE Drug Contraindication: N/A - Med Ordered
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
--- NOTE | 2023-03-31 15:30 | ECG_ITS ---
Test Reason : check qtc Blood Pressure : / mmHG Vent. Rate : 083 BPM Atrial Rate : 083 BPM P-R Int : 140 ms QRS Dur : 120 ms QT Int : 416 ms P-R-T Axes : 059 -38 059 degrees QTc Int : 488 ms Normal sinus rhythm Left anterior fascicular block Left bundle branch block Minimal voltage criteria for LVH, may be normal variant ( Lafferty product ) Abnormal ECG When compared with ECG of 31-MAR-2023 15:29, QRS axis Shifted left Referred By: Wilver Anderson Electronically Signed By:MARY MATIAS MD
[2023-03-31] MEDS: Enoxaparin Sodium 40 MG/0.4 ML SYRINGE SUBCUT (16:25)
[2023-03-31] MEDS: Melatonin 3 MG TABLET 6 MG PO (21:48)
[2023-04-01 03:00] VITALS: BP 130/68; PULSE 78; RESP 18; TEMP 36.6; O2SAT 97
[2023-04-01] MEDS: ondansetron HCL 4 MG/2 ML VIAL IVPUSH (06:36)
[2023-04-01 07:17] VITALS: BP 164/80; PULSE 71; RESP 16; TEMP 37; O2SAT 98
[2023-04-01] MEDS: Ezetimibe 10 MG TABLET PO (07:35)
[2023-04-01] MEDS: 0.9 % Sodium Chloride Flush 3 ML SYRINGE IVFLUSH (07:35)
--- NOTE | 2023-04-01 08:22 | P.DS_ITS ---
DS: Providers Provider Date of Service: 04/01/23 Date of admission: 03/30/23 16:24 Primary care physician: Unknown Physician Consults: 03/30/23 12:46 Consult to Care Team Stat Comment: Reason for consultation: SI attempt 03/30/23 16:28 Consult for Sitter Routine Reason for consultation: Intentional overdose on home meds 03/31/23 07:17 Consult to Care Team Routine Comment: Reason for consultation: intentional OD, SI, medically ready for discharge 03/31/23 08:56 Consult to Psychiatry Routine Consulting Provider: Psych Covering Reason for consultation: OD, SI DS: Diagnosis Discharge Diagnosis (1) Bipolar disorder: Status: Acute DS: Summary Hospital Course Hospital Course: Chief Complaint: Suicide attempt by OD on home meds Pt is a 72-year-old female with a PMH significant for?HLD, anxiety, and bipolar disorder who presents to the ED after intentional overdose at home on prescription medication. Pt is alert and oriented to self and time only, unsure of where she is or how she got here, and thus incapable of providing an accurate HPI which is instead obtained from chart and provider review. Pt apparently was feeling depressed and at noon today ingested ten 0.5mg lorazepam (5mg total) and an unknown amount of geodon in an attempt to harm herself. She immediately called crisis who informed EMS. In the ED patient was immediately given activated charcoal and treated with IVF. The ED contacted poison Control who recommended seizure precautions, repeat EKGs q2hr, keeping potassium above 4, and treating any hypotension with IV NS. Poison control also suggested giving an amp of bicarb if pt's LBBB on EKG was new. Pt herself has no acute medical complaints and states she feels good . In the ED pt was patient was afebrile, with 1 episode of low BP of 94/47. Labs were significant for normocytic anemia 10.0/30.2, otherwise largely unremarkable. Electrolytes largely WNL. Potassium 4.1. Renal function WNL. Hepatic function WNL. Tropoinin detectable but WNL at 4.1. Salicylate, acetaminophen, and ethyl alcohol levels negative. Tox screen negative. UA negative for UTI. EKG demonstrated normal sinus rhythm with left bundle branch block. Repeat EKG showed normal sinus rhythm with left bundle branch block similar to previous. Pt was treated with activated charcoal and IVF. Pt will be admitted to the hospital for treatment further evaluation of toxic metabolic encephalopathy in the setting of intentional overdose on home medications. Hospital course: Patient was admitted due to intentional drug overdose with multiple meds (ativan, geodon). She had prolonged QTc, she was monitored on telemetry with frequent ECG and QTc prolongation has resolved. She was evaluated by CARE team deisi Orellana with strong recommendation for inpatient Psych adms franco which she was reluctant to do but now agreable. No other acute medical issues Time Attestation Discharge coordination time: Greater than 30 minutes Quality: Safe Use of Opioids Does Pt have an Active Cancer Diagnosis on the Problem List?: No Quality: Stroke Does the patient have a stroke diagnosis?: No Physical Exam Vital Signs: Vital Signs: Last Vital Signs Temp 98.6 F 04/01/23 07:17 Pulse 71 04/01/23 07:17 Resp 16 04/01/23 07:17 BP 164/80 H 04/01/23 07:17 Pulse Ox 98 04/01/23 07:17 O2 Del Method Room Air 04/01/23 07:17 BMI result Body Mass Index 21.9 Const: Other: General: AO X 3, no acute distress Resp: CTA bilateral CVS: S1,S2,RRR GI: +BS, NT, no distention Skin: No rash Neuro: motor grossly intact Psych: appropriate affect DS: Data Data Completed and Pending Labs on day of discharge: Laboratory Results - last 24 hr 03/31/23 03/31/23 08:06 09:40 Sodium 142 Potassium 4.4 Chloride 110 H Carbon Dioxide 25 Anion Gap 11 L BUN 18 H Creatinine 0.86 Estim Creat Clear Calc 56.6 Estimated GFR > 60 Random Glucose 99 Calcium 9.1 COVID-19 (SHAW) Negative COVID-19 Clin Com See Note Discharge Plan Discharge Patient Disposition: Xfer Psychiatric Hosp Discharge Diagnosis: Intentional overdose Referrals: Physician,Unknown J [Primary Care Provider] - 1 Week Discharge Medications: Continued lamotrigine 150 mg Tablet 150 mg PO DAILY venlafaxine 150 mg Capsule,Extended Release 24hr 150 mg PO DAILY lamotrigine 25 mg Tablet 50 mg PO DAILY lorazepam 0.5 mg Tablet 0.5 mg PO BID PRN (Reason: Anxiety) ziprasidone HCl 60 mg Capsule 60 mg PO QPM Rx Instructions: give with food (meal/snack) ezetimibe 10 mg Tablet 10 mg PO DAILY Discharge Orders: Discharge Order (Routine); Ordered 04/01/23 Ordered By: Wilver Anderson Diet: Advance to usual diet Activity on Discharge: As tolerated Stand Alone Forms: Patient Portal Discharge page Care Plan Goals: prevent self harm Health Concerns: intentional overdose bipolar Plan of Treatment: admission to inpatient psych for treatment of depression
--- NOTE | 2023-04-01 11:27 | MHC.CM.PN ---
Pt will transfer to [facility] for continued treatment needs
[2023-04-01 12:00] VITALS: BP 170/79; PULSE 77; RESP 16; TEMP 36.7; O2SAT 98
[2023-04-01] MEDS: Acetaminophen 325 MG TABLET 650 MG PO (13:07)
[2023-04-01 15:12] VITALS: BP 180/74; PULSE 73; RESP 18; TEMP 36.6; O2SAT 99
[2023-04-01] MEDS: amLODIPine Besylate 5 MG TABLET PO (16:02)
[2023-04-01] MEDS: Enoxaparin Sodium 40 MG/0.4 ML SYRINGE SUBCUT (16:02)
[2023-04-01] MEDS: LORazepam 0.5 MG TABLET PO (17:09)
[2023-04-01 17:36] VITALS: BP 139/82; PULSE 71
== END 2023-04-01 18:15 | disposition short-term general hospital (02) | DRG 917 ==
LOC: HO.ED 14:56 → HO.EDOVER 16:31 → HO.IMC 17:42
PROVIDERS: Internal Medicine; Physician Assistant Medical; Admitting Provider Student in an Organized Health Care Education/Training Program; Emergency Provider Emergency Medicine; PCP Internal Medicine; Visit Provider Internal Medicine
DX: T42.4X2A Poisoning by benzodiazepines, intentional self-harm, initial encounter (principal); G92.8 Other toxic encephalopathy; T43.592A Poisoning by other antipsychotics and neuroleptics, intentional self-harm, initial encounter; E03.9 Hypothyroidism, unspecified; E78.5 Hyperlipidemia, unspecified; I44.7 Left bundle-branch block, unspecified; F31.9 Bipolar disorder, unspecified; F41.9 Anxiety disorder, unspecified; Z20.822 Contact with and (suspected) exposure to COVID-19; Z79.899 Other long term (current) drug therapy
CPT/HCPCS: 36415; 80048; 80053; 80143; 80179; 80307; 81001; 82140; 82803; 83735; 84100; 84484; 85025; 85027; 87086; 87635; 93005; 99285; J1650; J2405; J3475; S9485

== ENCOUNTER → 2023-03-30 16:24 | Outpatient (BNV) | payer MEDICARE, BC, SELFPAY | PROVIDERS: Admitting Provider Student in an Organized Health Care Education/Training Program; Emergency Provider Emergency Medicine; Visit Provider Internal Medicine | DX: G92.8 Other toxic encephalopathy (principal); F31.9 Bipolar disorder, unspecified | CPT/HCPCS: 99223; 99232; 99239 ==

== ENCOUNTER → 2023-03-30 16:24 | Outpatient (BNV) | payer MEDICARE, BC, SELFPAY | PROVIDERS: Admitting Provider Student in an Organized Health Care Education/Training Program; Emergency Provider Emergency Medicine; Visit Provider Psychiatry & Neurology Psychiatry | DX: F31.4 Bipolar disorder, current episode depressed, severe, without psychotic features (principal) | CPT/HCPCS: 99222 ==

== ENCOUNTER 2023-04-01 19:49 | Inpatient (IN) | payer MEDICARE, BC, SELFPAY ==
[2023-04-01 19:25] VITALS: BP 172/102; PULSE 70; RESP 16; TEMP 36.1; O2SAT 98
[2023-04-01 20:26] VITALS: BP 153/67; PULSE 72; RESP 16
[2023-04-01] MEDS: LORazepam 0.5 MG TABLET PO (20:42)
--- NOTE | 2023-04-01 23:07 | PC.NURSE ---
PT arrived on unit @ 18:30. clamp remover completed with SIMONE Chambers. PT had a long necklace with cross and smart watch that were taken and put in storage. 5 EKG leads removed. Small amount of bruising to L uppper arm as well as scabs on bilateral forearm.
--- NOTE | 2023-04-02 00:26 | PC.ADMIT ---
PT is a 72 year old single white female, who lives alone with her elderly cat. PT arrived to unit on prior shift from medical floor at 1815 on 12B, S/P intentional overdose on lorazepam and Ziprasidone, per crisis report. PT is currently asleep, admission done per medical record. PT was initially seen in the community due to PT sister calling 911 due to PT's friend Eduar calling the PT's sister Sheryl who called 911. PT has texted her sister that she had intentionally taken several 5 mg lorazepam and several 60mg Ziprasidone. PT has hx of inpatient admissions 40 years ago. Treatment plan initiated, legals signed, skin/contraband check completed by prior shift. PT declining flu vaccine, non smoker. PT placed on 15 minute safety checks and currently resting in bed with eyes closed.
[2023-04-02 08:00] VITALS: BP 143/80; PULSE 87; RESP 18; TEMP 36; O2SAT 100
[2023-04-02 08:05] LABS: Estimated Average Glucose 108 mg/dL; Hemoglobin A1c % 5.4 % (<6.0)
[2023-04-02 08:14] LABS: Alanine Aminotransferase 15 U/L (0-31); Albumin Level 4.2 g/dL (3.5-5.0); Alkaline Phosphatase 106 U/L (39-117); Anion Gap 11 (12-20); Aspartate Amino Transferase 22 U/L (5-31); Bilirubin Total 0.4 mg/dL (0.0-1.0); Blood Urea Nitrogen 9 mg/dL (9-16); Carbon Dioxide 28 mmol/L (22-29); Chloride 105 mmol/L (96-108); Cholesterol 266 mg/dL (<200); Estimated Glomerular Filt Rate > 60; Glucose Fasting 116 mg/dL (60-99); HDL Cholesterol 84 mg/dL (>40); LDL Cholesterol Calculated 167 mg/dL (<100); Potassium 4.3 mmol/L (3.3-5.1); Sodium 140 mmol/L (135-145); Total Protein 7.8 g/dL (6.5-8.0); Triglycerides 76 mg/dL (<150)
[2023-04-02] MEDS: Venlafaxine HCl ER 150 MG CAP.ER.24H PO (08:46)
[2023-04-02] MEDS: lamoTRIgine 25 MG TABLET 50 MG PO (08:48)
[2023-04-02] MEDS: lamoTRIgine 25 MG TABLET 150 MG PO (08:48)
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
[2023-04-02] MEDS: Acetaminophen 325 MG TABLET 650 MG PO (14:14)
[2023-04-02] MEDS: LORazepam 0.5 MG TABLET PO ×2 (14:14→21:04)
[2023-04-02 14:18] VITALS: BMI 25.7
[2023-04-02] MEDS: Sucralfate 1 GM TABLET PO ×2 (16:50→21:04)
[2023-04-02 18:00] VITALS: BP 145/78; PULSE 87; TEMP 36.3; O2SAT 87
[2023-04-02] MEDS: lamoTRIgine 100 MG TABLET 200 MG PO (21:04)
[2023-04-02] MEDS: Ziprasidone 60 MG CAPSULE PO (21:04)
[2023-04-02] MEDS: traZODone HCL 50 MG TABLET PO (21:04)
[2023-04-02] MEDS: hydrOXYzine HCL 25 MG TABLET PO (21:05)
[2023-04-03 08:35] VITALS: BP 127/61; PULSE 104; RESP 18; TEMP 35.9; O2SAT 99
[2023-04-03] MEDS: Venlafaxine HCl ER 150 MG CAP.ER.24H PO (09:30)
[2023-04-03] MEDS: Sucralfate 1 GM TABLET PO ×4 (09:30→20:33)
--- NOTE | 2023-04-03 17:08 | P.PNPSI_ITS ---
Subjective Subjective Date of Service: 04/03/23 Reason For Visit: MDD Interim History: Met with patient; discussed with team Slotter Operator and social security assessor met together with patient who remains on a 12 b. Patient reports she is in a good mood and would like to be discharged back home. She denies any SI at all and continues to report that overdose was accidental, and only done in effort to sleep; she agrees it was a mistake and will not do this again. Patient talked about her cat whom she misses and would like to get back and see. Social work able to talk to patient's sister who corroborates that patient is able to live by herself and functions successfully in the community; she agrees patient is not at risk for self-harm. Patient negative for COVID on admission; remains without any symptoms Mental Status Exam Mental Status Exam Narrative: Pt is alert and oriented; behavior is cooperative, friendly and calm; patient is not in distress; dressed in casual attire, well groomed; mood is described as good and affect congruent; eye contact appropriate; Speech is normal rate, volume and prosody and not pressured; no psychomotor agitation/retardation present; thought process is organized and goal directed; Thought content is on discharge; otherwise pertinent to relevant topics and without any delusional content, paranoid ideations or grandiosity; denies any SI/HI. There is no evidence of perceptual disturbance. Patients insight and judgment appear intact. Diagnostics Vital Signs (24Hr): Vital Signs - 24 hr 04/02/23 18:00 04/03/23 08:35 Temperature 97.4 F 96.6 F L Pulse Rate 87 104 H Respiratory Rate 18 Blood Pressure 145/78 H 127/61 Pulse Oximetry 87 L 99 Oxygen Delivery Method Room Air Room Air BMI result Body Mass Index 25.7 Labs 04/02/23 07:43 Labs: Laboratory Results - last 48 hr 04/02/23 07:43 Sodium 140 Potassium 4.3 Chloride 105 Carbon Dioxide 28 Anion Gap 11 L BUN 9 Creatinine 0.83 Estim Creat Clear Calc TNP Estimated GFR > 60 Fasting Glucose 116 H Estimat Average Glucose 108 Hemoglobin A1c % 5.4 Calcium 10.0 D Total Bilirubin 0.4 AST 22 ALT 15 Alkaline Phosphatase 106 Total Protein 7.8 Albumin 4.2 Triglycerides 76 Cholesterol 266 H LDL Cholesterol, Calc 167 H HDL Cholesterol 84 Medications Medications Current Medications Acetaminophen (Acetaminophen 325 Mg Tablet) 650 mg PO Q6H PRN PRN Reason: Headache/Pain Mild Scale (1-3) Last Admin: 04/02/23 14:14 Dose: 650 mg Al Hydroxide/Mg Hydroxide (Magnesium Hydrox/Alum Hydrox 30 Ml Oral.Susp) 30 ml PO Q6H PRN PRN Reason: Heartburn/Nausea Hydroxyzine HCl (Hydroxyzine Hcl 25 Mg Tablet) 25 mg PO Q6H PRN PRN Reason: Anxiety Last Admin: 04/02/23 21:05 Dose: 25 mg Lamotrigine (Lamotrigine 100 Mg Tablet) 200 mg PO BEDTIME BALDEMAR Last Admin: 04/02/23 21:04 Dose: 200 mg Lorazepam (Lorazepam 0.5 Mg Tablet) 0.5 mg PO BID PRN PRN Reason: Anxiety Last Admin: 04/02/23 21:04 Dose: 0.5 mg Magnesium Hydroxide (Milk Of Magnesia 30 Ml Oral.Susp) 30 ml PO DAILY PRN PRN Reason: Constipation Sucralfate (Sucralfate 1 Gm Tablet) 1 gm PO QIDACHS [facility] Last Admin: 04/03/23 17:01 Dose: 1 gm Trazodone HCl (Trazodone Hcl 50 Mg Tablet) 50 mg PO BEDTIME MRX1 PRN PRN Reason: Insomnia Last Admin: 04/02/23 21:04 Dose: 50 mg Venlafaxine HCl (Venlafaxine Hcl Er 150 Mg Cap.Er.24h) 150 mg PO DAILY [facility] Last Admin: 04/03/23 09:30 Dose: 150 mg Ziprasidone (Ziprasidone 60 Mg Capsule) 60 mg PO BEDTIME [facility] Last Admin: 04/02/23 21:04 Dose: 60 mg Allergies Allergies Allergy/AdvReac Type Severity Reaction Status Date / Time atorvastatin [From LIPITOR] Allergy Intermediate PAIN Verified 03/30/23 13:26 Assessment & Plan Assessment & Plan (1) Bipolar disorder: Status: Acute Code(s): F31.9 - Bipolar disorder, unspecified (2) Anxiety disorder: Status: Acute Code(s): F41.9 - Anxiety disorder, unspecified Plan HPI: Pt is a 72-year-old female with a PMH significant for?HLD, anxiety, PTSD, and bipolar disorder, currently on Section 12 b, who self-presents to the ED after intentional overdose at home on prescription medication. Patient reported feeling depressed and ingested about 5 mg of lorazepam and some amount of Geodon. She then immediately called crisis. Patient initially medically admitted, received charcoal, IVF; remained stable with transiently prolonged QTC which resolved and patient medically cleared. Patient then psychiatrically admitted. Patient explained that she was upset after a break-up with her boyfriend of 8 years and also felt emotional because a friend of hers partner from COVID last week. Because of this heightened emotionality she was having trouble sleeping which is why she took extra Ativan and Geodon, only an effort to sleep, and denied this was in any way a suicide attempt. Patient denied any SI at all. Patient reported baseline depression which was exacerbated by this last week but adamantly reiterates she has no current or recent SI at all. Denies any AVH or history of psychotic symptoms but endorsed 1 past episode of ray.. -Patient reports that her Lamictal was recently increased for depression. -history of 3 psychiatric admissions, last 1 more than 20 years ago -no history of suicide attempts -has current therapist and psychiatrist through [facility] Hospital course: Patient remained on a 12 b. She reported feeling she was back to her regular self, stable to go home, missing her cat and wanting discharge. She reports good mood and is demonstrating good behavioral and impulse control. Patient is well groomed and with organized speech and behavior; thought process linear and logical. From the emergency room, to the medical floor to the psychiatric floor, Patient has consistently denied any SI and reiterated that overdose was unintentional and just in an effort to sleep. She agrees that this was a mistake to take extra medication and will not do so again. Patient continues to ask for discharge home, again reiterating that she feels back to her regular self, has a much improved mood and wants to get home to see her cat. Collateral obtained from her sister who corroborates that patient lives alone and is able care of herself in the community; patient's sister expressed some concerns about patients hoarding behavior however agrees she is safe and not a risk to self- harm. Patient's 72 hours was coming due; no further medication changes to be made at this time and patient already has established outpatient providers in the community. Slotter Operator and team agreed the patient is not in imminent risk for harm to self or others and whatever emotional dysregulation occurred, it remains fully resolved. Patient does not meet criteria for involuntary commitment. Currently, there is a COVID outbreak on the unit which is a necessarily placing patient in harm's way. Will proceed with discharge planning Patient educated on: diagnosis, medication risk/benefits and medical condition Informed Consent: understands Reason for continued inpatient stay Substantial Risk for: stable for discharge Time Spent With Patient Time: Total time managing care of this patient today ____ minutes.
[2023-04-03 18:00] VITALS: BP 128/71; PULSE 86; RESP 18; TEMP 37; O2SAT 98
[2023-04-03] MEDS: lamoTRIgine 100 MG TABLET 200 MG PO (20:33)
[2023-04-03] MEDS: Ziprasidone 60 MG CAPSULE PO (20:33)
[2023-04-04 08:30] VITALS: BP 154/70; PULSE 91; RESP 18; TEMP 36.9; O2SAT 96
[2023-04-04] MEDS: Venlafaxine HCl ER 150 MG CAP.ER.24H PO (09:40)
[2023-04-04] MEDS: Sucralfate 1 GM TABLET PO (09:40)
--- NOTE | 2023-04-04 11:09 | PM.PSYDC ---
DS: Providers Provider Date of Service: 04/04/23 Date of admission: 04/01/23 19:49 Primary care physician: Unknown Physician Attending physician on admission: Orlando Dolan Attending physician on discharge: Yunior Lindsey DS: Diagnosis Discharge Diagnosis (1) Bipolar disorder: Status: Acute (2) Anxiety disorder: Status: Acute DS: Medications Discharge Medications Home Medications: Home Medications Medication Instructions Recorded Confirmed ezetimibe 10 mg tablet 10 mg PO DAILY 03/30/23 04/02/23 lorazepam 0.5 mg tablet 0.5 mg PO BID PRN Anxiety 03/30/23 04/02/23 omeprazole 20 mg capsule,delayed 20 mg PO BID 04/02/23 04/02/23 release sucralfate 1 gram tablet 1 g PO QID 04/02/23 04/02/23 Previous Rx's Medication Instructions Recorded lamotrigine 100 mg tablet 200 mg (2 x 100 mg) PO BEDTIME 30 04/04/23 days #60 tabs lamotrigine 25 mg tablet 50 mg (2 x 25 mg) PO DAILY 25 days 04/04/23 #50 tabs trazodone 50 mg tablet 50 mg PO BEDTIME PRN Insomnia 30 04/04/23 days #30 tabs venlafaxine 150 mg 150 mg PO DAILY 30 days #30 caps 04/04/23 capsule,extended release 24 hr ziprasidone HCl 60 mg capsule 60 mg PO QPM 30 days #30 caps 04/04/23 Mental Status Exam Mental Status Exam Narrative: Pt is alert and oriented; behavior is cooperative, friendly and calm; patient is not in distress; dressed in casual attire, well groomed; mood is described as good and affect congruent; eye contact appropriate; Speech is normal rate, volume and prosody and not pressured; no psychomotor agitation/retardation present; thought process is organized and goal directed; Thought content is on discharge; otherwise pertinent to relevant topics and without any delusional content, paranoid ideations or grandiosity; denies any SI/HI. There is no evidence of perceptual disturbance. Patients insight and judgment appear intact. Data Data Completed and Pending Completed studies during hospitalization [Text1]: 04/02/23 07:43 Sodium 140 Potassium 4.3 Chloride 105 Carbon Dioxide 28 Anion Gap 11 L BUN 9 Creatinine 0.83 Estim Creat Clear Calc TNP Estimated GFR > 60 Fasting Glucose 116 H Estimat Average Glucose 108 Hemoglobin A1c % 5.4 Calcium 10.0 D Total Bilirubin 0.4 AST 22 ALT 15 Alkaline Phosphatase 106 Total Protein 7.8 Albumin 4.2 Triglycerides 76 Cholesterol 266 H LDL Cholesterol, Calc 167 H HDL Cholesterol 84 DS: Summary Hospital Course Hospital Course: HPI: Pt is a 72-year-old female with a PMH significant for?HLD, anxiety, PTSD, and bipolar disorder, currently on Section 12 b, who self-presents to the ED after intentional overdose at home on prescription medication. Patient reported feeling depressed and ingested about 5 mg of lorazepam and some amount of Geodon. She then immediately called crisis. Patient initially medically admitted, received charcoal, IVF; remained stable with transiently prolonged QTC which resolved and patient medically cleared. Patient then psychiatrically admitted. Patient explained that she was upset after a break-up with her boyfriend of 8 years and also felt emotional because a friend of hers partner from COVID last week. Because of this heightened emotionality she was having trouble sleeping which is why she took extra Ativan and Geodon, only an effort to sleep, and denied this was in any way a suicide attempt. Patient denied any SI at all. Patient reported baseline depression which was exacerbated by this last week but adamantly reiterates she has no current or recent SI at all. Denies any AVH or history of psychotic symptoms but endorsed 1 past episode of ray.. -Patient reports that her Lamictal was recently increased for depression. -history of 3 psychiatric admissions, last 1 more than 20 years ago -no history of suicide attempts -has current therapist and psychiatrist through [facility] Hospital course: Patient remained on a 12 b. Although chronic moderate depressive symptoms, no manic symptoms at all. Will diagnose patient with adjustment disorder which is now resolved. She reported feeling she was back to her regular self, stable to go home, missing her cat and wanting discharge. She reports good mood and is demonstrating good behavioral and impulse control. Patient is well groomed and with organized speech and behavior; thought process linear and logical. From the emergency room, to the medical floor to the psychiatric floor, Patient has consistently denied any SI and reiterated that overdose was unintentional and just in an effort to sleep. She agrees that this was a mistake to take extra medication and will not do so again. Patient continues to ask for discharge home, again reiterating that she feels back to her regular self, has a much improved mood and wants to get home to see her cat. Collateral obtained from her sister who corroborates that patient lives alone and is able care of herself in the community; patient's sister expressed some concerns about patients hoarding behavior however agrees she is safe and not a risk to self-harm. Patient's 72 hour hold was coming due; no further medication changes to be made at this time and patient already has established outpatient providers in the community. Three Dimensional Map Modeler discussed medication changes with patient who understands. Three Dimensional Map Modeler and team agreed the patient is not in imminent risk for harm to self or others and whatever emotional dysregulation occurred, it remains fully resolved. Patient does not meet criteria for involuntary commitment. Currently, there is a COVID outbreak on the unit which is unnecessarily placing patient in harm's way. Her request for discharge honored. Time spent discussing smoking cessation with patient: 3 to 10 minutes Status at Discharge Functional status at discharge: independent ambulation Overall status at discharge: patient is back to baseline Time Spent with Patient Time attestation: Total time managing care of this patient today ____ minutes. 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 Pato Nagy: [facility] [Other] - 06/27/23 8:30 am (Appointment with psychiatric medication provider. Appointment is by tele-health.) Julito Islas MD [Physician] - 04/17/23 2:40 pm (in office) Discharge Medications: New lamotrigine 100 mg Tablet 200 mg PO BEDTIME 30 Days Qty: 60 0RF trazodone 50 mg Tablet 50 mg PO BEDTIME PRN (Reason: Insomnia) 30 Days Qty: 30 0RF Continued lorazepam 0.5 mg Tablet 0.5 mg PO BID PRN (Reason: Anxiety) Rx Instructions: Last picked up 03/28/23 ezetimibe 10 mg Tablet 10 mg PO DAILY Rx Instructions: Last picked up 03/28/23 sucralfate 1 gram tablet 1 g PO QID omeprazole 20 mg capsule,delayed release(DR/EC) 20 mg PO BID venlafaxine 150 mg Capsule,Extended Release 24hr 150 mg PO DAILY 30 Days Qty: 30 1RF lamotrigine 25 mg Tablet 50 mg PO DAILY 25 Days Qty: 50 0RF Rx Instructions: take with existing script for 150mg (for total of 200mg daily). ziprasidone HCl 60 mg Capsule 60 mg PO QPM 30 Days Qty: 30 1RF Rx Instructions: give with food (meal/snack) Discontinued lamotrigine 150 mg Tablet 150 mg PO DAILY Rx Instructions: Last picked up 03/28/23 Discharge Orders: Discharge Order (Routine); Ordered 04/04/23 Ordered By: Yunior Lindsey Diet: Regular diet Activity on Discharge: As tolerated Stand Alone Forms: Patient Portal Discharge page, Community Support Care Plan Goals: Maintain mood and safe behaviors Take medications as prescribed Practice coping skills Continue with outpatient providers and reach out to them as needed Health Concerns: Mood stability and behaviors elevated Cholesterol Plan of Treatment: Follow up with your PCP, psychiatric provider and other outpatient providers regarding above concerns Take medications as prescribed Assessment: Risk assessment at time of discharge:? Patient was interviewed prior to discharge and found to be fully oriented and without any SI or HI. Patient has improved insight and judgment and wants to continue treatment. Patient is not in imminent risk of harm to self or others and has a safety plan that includes presenting to the closest ER or calling 911 if feeling unsafe.? Patient has been observed closely by nursing and unit staff throughout admission; patient has not engaged in any behaviors that suggest dangerousness to self or others and has demonstrated appropriate behaviors and impulse control
== END 2023-04-04 11:36 | disposition home or self-care (01) | DRG 882 ==
PROVIDERS: Admitting Provider Social Worker; Visit Provider Clinical Nurse Specialist Psychiatric/Mental Health, Adult
DX: F43.25 Adjustment disorder with mixed disturbance of emotions and conduct (principal); F31.9 Bipolar disorder, unspecified; E03.9 Hypothyroidism, unspecified; F41.9 Anxiety disorder, unspecified; Z79.899 Other long term (current) drug therapy
CPT/HCPCS: 36415; 80053; 80061; 83036

== ENCOUNTER → 2023-04-01 19:49 | Outpatient (BNV) | payer MEDICARE, BC, SELFPAY | PROVIDERS: Admitting Provider Social Worker; Visit Provider Psychiatry & Neurology Psychiatry | DX: F31.4 Bipolar disorder, current episode depressed, severe, without psychotic features (principal); F41.9 Anxiety disorder, unspecified | CPT/HCPCS: 90792; 99231; 99239 ==

== ENCOUNTER 2024-01-11 16:29 | Emergency (ER) | payer MEDICARE, BC, SELFPAY ==
--- NOTE | ~2024-01-11 | CT_ITS ---
EXAMINATION: CT HEAD WITHOUT CONTRAST CLINICAL INFORMATION: Altered mental status. COMPARISON: None. TECHNIQUE: Contiguous axial imaging was performed from the skullbase to vertex without intravenous administration of contrast. This CT examination was performed using dose optimization techniques as appropriate, variously including the following: *Automated exposure control *Adjustment of mA and/or kV according to patient size (this includes techniques or standardized protocols for targeted exams where dose is matched to indication/reason for exam; i.e. extremities or head) *Use of iterative reconstruction technique DLP: 660 mGy-cm. FINDINGS: There is no evidence of acute intracranial hemorrhage or territorial infarction. No abnormal mass effect or midline shift is seen. Spivey to white matter differentiation is well preserved. No extra-axial fluid collections are identified. Moderate diffuse brain parenchymal volume loss evident with mild chronic white matter microangiopathy. The soft tissues are normal. The mastoid air cells and visualized portions of the paranasal sinuses are well aerated. There are advanced degenerative changes in the condylar head of the left temporomandibular joint with hypertrophic ossific spurring and severe joint space narrowing. CT/CT head/brain wo IV con IMPRESSION: No acute intracranial hemorrhage or territorial infarction. Moderate generalized brain parenchymal volume loss and mild chronic white matter microangiopathy. Electronically signed by: Juan Melara MD 01/12/2024 02:10 PM EDT
[2024-01-11 16:41] VITALS: BP 137/70; PULSE 89; RESP 16; TEMP 36.9; O2SAT 98
--- NOTE | 2024-01-11 16:42 | ED_ITS ---
HPI - Psych General Chief Complaint: Psychiatric Symptoms Stated Complaint: SI Time Seen by Provider: 01/11/24 16:50 Source: patient Limitations: no limitations History of Present Illness ED Provider: Angelina Goins PA-C HPI Narrative: 73-year-old female with a history of anxiety, bipolar disorder, hypothyroidism and hyperlipidemia presents given need for psychiatric evaluation. The crisis team saw the patient within the community due to her inability to care for herself at home and she has been abusing benzodiazepine. The patient presents to the ER with her sister, for evaluation of erratic behaviors at home. The patient has been using a friend's lorazepam and also abusing her home medications. Sister also notes that the patient has been calling her vet 30x per day because she is afraid her cat is ill . The patient has also been calling the sister in the middle of the night numerous times, the sisters noted that she is just not making sense over the phone. Patient has prior suicide attempts, in particular overdose. patient's sister (Zabrina Roth [phone]) who is the only family member around leaves this weekend and doesn't come back until 01/23, afraid she is going to be dismissed despite her concerning behaviors. Related Data Home Medications ?Medication ?Instructions ?Recorded ?Confirmed betamethasone dipropionate 0.05 % 1 appl topical BID PRN itch 01/11/24 01/11/24 lotion docusate sodium 100 mg capsule 200 mg PO DAILY 01/11/24 01/11/24 ezetimibe 10 mg tablet 10 mg PO DAILY 01/11/24 01/11/24 lamotrigine 100 mg tablet 100 mg PO DAILY 01/11/24 01/11/24 lamotrigine 150 mg tablet 150 mg PO DAILY 01/11/24 01/11/24 levothyroxine 125 mcg tablet 125 mcg PO DAILY@0600 01/11/24 01/11/24 (Synthroid) polyethylene glycol 3350 17 gram 17 g PO DAILY 01/11/24 01/11/24 oral powder packet (Miralax) sucralfate 1 gram tablet 2 g PO BID@1200,1700 01/11/24 01/11/24 venlafaxine 150 mg 150 mg PO DAILY 01/11/24 01/11/24 capsule,extended release 24 hr ziprasidone HCl 60 mg capsule 60 mg PO DAILY 01/11/24 01/11/24 Allergies Allergy/AdvReac Type Severity Reaction Status Date / Time atorvastatin [From LIPITOR] Allergy Intermediate PAIN Verified 01/11/24 16:43 Review of Systems 2 Review of Systems: Yes all other systems are reviewed and are negative Constitutional: Constitutional: Denies fever(s) Cardiovascular: Cardiovascular: Denies chest pain and Denies dyspnea Respiratory: Respiratory: Denies dyspnea Gastrointestinal: Gastrointestinal: Denies abdominal pain and Denies vomiting [facility] Past Medical History Attestation statement: The following information was validated with the patient. Medical History Uterine fibroid Spinal stenosis of lumbar region Sleep apnea Irritable bowel syndrome Hypothyroidism Hyperlipidemia Functional bowel disorder (08/30/22) Dyspepsia (04/27/22) Bipolar disorder (03/14/23) Anxiety disorder (02/16/21) Social History Social History Household Members: None Housing: Unknown / Unable to assess Do you presently have visiting nurse or other home services: No Patient Tobacco Use Status: Never used Tobacco Smoked in Last 30 Days: No Use of substances other than those prescribed or required for medical reasons: No Advance Directives: Yes Advance Directives on File: Yes Advance Directives Date on File: 01/11/24 Do you have a plan to hurt others: No Plan service: No Sexual orientation: Straight/Heterosexual Physical Exam 2 Vital Signs: Vital Signs: Last Vital Signs Temp 97.6 F 01/12/24 06:36 Pulse 85 01/12/24 06:36 Resp 16 01/12/24 06:36 BP 134/70 01/12/24 06:36 Pulse Ox 100 01/12/24 06:36 O2 Del Method Room Air 01/12/24 06:36 BMI result Body Mass Index 20.0 Const: Other: Awake, cachectic, appears dehydrated Orientation/consciousness: oriented to person and oriented to place Resp: Effort & Inspection: normal respiratory effort Cardio: Other: Normal peripheral perfusion Skin: Other: Warm dry no rash Neuro: Other: Patient can not give me an accurate date General: oriented to person and oriented to place Extrem: Other: Ambulatory, moves all extremities independently, Psych: Other: All flat affect, cooperative Course Course Course Narrative: This is a Rapid Medical Examination (RME) performed by Cesar Cee PA-C in triage. Full HPI, ROS, assessment and treatment plan per primary provider in the Main ED. 73 yo female with history of bipolar disorder, anxiety disorder presents to the ER with her sister from home for evaluation of strange behavior, unable to function, taking lorazepam from a friend and inappropriately taking her medications. her sister helps provide history - patient has been calling her vet 30x per day afraid her cat is ill. she called her sister in the middle of the night multiple times not making sense. unable to use computer and phone recently. patient's sister (Zabrina Roth [phone]) who is the only family member around leaves this weekend and doesn't come back until 01/23, afraid she is going to be dismissed despite her concerning behaviors. patient admits to SI. history of overdose in the past. Plan: crisis evaluation after medically cleared. Medications Administered Generic Name Dose Route Start Last Admin Trade Name Freq PRN Reason Stop Dose Admin Levothyroxine Sodium 125 mcg 01/12/24 06:00 01/12/24 06:45 Levothyroxine Sodium 125 Mcg Tablet PO 125 mcg DAILY@0600 BALDEMAR Administration Discontinued Medications Generic Name Dose Route Start Last Admin Trade Name Freq PRN Reason Stop Dose Admin Sodium Chloride 1,000 mls @ 999 mls/hr 01/11/24 21:45 01/11/24 23:03 Ns IV 01/11/24 22:45 999 mls/hr .Q1H1M BALDEMAR Administration Sodium Chloride 500 mls @ 500 mls/hr 01/11/24 23:57 01/12/24 02:58 Ns IV 01/12/24 00:56 500 mls/hr .Q1H ONE Administration Medical Decision Making Medical Decision Making MDM Narrative: 73-year-old female with a history of anxiety, bipolar disorder, hypothyroidism and hyperlipidemia presents given need for psychiatric evaluation. The crisis team saw the patient within the community due to her inability to care for herself at home and she has been abusing benzodiazepine. The patient presents to the ER with her sister, for evaluation of erratic behaviors at home. The patient has been using a friend's lorazepam and also abusing her home medications. Sister also notes that the patient has been calling her vet 30x per day because she is afraid her cat is ill . The patient has also been calling the sister in the middle of the night numerous times, the sisters noted that she is just not making sense over the phone. Patient has prior suicide attempts, in particular overdose. patient's sister (Zabrina Roth [phone]) who is the only family member around leaves this weekend and doesn't come back until 01/23, afraid she is going to be dismissed despite her concerning behaviors. Problem: Psychiatric illness, prior suicide attempt History: Per patient I have considered the following differential diagnoses: SI, HI, decompensated psychiatric illness, drug/alcohol intoxication , FTT Plan: In speaking with the patient, she thinks she is here because she is ?forgetful?. She denies being suicidal at this time, when asked if she has SI, she states ?not really?. The patient will likely be a bed search. Screening labs including serum ethanol and drug screen are in process. I have independently reviewed the following tests: Labs: No leukocytosis, not anemic, no electrolyte abnormality, however her creatinine is bumped to 1.43. She should have some fluid, ordering a bolus of normal saline serum ethanol negative, drug screen negative 01/12/2024 at 09:45 hours,Dr. José Manuel Kumar's There were no reported incidents on this patient by the overnight nursing staff. The patient was been here for proximally 17 hours. The patient is in in- patient bed search.Patient will remain in the emergency department Behavioral Health Unit until disposition can be determined or until patient's symptoms improve over time. Lab Data 01/11/24 17:17 01/11/24 23:19 Labs: Lab Results 01/11/24 01/11/24 01/11/24 Range/Units 17:17 19:11 23:19 WBC 9.5 (4.8-10.8) X10*3/uL RBC 3.55 L (4.20-5.50) X10*6/uL Hgb 10.9 L (12.0-16.0) g/dl Hct 33.0 L (37.0-47.0) % MCV 93.0 (80.0-98.0) fL MCH 30.7 (27.0-33.0) pg MCHC 33.0 (31.0-35.0) g/dl RDW 14.2 (11.0-16.0) % Plt Count 325 (160-400) X10*3/uL MPV 9.1 L (9.4-12.3) fL Immature Gran % (Auto) 0.4 (0.0-0.4) % Neut % (Auto) 60.1 (45-73) % Lymph % (Auto) 30.1 (20-40) % [place] % (Auto) 7.7 (2-11) % Eos % (Auto) 1.2 (0-4) % Baso % (Auto) 0.5 (0-2) % Lymph # (Auto) 2.9 (1.2-4.9) X10*3/uL [place] # (Auto) 0.7 (0.1-1.2) X10*3/uL Eos # (Auto) 0.1 (0.0-0.4) X10*3/uL Baso # (Auto) 0.1 (0.0-0.2) X10*3/uL Abs Immat Gran (auto) 0.04 H (0.00-0.03) X10*3/uL Absolute Neuts (auto) 5.7 (2.0-8.3) x10*3/uL Absolute Nucleated RBC 0.000 (0.0-0.012) X10*3/uL Nucleated RBC % (auto) 0.0 (0.0-0.2) /100WBC Sodium 138 (135-145) mmol/L Potassium 4.3 (3.3-5.1) mmol/L Chloride 106 (96-108) mmol/L Carbon Dioxide 24 (22-29) mmol/L Anion Gap 12 (12-20) BUN 37 H (9-16) mg/dL Creatinine 1.43 H 1.29 (0.5-1.4) mg/dL Estim Creat Clear Calc 29.6 32.8 Estimated GFR 36 40 Random Glucose 81 (60-115) mg/dL Calcium 9.8 (8.4-10.2) mg/dL Magnesium 2.6 (1.6-2.6) mg/dL Total Bilirubin 0.2 (0.0-1.0) mg/dL Direct Bilirubin < 0.2 (0.0-0.5) mg/dL AST 20 (5-31) U/L ALT 20 (0-31) U/L Alkaline Phosphatase 116 (39-117) U/L Total Protein 7.8 (6.5-8.0) g/dL Albumin 4.3 (3.5-5.0) g/dL TSH 0.03 L (0.32-4.0) uIU/mL Free T4 1.16 (0.71-1.85) ng/dL Urine Color Yellow Urine Appearance Clear Urine pH 6.0 (5.0-9.0) Ur Specific [place] 1.015 (1.005-1.025) Urine Protein Trace (Neg-Trace) mg/dL Urine Glucose (UA) Negative (Negative) mg/dL Urine Ketones Negative (Negative) mg/dL Urine Blood Negative (Negative) Urine Nitrite Negative (Negative) Ur Leukocyte Esterase Small (1+) H (Negative) Urine RBC 0-2 (0-2) /HPF Urine WBC 6-10 H (0-5) /HPF Ur Squamous Epith Cells 0-2 (0-2) /HPF Urine Bacteria None Seen (None Seen) Hyaline Casts 0-2 (0-2) /LPF Urine Opiates Screen Not Detected (Not Detect) Ur Buprenorphine Scrn Not Detected (Not Detect) ng/mL Ur Oxycodone Screen Not Detected (Not Detect) ng/mL Urine Methadone Screen Not Detected (Not Detect) ng/mL Urine Fentanyl Screen Not Detected (Not Detect) Ur Barbiturates Screen Not Detected (Not Detect) Ur Phencyclidine Scrn Not Detected (Not Detect) Ur Amphetamines Screen Not Detected (Not Detect) U Benzodiazepines Scrn Not Detected (Not Detect) Urine Cocaine Screen Not Detected (Not Detect) U Marijuana (THC) Screen Not Detected (Not Detect) Ethyl Alcohol < 10 mg/dL Discharge Plan Discharge Clinical Impression: Adult failure to thrive, Benzodiazepine abuse, Dehydration Patient Disposition: Still a Patient Prescriptions: No Action lamotrigine 150 mg tablet 150 mg PO DAILY sucralfate 1 gram tablet 2 g PO BID@1200,1700 venlafaxine 150 mg capsule,extended release 24hr 150 mg PO DAILY levothyroxine [Synthroid] 125 mcg tablet 125 mcg PO DAILY@0600 docusate sodium 100 mg capsule 200 mg PO DAILY ziprasidone HCl 60 mg capsule 60 mg PO DAILY betamethasone dipropionate 0.05 % lotion 1 appl topical BID PRN (Reason: itch) Rx Instructions: to scalp lamotrigine 100 mg tablet 100 mg PO DAILY ezetimibe 10 mg tablet 10 mg PO DAILY polyethylene glycol 3350 [Miralax] 17 gram Powder In Packet 17 g PO DAILY Interventions: Cooper-Suicide Risk Severity Scale Last Done: 01/11/24 17:07 Print Language: Georgian
[2024-01-11 17:05] VITALS: BP 137/70; PULSE 89; RESP 16; TEMP 36.9; O2SAT 98
[2024-01-11 17:24] LABS: Basophils Absolute Auto 0.1 X10*3/uL (0.0-0.2); Basophils Percent Auto 0.5 % (0-2); Eosinophils Absolute Auto 0.1 X10*3/uL (0.0-0.4); Eosinophils Percent Auto 1.2 % (0-4); Hemoglobin 10.9 g/dl (12.0-16.0); Imm Gran Abs Auto 0.04 X10*3/uL (0.00-0.03); Imm Gran Pct Auto 0.4 % (0.0-0.4); Lymphocytes Absolute Auto 2.9 X10*3/uL (1.2-4.9); Lymphocytes Percent Auto 30.1 % (20-40); MANUAL DIFF FLAG NO; Mean Corpuscular Hemoglobin 30.7 pg (27.0-33.0); Mean Platelet Volume 9.1 fL (9.4-12.3); Monocytes Absolute Auto 0.7 X10*3/uL (0.1-1.2); Monocytes Percent Auto 7.7 % (2-11); Neutrophils Absolute Auto 5.7 x10*3/uL (2.0-8.3); Neutrophils Percent Auto 60.1 % (45-73); Platelet Count 325 X10*3/uL (160-400); Red Blood Count 3.55 X10*6/uL (4.20-5.50); Red Cell Distribution Width 14.2 % (11.0-16.0); White Blood Count 9.5 X10*3/uL (4.8-10.8)
[2024-01-11 17:38] LABS: Alanine Aminotransferase 20 U/L (0-31); Albumin Level 4.3 g/dL (3.5-5.0); Alkaline Phosphatase 116 U/L (39-117); Anion Gap 12 (12-20); Aspartate Amino Transferase 20 U/L (5-31); Bilirubin Direct < 0.2 mg/dL (0.0-0.5); Bilirubin Total 0.2 mg/dL (0.0-1.0); Blood Urea Nitrogen 37 mg/dL (9-16); Calcium 9.8 mg/dL (8.4-10.2); Carbon Dioxide 24 mmol/L (22-29); Chloride 106 mmol/L (96-108); Creatinine Clr Calc Pharmacy 29.6; Estimated Glomerular Filt Rate 36; Glucose Random 81 mg/dL (60-115); Magnesium 2.6 mg/dL (1.6-2.6); Potassium 4.3 mmol/L (3.3-5.1); Sodium 138 mmol/L (135-145); Total Protein 7.8 g/dL (6.5-8.0)
[2024-01-11 17:45] LABS: Ethanol < 10 mg/dL
--- NOTE | 2024-01-11 17:55 | MHC.CM.ED ---
Pt requesting to complete a HCP. She is alert and orientated x4. She can verbalize understanding of the HCP and identifies her sister, Kenyetta Pinon ([phone]) as her HCP. HCP reviewed, completed and signed. Copies given to patient and sister. Uploaded into [facility] [employer] and [facility] [employer]
[2024-01-11 17:59] LABS: TSH reflex Free T4 0.03 uIU/mL (0.32-4.0)
--- NOTE | 2024-01-11 18:53 | PC.NURSE ---
patient remains at rest presently respirations are even and unlabored patient appears in no distress
[2024-01-11 18:55] LABS: Free T4 (Free Thyroxine) 1.16 ng/dL (0.71-1.85)
[2024-01-11 19:20] LABS: Appearance Urine Clear; Color Urine Yellow; Glucose Urine UA Negative (Negative); Leukocyte Esterase Urine Small (1+) (Negative); Nitrite Urine Negative (Negative); Specific Gravity - Urine 1.015 (1.005-1.025); UMIC TRIGGER UACC YES; Urine Blood Negative (Negative); Urine Ketones Negative (Negative); Urine Protein Trace mg/dL (Neg-Trace)
[2024-01-11 19:34] LABS: Amphetamine Screen Urine Not Detected (Not Detect); Barbiturates, Urine Not Detected (Not Detect); Benzodiazepines Screen Urine Not Detected (Not Detect); Buprenorphine Scr Not Detected (Not Detect); Cannabinoid Screen Urine Not Detected (Not Detect); Cocaine Screen Urine Not Detected (Not Detect); Fentanyl, urine Not Detected (Not Detect); Methadone Screen, Urine Not Detected (Not Detect); Opiate Screen Urine Not Detected (Not Detect); Oxycodone Screen Urine Not Detected (Not Detect); Phencyclidine Screen Urine Not Detected (Not Detect)
[2024-01-11 20:08] LABS: Bacteria Urine None Seen (None Seen); Hyaline Casts Urine 0-2 /LPF (0-2); RBC Urine 0-2 /HPF (0-2); Squamous Epithelial Cell Urine 0-2 /HPF (0-2); UACC Culture Trigger YES
[2024-01-11] MEDS: 0.9 % Sodium Chloride 1,000 ML 999 ML IV (23:03)
[2024-01-11 23:35] LABS: Creatinine Clr Calc Pharmacy 32.8; Estimated Glomerular Filt Rate 40
[2024-01-12] MEDS: 0.9 % Sodium Chloride 500 ML IV (02:58)
--- NOTE | 2024-01-12 03:40 | PC.NURSE ---
patients iv site was removed post administration of 500cc volume of NS. catheter intact and site location appears unremarkable/WNL.
[2024-01-12 06:36] VITALS: BP 134/70; PULSE 85; RESP 16; TEMP 36.4; O2SAT 100
[2024-01-12] MEDS: Levothyroxine Sodium 125 MCG TABLET PO (06:45)
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
[2024-01-12] MEDS: Venlafaxine HCl ER 150 MG CAP.ER.24H PO (10:22)
[2024-01-12] MEDS: lamoTRIgine 100 MG TABLET 200 MG PO (10:23)
[2024-01-12] MEDS: Docusate Sodium 100 MG CAPSULE 200 MG PO (10:23)
[2024-01-12] MEDS: Ezetimibe 10 MG TABLET PO (10:23)
[2024-01-12] MEDS: polyethylene glycoL 3350 17 GM POWD.PACK PO (10:23)
[2024-01-12] MEDS: lamoTRIgine 25 MG TABLET 50 MG PO (10:23)
[2024-01-12] MEDS: Ziprasidone 60 MG CAPSULE PO (10:57)
--- NOTE | 2024-01-12 11:49 | PC.NURSE ---
pt has spent most of the am in bed, took am meds, called her sister, asked a couple times about her phone and belongings and was accepting of the response and review of pod rules, sister called and wanted an update and we are currently waiting for Fabienne ROQUE psych eval. Fabienne has the sister Sheryl's # and will call her back
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
[2024-01-12] MEDS: Sucralfate 1 GM TABLET 2 GM PO ×2 (13:31→18:07)
--- NOTE | 2024-01-12 14:52 | MHC.CM.PN ---
This teletypewriter operator spoke with Darleen Pickett: plan for patient. Awaiting ACL- to determine next steps. Referral sent to financial services for [employer]. Patient potentially owns condo and has a pension. CM will follow for discharge planning, would expect patient to remain at [facility] for a length of time.
[2024-01-12 15:08] VITALS: BP 107/60; PULSE 85; RESP 16; TEMP 36.4; O2SAT 100
--- NOTE | 2024-01-12 18:58 | PC.NURSE ---
patient appears to remain at rest presently, respirations are even and unlabored patient appears in no distress
--- NOTE | 2024-01-12 22:16 | MHC.CM.ED ---
CM spoke with Audelia WOOD psych. Per Audelia, she will cancel ACL, as she feels she has enough information from sister Sheryl, patient interview and MOCA of to deem patient needing 24/7 care. She recommends HCP be invoked. CM reviewed previous note from Transitional Acute Care Physician. CM called and updated HCP/sister Sheryl Pinon ([phone]). Sheryl will be away until 01/23. Sheryl tells CM that her sister is a hoarder. She owns a Condo, [employer] and has significant savings. CM spoke with Sheryl about [facility] and encouraged her to contact facilities and asked if they provide advance dementia care as the disease progresses. Sheryl is aware that a referral will be made for MH assistance, however it seems that patient will not qualify and will need to spend down significantly. Will mail sister a listing of [facility] facilities known to CM that provide advanced care. Sheryl is aware that if there are funds, she needs to make arrangements with [facility]. Sheryl does not seem to be interested in LTC. CM will speak with provider regarding invoking HCP.
--- NOTE | 2024-01-13 00:27 | PC.NURSE ---
Took report from off-going RN at 2300 hrs. Pt is a 73 y/o female who presents for evaluation of increasing erractic behavior, ? unsafe at home, ? failure to thrive. Lives at home with her sister. Pt is calm and cooperative, appropriate with staff. Easily arousable with verbal stimuli. Verbalizes needs appropriately. Has been sleeping, appears comforatable. No acute distress observed. Pt has been seen by care team and is currently a bed search. Will continue to monitor for any changes.
--- NOTE | 2024-01-13 01:20 | PC.NURSE ---
PT is OOB to use the toilet. Independent with ambulation.
[2024-01-13] MEDS: Melatonin 3 MG TABLET 6 MG PO ×2 (01:23→22:00)
--- NOTE | 2024-01-13 04:09 | PC.NURSE ---
Pt is OOB as desired to use the bathroom, ambulates with a steady gait independently. Skin is W/P/D. No acute distress observed. Pt intermittently resting since 2300 hrs, with ongoing, continuous safety checks every 15 min. Pt is calm and cooperative, easy to engage in conversation. No verbalized needs at this time.
[2024-01-13 06:05] VITALS: BP 149/77; PULSE 88; RESP 16; TEMP 36.3; O2SAT 100
[2024-01-13] MEDS: Levothyroxine Sodium 125 MCG TABLET PO (06:24)
--- NOTE | 2024-01-13 09:08 | PC.NURSE ---
Assumed care of patient at 0645, patient appears to be in no apparent distress this morning, laying in bed, respirations even and unlabored. Pt does appear withdrawn, minimally participating in conversation at this time. Continue plan of care for case management follow up
[2024-01-13] MEDS: lamoTRIgine 100 MG TABLET 200 MG PO (09:39)
[2024-01-13] MEDS: lamoTRIgine 25 MG TABLET 50 MG PO (09:39)
[2024-01-13] MEDS: Venlafaxine HCl ER 150 MG CAP.ER.24H PO (09:39)
[2024-01-13] MEDS: Docusate Sodium 100 MG CAPSULE 200 MG PO (09:43)
[2024-01-13] MEDS: Ezetimibe 10 MG TABLET PO (09:43)
[2024-01-13] MEDS: Ziprasidone 60 MG CAPSULE PO (11:34)
--- NOTE | 2024-01-13 12:47 | MHC.CM.ED ---
Patient remains in ER BH pod. Per psych, no psych. Patient's sister/HCP, Zabrina, is aware and willing to assist with d/c plan. Zabrina will be out of town until 01/23. Zabrina feels patient has funds but has to speak to patient's manager financial planning. Anticipate SNF private pay placement will be found until JACINDA can be found. Continue to monitor for d/c needs.
[2024-01-13] MEDS: Sucralfate 1 GM TABLET 2 GM PO ×2 (13:22→18:48)
--- NOTE | 2024-01-13 14:49 | PC.NURSE ---
pt brought to ed 17 from the pod, alert, speech clear, steady gait, pleasant, in room eating cookies and milk
[2024-01-13 16:48] VITALS: BP 107/56; PULSE 84; RESP 18; TEMP 36.9; O2SAT 100
--- NOTE | 2024-01-13 17:49 | PC.NURSE ---
contacted pharmacy to load Carafate into pyxis in overflow for patient.
--- NOTE | 2024-01-13 17:49 | PC.NURSE ---
pt had a pill box in her belongings. Sent to pharmacy. Paper documentation in chart.
[2024-01-13 20:25] VITALS: BP 118/57; PULSE 99; RESP 16; TEMP 37.1; O2SAT 95
--- NOTE | 2024-01-14 01:34 | PC.NURSE ---
Patient requesting Melatonin for sleep, resting comfortably at present . Bed alarm on for safety , call lópez within reach.
[2024-01-14 06:43] VITALS: BP 126/59; PULSE 83; RESP 16; TEMP 37.1; O2SAT 100
[2024-01-14] MEDS: Levothyroxine Sodium 125 MCG TABLET PO (06:50)
[2024-01-14] MEDS: Venlafaxine HCl ER 150 MG CAP.ER.24H PO (08:43)
[2024-01-14] MEDS: polyethylene glycoL 3350 17 GM POWD.PACK PO (08:43)
[2024-01-14] MEDS: lamoTRIgine 100 MG TABLET 200 MG PO (08:43)
[2024-01-14] MEDS: Ezetimibe 10 MG TABLET PO (08:44)
[2024-01-14] MEDS: Docusate Sodium 100 MG CAPSULE 200 MG PO (08:44)
[2024-01-14] MEDS: lamoTRIgine 25 MG TABLET 50 MG PO (08:57)
[2024-01-14] MEDS: Ziprasidone 60 MG CAPSULE PO (08:57)
[2024-01-14] MEDS: Sucralfate 1 GM TABLET 2 GM PO ×2 (11:37→16:39)
[2024-01-14 14:16] VITALS: BP 94/55; PULSE 98; RESP 16; TEMP 36.7; O2SAT 97
[2024-01-14 22:00] VITALS: BP 154/69; PULSE 92; RESP 16; TEMP 37.2; O2SAT 97
--- NOTE | 2024-01-14 22:24 | PC.NURSE ---
pt watching tv, requests something for sleep. Pt states she take melatonin. requesed from ED provider
[2024-01-14] MEDS: Melatonin 3 MG TABLET 6 MG PO (22:28)
--- NOTE | 2024-01-15 02:59 | PC.NURSE ---
resting quietly with eyes, resp with ease, no s/s of acute distress, will cont plan of care
[2024-01-15 06:00] VITALS: BP 131/68; PULSE 89; RESP 18; TEMP 36.9; O2SAT 100
--- NOTE | 2024-01-15 06:14 | PC.NURSE ---
pt up to the bathroom, pt amb steadily, without assistance, pt denies any needs at this time
[2024-01-15] MEDS: Levothyroxine Sodium 125 MCG TABLET PO (06:31)
[2024-01-15] MEDS: Ezetimibe 10 MG TABLET PO (09:28)
[2024-01-15] MEDS: Venlafaxine HCl ER 150 MG CAP.ER.24H PO (09:28)
[2024-01-15] MEDS: Docusate Sodium 100 MG CAPSULE 200 MG PO (09:28)
[2024-01-15] MEDS: polyethylene glycoL 3350 17 GM POWD.PACK PO (09:29)
[2024-01-15] MEDS: lamoTRIgine 100 MG TABLET 200 MG PO (12:34)
[2024-01-15] MEDS: Sucralfate 1 GM TABLET 2 GM PO ×2 (12:34→17:25)
--- NOTE | 2024-01-15 12:58 | PC.NURSE ---
has been calm and ambulatory in departemtn today. NAD. aware that dispotition is pending return of her sister. aware that she will be in EDOV for a while and took the news well. NAD. Eating well.
--- NOTE | 2024-01-15 13:16 | MHC.CM.ED ---
Patient remains in ER overflow. Patient updated that safe discharge plan is trying to be arranged. Patient aware sister is out of state until 01/23. Continue to monitor for d/c needs.
[2024-01-15 14:00] VITALS: BP 140/82; PULSE 87; RESP 16; TEMP 37.4; O2SAT 99
[2024-01-15] MEDS: Ziprasidone 60 MG CAPSULE PO (15:24)
--- NOTE | 2024-01-15 15:25 | PC.NURSE ---
offered shower. declning.
--- NOTE | 2024-01-15 15:35 | MHC.EDTECH ---
pt checked on, pt ambulated to bathroom and back to bed with no assistance. side table within reach
[2024-01-15 18:20] VITALS: BP 122/70; PULSE 98; RESP 12; TEMP 36.9; O2SAT 94
--- NOTE | 2024-01-15 18:28 | PC.NURSE ---
no complaints. resting quietly. NAD
--- NOTE | 2024-01-15 20:26 | MHC.CM.ED ---
CM met with patient to provide an update on plan of care. Pt is adamant that she will return home. States her sister told her she will need to move to assisted living. CM explained that patient is unable to safely care for herself at home. Explained that she needs / care. Explained that her sister is away until 01/23 and that patient will remain in the ED until a safe discharge plan can be made. Pt does not have capacity to make medical decisions and her HCP is invoked.
[2024-01-15 21:32] VITALS: BP 101/55; PULSE 101; RESP 14; TEMP 37.1; O2SAT 97
[2024-01-15] MEDS: Melatonin 3 MG TABLET 6 MG PO (22:52)
--- NOTE | 2024-01-16 01:38 | PC.NURSE ---
Patient asking for sleep medication, Melatonin administered, patient sleeping at present , bed alarm on for safety , call lópez within reach.
[2024-01-16 05:55] VITALS: BP 117/59; PULSE 88; RESP 18; TEMP 36.8; O2SAT 98
[2024-01-16] MEDS: Levothyroxine Sodium 125 MCG TABLET PO (07:43)
[2024-01-16] MEDS: polyethylene glycoL 3350 17 GM POWD.PACK PO (09:15)
[2024-01-16] MEDS: Docusate Sodium 100 MG CAPSULE 200 MG PO (09:15)
[2024-01-16] MEDS: Ezetimibe 10 MG TABLET PO (09:16)
[2024-01-16] MEDS: lamoTRIgine 100 MG TABLET 50 MG PO (09:16)
[2024-01-16] MEDS: lamoTRIgine 100 MG TABLET 200 MG PO (09:16)
[2024-01-16] MEDS: Venlafaxine HCl ER 150 MG CAP.ER.24H PO (09:16)
[2024-01-16] MEDS: Ziprasidone 60 MG CAPSULE PO (09:16)
--- NOTE | 2024-01-16 10:44 | PHA.MEDREC ---
Addendum entered by Kelvin Rios RPh 01/16/24 11:45: Reviewed by [facility], claims shows lamotrigine 100mg is 2 tabs (200mg) at bedtime. However, patient only takes one 100mg tabs at bedtime. Original Note: Pharmacy Consult ? Medication Reconciliation Pharmacy reviewed med rec done by nursing. Patient confirmed all the medications on the list with the exception I updated Lamotrigine, Miralax, Sucralfate, Venlafaxine and Ziprasidone as she stated she takes those at bedtime. The patient confirmed she is taking Lamotrigine 150mg and Lamotrigine 100mg together at night. She also states she is taking Vitamin C and Biotin but was not sure what the dosing were on those. She states she last took her medications at home about a week ago.
[2024-01-16] MEDS: Sucralfate 1 GM TABLET 2 GM PO ×2 (11:55→17:29)
[2024-01-16 14:00] VITALS: PULSE 110; RESP 20; TEMP 37.3; O2SAT 93
--- NOTE | 2024-01-16 16:33 | MHC.EDTECH ---
This pct assumed care of patient at 1520 pm ,Patient comfortable watching television .
--- NOTE | 2024-01-16 18:33 | MHC.EDTECH ---
Patient was set up with dinner ate 100 % of meal and drank 240 ml fluids .
[2024-01-16 21:34] VITALS: BP 117/77; PULSE 78; RESP 16; TEMP 36.7; O2SAT 97
[2024-01-16] MEDS: Melatonin 3 MG TABLET 6 MG PO (23:46)
[2024-01-17 00:26] VITALS: BP 120/62; PULSE 86; RESP 14; TEMP 36.2; O2SAT 97
--- NOTE | 2024-01-17 01:08 | PC.NURSE ---
Took report from off-going RN at 2300 hrs. Pt is a 73 y/o female who presents on 01/10 from home with sister for evaluation erratic behavior and ? of ability to care for self. Pt was eval'd in the community by crisis for med abuse. Pt is awake and alert, confused at baseline. History of dementia and no capacity to make decisions. Pt is independent with ambulation and toileting, has a steady gait. Does well taking medications. + elopement risk, is wearing an elopement bracelet. Plan is placement in long-term care facility, dementia unit. Skin is W/P/D, and no acute distress is observed. Will continue to monitor for any changes.
--- NOTE | 2024-01-17 02:26 | PC.NURSE ---
Pt is sleeping, left lateral recumbent in bed, appears comfortable. Arousable with verbal stimuli. Verbalizes needs appropriately. No acute distress observed
[2024-01-17 05:23] VITALS: BP 128/62; PULSE 78; RESP 14; TEMP 36; O2SAT 97
[2024-01-17] MEDS: Levothyroxine Sodium 125 MCG TABLET PO (06:08)
[2024-01-17] MEDS: Venlafaxine HCl ER 150 MG CAP.ER.24H PO (09:37)
[2024-01-17] MEDS: Ezetimibe 10 MG TABLET PO (09:37)
[2024-01-17] MEDS: Ziprasidone 60 MG CAPSULE PO (09:37)
[2024-01-17] MEDS: Docusate Sodium 100 MG CAPSULE 200 MG PO (09:38)
[2024-01-17] MEDS: lamoTRIgine 100 MG TABLET 200 MG PO (09:39)
[2024-01-17] MEDS: polyethylene glycoL 3350 17 GM POWD.PACK PO (09:39)
[2024-01-17] MEDS: lamoTRIgine 100 MG TABLET 50 MG PO (09:42)
[2024-01-17] MEDS: Sucralfate 1 GM TABLET 2 GM PO ×2 (11:04→16:57)
[2024-01-17 11:42] VITALS: BP 132/63; PULSE 79; RESP 16; TEMP 37.1; O2SAT 99
--- NOTE | 2024-01-17 12:12 | PC.NURSE ---
patient sitting up in bed, respirations equal and unlabored. patient is awake and alert, eating lunch.
--- NOTE | 2024-01-17 16:47 | PC.NURSE ---
patient resting quietly in room watching tv, sitting up in bed eating dinner. patient is awake and alert, ambulated with steady gait to the bathroom prior to dinner arriving.
[2024-01-17 18:23] VITALS: BP 104/52; PULSE 84; RESP 20; TEMP 37.2; O2SAT 99
[2024-01-17 19:17] VITALS: BP 137/64; PULSE 81; RESP 15; TEMP 36.7; O2SAT 99
--- NOTE | 2024-01-17 19:25 | PC.NURSE ---
this rn assumed care of pt, pt resting in stretcher, no acute distress noted. pt vss. denies pain at this time.
[2024-01-17] MEDS: Melatonin 3 MG TABLET 6 MG PO (22:42)
[2024-01-18 05:10] VITALS: BP 155/70; PULSE 90; RESP 16; TEMP 36.7; O2SAT 98
[2024-01-18] MEDS: Levothyroxine Sodium 125 MCG TABLET PO (06:23)
--- NOTE | 2024-01-18 07:24 | MHC.EDTECH ---
This tech assumed care of pt at 0645, pt is asleep in stretcher.
--- NOTE | 2024-01-18 07:43 | PC.NURSE ---
Pt has elopement bracelet on, needs to be removed if D/C or transferred.
[2024-01-18] MEDS: Ziprasidone 60 MG CAPSULE PO (08:12)
[2024-01-18] MEDS: lamoTRIgine 100 MG TABLET 200 MG PO (08:12)
[2024-01-18] MEDS: Venlafaxine HCl ER 150 MG CAP.ER.24H PO (08:12)
[2024-01-18] MEDS: Ezetimibe 10 MG TABLET PO (08:12)
[2024-01-18] MEDS: lamoTRIgine 100 MG TABLET 50 MG PO (08:12)
[2024-01-18] MEDS: Docusate Sodium 100 MG CAPSULE 200 MG PO (08:13)
[2024-01-18] MEDS: polyethylene glycoL 3350 17 GM POWD.PACK PO (08:13)
--- NOTE | 2024-01-18 08:47 | PC.NURSE ---
Pt alert, oriented to self. Breathing even and unlabored. Denies any pain or complaints. Pt took morning meds with no issues, eating breakfast. Plan of care ongoing, per CM waiting for sister to return from vacation to determine safe D/C plan. Sister is HCP.
[2024-01-18] MEDS: Sucralfate 1 GM TABLET 2 GM PO ×2 (11:50→17:00)
--- NOTE | 2024-01-18 13:47 | MHC.CM.ED ---
Patient remains in ER overflow. No capacity per psych. Patient's sister/HCP, Zabrina is out of state until 01/23. Patient has funds for private pay. Anticipate safe d/c plan will be available after 01/23. Lucila Garcia CM Director aware. Continue to monitor for d/c needs.
[2024-01-18 14:00] VITALS: BP 113/56; PULSE 84; RESP 18; TEMP 36.8; O2SAT 99
[2024-01-18 21:57] VITALS: BP 130/64; PULSE 79; RESP 16; TEMP 37.1; O2SAT 98
[2024-01-18] MEDS: Melatonin 3 MG TABLET 6 MG PO (23:07)
[2024-01-19 05:03] VITALS: BP 151/67; PULSE 76; RESP 20; TEMP 36.4; O2SAT 100
[2024-01-19] MEDS: Levothyroxine Sodium 125 MCG TABLET PO (05:47)
[2024-01-19 09:20] VITALS: BP 138/64; PULSE 88; RESP 16; TEMP 37.1; O2SAT 95
[2024-01-19] MEDS: Ezetimibe 10 MG TABLET PO (09:23)
[2024-01-19] MEDS: Docusate Sodium 100 MG CAPSULE 200 MG PO (09:23)
[2024-01-19] MEDS: lamoTRIgine 100 MG TABLET 50 MG PO (09:23)
[2024-01-19] MEDS: polyethylene glycoL 3350 17 GM POWD.PACK PO (09:23)
[2024-01-19] MEDS: Venlafaxine HCl ER 150 MG CAP.ER.24H PO (09:23)
[2024-01-19] MEDS: lamoTRIgine 100 MG TABLET 200 MG PO (09:23)
[2024-01-19] MEDS: Sucralfate 1 GM TABLET 2 GM PO ×2 (09:34→18:01)
--- NOTE | 2024-01-19 09:37 | PC.NURSE ---
patient takes pills whole with water. medicated per the MAR. continues to ambulate independently to and from the bathroom. requesting her sucralfate early d/t stomach pain.
[2024-01-19] MEDS: Ziprasidone 60 MG CAPSULE PO (12:16)
[2024-01-19] MEDS: Calcium Carbonate 750 MG TAB.CHEW PO (12:17)
[2024-01-19] MEDS: Famotidine 20 MG TABLET PO (13:31)
--- NOTE | 2024-01-19 14:29 | PC.NURSE ---
patient reports improvement after the medication administration
[2024-01-19 14:44] VITALS: BP 118/59; PULSE 81; RESP 20; TEMP 37.1; O2SAT 97
--- NOTE | 2024-01-19 18:16 | PC.NURSE ---
respirations even and unlabored, resting quietly in room. no obvious signs/symptoms of distress noted, medicated per the MAR.
--- NOTE | 2024-01-19 19:32 | PC.NURSE ---
This RN assumed pt care @ 1900 Pt resting comfortably in bed, no signs of distress. Plan of care ongoing.
--- NOTE | 2024-01-19 21:16 | PC.NURSE ---
Pt ambulates to the restroom independently with a steady gait. Plan of care ongoing.
[2024-01-19 22:00] VITALS: BP 103/56; PULSE 76; RESP 20; TEMP 36.9; O2SAT 97
--- NOTE | 2024-01-19 22:34 | PC.NURSE ---
User Support Analyst assume care @2200. Pt resting comfortably in bed, eyes close, resp even- unlabored. Ambulates to the bathroom independently. Plan of care ongoing.
[2024-01-19] MEDS: Melatonin 3 MG TABLET 6 MG PO (23:07)
[2024-01-20 06:00] VITALS: BP 128/67; PULSE 75; RESP 20; TEMP 36.6; O2SAT 97
[2024-01-20] MEDS: Levothyroxine Sodium 125 MCG TABLET PO (06:11)
[2024-01-20] MEDS: Ezetimibe 10 MG TABLET PO (10:11)
[2024-01-20] MEDS: lamoTRIgine 100 MG TABLET 200 MG PO (10:11)
[2024-01-20] MEDS: Ziprasidone 60 MG CAPSULE PO (10:11)
[2024-01-20] MEDS: polyethylene glycoL 3350 17 GM POWD.PACK PO (10:11)
[2024-01-20] MEDS: Docusate Sodium 100 MG CAPSULE 200 MG PO (10:12)
[2024-01-20] MEDS: Sucralfate 1 GM TABLET 2 GM PO ×2 (10:12→18:31)
[2024-01-20] MEDS: lamoTRIgine 100 MG TABLET 50 MG PO (10:12)
[2024-01-20] MEDS: Venlafaxine HCl ER 150 MG CAP.ER.24H PO (10:13)
[2024-01-20 14:00] VITALS: BP 110/59; PULSE 78; RESP 18; TEMP 36.5; O2SAT 98
[2024-01-20 19:45] VITALS: BP 103/56; PULSE 92; RESP 18; TEMP 36.7; O2SAT 97
--- NOTE | 2024-01-20 23:04 | PC.NURSE ---
pt resting comfortably at this time with eyes closed, breathing even and unlabored. no apparent distress noted. call lópez w/in reach
--- NOTE | 2024-01-21 01:55 | PC.NURSE ---
PT alert and oriented. walking to BR independently, call lópez within reach. Plan of care on going.
[2024-01-21 06:00] VITALS: BP 132/65; PULSE 86; RESP 18; TEMP 36.5; O2SAT 98
[2024-01-21] MEDS: Levothyroxine Sodium 125 MCG TABLET PO (06:08)
[2024-01-21] MEDS: Ezetimibe 10 MG TABLET PO (08:28)
[2024-01-21] MEDS: polyethylene glycoL 3350 17 GM POWD.PACK PO (08:28)
[2024-01-21] MEDS: Venlafaxine HCl ER 150 MG CAP.ER.24H PO (08:28)
[2024-01-21] MEDS: lamoTRIgine 100 MG TABLET 200 MG PO (08:28)
[2024-01-21] MEDS: Ziprasidone 60 MG CAPSULE PO (08:28)
[2024-01-21] MEDS: lamoTRIgine 100 MG TABLET 50 MG PO (08:28)
[2024-01-21] MEDS: Docusate Sodium 100 MG CAPSULE 200 MG PO (08:29)
--- NOTE | 2024-01-21 09:24 | PC.NURSE ---
Initial contact with pt. pt ambulatory to restroom. medicated per order, meal tray provided.
[2024-01-21] MEDS: Sucralfate 1 GM TABLET 2 GM PO ×2 (12:04→17:22)
--- NOTE | 2024-01-21 12:37 | PC.NURSE ---
Pt given all materials and clean clothes, showering independently
[2024-01-21 15:02] VITALS: BP 105/57; PULSE 80; RESP 16; O2SAT 80
--- NOTE | 2024-01-21 19:18 | PC.NURSE ---
Assumed care of pt.
[2024-01-21] MEDS: Melatonin 3 MG TABLET 6 MG PO (23:36)
[2024-01-21 23:39] VITALS: BP 144/65; PULSE 77; TEMP 36.6; O2SAT 97
--- NOTE | 2024-01-22 01:09 | PC.NURSE ---
RN assumed pt care @2300. Pt requested PRN Melatonin 6mg and administered, sleeping comfortably, no apparent distress noted, resp even- unlabored. Plan of care ongoing.
[2024-01-22 06:12] VITALS: BP 137/69; PULSE 79; RESP 16; TEMP 36.6; O2SAT 100
[2024-01-22] MEDS: Levothyroxine Sodium 125 MCG TABLET PO (06:12)
[2024-01-22] MEDS: Ziprasidone 60 MG CAPSULE PO (08:38)
[2024-01-22] MEDS: Ezetimibe 10 MG TABLET PO (08:38)
[2024-01-22] MEDS: Venlafaxine HCl ER 150 MG CAP.ER.24H PO (08:38)
[2024-01-22] MEDS: lamoTRIgine 100 MG TABLET 200 MG PO (08:38)
[2024-01-22] MEDS: Docusate Sodium 100 MG CAPSULE 200 MG PO (08:39)
[2024-01-22] MEDS: polyethylene glycoL 3350 17 GM POWD.PACK PO (08:39)
[2024-01-22] MEDS: lamoTRIgine 100 MG TABLET 50 MG PO (08:39)
--- NOTE | 2024-01-22 09:54 | MHC.CM.ED ---
Addendum entered by Marlen Huynh 01/22/24 09:56: Patient does not have the capacity to make her own decisions and is an elopement risk. Original Note: Patient remains in ER overflow. Received telephone call from patient's sister/HCP, Zabrina. Zabrina will be back in state on 01/23. Zabrina agreeable to referral being broadcasted within 25 miles of patient's house for private pay SNF until an appropriate memory assisted living facility can be obtained. Per Zabrina, patient has significant funds for placement. Continue to monitor for d/c needs.
[2024-01-22] MEDS: Sucralfate 1 GM TABLET 2 GM PO ×2 (11:59→17:07)
--- NOTE | 2024-01-22 17:14 | MHC.EDTECH ---
This pct assumed care of Patient at 1500 ,Patient watching television ,Patient was set up with dinner ate 100 % and drank 360 ml fluids .
--- NOTE | 2024-01-22 17:15 | PC.NURSE ---
Patient ate dinner. No additional needs at this time. Care ongoing by this RN. Bedsearch continues, see case management notes.
[2024-01-22 21:06] VITALS: BP 117/58; PULSE 62; RESP 16; TEMP 36.8; O2SAT 97
[2024-01-23] MEDS: Melatonin 3 MG TABLET 6 MG PO (00:26)
[2024-01-23 05:12] VITALS: BP 148/68; PULSE 91; RESP 20; TEMP 36.6; O2SAT 97
[2024-01-23] MEDS: Levothyroxine Sodium 125 MCG TABLET PO (05:40)
[2024-01-23] MEDS: lamoTRIgine 100 MG TABLET 50 MG PO (08:32)
[2024-01-23] MEDS: lamoTRIgine 100 MG TABLET 200 MG PO (08:32)
[2024-01-23] MEDS: Venlafaxine HCl ER 150 MG CAP.ER.24H PO (08:32)
[2024-01-23] MEDS: Docusate Sodium 100 MG CAPSULE 200 MG PO (08:33)
[2024-01-23] MEDS: Ezetimibe 10 MG TABLET PO (08:33)
[2024-01-23] MEDS: Ziprasidone 60 MG CAPSULE PO (08:33)
[2024-01-23] MEDS: polyethylene glycoL 3350 17 GM POWD.PACK PO (08:34)
--- NOTE | 2024-01-23 12:09 | MHC.CM.ED ---
Addendum entered by Marlen Huynh 01/23/24 13:21: Bed at [facility] would not be available for about 2 months. Addendum entered by Marlen Huynh 01/23/24 13:15: Received telephone call from Rachel of [facility]. [facility] doesn't have a memory [facility]. Patient could go to dementia unit at [facility], until a bed is available at [facility] in [place]. [facility] does have memory assisted living. This option will be discussed with Zabrina. Original Note: Patient remains in ER overflow. [facility] is able to offer a bed. [facility] and [facility] are still reviewing. Per Grace liaison at [facility], they have multiple levels of care and have apartment availability at [facility]. Patient's sister, Zabrina, made aware of potential SNF and [facility] availability. Per Zabrina, ok to provide clinical information to [facility]. Grace from [facility] will reach out to Zabrina. Rachel from [facility] will look into apartments that are available in their [facility]. Continue to monitor for d/c needs.
[2024-01-23] MEDS: Sucralfate 1 GM TABLET 2 GM PO ×2 (13:22→16:50)
[2024-01-23 14:00] VITALS: BP 106/51; PULSE 94; RESP 16; TEMP 37.1; O2SAT 95
--- NOTE | 2024-01-23 16:18 | MHC.CM.ED ---
Patient remains in ER overflow. Received notification from Grace of [facility] that Allyssa, Gas Plant Dispatcher will be on-site tomorrow 01/23 at 330pm to assess patient. Zabrina feels patient will not be willing to go to [facility] even though patient does not have capacity to make her own decisions. In order to make sure the same message is being portrayed to the patient, [facility] , Zabrina and [facility] should use the phrase the doctor feels this is the safest next step. Continue to monitor for d/c needs.
[2024-01-23 20:34] VITALS: BP 112/61; PULSE 73; RESP 16; TEMP 36.9; O2SAT 98
[2024-01-24] MEDS: Melatonin 3 MG TABLET 6 MG PO ×2 (00:59→21:50)
[2024-01-24 06:00] VITALS: BP 134/70; PULSE 82; RESP 16; TEMP 37.1; O2SAT 98
[2024-01-24] MEDS: Levothyroxine Sodium 125 MCG TABLET PO (06:09)
[2024-01-24] MEDS: lamoTRIgine 100 MG TABLET 200 MG PO (08:35)
[2024-01-24] MEDS: Docusate Sodium 100 MG CAPSULE 200 MG PO (08:35)
[2024-01-24] MEDS: lamoTRIgine 100 MG TABLET 50 MG PO (08:35)
[2024-01-24] MEDS: Ezetimibe 10 MG TABLET PO (08:35)
[2024-01-24] MEDS: Venlafaxine HCl ER 150 MG CAP.ER.24H PO (08:36)
[2024-01-24] MEDS: polyethylene glycoL 3350 17 GM POWD.PACK PO (08:36)
[2024-01-24] MEDS: Ziprasidone 60 MG CAPSULE PO (09:03)
[2024-01-24] MEDS: Sucralfate 1 GM TABLET 2 GM PO ×2 (11:55→18:18)
--- NOTE | 2024-01-24 14:08 | PC.NURSE ---
this nurse took over care of patient at 1300, patient a&ox3, vss, respiratory rate equal/non labored, pt walks independently/steady gait, denies pain/discomfort, call lópez within reach, will contniue to monitor
[2024-01-24 14:23] VITALS: BP 100/59; PULSE 79; RESP 16; TEMP 37.2; O2SAT 97
--- NOTE | 2024-01-24 14:46 | MHC.CM.ED ---
VOICEMAIL LEFT FOR THE [facility] LIAISON, CRISTEL, AT [phone] TO INQUIRE ABOUT VISIT TO [facility] AND IF PATIENT IS APPROPRIATE FOR THEIR FACILITY. AWAITING CALL BACK.
--- NOTE | 2024-01-24 15:35 | MHC.CM.ED ---
PERLA MCDONNELL, MET WITH PATIENT AND FEELS SHE IS APPROPRIATE FOR THEIR FACILITY; HOWEVER, PATIENT DOES NOT HAVE A FORMAL DIAGNOSIS OF DEMENTIA ON FILE. PERLA TO REACH OUT TO [facility] IN ATTEMPTS TO SECURE ADDITIONAL INFORMATION. PERLA IS NOT CERTAIN IF A DEMENTIA DX IS NECESSARY. SHE IS AWARE OF 15/30 MOCA SCORE. HCP IS INVOKED. PERLA WILL REACH OUT TO ONCE SHE HAS AN ANSWER. PERLA CAN BE REACHED AT [phone].
--- NOTE | 2024-01-24 18:19 | PC.NURSE ---
pt medicated per order
--- NOTE | 2024-01-24 19:25 | PC.NURSE ---
This RN assumed pt care @ 1900. Pt a&ox2, no signs of distress. Plan of care ongoing.
--- NOTE | 2024-01-24 21:50 | PC.NURSE ---
Pt requested and given melatonin to help with sleep Plan of care ongoing.
[2024-01-24 21:51] VITALS: BP 119/69; PULSE 80; RESP 16; TEMP 36.6; O2SAT 98
--- NOTE | 2024-01-24 22:00 | PC.NURSE ---
Pt ambulated to restroom and back into bed with a steady gait. Plan of care ongoing.
[2024-01-25] MEDS: Levothyroxine Sodium 125 MCG TABLET PO (05:48)
[2024-01-25 06:00] VITALS: BP 123/65; PULSE 73; RESP 16; TEMP 36.1; O2SAT 98
--- NOTE | 2024-01-25 08:58 | MHC.CM.ED ---
Patient remains in ER overflow. Received telephone call from Grace liaison for [facility]. [facility]. Grace will have Zabrina come to the facility today to tour and sign paperwork. Anticipate patient's apartment will not be ready until Sunday 01/28. Continue to monitor for d/c needs.
[2024-01-25 09:08] VITALS: BP 118/60; PULSE 75; RESP 16; TEMP 36.6; O2SAT 97
[2024-01-25] MEDS: polyethylene glycoL 3350 17 GM POWD.PACK PO (09:56)
[2024-01-25] MEDS: Docusate Sodium 100 MG CAPSULE 200 MG PO (09:57)
[2024-01-25] MEDS: Ezetimibe 10 MG TABLET PO (09:57)
[2024-01-25] MEDS: Ascorbic Acid 500 MG TABLET PO (10:58)
[2024-01-25] MEDS: Multivitamin TABLET 1 TAB PO (10:58)
[2024-01-25 14:00] VITALS: BP 145/09; PULSE 85; RESP 16; TEMP 36.9; O2SAT 97
[2024-01-25] MEDS: Sucralfate 1 GM TABLET 2 GM PO ×2 (15:37→18:10)
--- NOTE | 2024-01-25 15:58 | MHC.CM.ED ---
Met with patient, sister/HCP Zabrina, and friend Eduar in regards to discharge planning. All made aware of MOCA results and patient not having capacity to make her own decisions. Also aware of patient not being able to live home alone. Zabrina discussed [facility] with patient. Zabrina also has some other [facility] she wants to call. Will re-meet with patient and Zabrina tomorrow 01/25 to verify d/c plan. Continue to monitor for d/c needs.
[2024-01-25] MEDS: Calcium Carbonate 750 MG TAB.CHEW PO (18:11)
[2024-01-25] MEDS: Simethicone 80 MG TAB.CHEW 160 MG PO (19:34)
--- NOTE | 2024-01-25 19:53 | PC.NURSE ---
patient reported 8/10 epigastric pain. she states she had this pain a few days ago that resolved with gasx. Pt given her sucralfate and tums with no effect. MD paged but had already left. new md paged and gasx ordered. effect pending. Pt denies other complaint. She was stressed and tearful at times today discussing assisted living with family. Plan of care ongoing.
[2024-01-25] MEDS: Venlafaxine HCl ER 150 MG CAP.ER.24H PO (20:35)
[2024-01-25] MEDS: Ziprasidone 60 MG CAPSULE PO (20:35)
[2024-01-25] MEDS: Melatonin 3 MG TABLET 6 MG PO (20:36)
[2024-01-25] MEDS: lamoTRIgine 25 MG TABLET 50 MG PO (20:36)
[2024-01-25] MEDS: lamoTRIgine 100 MG TABLET 200 MG PO (20:36)
[2024-01-25 22:00] VITALS: BP 134/73; PULSE 76; RESP 18; TEMP 36.6; O2SAT 97
[2024-01-26] MEDS: Levothyroxine Sodium 125 MCG TABLET PO (05:22)
[2024-01-26 05:56] VITALS: BP 119/64; PULSE 75; RESP 16; TEMP 36.6; O2SAT 99
[2024-01-26] MEDS: Ezetimibe 10 MG TABLET PO (08:59)
[2024-01-26] MEDS: polyethylene glycoL 3350 17 GM POWD.PACK PO (08:59)
[2024-01-26] MEDS: Docusate Sodium 100 MG CAPSULE 200 MG PO (08:59)
[2024-01-26] MEDS: Ascorbic Acid 500 MG TABLET PO (09:00)
[2024-01-26] MEDS: Multivitamin TABLET 1 TAB PO (09:00)
--- NOTE | 2024-01-26 09:49 | PC.NURSE ---
Medicated this morning per provider orders. Denies pain at this time. Pt sitting upright, pleasant, ate breakfast. Given ice water. Call lópez within reach. Care ongoing.
--- NOTE | 2024-01-26 12:27 | MHC.CM.ED ---
Patient remains in ER overflow. Spoke with patient's sister/HCP, Zabrina, via telephone at [phone].[facility] will be about $10,000 per month. Zabrina toured [facility], which has a bed and would be less than [facility]. Zabrina has an appointment to tour [facility] at 3pm. Continue to monitor for d/c needs.
[2024-01-26] MEDS: Sucralfate 1 GM TABLET 2 GM PO ×2 (12:55→18:11)
[2024-01-26 15:17] VITALS: BP 165/76; PULSE 77; RESP 16; TEMP 37; O2SAT 99
--- NOTE | 2024-01-26 18:43 | PC.NURSE ---
assumed care of patient at 1645. She is resting quietly in bed and denies pain or other concern at this time. Pt expressing worry about upcoming transfer to assisted living. Pt offered comfort and a chance to discuss her concerns. safety precautions maintained.
[2024-01-26] MEDS: lamoTRIgine 100 MG TABLET 200 MG PO (20:50)
[2024-01-26] MEDS: Ziprasidone 60 MG CAPSULE PO (20:51)
[2024-01-26] MEDS: Venlafaxine HCl ER 150 MG CAP.ER.24H PO (20:51)
[2024-01-26] MEDS: Melatonin 3 MG TABLET 6 MG PO (20:51)
[2024-01-26] MEDS: lamoTRIgine 25 MG TABLET 50 MG PO (20:51)
[2024-01-27] MEDS: Levothyroxine Sodium 125 MCG TABLET PO (05:18)
[2024-01-27 05:52] VITALS: BP 131/64; PULSE 76; RESP 16; TEMP 36.6; O2SAT 99
[2024-01-27] MEDS: polyethylene glycoL 3350 17 GM POWD.PACK PO (07:53)
[2024-01-27] MEDS: Docusate Sodium 100 MG CAPSULE 200 MG PO (07:55)
[2024-01-27] MEDS: Multivitamin TABLET 1 TAB PO (07:55)
[2024-01-27] MEDS: Ascorbic Acid 500 MG TABLET PO (07:55)
[2024-01-27] MEDS: Ezetimibe 10 MG TABLET PO (07:55)
[2024-01-27] MEDS: Sucralfate 1 GM TABLET 2 GM PO ×2 (12:01→16:37)
[2024-01-27 13:50] VITALS: BP 123/60; PULSE 82; RESP 18; TEMP 36.9; O2SAT 100
[2024-01-27] MEDS: lamoTRIgine 100 MG TABLET 200 MG PO (20:19)
[2024-01-27] MEDS: Venlafaxine HCl ER 150 MG CAP.ER.24H PO (20:19)
[2024-01-27] MEDS: Ziprasidone 60 MG CAPSULE PO (20:19)
[2024-01-27] MEDS: Melatonin 3 MG TABLET 6 MG PO (20:19)
[2024-01-27] MEDS: lamoTRIgine 25 MG TABLET 50 MG PO (21:02)
--- NOTE | 2024-01-27 21:31 | PC.NURSE ---
pt medicated per MAR - meds taken whole w water, resting quietly in bed, texting and watching TV.
[2024-01-27 22:00] VITALS: BP 127/67; PULSE 68; RESP 16; TEMP 36.8; O2SAT 96
--- NOTE | 2024-01-28 01:11 | PC.NURSE ---
Assumed care of pt @2300. Pt resting comfortably at this time, resp even and unlabored. No apparent distress. Call lópez within reach. Plan of care ongoing.
[2024-01-28 05:55] VITALS: BP 145/70; PULSE 76; RESP 16; TEMP 36.6; O2SAT 99
[2024-01-28] MEDS: Levothyroxine Sodium 125 MCG TABLET PO (06:13)
[2024-01-28] MEDS: polyethylene glycoL 3350 17 GM POWD.PACK PO (08:10)
[2024-01-28] MEDS: Docusate Sodium 100 MG CAPSULE 200 MG PO (08:10)
[2024-01-28] MEDS: Ezetimibe 10 MG TABLET PO (08:10)
[2024-01-28] MEDS: Multivitamin TABLET 1 TAB PO ×2 (08:11→08:14)
[2024-01-28] MEDS: Ascorbic Acid 500 MG TABLET PO (09:23)
--- NOTE | 2024-01-28 09:42 | MHC.EDTECH ---
pt ate 50% of her breakfast
--- NOTE | 2024-01-28 09:43 | MHC.EDTECH ---
pt is a self and was given hygiene suplies
[2024-01-28] MEDS: Sucralfate 1 GM TABLET 2 GM PO ×2 (11:49→17:01)
[2024-01-28 14:00] VITALS: BP 112/66; PULSE 84; RESP 16; TEMP 37.4; O2SAT 97
[2024-01-28 22:00] VITALS: BP 125/68; PULSE 81; RESP 18; TEMP 36.7; O2SAT 97
[2024-01-28] MEDS: lamoTRIgine 100 MG TABLET 200 MG PO (22:10)
[2024-01-28] MEDS: lamoTRIgine 25 MG TABLET 50 MG PO (22:10)
[2024-01-28] MEDS: Ziprasidone 60 MG CAPSULE PO (22:10)
[2024-01-28] MEDS: Melatonin 3 MG TABLET 6 MG PO (22:10)
[2024-01-28] MEDS: Venlafaxine HCl ER 150 MG CAP.ER.24H PO (22:11)
--- NOTE | 2024-01-29 00:15 | PC.NURSE ---
Pt AOx3, able to make needs known. Pt asked for her night time medication so she could sleep but then for approx 2 hours was calling people on her cell phone. Encouraged pt to try to sleep and let the people she was calling sleep. She agreed but then kept calling people. Call lópez within reach, frequent checks done. She is able to ambulate to the bathroom independently.
[2024-01-29 06:00] VITALS: BP 118/57; PULSE 78; RESP 15; TEMP 36.4; O2SAT 95
[2024-01-29] MEDS: Levothyroxine Sodium 125 MCG TABLET PO (06:05)
[2024-01-29 07:31] VITALS: BP 117/59; PULSE 73; RESP 16; TEMP 36.4; O2SAT 96
--- NOTE | 2024-01-29 07:32 | PC.NURSE ---
assumed care of this patient, patient sitting up in bed, alert and awake, VSS. respirations equal and unlabored, skin dry and intact
[2024-01-29] MEDS: Docusate Sodium 100 MG CAPSULE 200 MG PO (08:36)
[2024-01-29] MEDS: polyethylene glycoL 3350 17 GM POWD.PACK PO (08:36)
[2024-01-29] MEDS: Ezetimibe 10 MG TABLET PO (08:36)
[2024-01-29] MEDS: Ascorbic Acid 500 MG TABLET PO (08:36)
[2024-01-29 08:45] VITALS: BP 160/58; PULSE 78; RESP 16; TEMP 36.5; O2SAT 99
--- NOTE | 2024-01-29 11:09 | MHC.CM.ED ---
Addendum entered by Marlen Huynh 01/29/24 14:10: Received notification from Delfina of [facility], that they will no longer be able to offer an apartment to patient d/t inpatient psych admission 03/2023 and patient had SI on 01/10. Delfina aware patient was cleared by psych for SI. Delfina states they will not be able to offer an apartment per company policy. Zabrina aware. She will re-meet with [facility]. Original Note: Patient remains in ER overflow. Received voicemail from Zabrina stating she accepted a bed at [facility] in [place]. Nurse from facility will be on site today to assess patient. Will have a better idea of anticipated d/c date after that. Continue to monitor for d/c needs.
[2024-01-29] MEDS: Sucralfate 1 GM TABLET 2 GM PO ×2 (11:58→16:45)
--- NOTE | 2024-01-29 12:40 | PC.NURSE ---
patient is ambulatory, no assistance, patient completes ADLS on own. patient has family at bedside, plan of care on going
[2024-01-29 14:57] VITALS: BP 118/56; PULSE 79; RESP 19; TEMP 36.7; O2SAT 95
--- NOTE | 2024-01-29 16:18 | PC.NURSE ---
patient resting quietly in hospital bed, patient able to make needs known. patient ambulated to bathroom with steady gait. this RN assisted patient in word search, patient seems to be enjoying coloring that her family brought her.
[2024-01-29] MEDS: lamoTRIgine 100 MG TABLET 200 MG PO (20:29)
[2024-01-29] MEDS: Ziprasidone 60 MG CAPSULE PO (20:29)
[2024-01-29] MEDS: lamoTRIgine 25 MG TABLET 50 MG PO (20:29)
[2024-01-29] MEDS: Melatonin 3 MG TABLET 6 MG PO (20:29)
[2024-01-29] MEDS: Venlafaxine HCl ER 150 MG CAP.ER.24H PO (20:29)
--- NOTE | 2024-01-29 20:47 | MHC.CM.ED ---
CM met with patient. She is very pleasant. LUCITA told her that her sister Zabrina is working hard to find a good place for her to live that can care for her needs. CM explained that we are hopeful that her sister/HCP Zabrina will have all of this arranged by Monday. Pt is pleased and agreeable at this time. Family is working with [facility]. Will work on paperwork and financials on Monday with a proposed discharge to facility on Monday.
[2024-01-29 22:15] VITALS: BP 136/68; PULSE 73; RESP 17; TEMP 36.6; O2SAT 99
[2024-01-30 06:00] VITALS: BP 182/82; PULSE 82; RESP 18; TEMP 36.7; O2SAT 99
[2024-01-30] MEDS: Levothyroxine Sodium 125 MCG TABLET PO (06:06)
[2024-01-30 06:33] VITALS: BP 109/59; PULSE 74; RESP 18; O2SAT 98
[2024-01-30 08:10] VITALS: BP 126/65; PULSE 72; RESP 18; TEMP 36.4; O2SAT 100
[2024-01-30] MEDS: Docusate Sodium 100 MG CAPSULE 200 MG PO (08:28)
[2024-01-30] MEDS: Ascorbic Acid 500 MG TABLET PO (08:29)
[2024-01-30] MEDS: Multivitamin TABLET 1 TAB PO (08:29)
[2024-01-30] MEDS: Ezetimibe 10 MG TABLET PO (08:29)
[2024-01-30] MEDS: polyethylene glycoL 3350 17 GM POWD.PACK PO (08:29)
--- NOTE | 2024-01-30 12:18 | MHC.CM.ED ---
Patient remains in ER overflow. Provider clearance form completed by Veronika POWELL and sent to [facility]. Zabrina, sister/HCP, will sign paperwork at [facility] on Monday. Discharge from ER to [facility] on Monday. Continue to monitor for d/c needs.
[2024-01-30] MEDS: Sucralfate 1 GM TABLET 2 GM PO ×2 (12:50→17:58)
[2024-01-30 14:14] VITALS: BP 122/60; PULSE 82; RESP 16; TEMP 37.3; O2SAT 97
--- NOTE | 2024-01-30 14:47 | MHC.EDTECH ---
Patient requesting to use shower. Provided her with change of clothes, towels, washcloth. Patient already has shampoo/body wash, provided by staff at an earlier time.
[2024-01-30 20:12] VITALS: BP 126/59; PULSE 73; RESP 18; TEMP 36.6; O2SAT 95
[2024-01-30] MEDS: Ziprasidone 60 MG CAPSULE PO (20:28)
[2024-01-30] MEDS: Venlafaxine HCl ER 150 MG CAP.ER.24H PO (20:28)
[2024-01-30] MEDS: lamoTRIgine 100 MG TABLET 200 MG PO (20:28)
[2024-01-30] MEDS: lamoTRIgine 25 MG TABLET 50 MG PO (20:34)
[2024-01-31] MEDS: Melatonin 3 MG TABLET 6 MG PO ×2 (00:49→20:20)
[2024-01-31] MEDS: Levothyroxine Sodium 125 MCG TABLET PO (06:34)
[2024-01-31 06:50] VITALS: BP 103/52; PULSE 75; RESP 17; TEMP 36.7; O2SAT 97
--- NOTE | 2024-01-31 06:59 | PC.NURSE ---
report recieved from previous RN, patient resting comfortably on hospital stretcher, offering no complaints at this time, plan of care ongoing
[2024-01-31] MEDS: polyethylene glycoL 3350 17 GM POWD.PACK PO (08:49)
[2024-01-31] MEDS: Ascorbic Acid 500 MG TABLET PO (08:50)
[2024-01-31] MEDS: Docusate Sodium 100 MG CAPSULE 200 MG PO (08:50)
[2024-01-31] MEDS: Multivitamin TABLET 1 TAB PO (08:50)
[2024-01-31] MEDS: Ezetimibe 10 MG TABLET PO (08:51)
--- NOTE | 2024-01-31 10:36 | PC.NURSE ---
patient with elopement band on, unsure of placement, last note entered 01/18/2024. per policy band to be replaced 02/05 if placement was 01/17
[2024-01-31] MEDS: Sucralfate 1 GM TABLET 2 GM PO (11:49)
--- NOTE | 2024-01-31 11:56 | PC.NURSE ---
patient provided with lunch tray, repositioned onto recliner, medicated per MAR, offering no complaints at this time, remains in good spirits, agreeable to plan of care.
[2024-01-31 14:00] VITALS: BP 120/56; PULSE 82; TEMP 37.1; O2SAT 94
--- NOTE | 2024-01-31 15:13 | MHC.CM.ED ---
Patient remains in ER overflow. Received notification from Zabrina that furniture for patient's apartment will not be delivered until Monday now. Zabrina requesting transfer to [facility] on Monday. Continue to monitor for d/c needs.
--- NOTE | 2024-01-31 17:06 | PC.NURSE ---
patient provided with dinner tray. remains sitting in recliner at this time, offering no complaints, pleasant with staff and agreeable to plan of care
[2024-01-31] MEDS: Venlafaxine HCl ER 150 MG CAP.ER.24H PO (20:20)
[2024-01-31] MEDS: Ziprasidone 60 MG CAPSULE PO (20:20)
[2024-01-31] MEDS: lamoTRIgine 100 MG TABLET 200 MG PO (20:20)
[2024-01-31] MEDS: lamoTRIgine 25 MG TABLET 50 MG PO (20:21)
[2024-01-31 21:15] VITALS: BP 105/58; PULSE 76; RESP 16; TEMP 37; O2SAT 97
[2024-02-01] MEDS: Levothyroxine Sodium 125 MCG TABLET PO (06:14)
[2024-02-01 08:00] VITALS: BP 119/56; PULSE 81; RESP 16; O2SAT 95
[2024-02-01] MEDS: Docusate Sodium 100 MG CAPSULE 200 MG PO (08:36)
[2024-02-01] MEDS: Multivitamin TABLET 1 TAB PO (08:36)
[2024-02-01] MEDS: Ezetimibe 10 MG TABLET PO (08:36)
[2024-02-01] MEDS: polyethylene glycoL 3350 17 GM POWD.PACK PO (08:36)
[2024-02-01] MEDS: Ascorbic Acid 500 MG TABLET PO (08:36)
--- NOTE | 2024-02-01 09:58 | PC.NURSE ---
has needed support in accepting the fit of her Jenaro. Perseveration on how lose it is. Calm.
[2024-02-01] MEDS: Sucralfate 1 GM TABLET 2 GM PO ×2 (12:30→15:58)
[2024-02-01 13:26] VITALS: BP 101/50; PULSE 85; RESP 16; O2SAT 94
--- NOTE | 2024-02-01 17:32 | PC.NURSE ---
no acute complications this shift.
[2024-02-01] MEDS: lamoTRIgine 100 MG TABLET 200 MG PO (20:41)
[2024-02-01] MEDS: Venlafaxine HCl ER 150 MG CAP.ER.24H PO (20:41)
[2024-02-01] MEDS: lamoTRIgine 25 MG TABLET 50 MG PO (20:41)
[2024-02-01] MEDS: Ziprasidone 60 MG CAPSULE PO (20:41)
[2024-02-01] MEDS: Melatonin 3 MG TABLET 6 MG PO (20:42)
[2024-02-01 21:00] VITALS: BP 121/86; PULSE 72; RESP 16; TEMP 37.1; O2SAT 96
[2024-02-02] MEDS: Levothyroxine Sodium 125 MCG TABLET PO (05:26)
[2024-02-02 06:00] VITALS: BP 117/63; PULSE 76; RESP 18; TEMP 36; O2SAT 96
[2024-02-02 08:05] VITALS: BP 105/62; PULSE 73; RESP 16; TEMP 37.1; O2SAT 96
[2024-02-02] MEDS: Ascorbic Acid 500 MG TABLET PO (10:17)
[2024-02-02] MEDS: Docusate Sodium 100 MG CAPSULE 200 MG PO (10:17)
[2024-02-02] MEDS: Ezetimibe 10 MG TABLET PO (10:18)
[2024-02-02] MEDS: polyethylene glycoL 3350 17 GM POWD.PACK PO (10:18)
[2024-02-02] MEDS: Multivitamin TABLET 1 TAB PO (10:18)
--- NOTE | 2024-02-02 10:19 | PC.NURSE ---
Pt took am medications without incident. Denies needs at this time
[2024-02-02] MEDS: Sucralfate 1 GM TABLET 2 GM PO ×2 (11:53→18:03)
--- NOTE | 2024-02-02 11:54 | PC.NURSE ---
Pt given lunch tray, reports she is not hungry at this time and will save for later.
--- NOTE | 2024-02-02 13:40 | PC.NURSE ---
Family at bedside with patient.
[2024-02-02 13:56] VITALS: BP 116/69; PULSE 83; RESP 17; O2SAT 96
--- NOTE | 2024-02-02 18:10 | MHC.CM.ED ---
LUCITA called and booked transport with [facility] for Sunday 02/04 @ 1pm to [facility]. Med nec on chart.
[2024-02-02 19:12] VITALS: BP 117/56; PULSE 85; RESP 16; TEMP 36.7; O2SAT 95
--- NOTE | 2024-02-02 19:12 | PC.NURSE ---
this rn assumed care of pt, pt sitting up in hospital bed, no acute distress noted. denies pain at this time, vss.
--- NOTE | 2024-02-02 20:46 | PC.NURSE ---
pt medications noted to not be in pyxis, pharmacy aware.
[2024-02-02] MEDS: lamoTRIgine 100 MG TABLET 200 MG PO (21:11)
[2024-02-02] MEDS: lamoTRIgine 25 MG TABLET 50 MG PO (21:11)
[2024-02-02] MEDS: Ziprasidone 60 MG CAPSULE PO (21:11)
[2024-02-02] MEDS: Venlafaxine HCl ER 150 MG CAP.ER.24H PO (21:11)
[2024-02-02] MEDS: Melatonin 3 MG TABLET 6 MG PO (21:14)
--- NOTE | 2024-02-02 21:19 | PC.NURSE ---
pt medicated per mar, tolerated well with water.
--- NOTE | 2024-02-02 22:32 | PC.NURSE ---
pt reporting lower abdominal pain at this time, Pt requesting tylenol, henri pratt aware.
[2024-02-02 22:47] VITALS: BP 108/60; PULSE 79; RESP 20; TEMP 36.3; O2SAT 97
[2024-02-02] MEDS: Acetaminophen 325 MG TABLET 975 MG PO (23:16)
[2024-02-03] MEDS: Levothyroxine Sodium 125 MCG TABLET PO (05:38)
[2024-02-03 05:42] VITALS: BP 105/58; PULSE 80; RESP 20; TEMP 36.3; O2SAT 96
--- NOTE | 2024-02-03 07:01 | PC.NURSE ---
Assumed care of patient at 0645, patient appears to be in no apparent distress this am, sitting watching TV, offers no complaints to this RN. Continue plan of care for [facility] on Sunday 02/04. Camera in place for safety
[2024-02-03] MEDS: Multivitamin TABLET 1 TAB PO ×2 (08:18)
[2024-02-03] MEDS: Docusate Sodium 100 MG CAPSULE 200 MG PO (08:18)
[2024-02-03] MEDS: Ezetimibe 10 MG TABLET PO (08:18)
[2024-02-03] MEDS: Ascorbic Acid 500 MG TABLET PO (08:18)
[2024-02-03] MEDS: polyethylene glycoL 3350 17 GM POWD.PACK PO (08:18)
[2024-02-03] MEDS: Sucralfate 1 GM TABLET 2 GM PO ×2 (12:03→17:55)
[2024-02-03 14:45] VITALS: BP 123/55; PULSE 76; RESP 18; TEMP 37.1; O2SAT 98
--- NOTE | 2024-02-03 17:19 | PC.NURSE ---
Pt alert and cooperative, denies complaint. Mood appropriate to situation and pt allowed time to discuss her significant life change. She is within sight of nursing due to her bed location. Unit cameras and pt with elopement band maintained. Pt demonstrates NO unsafe behaviors at this time. plan of care ongoing.....
[2024-02-03] MEDS: lamoTRIgine 25 MG TABLET 50 MG PO (20:33)
[2024-02-03] MEDS: Venlafaxine HCl ER 150 MG CAP.ER.24H PO (20:33)
[2024-02-03] MEDS: lamoTRIgine 100 MG TABLET 200 MG PO (20:33)
[2024-02-03] MEDS: Ziprasidone 60 MG CAPSULE PO (20:33)
--- NOTE | 2024-02-03 21:48 | PC.NURSE ---
pt resting quietly in bed at this time, resp with ease, no s/s of acute distress,
[2024-02-04 05:23] VITALS: BP 115/55; PULSE 76; RESP 18; TEMP 36.2; O2SAT 96
[2024-02-04] MEDS: Levothyroxine Sodium 125 MCG TABLET PO (05:25)
[2024-02-04] MEDS: Docusate Sodium 100 MG CAPSULE 200 MG PO (08:42)
[2024-02-04] MEDS: Multivitamin TABLET 1 TAB PO ×2 (08:42→08:43)
[2024-02-04] MEDS: Ezetimibe 10 MG TABLET PO (08:42)
[2024-02-04] MEDS: polyethylene glycoL 3350 17 GM POWD.PACK PO (08:43)
[2024-02-04] MEDS: Ascorbic Acid 500 MG TABLET PO (08:43)
--- NOTE | 2024-02-04 10:36 | PC.NURSE ---
Pt axox3, upright and eating majority of breakfast. Conversing with staff and other patients. No physical complaints at this time. Offered supplies for ADLs and is independent.
--- NOTE | 2024-02-04 10:58 | MHC.CM.ED ---
Pt has been booked for 02/04 d/c to [facility]. Pt stable and informed on d/c plan. ED CM to follow
[2024-02-04 14:00] VITALS: BP 160/70; PULSE 92; RESP 18; TEMP 36.2; O2SAT 97
[2024-02-04] MEDS: LORazepam 0.5 MG TABLET PO (14:20)
--- NOTE | 2024-02-04 14:23 | PC.NURSE ---
Pt has been increasingly irritated and perseverating that she's dying. Friend at bedside stated he had never seen her so bothered. Ativan administered for this reason.
--- NOTE | 2024-02-04 17:02 | PC.NURSE ---
Has been calm and recieving visit from sister in the last hour. No complaints and decreased anxiety. Reluctant to eat the snacks provided by visitors throughout the day.
[2024-02-04] MEDS: Sucralfate 1 GM TABLET 2 GM PO (17:16)
--- NOTE | 2024-02-04 19:07 | PC.NURSE ---
received report from Rowan ENGEL, assume care of pt at this time
[2024-02-04] MEDS: lamoTRIgine 25 MG TABLET 50 MG PO (20:18)
[2024-02-04] MEDS: Venlafaxine HCl ER 150 MG CAP.ER.24H PO (20:18)
[2024-02-04] MEDS: Ziprasidone 60 MG CAPSULE PO (20:18)
[2024-02-04] MEDS: lamoTRIgine 100 MG TABLET 200 MG PO (20:18)
[2024-02-04] MEDS: Melatonin 3 MG TABLET 6 MG PO (20:21)
--- NOTE | 2024-02-04 21:59 | PC.NURSE ---
resting quietly in bed, eyes closed, resp with ease, no s/s of acute distress
[2024-02-04 22:28] VITALS: BP 135/61; PULSE 98; RESP 16; TEMP 36.3; O2SAT 96
[2024-02-05 06:00] VITALS: BP 102/63; PULSE 72; RESP 16; TEMP 36.6; O2SAT 98
[2024-02-05] MEDS: Levothyroxine Sodium 125 MCG TABLET PO (06:03)
--- NOTE | 2024-02-05 06:06 | PC.NURSE ---
pt awake and moring meds given, resp with ease, no acute distress noted, will cont plan of care
--- NOTE | 2024-02-05 07:54 | PC.NURSE ---
[facility] called at this time to confirm [facility] address in [place]. information relayed over the phone by this RN. ETA remains unknown at this time. will update patient when able.
[2024-02-05] MEDS: Ascorbic Acid 500 MG TABLET PO (08:34)
[2024-02-05] MEDS: Multivitamin TABLET 1 TAB PO (08:34)
[2024-02-05] MEDS: polyethylene glycoL 3350 17 GM POWD.PACK PO (08:34)
[2024-02-05] MEDS: Ezetimibe 10 MG TABLET PO (08:34)
[2024-02-05] MEDS: Docusate Sodium 100 MG CAPSULE 200 MG PO (08:34)
--- NOTE | 2024-02-05 08:53 | MHC.CM.ED ---
Patient remains in ER overflow. Will transfer to [facility] via [facility] at 1pm. Continue to monitor for d/c needs.
--- NOTE | 2024-02-05 12:28 | PC.NURSE ---
Called [facility], spoke to Karla RN, gave RN to RN phone report, all questions answered. Patient currently enroute to [facility].
[2024-02-05 12:30] VITALS: BP 102/63; PULSE 72; RESP 16; TEMP 36.6; O2SAT 98
== END 2024-02-05 12:31 | disposition other institution (70) ==
PROVIDERS: Physician Assistant; Physician Assistant Medical; Emergency Provider Emergency Medicine Emergency Medical Services; PCP Internal Medicine
DX: R62.7 Adult failure to thrive (principal); Z68.20 Body mass index [BMI] 20.0-20.9, adult; R45.851 Suicidal ideations; F13.10 Sedative, hypnotic or anxiolytic abuse, uncomplicated; E86.0 Dehydration; R41.82 Altered mental status, unspecified; R41.89 Other symptoms and signs involving cognitive functions and awareness; F31.9 Bipolar disorder, unspecified; F41.9 Anxiety disorder, unspecified; E78.5 Hyperlipidemia, unspecified; G47.30 Sleep apnea, unspecified; E03.9 Hypothyroidism, unspecified; Z91.51 Personal history of suicidal behavior; Z79.899 Other long term (current) drug therapy
CPT/HCPCS: 36415; 70450; 80048; 80076; 80307; 81001; 81003; 82565; 83735; 84439; 84443; 85025; 87086; 99285; S9485

== ENCOUNTER → 2024-01-11 16:56 | Outpatient (BNV) | payer MEDICARE, BC, SELFPAY | PROVIDERS: Emergency Provider Emergency Medicine Emergency Medical Services; PCP Internal Medicine; Visit Provider Social Worker | DX: R41.89 Other symptoms and signs involving cognitive functions and awareness (principal) | CPT/HCPCS: 99285 ==